=== PATIENT | male | born 1970 | race Asian ===

== ENCOUNTER 2018-11-03 07:14 | Inpatient (IN) | payer OTHER, SELFPAY ==
[2018-11-03] VITALS (134 sets, daily range): BP systolic 64–133; BP diastolic 29–85; PULSE 78–172; RESP 5–49; TEMP 31–37.7; O2SAT 79–100
[2018-11-03] MEDS: Normal Saline 1,000 ML 1000 ML IV ×3 (07:30→19:01)
--- NOTE | 2018-11-03 08:00 | DI.CT_ITS ---
SYMPTOMS/DIAGNOSIS: CHEST PAIN AND ABDOMINAL PAIN PE CT: CT angiography was performed with multi slice acquisition and multi planar and 3D reconstruction. The study was conducted according to the usual protocol with an intravenous administration of 100 cc of Omnipaque 350. There is a dense region of consolidation involving the right upper lobe. The remainder of the lung is clear. There is no pleural effusion or pneumothorax. There is no evidence of pulmonary embolic disease. The heart is not enlarged. There is no pericardial effusion. There is no evidence of an aortic aneurysm. The bony structures appear intact. SUMMARY: No evidence of pulmonary embolic disease. A sizeable region of increased density in the right upper lobe most likely represents an acute pneumonitis. Correlation with the patient's clinical status and follow-up imaging to clearing is recommended. CT OF THE ABDOMEN AND PELVIS: The examination was carried out with an intravenous administration of 100 cc of Omnipaque 350. The liver is unremarkable. The gallbladder is intact. The pancreas, spleen and kidneys appear intact. There is no abnormality involving the adrenal glands. There is no evidence of bowel obstruction. Thickening in the gastric wall is noted and is most certainly related to suboptimal distention. The appendix is normal. There is no evidence of localized inflammatory bowel disease or a mass. The bladder is suboptimally distended, but appears grossly intact. The reproductive organs as visualized are unremarkable. The aorta is unremarkable with no evidence of an aneurysm. The bony structures are intact. They are unremarkable save for mild degenerative changes. SUMMARY: No evidence of an acute abdomen.
[2018-11-03 08:03] LABS: Lactate-non-spesis 4.9 mmol/l (0.6-1.4)
--- NOTE | 2018-11-03 08:07 | W.ED.GENAD ---
Discharge Plan Disposition Patient Disposition: [facility] INPATIENT Condition: Stable Discharge Details Chief Complaint: SOB Clinical Impression: Sepsis, CAP (community acquired pneumonia) Reason For Visit: CAP, SEPSIS Admit Date/Time: 11/03/18 09:23 Admit Provider: Curtis Carvajal Attending Provider: Curtis Carvajal Primary Care Provider: Lisa,Local ED Provider: Delfino Casillas Medical Decision Making 48 yo male who denies chronic medical problems, former smoker who quit 2 years ago, denies significant alcohol or drug use, comes in with cc of subjective fevers and chills along with general weakness for 5 days and cough, and chest pain throughout the entire chest since yesterday and today had vomit x1 and diarrhea. Also has abd pain. Denies recent travel. He is noted to be tachycardic and hypotensive on exam and has dry mucous membranes, Is speaking in full sentences. HAs diminished breath sounds bilaterally at the bases, no significant wheezing on my exam. Has diffuse adominal tenderness but no guarding or rebound. Numberous ptoential etiologies of his symptoms, will obtain broad lab work and obtain ct chest abd and pelvis to eval for pna vs pe vs cholecystitis among other pathologies and fluid resuscitate Pt with MAPs in the low 60's, on his 2nd liter now, awaiting lab and imaging imaging on my read shows rul pna, awaiting radiology read. MAPs in the high 60's now, starting 3rd liter, will initiate abx for CAP. Lactate over 4, CRISPIN, wbc of 16. influenza negative radiology reports rul pna, no other acute abnormalities. MAPs still in the high 60's. I had a long discussion about if he required pressors it is more safe to do central line but has it's own complications as does running pressors through peripheral and at this time if needed he would prefer pressors through peripheral. Wll admit for sepsis secondary to community acquired pna Differential Diagnosis pe, acs, pna, influenza, cholecystitis, pancreatitis ECG Data Attestation: I personally reviewed and interpreted this ECG (s) as follows: Prior ECG tracings: not available for review Interpretation: sinus tachycardia, rate of 120, pr 154, no acute st t wave ischemic findings HPI General Mode of arrival: ambulatory. Date/Time Provider Initiated Documentation: 11/03/18 07:52. Limitations to Documentation: no limitations. Information obtained by: patient. History of Present Illness 48 year old M presents to the emergency department with the chief complaint of chest pain and weakness, described as moderate, with intensity rated at 5. Quality is described as aching, Patient reports no radiation. Patient started experiencing this day(s) (1) and it has been constant. No relieving factors improve symptom(s), No exacerbating factors reported . Patient notes fever/chills. Patient did receive the following treatments prior to arrival, none Related Data Home Medications Medication Instructions Recorded Confirmed benzonatate 200 mg PO Q8H PRN #30 cap 01/12/17 11/03/18 fluticasone 16 gm NS BID 01/12/17 11/03/18 loratadine-pseudoephedrine 1 tab PO DAILY 01/12/17 11/03/18 [Claritin-D 24 Hour Tablet] oxymetazoline [Afrin Nasal [place]] 15 ml NS BID 01/12/17 11/03/18 Previous Rx's Medication Instructions Recorded benzonatate 200 mg PO Q8H PRN #30 cap 01/12/17 Allergies Allergy/AdvReac Type Severity Reaction Status Date / Time No Known Allergies Allergy Unverified 01/12/17 10:30 General Stated Complaint: GenMedical RAQUEL: 3 Review of Systems Review of Systems All systems reviewed & are unremarkable except as noted in HPI and below ENT Denies change in voice Genitourinary Denies dysuria Musculoskeletal Denies joint swelling Psychiatric Denies depression Endocrine Denies cold intolerance PFSH Social History Smoking and Tabacco status: Former Tobacco Use Exam Const General: no acute distress Orientation: alert [facility] Head: normal to inspection Ears: external ears normal General nose exam: external nose normal Mouth: moist mucous membranes Eyes General: appearance normal, both eyes and all related structures Neck Neck: normal visual inspection Resp Effort & Inspection: normal respiratory effort and able to speak in complete sentences Cardio Jugular venous pressure: no JVD Rate: tachycardic Skin General skin exam: no rashes or lesions noted Neuro General: alert and oriented x3 Extrem General: normal to inspection Psych Mental Status: mental status grossly normal Course Vital Signs Temperature 37 C 11/03/18 07:36 Pulse 120 H 11/03/18 07:36 Respiratory Rate 18 11/03/18 07:36 Blood Pressure 88/59 L 11/03/18 07:36 Pulse Oximetry 98 11/03/18 07:36 Temperature 37 C 11/03/18 07:36 Temperature Source Tympanic 11/03/18 07:36 Pulse 120 H 11/03/18 07:36 Respiratory Rate 18 11/03/18 07:36 Respiratory Effort Non-Labored 11/03/18 07:36 Blood Pressure 88/59 L 11/03/18 07:36 Blood Pressure Position Supine 11/03/18 07:36 Pulse Oximetry 98 11/03/18 07:36 Oxygen Delivery Method Room Air 11/03/18 07:36 Oxygen Flow Rate 0 11/03/18 07:36 Pain Level 8 11/03/18 07:36 Lab/Test Results Lab/Test Results: 11/03/18 08:06 Nasopharynx Influenza Types A,B Antigen - Pending 11/03/18 07:53 Blood Blood Culture - Pending 11/03/18 07:53 Blood Blood Culture - Pending Laboratory Tests Range/Units 11/03/18 07:40 Lactate (0.6-1.4) mmol/l 4.9 H Critical Care Time Critical Care Time: Yes Total Critical Care Time: 60 (minutes) Attestation: time spent monitoring labs, frequent assessments and monitoring hemodynamics in patient with sepsis due to pneumonia and hypotension responsive to fluids and potential to deteriorate at any time
[2018-11-03 08:08] LABS: Abs Immature Grans 0.09 k/cumm (0.0-0.09); HCT 43.9 % (40.0-50.0); HGB 14.7 g/dL (13.5-17.5); Mean Corp. HGB Concentration 33.5 g/dL (32.0-36.0); Mean Corpuscular Volume 80.6 fL (80-95); Mean Platelet Volume 11.9 fL (8.0-11.0); RBC 5.45 m/cumm (4.50-6.00); RBC Distribution Width 14.9 % (11.8-14.1); White Blood Cell Count 16.36 k/cumm (4.4-10.8)
[2018-11-03] MEDS: Ketorolac 15 MG/ML VIAL IVP (08:10)
--- NOTE | 2018-11-03 08:10 | ED.GENADUL_ITS ---
Discharge Plan Disposition Patient Disposition: [facility] INPATIENT Condition: Stable Discharge Details Chief Complaint: SOB Clinical Impression: Sepsis, CAP (community acquired pneumonia) Reason For Visit: CAP, SEPSIS Admit Date/Time: 11/03/18 09:23 Admit Provider: Curtis Carvajal Attending Provider: Curtis Carvajal Primary Care Provider: Lisa,Local ED Provider: Delfino Casillas Medical Decision Making 48 yo male who denies chronic medical problems, former smoker who quit 2 years ago, denies significant alcohol or drug use, comes in with cc of subjective fevers and chills along with general weakness for 5 days and cough, and chest pain throughout the entire chest since yesterday and today had vomit x1 and diarrhea. Also has abd pain. Denies recent travel. He is noted to be tachycardic and hypotensive on exam and has dry mucous membranes, Is speaking in full sentences. HAs diminished breath sounds bilaterally at the bases, no significant wheezing on my exam. Has diffuse adominal tenderness but no guarding or rebound. Numberous ptoential etiologies of his symptoms, will obtain broad lab work and obtain ct chest abd and pelvis to eval for pna vs pe vs cholecystitis among other pathologies and fluid resuscitate Pt with MAPs in the low 60's, on his 2nd liter now, awaiting lab and imaging imaging on my read shows rul pna, awaiting radiology read. MAPs in the high 60's now, starting 3rd liter, will initiate abx for CAP. Lactate over 4, CRISPIN, wbc of 16. influenza negative radiology reports rul pna, no other acute abnormalities. MAPs still in the high 60's. I had a long discussion about if he required pressors it is more safe to do central line but has it's own complications as does running pressors through peripheral and at this time if needed he would prefer pressors through peripheral. Wll admit for sepsis secondary to community acquired pna Differential Diagnosis pe, acs, pna, influenza, cholecystitis, pancreatitis ECG Data Attestation: I personally reviewed and interpreted this ECG (s) as follows: Prior ECG tracings: not available for review Interpretation: sinus tachycardia, rate of 120, pr 154, no acute st t wave ischemic findings HPI General Mode of arrival: ambulatory . Date/Time Provider Initiated Documentation: 11/03/18 07:52 . Limitations to Documentation: no limitations . Information obtained by: patient . History of Present Illness 48 year old M presents to the emergency department with the chief complaint of chest pain and weakness, described as moderate, with intensity rated at 5. Quality is described as aching, Patient reports no radiation. Patient started experiencing this day(s) (1) and it has been constant. No relieving factors improve symptom(s), No exacerbating factors reported . Patient notes fever/chills. Patient did receive the following treatments prior to arrival, none Related Data Home Medications Medication Instructions Recorded Confirmed benzonatate 200 mg PO Q8H PRN #30 cap 01/12/17 11/03/18 fluticasone 16 gm NS BID 01/12/17 11/03/18 loratadine-pseudoephedrine 1 tab PO DAILY 01/12/17 11/03/18 [Claritin-D 24 Hour Tablet] oxymetazoline [Afrin Nasal [place]] 15 ml NS BID 01/12/17 11/03/18 Previous Rx's Medication Instructions Recorded benzonatate 200 mg PO Q8H PRN #30 cap 01/12/17 Allergies Allergy/AdvReac Type Severity Reaction Status Date / Time No Known Allergies Allergy Unverified 01/12/17 10:30 General Stated Complaint: GenMedical RAQUEL: 3 Review of Systems Review of Systems All systems reviewed & are unremarkable except as noted in HPI and below ENT Denies change in voice Genitourinary Denies dysuria Musculoskeletal Denies joint swelling Psychiatric Denies depression Endocrine Denies cold intolerance PFSH Social History Smoking and Tabacco status: Former Tobacco Use Exam Const General: no acute distress Orientation: alert [facility] Head: normal to inspection Ears: external ears normal General nose exam: external nose normal Mouth: moist mucous membranes Eyes General: appearance normal, both eyes and all related structures Neck Neck: normal visual inspection Resp Effort & Inspection: normal respiratory effort and able to speak in complete sentences Cardio Jugular venous pressure: no JVD Rate: tachycardic Skin General skin exam: no rashes or lesions noted Neuro General: alert and oriented x3 Extrem General: normal to inspection Psych Mental Status: mental status grossly normal Course Vital Signs Temperature 37 C 11/03/18 07:36 Pulse 120 H 11/03/18 07:36 Respiratory Rate 18 11/03/18 07:36 Blood Pressure 88/59 L 11/03/18 07:36 Pulse Oximetry 98 11/03/18 07:36 Temperature 37 C 11/03/18 07:36 Temperature Source Tympanic 11/03/18 07:36 Pulse 120 H 11/03/18 07:36 Respiratory Rate 18 11/03/18 07:36 Respiratory Effort Non-Labored 11/03/18 07:36 Blood Pressure 88/59 L 11/03/18 07:36 Blood Pressure Position Supine 11/03/18 07:36 Pulse Oximetry 98 11/03/18 07:36 Oxygen Delivery Method Room Air 11/03/18 07:36 Oxygen Flow Rate 0 11/03/18 07:36 Pain Level 8 11/03/18 07:36 Lab/Test Results Lab/Test Results: 11/03/18 08:06 Nasopharynx Influenza Types A,B Antigen - Pending 11/03/18 07:53 Blood Blood Culture - Pending 11/03/18 07:53 Blood Blood Culture - Pending Laboratory Tests Range/Units 11/03/18 07:40 Lactate (0.6-1.4) mmol/l 4.9 H Critical Care Time Critical Care Time: Yes Total Critical Care Time: 60 (minutes) Attestation: time spent monitoring labs, frequent assessments and monitoring hemodynamics in patient with sepsis due to pneumonia and hypotension responsive to fluids and potential to deteriorate at any time
[2018-11-03 08:21] LABS: INR 1.2 (0.9-1.1); PTT Activated 29.5 sec (21.0-31.4)
[2018-11-03 08:27] LABS: ALT 32 U/L (12-78); AST 19 U/L (15-37); Albumin 2.9 g/dL (3.4-5.0); Alkaline Phosphatase 64 U/L (46-116); Anion Gap 15.5 mmol/L (3-11); BUN 26 mg/dL (7-18); Bilirubin, Total 1.1 mg/dL (0.2-1.0); CO2 23.5 mmol/L (21.0-32.0); CREATININE 2.16 mg/dL (0.70-1.30); Calcium 9.3 mg/dL (8.5-10.1); Chloride 103 mmol/L (98-107); Estimated GFR 33.08 (mL/min/1.73m2); Glucose 116 mg/dL (70-100); Magnesium 1.2 mg/dL (1.8-2.4); Potassium 3.8 mmol/L (3.5-5.1); Sodium 142 mmol/L (136-145); Troponin I < 0.02 ng/mL (0.00-0.06)
[2018-11-03 08:28] LABS: Absolute Lymphocyte Count 2.13 k/cumm (1.2-3.4); Absolute Neutrophil Count 13.09 k/cumm (1.2-6.7); Atypical Lymphocytes % 3
[2018-11-03 08:29] LABS: Absolute Monocyte Count 0.98 k/cumm (0.11-0.7); Diff Comment Manual Differential; Platelet Count 292 x1000/uL (130-400); Poikilocytes 1+
[2018-11-03] MEDS: Omnipaque 350 MG/ML 100 ML BTL IJ (08:30)
[2018-11-03 09:00] LABS: Lipase 56 U/L (73-393)
[2018-11-03] MEDS: AZITHROMYCIN 500 MG in Normal Saline 250 ML 250 MG IVPB (09:00)
[2018-11-03] MEDS: Lactated Ringers 1,000 ML 1000 ML IV ×2 (09:00→09:45)
[2018-11-03 09:03] LABS: ALT 35 U/L (12-78); AST 19 U/L (15-37); Albumin 2.9 g/dL (3.4-5.0); Alkaline Phosphatase 66 U/L (46-116); Bilirubin, Direct 0.34 mg/dL (0.00-0.20); Bilirubin, Total 1.1 mg/dL (0.2-1.0); Total Protein 7.1 g/dL (6.4-8.2)
[2018-11-03] MEDS: fentaNYL 100 MCG/2 ML VIAL IVP (09:05)
[2018-11-03] MEDS: MAGNESIUM SULFATE 4 GM/100 ML BAG IVPB (09:11)
[2018-11-03] MEDS: Normal Saline 1,000 ML 500 ML IV ×6 (09:25→23:22)
[2018-11-03] MEDS: guaiFENesin/CODEINE PHOSPHATE 10 ML CUP PO (11:14)
[2018-11-03] MEDS: Hydrocortisone SOD SUC. 100 MG VIAL 50 MG IVP ×3 (11:17→20:47)
[2018-11-03] MEDS: Normal Saline Flush 10 ML SYR IVP ×3 (11:18→22:15)
[2018-11-03] MEDS: Ketorolac 30 MG/ML VIAL IVP (11:45)
[2018-11-03] MEDS: ACETAMINOPHEN 1,000 MG/100 ML BTL 400 MG IVPB ×3 (11:46→23:22)
[2018-11-03] MEDS: Oseltamivir 75 MG CAP PO ×2 (11:47→19:41)
[2018-11-03] MEDS: Albuterol/Ipratropium 3 ML UPD VIAL UPD ×4 (12:11→23:22)
[2018-11-03] MEDS: VANCOMYCIN 2,000 MG in Normal Saline 500 ML 250 MG IVPB (12:21)
--- NOTE | 2018-11-03 13:52 | W.PM.HP.N ---
Date of service: 11/03/18 Time of Service: 13:52 Assessment and Plan (1) Sepsis: Current visit: Yes Status: Acute Diagnosis of sepsis based on tachypnea, tachycardia, leukocytosis with significant bandemia, and an identified infectious source with a right upper lobe pneumonia. Mr. Davis also has evidence of organ dysfunction with a significantly elevated lactic acid, hypotension, and acute kidney injury with a creatinine greater than 2. As he is continuing to have persistent hypotension despite fluid resuscitation and a significantly elevated lactic acid his presentation likely signifies septic shock. Initial rapid flu checked and negative. However patient's symptoms of a febrile upper respiratory infection with myalgias now ongoing for a few weeks may represent an infection with influenza, with a possible post influenza pneumonia. Will initiate coverage with oseltamivir while awaiting official flu PCR check. Also given this possibility will cover broadly with vancomycin and PIP-Tazo. Check sputum and blood cultures, continue aggressive fluid resuscitation, initiate high flow O2 with low threshold for BiPAP therapy as patient appears to be working hard to breathe. Continue antipyretic and antitussive therapy, stress dose steroids, frequent aggressive nebulizers, and anti-emetics for comfort. Patient's CURB?65 score places him at high severity risk factor for his pneumonia. We will admit him to the ICU and monitor closely, with obvious low threshold for intubation if required. Unfortunately at this time the patient has declined central line placement. (2) Pneumonia: Current visit: Yes Status: Acute Treatment as above. (3) CRISPIN (acute kidney injury): Current visit: Yes Status: Acute In setting of acute illness, fevers, and hypotension - may represent prerenal etiology. Continue aggressive fluid resuscitation and monitor renal function. Ensure renal dosing of all medications and avoid nephrotoxins. (4) DVT prophylaxis: Current visit: Yes Status: Acute Heparin subcu. We will also ensure GI prophylaxis with IV PPI therapy. History of Present Illness Chief Complaint: Dyspnea, Cough, Fever Narrative: 48-year-old former smoker without significant past medical history, being admitted from [facility] Emergency Department on 11/03 with a diagnosis of sepsis and pneumonia. Mr. Mcpherson has a prior history of tobacco abuse, quit approximately 2 years ago. He also states that he date until approximately 3 weeks ago, which coincides with when he started to feel ill. The patient reports onset of a febrile URI type illness, with symptoms that included myalgias, muscle aches and joint pains, weakness, fever, chills, and dyspnea. His symptoms progressively worsened over the course of this time, and finally resulted in nausea, vomiting, and onset of diarrhea this morning, along with significant worsening of his breathing. He reports ill contacts at home with both his significant other and daughter. Evaluation in the ED was significant for a leukocytosis consisting of a white count of 16 with 36 bands, CRISPIN, Elevated Lactate at nearly 5, and evidence of pneumonia by imaging. In fact CT confirmed a large pneumonia in the Right Upper Lobe. CT of his abdomen and pelvis was negative for any pathology. He was also tachycardic, hypotensive, tachypneic, and occasionally hypoxic. He was referred for admission. Review of Systems Review of Systems All systems reviewed & are unremarkable except as noted in HPI and below PFSH Social History Smoking and Tabacco status: Former Tobacco Use Meds Home Medications Medication Instructions Recorded Confirmed Type benzonatate 200 mg PO Q8H PRN #30 cap 01/12/17 11/03/18 Rx fluticasone 16 gm NS BID 01/12/17 11/03/18 History loratadine-pseudoephedrine 1 tab PO DAILY 01/12/17 11/03/18 History [Claritin-D 24 Hour Tablet] oxymetazoline [Afrin Nasal [place]] 15 ml NS BID 01/12/17 11/03/18 History Allergies Allergy/AdvReac Type Severity Reaction Status Date / Time No Known Allergies Allergy Unverified 01/12/17 10:30 Exam Narrative Exam Narrative: General: Patient appears uncomfortable, ill-appearing, and toxic. He is AAOX3. Neck: Supple CV: Regular, tachycardic, S1S2, No rubs, murmurs, or gallops. Pulmonary: Right upper and middle lung zones with diminished breath sounds and rhonchi. Abdomen: + Bowel Sounds, soft, nontender, nondistended. Obese in Contour. Vascular: No lower extremity edema Neurologic: CN II-XII grossly intact. No focal deficits. Psych: Normal mood and affect. Results Imaging Additional studies: Exam(s) a CT:CT chest PE abd & pelvis w SYMPTOMS/DIAGNOSIS: CHEST PAIN AND ABDOMINAL PAIN PE CT: CT angiography was performed with multi slice acquisition and multi planar and 3D reconstruction. The study was conducted according to the usual protocol with an intravenous administration of 100 cc of Omnipaque 350. There is a dense region of consolidation involving the right upper lobe. The remainder of the lung is clear. There is no pleural effusion or pneumothorax. There is no evidence of pulmonary embolic disease. The heart is not enlarged. There is no pericardial effusion. There is no evidence of an aortic aneurysm. The bony structures appear intact. SUMMARY: No evidence of pulmonary embolic disease. A sizeable region of increased density in the right upper lobe most likely represents an acute pneumonitis. Correlation with the patient's clinical status and follow-up imaging to clearing is recommended. CT OF THE ABDOMEN AND PELVIS: The examination was carried out with an intravenous administration of 100 cc of Omnipaque 350. The liver is unremarkable. The gallbladder is intact. The pancreas, spleen and kidneys appear intact. There is no abnormality involving the adrenal glands. There is no evidence of bowel obstruction. Thickening in the gastric wall is noted and is most certainly related to suboptimal distention. The appendix is normal. There is no evidence of localized inflammatory bowel disease or a mass. The bladder is suboptimally distended, but appears grossly intact. The reproductive organs as visualized are unremarkable. The aorta is unremarkable with no evidence of an aneurysm. The bony structures are intact. They are unremarkable save for mild degenerative changes. SUMMARY: No evidence of an acute abdomen. Labs : 11/03/18 07:40 11/03/18 07:40 Laboratory Results - last 24 hr 11/03/18 11/03/18 11/03/18 07:40 07:40 07:40 WBC 16.36 H RBC 5.45 Hgb 14.7 Hct 43.9 MCV 80.6 MCH 27.0 MCHC 33.5 RDW 14.9 H Plt Count 292 MPV 11.9 H Immature Gran % See Differential Neutrophils % 44.0 Band Neutrophils % 36.0 Lymphocytes % 10.0 Atypical Lymphs % 3 Monocytes % 6.0 Eosinophils % 0.0 Basophils % 0.0 Absolute Neutrophils 13.09 H Absolute Lymphocytes 2.13 Absolute Monocytes 0.98 H Absolute Eosinophils 0.00 Absolute Basophils 0.00 Metamyelocytes 1.0 Differential Comment Manual differential RBC Morphology See below Poikilocytosis 1+ PT INR APTT Sodium 142 Potassium 3.8 Chloride 103 Carbon Dioxide 23.5 Anion Gap 15.5 H BUN 26 H Creatinine 2.16 H Estimated GFR/1.73 m2 33.08 Glucose 116 H Lactate 4.9 H Calcium 9.3 Magnesium 1.2 L Total Bilirubin 1.1 H Conjugated Bilirubin AST 19 ALT 32 Alkaline Phosphatase 64 Troponin I < 0.02 Total Protein 7.0 Albumin 2.9 L Lipase 11/03/18 11/03/18 11/03/18 07:40 07:40 07:40 WBC RBC Hgb Hct MCV MCH MCHC RDW Plt Count MPV Immature Gran % Neutrophils % Band Neutrophils % Lymphocytes % Atypical Lymphs % Monocytes % Eosinophils % Basophils % Absolute Neutrophils Absolute Lymphocytes Absolute Monocytes Absolute Eosinophils Absolute Basophils Metamyelocytes Differential Comment RBC Morphology Poikilocytosis PT 12.0 H INR 1.2 H APTT 29.5 Sodium Potassium Chloride Carbon Dioxide Anion Gap BUN Creatinine Estimated GFR/1.73 m2 Glucose Lactate Calcium Magnesium Total Bilirubin 1.1 H Conjugated Bilirubin 0.34 H AST 19 ALT 35 Alkaline Phosphatase 66 Troponin I Total Protein 7.1 Albumin 2.9 L Lipase 56 L Last Vital Signs Temp 36.2 C L 11/03/18 10:30 Pulse 128 H 11/03/18 10:30 Resp 38 H 11/03/18 10:30 BP 82/51 L 11/03/18 10:30 Pulse Ox 97 11/03/18 11:19
[2018-11-03] MEDS: Benzonatate 200 MG CAP PO ×2 (14:58→19:41)
[2018-11-03] MEDS: Pantoprazole 40 MG VIAL IVP (14:58)
[2018-11-03] MEDS: LORazepam 2 MG/ML VIAL 1 MG IVP ×3 (16:15→22:14)
[2018-11-03] MEDS: PIPERACILLIN/TAZO 4.5 GM in Normal Saline 100 ML IVPB (19:40)
[2018-11-03] MEDS: Fluticasone NASAL SPRAY 16 GM BTL NS (19:41)
[2018-11-04] VITALS (76 sets, daily range): BP systolic 91–165; BP diastolic 48–106; PULSE 113–155; RESP 10–46; TEMP 36.6–37.5; O2SAT 86–100
[2018-11-04] MEDS: LORazepam 2 MG/ML VIAL 1 MG IVP ×2 (01:25→04:55)
[2018-11-04] MEDS: VANCOMYCIN 1,250 MG in Normal Saline 250 ML 166.667 MG IVPB (04:24)
[2018-11-04] MEDS: Normal Saline Flush 10 ML SYR IVP (04:39)
[2018-11-04] MEDS: Albuterol/Ipratropium 3 ML UPD VIAL UPD (04:40)
[2018-11-04] MEDS: Hydrocortisone SOD SUC. 100 MG VIAL 50 MG IVP ×2 (04:40→09:11)
[2018-11-04] MEDS: Heparin 5,000 UNITS/ML VIAL 5000 UNITS SC (06:51)
[2018-11-04] MEDS: ACETAMINOPHEN 1,000 MG/100 ML BTL 400 MG IVPB ×2 (06:51→12:03)
[2018-11-04 07:25] LABS: Abs Immature Grans 0.22 k/cumm (0.0-0.09); HCT 38.6 % (40.0-50.0); HGB 12.4 g/dL (13.5-17.5); Mean Corp. HGB Concentration 32.1 g/dL (32.0-36.0); Mean Corpuscular Hemoglobin 26.4 pg (27.0-33.0); Mean Corpuscular Volume 82.1 fL (80-95); Mean Platelet Volume 11.8 fL (8.0-11.0); Platelet Count 254 x1000/uL (130-400); RBC Distribution Width 15.9 % (11.8-14.1); White Blood Cell Count 22.44 k/cumm (4.4-10.8)
--- NOTE | 2018-11-04 07:41 | DI.RAD_ITS ---
SYMPTOM/DIAGNOSIS: DYSPNEA PORTABLE AP CHEST: Note is again made of predominant right upper lobe opacification as seen on yesterday's CT consistent with pneumonia. The lungs are otherwise grossly clear as visualized. No pleural effusion is seen. Cardiac size within normal limits. CONCLUSION: Findings consistent with right upper lobe pneumonia.
[2018-11-04 07:48] LABS: ALT 31 U/L (12-78); AST 31 U/L (15-37); Albumin 2.2 g/dL (3.4-5.0); Alkaline Phosphatase 56 U/L (46-116); Anion Gap 13.4 mmol/L (3-11); BUN 24 mg/dL (7-18); Bilirubin, Total 0.5 mg/dL (0.2-1.0); CO2 18.6 mmol/L (21.0-32.0); Chloride 111 mmol/L (98-107); Estimated GFR 59.43 (mL/min/1.73m2); Glucose 124 mg/dL (70-100); Magnesium 1.9 mg/dL (1.8-2.4); Potassium 4.3 mmol/L (3.5-5.1); Sodium 143 mmol/L (136-145); Total Protein 6.3 g/dL (6.4-8.2)
--- NOTE | 2018-11-04 07:55 | NUR.NOTE ---
Pt had a difficult night. He did not get much rest due to restlessness and anxiety, somewhat relieved by Q2 Ativan and morphine. Pt was belligerent and non compliant at times, other times he was apologetic. Pt very unsteady, wobbly and swaying front to back. He was frequently noncompliant with my directions for safety, for example, at one point I was trying to assist him with sitting on the bed and he disregarded my direction and ended up climbing over the bed rail and flopping himself sideways on the bed. He vacillated between being alert & oriented to being delirious, saying things about his family and war, its not easy to shoot a [age] year old girl. He asked for his daughter quite a few times and got a little weepy and emotional. The pt ended up pulling out all 3 IV sites he had at the start of my shift, over the course of the night. We were successful at placing one IV to continue fluids. I was able to secure a patient observer around [phone] which helped maintain patient safety. Nursing Note:
[2018-11-04 08:06] LABS: HCO3 17 mmol/L (22-28); pH 7.28 (7.35-7.45); pO2 66 mmHg (83-108); sO2 92 % (94-98); tCO2 15 mmol/L (22-29)
[2018-11-04 08:10] LABS: FIO2L Nasal Cannula L; Site Left Radial
[2018-11-04 08:11] LABS: Absolute Lymphocyte Count 1.35 k/cumm (1.2-3.4); Absolute Monocyte Count 0.22 k/cumm (0.11-0.7); Absolute Neutrophil Count 20.64 k/cumm (1.2-6.7); Burr Cells (echinocyte) 2+; Diff Comment Manual Differential; Poikilocytes 1+; Polychromasia Present
[2018-11-04 08:11] LABS: FIO2 36 %; pCO2 35 mmHg (34-47)
[2018-11-04] MEDS: Oseltamivir 75 MG CAP PO (09:12)
[2018-11-04] MEDS: Benzonatate 200 MG CAP PO (09:12)
[2018-11-04] MEDS: PIPERACILLIN/TAZO 4.5 GM in Normal Saline 100 ML IVPB (09:21)
[2018-11-04 09:36] LABS: Lactate-non-spesis 4.1 mmol/l (0.6-1.4)
--- NOTE | 2018-11-04 10:12 | PDOC.CMIN ---
- If Service Date Differs Date of service: 11/04/18 Time of Service: 10:12 Care Management Initial Assess REASON FOR HOSPITALIZATION:: Sepsis
[2018-11-04] MEDS: PROPOFOL 1,000 MG/100 ML BTL 45 MG IVPB (10:15)
--- NOTE | 2018-11-04 10:30 | DI.RAD_ITS ---
SYMPTOMS/DIAGNOSIS: INTUBATION PORTABLE AP CHEST: Portable AP chest was performed and shows placement of an endotracheal tube about 4.5 cm above the cy. Predominant right upper lobe opacification again noted consistent with severe acute pneumonia.
[2018-11-04] MEDS: PROPOFOL 1,000 MG/100 ML BTL 45 MG (10:41)
[2018-11-04] MEDS: Normal Saline 1,000 ML 250 ML IV (10:48)
--- NOTE | 2018-11-04 10:55 | PGE_ITS ---
Date of Service Date of service: 11/04/18 Time of Service: 10:52 Assessment and Plan (1) Sepsis: Current visit: Yes Status: Acute Diagnosis of sepsis based on tachypnea, tachycardia, leukocytosis with significant bandemia, and an identified infectious source with a right upper lobe pneumonia. Mr. Davis also has evidence of organ dysfunction with a significantly elevated lactic acid, hypotension, and acute kidney injury with an initial creatinine greater than 2. As he is continuing to have persistent hypotension despite fluid resuscitation and a significantly elevated lactic acid, his presentation likely signified septic shock. Initial rapid flu checked and negative. However patient's symptoms of a febrile upper respiratory infection with myalgias now ongoing for a few weeks may represent an infection with influenza, with a possible post influenza pneumonia. Continue coverage with Oseltamivir while awaiting official flu PCR check. Also given this possibility will cover broadly with Vancomycin and PIP-Tazo, now day #2. Sputum and blood cultures are pending. Continue aggressive fluid resuscitation but drop rate slightly. Patient now intubated. Will repeat ABG in 1 hour. Continue antipyretic, stress dose steroids. Was also on nebulizer therapy. Patient's CURB?65 score places him at high severity risk factor for his pneumonia. Will also attempt to obtain central line for ease of access. (2) Pneumonia: Current visit: Yes Status: Acute Treatment as above. (3) CRISPIN (acute kidney injury): Current visit: Yes Status: Acute In setting of acute illness, fevers, and hypotension - may represent prerenal etiology. Creatinine vastly improved and now within normal range. Continue fluid resuscitation and treatment of infection. Monitor renal function. Ensure renal dosing of all medications and avoid nephrotoxins. (4) DVT prophylaxis: Current visit: Yes Status: Acute Heparin subcu. We will also ensure GI prophylaxis with IV PPI therapy. Subjective Interval history since last seen: Dyspnea, Cough, Fever Narrative: 48-year-old former smoker without significant past medical history, admitted 12/01 from [facility] Emergency Department on 11/03 with a diagnosis of sepsis and pneumonia. Mr. Mcpherson has a prior history of tobacco abuse, quit approximately 2 years ago. He also stated that he 'Vaped' until approximately 3 weeks ago, which coincides with when he started to feel ill. The patient reports onset of a febrile URI type illness at that time, with symptoms that included myalgias, muscle aches and joint pains, weakness, fever, chills, and dyspnea. His symptoms progressively worsened over the course of this time, and finally resulted in nausea, vomiting, and onset of diarrhea on the morning of admission. He also reported significantly worsening of his breathing. The patient apparently had ill contacts at home with both his significant other and daughter. Evaluation in the ED was significant for a leukocytosis consisting of a WBC of 16 with 36 bands, CRISPIN, Elevated Lactate at nearly 5, and evidence of pneumonia by imaging. In fact CT confirmed a large pneumonia in the Right Upper Lobe. CT of his abdomen and pelvis was negative for any pathology. He was also tachycardic, hypotensive, tachypneic, and occasionally hypoxic. He was referred for admission. The patient's hypotension appears improved. His white count and bandemia appear worse this morning. His Lactate is elevated at 4.1, improved slightly from 4.1. His creatinine is vastly improved this morning and now within normal range. However, he appeared confused this morning - his Xray showed continued RUL PNA, essentially unchanged and otherwise clear, and his ABG showed a mild acidosis with a PH of 7.28, PaO2 low at 66, and a low normal pCO2 indicating a compensated metabolic acidosis. Labwork showed a continued but improving gapped acidosis. As the patient appeared both altered and with continued increased work of breathing decision was made to intubate, and the patient is now on Mechanical Ventilation. He remains afebrile. Exam Narrative Exam Narrative: General: Patient appeared uncomfortable, tachypneic, ill- appearing. Confused prior to intubation. Neck: Supple CV: Regular, tachycardic, S1S2, No rubs, murmurs, or gallops. Pulmonary: Right upper and middle lung zones with diminished breath sounds and rhonchi. Exam essentially unchanged from prior. Abdomen: + Bowel Sounds, soft, nontender, nondistended. Obese in Contour. Vascular: No lower extremity edema Psych: Normal mood and affect. Objective Objective Clinical Data: Abnormal lab results 11/04/18 11/04/18 11/04/18 Range/Units 06:50 06:50 08:00 WBC 22.44 H D (4.4-10.8) k/cumm Hgb 12.4 L D (13.5-17.5) g/dL Hct 38.6 L (40.0-50.0) % MCH 26.4 L (27.0-33.0) pg RDW 15.9 H (11.8-14.1) % MPV 11.8 H (8.0-11.0) fL Absolute Neutrophils 20.64 H (1.2-6.7) k/cumm pO2 66 L (83-108) mmHg O2 Saturation 92 L (94-98) % ABG pH 7.28 L (7.35-7.45) ABG HCO3 17 L (22-28) mmol/L ABG Total CO2 15 L (22-29) mmol/L ABG Base Excess -10.0 L (-3-3) mmol/L Chloride 111 H (98-107) mmol/L Carbon Dioxide 18.6 L (21.0-32.0) mmol/L Anion Gap 13.4 H (3-11) mmol/L BUN 24 H (7-18) mg/dL Glucose 124 H (70-100) mg/dL Lactate (0.6-1.4) mmol/l Calcium 8.0 L (8.5-10.1) mg/dL Total Protein 6.3 L (6.4-8.2) g/dL Albumin 2.2 L (3.4-5.0) g/dL 11/04/18 Range/Units 09:25 WBC (4.4-10.8) k/cumm Hgb (13.5-17.5) g/dL Hct (40.0-50.0) % MCH (27.0-33.0) pg RDW (11.8-14.1) % MPV (8.0-11.0) fL Absolute Neutrophils (1.2-6.7) k/cumm pO2 (83-108) mmHg O2 Saturation (94-98) % ABG pH (7.35-7.45) ABG HCO3 (22-28) mmol/L ABG Total CO2 (22-29) mmol/L ABG Base Excess (-3-3) mmol/L Chloride (98-107) mmol/L Carbon Dioxide (21.0-32.0) mmol/L Anion Gap (3-11) mmol/L BUN (7-18) mg/dL Glucose (70-100) mg/dL Lactate 4.1 H (0.6-1.4) mmol/l Calcium (8.5-10.1) mg/dL Total Protein (6.4-8.2) g/dL Albumin (3.4-5.0) g/dL Vital Signs Temperature 37.5 C 11/04/18 03:30 Temperature Source Temporal Artery Scan 11/04/18 03:30 Pulse 130 H 11/04/18 07:35 Pulse 134 H 11/04/18 06:00 Respiratory Rate 32 H 11/04/18 07:35 Respiratory Effort Labored 11/04/18 07:35 Respiratory Depth Shallow 11/04/18 03:30 Respiratory Pattern Tachypnea 11/04/18 03:30 Blood Pressure 126/96 H 11/04/18 06:00 Blood Pressure Mean 100 11/04/18 06:00 Blood Pressure Position Supine 11/03/18 07:36 Pulse Oximetry 95 11/04/18 06:00 Oxygen Delivery Method Nasal Cannula 11/04/18 07:35 Oxygen Flow Rate 5 11/03/18 18:02 Fraction of Inspired Oxygen (FIO2) 40 11/03/18 17:09 Pain Level 4 11/03/18 23:15 Intake & Output 11/03/18 11/03/18 11/04/18 11:59 23:59 11:59 Intake Total 5450 / 60257.667 6279.667 / 56492.667 1100 / 1100 Output Total 990 / 990 825 / 825 Balance 5450 / 90796.667 5289.667 / 84760.667 275 / 275 Weight 108.3 kg Intake: IV 5450 / 89367.667 5816.667 / 14894.667 1000 / 1000 Oral 463 / 463 100 / 100 Output: Urine 990 / 990 825 / 825 Other: Urine Color Yellow Light Lalitha Light Lalitha Urine Appearance Clear Clear Urine Odor Strong Strong Voiding Methods Urinal Laboratory Results WBC 22.44 k/cumm (4.4-10.8) H D 11/04/18 06:50 RBC 4.70 m/cumm (4.50-6.00) 11/04/18 06:50 Hgb 12.4 g/dL (13.5-17.5) L D 11/04/18 06:50 Hct 38.6 % (40.0-50.0) L 11/04/18 06:50 MCV 82.1 fL (80-95) 11/04/18 06:50 MCH 26.4 pg (27.0-33.0) L 11/04/18 06:50 MCHC 32.1 g/dL (32.0-36.0) 11/04/18 06:50 RDW 15.9 % (11.8-14.1) H 11/04/18 06:50 Plt Count 254 x1000/uL (130-400) 11/04/18 06:50 MPV 11.8 fL (8.0-11.0) H 11/04/18 06:50 Immature Gran % 0.0 11/04/18 06:50 Neutrophils % 46.0 11/04/18 06:50 Band Neutrophils % 46.0 % 11/04/18 06:50 Lymphocytes % 6.0 11/04/18 06:50 Atypical Lymphs % 3 11/03/18 07:40 Monocytes % 1.0 11/04/18 06:50 Eosinophils % 0.0 11/04/18 06:50 Basophils % 0.0 11/04/18 06:50 Absolute Neutrophils 20.64 k/cumm (1.2-6.7) H 11/04/18 06:50 Absolute Lymphocytes 1.35 k/cumm (1.2-3.4) 11/04/18 06:50 Absolute Monocytes 0.22 k/cumm (0.11-0.7) 11/04/18 06:50 Absolute Eosinophils 0.00 k/cumm (0.0-0.7) 11/04/18 06:50 Absolute Basophils 0.00 k/cumm (0.0-0.2) 11/04/18 06:50 Metamyelocytes 1.0 % 11/03/18 07:40 Differential Comment Manual differential 11/04/18 06:50 RBC Morphology See below 11/04/18 06:50 Polychromasia Present 11/04/18 06:50 Poikilocytosis 1+ 11/04/18 06:50 [place] Cells 2+ 11/04/18 06:50 PT 12.0 sec (9.3-11.0) H 11/03/18 07:40 INR 1.2 (0.9-1.1) H 11/03/18 07:40 APTT 29.5 sec (21.0-31.4) 11/03/18 07:40 Sample Site Left radial 11/04/18 08:00 pCO2 35 mmHg (34-47) 11/04/18 08:00 pO2 66 mmHg (83-108) L 11/04/18 08:00 O2 Saturation 92 % (94-98) L 11/04/18 08:00 ABG pH 7.28 (7.35-7.45) L 11/04/18 08:00 ABG HCO3 17 mmol/L (22-28) L 11/04/18 08:00 ABG Total CO2 15 mmol/L (22-29) L 11/04/18 08:00 ABG Base Excess -10.0 mmol/L (-3-3) L 11/04/18 08:00 Oxygen Liter Flow Nasal cannula L 11/04/18 08:00 FiO2 36 % 11/04/18 08:00 Sodium 143 mmol/L (136-145) 11/04/18 06:50 Potassium 4.3 mmol/L (3.5-5.1) 11/04/18 06:50 Chloride 111 mmol/L (98-107) H 11/04/18 06:50 Carbon Dioxide 18.6 mmol/L (21.0-32.0) L 11/04/18 06:50 Anion Gap 13.4 mmol/L (3-11) H 11/04/18 06:50 BUN 24 mg/dL (7-18) H 11/04/18 06:50 Creatinine 1.30 mg/dL (0.70-1.30) D 11/04/18 06:50 Estimated GFR/1.73 m2 59.43 (mL/min/1.73m2) 11/04/18 06:50 Glucose 124 mg/dL (70-100) H 11/04/18 06:50 Lactate 4.1 mmol/l (0.6-1.4) H 11/04/18 09:25 Calcium 8.0 mg/dL (8.5-10.1) L 11/04/18 06:50 Magnesium 1.9 mg/dL (1.8-2.4) 11/04/18 06:50 Total Bilirubin 0.5 mg/dL (0.2-1.0) 11/04/18 06:50 Conjugated Bilirubin 0.34 mg/dL (0.00-0.20) H 11/03/18 07:40 AST 31 U/L (15-37) 11/04/18 06:50 ALT 31 U/L (12-78) 11/04/18 06:50 Alkaline Phosphatase 56 U/L (46-116) 11/04/18 06:50 Troponin I < 0.02 ng/mL (0.00-0.06) 11/03/18 07:40 Total Protein 6.3 g/dL (6.4-8.2) L 11/04/18 06:50 Albumin 2.2 g/dL (3.4-5.0) L 11/04/18 06:50 Lipase 56 U/L (73-393) L 11/03/18 07:40
[2018-11-04 11:13] LABS: Influenza A RNA Result Negative (Negative); Influenza B RNA Result Negative (Negative); RSV RNA Result Negative (Negative); Specimen Description NASAL
[2018-11-04] MEDS: Sodium Bicarbonate 50 MEQ/50 ML SYR IV (11:26)
--- NOTE | 2018-11-04 11:37 | PHARADMIT ---
Admission Pharmacy Clinical Review community acquired pneumina. sepsis Code Status Full Code Current Weight Wgt-108.3 kg Renally Cleared and Narrow Therapeutic Index Meds CrCL~ 71 mL/min Meds-OK QTc Value / Action Taken QTc-418 na BP Control, Fever BP- 126/96 Tmax-37.5C Electrolytes reviewed Na-143 K+4.3 Mag-1.9 DVT Prophylaxis Heparin sc Opiate Usage / Scheduled Bowel Regimen Ordered Yes Yes Plt/SCr for Heparin / Enoxaparin Plts-254 SCr-1.30 INR for Warfarin inr-1.2 H/H stable, WBC/Bands H&H- 12.4/38.6 WBC- 22.44 Antibiotic appropriateness Zosyn, Vancomycin Cultures and Sensitivities Blood-no growth/24 hr, sputum- strep Flu-neg Surgical ABX d/c within 24 hr na DM control / Insulin Dosing BG- 124 Heart Failure (Check EF%) (МАРИНА's, B-Block, Diuretics) none IV to PO Switch No Home Meds Reviewed Yes Home Meds Not Ordered Nikki-Dmitriy Freedman Comments
[2018-11-04] MEDS: PROPOFOL 1,000 MG/100 ML BTL 47.994 MG IVPB (12:27)
--- NOTE | 2018-11-04 12:48 | PDOC.CMPRO ---
- If Service Date Differs Date of service: 11/04/18 Time of Service: 12:48 Care Management Progress Note S/O: CM met patient on day of admission, and his SO today. Brannon is being intubated and transferred to [facility] MICU via flight. 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 Per report from his SO he needs to complete his Health insurance forms CM was able to complete and fax to insurance agency. [facility] that his SO Soledad Enciso makes his medical decisions. KEI contacted [facility] Case Management and left a voice mail with SO information and requested a confirmation. A: Brannon is a 48 year old male admitted with pneumonia and sepsis. P: Brannon will be transferred to [facility]. KEI provided support to SO and assistance with insurance application for medical. KEI left a message for Case Management at [facility].
--- NOTE | 2018-11-04 12:59 | PDOC.CMPRO ---
- If Service Date Differs Date of service: 11/04/18 Time of Service: 12:59
[2018-11-04 13:06] LABS: HCO3 20 mmol/L (22-28); pCO2 50 mmHg (34-47); pH 7.21 (7.35-7.45); pO2 72 mmHg (83-108); sO2 93 % (94-98); tCO2 19 mmol/L (22-29)
[2018-11-04 13:09] LABS: FIO2 100 %; FIO2L vent L; Site Right Radial
--- NOTE | 2018-11-04 14:56 | CMPROGNOTE_ITS ---
- If Service Date Differs Date of service: 11/04/18 Time of Service: 12:48 Care Management Progress Note S/O: CM met patient on day of admission, and his SO today. Brannon is being intubated and transferred to [facility] MICU via flight. 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 Per report from his SO he needs to complete his Health insurance forms CM was able to complete and fax to insurance agency. [facility] that his SO Soledad Enciso makes his medical decisions. KEI contacted [facility] Case Management and left a voice mail with SO information and requested a confirmation. A: Brannon is a 48 year old male admitted with pneumonia and sepsis. P: Brannon will be transferred to [facility]. KEI provided support to SO and assistance with insurance application for medical. KEI left a message for Case Management at [facility].
== END 2018-11-04 13:30 | disposition short-term general hospital (02) | DRG 208 ==
LOC: ER 10:13 → ICU 10:28
PROVIDERS: Internal Medicine; Admitting Provider Internal Medicine; Emergency Provider Emergency Medicine; Visit Provider Internal Medicine
DX: N17.9 Acute kidney failure, unspecified (principal); A41.9 Sepsis, unspecified organism; E87.2 Acidosis; J13 Pneumonia due to Streptococcus pneumoniae; J10.08 Influenza due to other identified influenza virus with other specified pneumonia; R65.21 Severe sepsis with septic shock; R09.02 Hypoxemia; R41.82 Altered mental status, unspecified
CPT/HCPCS: 36415; 71045; 71275; 74177; 80053; 80076; 82805; 83690; 87040; 87077; 87449; 87631; 93005; 96361; 96365; 96367; 96375; 99223; 99291; 36600; 83605; 83735; 84484; 85025; 85610; 85730; 87070; 87186; 87205; 93010; 94002; 94640; 94660; 99238; J0131; J0456; J1644; J1720; J1885; J2060; J2543; J3010; J3475; J3490; J7620

== ENCOUNTER 2018-11-18 23:31 | Outpatient (CLI) | payer OTHER, SELFPAY ==
--- NOTE | 2018-11-18 12:15 | DI.RAD_ITS ---
SYMPTOMS/DIAGNOSIS: F/U PNEUMONIA, J18.9 PA AND LATERAL CHEST: Comparison is made with [id number]. The exam is of poor technical quality. The heart size is normal. The lungs now appear clear. The previously noted right upper lobe infiltrate has cleared. No new abnormalities are seen. IMPRESSION: Interval clearing of right upper lobe pneumonia.
== END 2018-11-18 23:51 ==
PROVIDERS: Visit Provider Nurse Practitioner Family
DX: J18.9 Pneumonia, unspecified organism (principal)
CPT/HCPCS: 71046

== ENCOUNTER 2018-11-22 02:38 | Outpatient (CLI) | payer OTHER, SELFPAY ==
--- NOTE | 2018-11-29 07:01 | HOLTER_ITS ---
HOLTER MONITOR DATE OF DICTATION November 26, 2018 DATE OF ANALYSIS November 24, 2018 REFERRING PROVIDER Olvin Miller NP INDICATION Palpitations. 1. Baseline sinus rhythm, 72 - 142 beats per minute, average 94 beats per minute. 2. Rare PAC, 8 in 24 hours, no SVT. No AF. 3. Rare PVC, 1 in 24 hours, No VT. 4. No pauses. 5. No Symptoms recorded. Tremaine Mae M.D. KAILA/abhishek T - 11/29/2018
== END 2018-11-22 02:58 ==
PROVIDERS: PCP Nurse Practitioner Family; Visit Provider Nurse Practitioner Family
DX: R00.2 Palpitations (principal); I49.1 Atrial premature depolarization
CPT/HCPCS: 93225

== ENCOUNTER 2018-11-24 15:25 | Outpatient (CLI) | payer OTHER, SELFPAY | END 2018-11-24 15:45 | PROVIDERS: PCP Nurse Practitioner Family; Visit Provider Nurse Practitioner Family | DX: R00.2 Palpitations (principal); I49.1 Atrial premature depolarization | CPT/HCPCS: 93226 ==

== ENCOUNTER 2018-12-03 07:52 | Day surgery (SDC) | payer OTHER, SELFPAY ==
[2018-12-03 08:07] VITALS: BP 131/85; PULSE 93; RESP 18; TEMP 36.5; O2SAT 98
--- NOTE | 2018-12-03 10:00 | SKI_PTH ---
PATIENT: Brannon Mcpherson LOC: [facility] U#:[id number] AGE/SX: 48/M ROOM: RE12/03/[address]: Mame Jensen : 1970 BED: DIS: 12/03/2018 SPEC #: [id number] RECD: 12/03/18 12:14 STATUS: MIKE REQ #: [id number] FRANKLIN: 12/03/18 10:[address]: Mame Jensen DEPT: Surgical Specimen RECD BY: Aylin Hanna ENTERED: 12/03/18 12:15 SP TYPE: REMINGTON ESPITIA DR: Olvin Miller Tissues: 1 - SKIN CYST/TAG/DEBRIDEMENT Procedures: SKIN BIOPSY LEVEL 3 Comments: [id number]
--- NOTE | 2018-12-03 10:13 | W.PM.OP ---
Date of service: 12/03/18 Time of Service: 10:13 Operative Note DATE OF PROCEDURE: 12/03/18 PRE-OP DIAGNOSIS: soft tissue lesion post upper left thigh POST-OP DIAGNOSIS: same PROCEDURE: excision soft tissue lesion SURGEON: Mame Jensen ANESTHESIA: local ESTIMATED BLOOD LOSS: 2 PATHOLOGY: other TOURNIQUET TIME: 0 COMPLICATIONS: None Patient was transported to: same day Patient's condition: stable Implants: n/a Indications: pain Findings: see opnote Procedure Description: dictated
--- NOTE | 2018-12-03 10:15 | W.PM.DSUDISC ---
Discharge Plan Disposition Patient Disposition: HOME Condition: Good Discharge Details Reason For Visit: lesion removal Attending Provider: Mame Jensen Primary Care Provider: Olvin Miller Home Meds and New Rx's Prescriptions: New tramadol [Ultram] 50 mg tablet 50 mg PO Q6H PRN (Reason: pain) Qty: 7 RF: 0 ibuprofen 800 mg tablet 800 mg PO TID PRN (Reason: pain) Qty: 30 RF: 2 Continued sertraline 50 mg tablet 50 mg PO DAILY RF: 0 loratadine-pseudoephedrine [Claritin-D 24 Hour] 1 EACH tablet extended release 24 hr 1 tab PO DAILY RF: 0 DS: Diagnosis Discharge Diagnosis (1) Soft tissue lesion: Status: Acute
--- NOTE | 2018-12-03 10:17 | W.PM.DSUDISC ---
Discharge Plan Disposition Patient Disposition: HOME Condition: Good Discharge Details Reason For Visit: lesion removal Attending Provider: Mame Jensen Primary Care Provider: Olvin Miller Home Meds and New Rx's Prescriptions: New tramadol [Ultram] 50 mg tablet 50 mg PO Q6H PRN (Reason: pain) Qty: 7 RF: 0 ibuprofen 800 mg tablet 800 mg PO TID PRN (Reason: pain) Qty: 30 RF: 2 Continued sertraline 50 mg tablet 50 mg PO DAILY RF: 0 loratadine-pseudoephedrine [Claritin-D 24 Hour] 1 EACH tablet extended release 24 hr 1 tab PO DAILY RF: 0 Discharge Instructions Additional Instructions: Caring for Your Incision You?ll need to help care for your incision after surgery and certain medical procedures. To close an incision, your healthcare provider used stitches (sutures), special strips of surgical tape called Steri-Strips, surgical kendall, or surgical skin glue. Follow the tips on this sheet to help stop bleeding, speed healing, and prevent infection of your incision. Types of incision closures Home care ? Always wash your hands before touching your incision. ? Keep the incision clean, dry, and out of water, keep the incision out of water. ? Do not to pick at the scabs. Scabs help protect the wound. ? You can take a shower in 24 hours and wash the incision with soap and water. Pat dry/don?t scrub. It?s OK to wash around the incision. But don?t spray water directly on it. ? Pat stitches dry if they get wet. Don't rub. ? Check the incision site daily for pain, redness, drainage, swelling, or separation of the incision edges. ? If there is a bandage (dressing) over the incision, leave the dressing in place until you are told to remove it or change it. Using clean hands change the dressing as directed by your healthcare provider. Always wash your hands before changing your dressing. ? Make sure any clothing that touches the incision is loose-fitting. This will prevent rubbing. If the incision is on the head, keep your child from wearing caps or other head coverings. These may rub against the incision. ? Try to avoid from rough play, contact sports, or physical activities. This can put you at risk of opening the incision. ? Make sure you avoid doing things that could cause dirt or sweat to get in or on the incision. ? As your incision heals, the skin may appear pink or red. It may also feel slightly bumpy or raised. This is called a healing ridge. Over time, the color should fade and the raised skin will become less noticeable. Care for specific closures Follow these guidelines unless your child's healthcare provider tells you otherwise: ? Sutures or kendall. Once you no longer need to keep these dry, clean the incision or wound daily. First remove the bandage using clean hands. Then wash the area gently with soap and warm water. Use a wet cotton swab to loosen and remove any blood or crust that forms. After cleaning, put a thin layer of antibiotic ointment on. Then put on a new bandage. ? Skin glue. Don?t put liquid, ointment, or cream on your incision or wound while the glue is in place. Avoid activities that cause heavy sweating. Protect the incision or wound from sunlight. Do not scratch, rub, or pick at the glue. Do not put tape directly over the glue. The glue should peel off within 5 to 10 days. ? Surgical tape. Keep your incision or wound dry. If it gets wet, blot the area dry with a clean towel. Surgical tape usually falls off within 7 to 10 days. If it has not fallen off after 10 days, contact your healthcare provider before taking it off yourself. If you are told to remove the tape, put mineral oil or petroleum jelly on a cotton ball. Gently rub the tape until it is removed. Follow-up care Follow up with your healthcare provider to ask how long sutures or kendall should be left in place. Be sure to return for suture or staple removal as directed. If dissolving stitches were used in your mouth, these will not need to be removed. They should fall out or dissolve on their own. If tape closures were used, remove them yourself when your healthcare provider tells you to if they have not fallen off on their own. If skin glue was used to close your incision, the glue will wear off by itself. When to seek medical care Call your healthcare provider right away if your child has any of these: ? More pain, redness, swelling, bleeding, or foul-smelling discharge around the incision area ? Fever of 101?F (38.3?C) or higher, or as directed by your child's healthcare provider ? Shaking chills ? Vomiting or nausea that doesn?t go away ? Numbness, coldness, or tingling around the incision area, or changes in skin color ? Opening of the sutures or wound ? Stitches or kendall come apart or fall out or surgical tape falls off before 7 days, or as directed by your healthcare provider Activity:: no lifting over 10 #'s x 1 wk Remove Dressings/Wound Care:: 24 hours Shower/Bathe:: 24 hours Diet:: As Tolerated DS: Diagnosis Discharge Diagnosis (1) Soft tissue lesion: Status: Acute
--- NOTE | 2018-12-03 17:37 | ROE_ITS ---
DATE OF PROCEDURE: December 03, 2018 PREOPERATIVE DIAGNOSIS: Soft tissue lesion right posterior inner thigh. POSTOPERATIVE DIAGNOSIS: Same. PROCEDURE: Excision. SURGEON: Maem Jensen D.O. ANESTHESIA: Local. ESTIMATED BLOOD LOSS: <5 cc COMPLICATIONS: The patient tolerated the procedure well without complication. SPECIMEN: The lesion was sent for pathology. INDICATIONS: Mr. Mcpherson is a 48-year-old male seen at the request of his PCP and is here today for excision of a lesion on his posterior right upper inner thigh. Informed consent was obtained, explai aye the risks and benefits of the procedure including, but not limited to, bleeding, infection, need to heal by secondary intent, scarring, reoccurrence, and complications of the anesthesia. The patie nt was marked in preop. PROCEDURE: He was brought to the procedure room and placed in the prone position with all bony surfa babak padded. The area was prepped and draped in the usual sterile fashion using a ChloraPrep scrub so lution. A time-out was performed. He did not require antibiotics. The area was anesthetized with 3 0 cc of 0.25% Marcaine with epinephrine. An elliptical incision was done, excising the lesion. The lesion itself was probably 2 x 1/2 x 1/2 inch. The elliptical incision was 1 x 1/2 inch. The lesion was then sent to Pathology. Pressure was held. There was no significant bleeding at closing. The deep tissue was approximated with #2-0 Vicryl and the skin was approximated with #3-0 nylon. A compr ession dressing was applied. The patient tolerated the procedure well without complications. He was given instructions on wound care, activity, and warning signs. He will follow up in 7 to 10 d ays for suture removal. He does not require antibiotics. He was given a prescription for ibuprofen and for Ultram 15 mg, #7. The patient was discharged from Same Day Surgery. cc: Olvin Miller N.P.
== END 2018-12-03 10:40 | disposition home or self-care (01) ==
PROVIDERS: PCP Nurse Practitioner Family; Visit Provider Surgery
PROC: (CPT 11406; principal; 2018-12-03 09:30)
DX: L91.8 Other hypertrophic disorders of the skin (principal)
CPT/HCPCS: 11406; 12032; 88304

== ENCOUNTER 2018-12-09 09:03 | Outpatient (REF) | payer OTHER, SELFPAY ==
[2018-12-09 13:19] LABS: ALT 54 U/L (12-78); AST 25 U/L (15-37); Albumin 3.8 g/dL (3.4-5.0); Alkaline Phosphatase 72 U/L (46-116); Anion Gap 9.9 mmol/L (3-11); BUN 15 mg/dL (7-18); Bilirubin, Total 0.6 mg/dL (0.2-1.0); CO2 25.1 mmol/L (21.0-32.0); CREATININE 0.96 mg/dL (0.70-1.30); Calcium 9.1 mg/dL (8.5-10.1); Chloride 105 mmol/L (98-107); Cholesterol 221 mg/dL (50-200); Glucose 124 mg/dL (70-100); HDL Cholesterol 38 mg/dL (40-60); LDL CHOLESTEROL 157 mg/dL (<100); Potassium 4.4 mmol/L (3.5-5.1); Sodium 140 mmol/L (136-145); Total Protein 7.3 g/dL (6.4-8.2); Triglyceride 125 mg/dL (30-150)
[2018-12-09 13:23] LABS: Abs Immature Grans 0.03 k/cumm (0.0-0.09); Absolute Basophil Count 0.06 k/cumm (0.0-0.2); Absolute Eosinophil Count 0.48 k/cumm (0.0-0.7); Absolute Lymphocyte Count 2.25 k/cumm (1.2-3.4); Absolute Monocyte Count 0.59 k/cumm (0.11-0.7); Absolute Neutrophil Count 4.15 k/cumm (1.2-6.7); Basophils % 0.8; Eosinophils % 6.3; HCT 43.6 % (40.0-50.0); HGB 14.7 g/dL (13.5-17.5); Immature Grans % 0.4; Lymphocytes % 29.8; Mean Corp. HGB Concentration 33.7 g/dL (32.0-36.0); Mean Corpuscular Hemoglobin 26.9 pg (27.0-33.0); Mean Corpuscular Volume 79.7 fL (80-95); Mean Platelet Volume 12.9 fL (8.0-11.0); Monocytes % 7.8; Neutrophils % 54.9; Platelet Count 202 x1000/uL (130-400); RBC 5.47 m/cumm (4.50-6.00); RBC Distribution Width 15.3 % (11.8-14.1); White Blood Cell Count 7.56 k/cumm (4.4-10.8)
== END 2018-12-09 09:23 ==
LOC: NCHCN 09:03
PROVIDERS: PCP Nurse Practitioner Family; Visit Provider Nurse Practitioner Family
DX: R00.0 Tachycardia, unspecified (principal); F41.9 Anxiety disorder, unspecified
CPT/HCPCS: 80053; 80061; 83721; 85025

== ENCOUNTER 2019-01-06 08:56 | Outpatient (REF) | payer OTHER, SELFPAY ==
[2019-01-07 10:04] LABS: PSA, Screening 0.6 ng/ml (0-2.5)
== END 2019-01-06 09:16 ==
LOC: NCHCN 08:56
PROVIDERS: PCP Nurse Practitioner Family; Visit Provider Nurse Practitioner Family
DX: N52.9 Male erectile dysfunction, unspecified (principal); R39.11 Hesitancy of micturition; Z12.5 Encounter for screening for malignant neoplasm of prostate
CPT/HCPCS: 84153

== ENCOUNTER 2019-01-12 01:08 | Outpatient (CLI) | payer OTHER, SELFPAY ==
--- NOTE | 2019-01-12 13:08 | DI.RAD_ITS ---
SYMPTOMS/DIAGNOSIS: COMMUNITY ACQUIRED PNEUMONIA, J18.9 PA AND LATERAL CHEST: The heart is normal in size. The lungs are clear. The mediastinal structures and pleura appear intact. CONCLUSION: Normal chest. No evidence of acute cardiopulmonary disease.
--- NOTE | 2019-01-12 13:11 | DI.US_ITS ---
SYMPTOMS/DIAGNOSIS: URINARY HESITANCY, ED DYSFUNCTION, R39.11, N52.9 RENAL ULTRASOUND: The left kidney measures 11.1 x 5.3 x 5.4 cm. The right kidney 11.4 x 4.6 x 6.3 cm. There is no evidence of nephrolithiasis. There is no evidence of hydronephrosis. The prevoid bladder contains 72 cc's. The postvoid bladder 2 cc's. Both ureteral jets were visualized. The prostate measures 13 cm cubed. SUMMARY: Normal renal ultrasound.
== END 2019-01-12 01:28 ==
PROVIDERS: PCP Nurse Practitioner Family; Visit Provider Nurse Practitioner Family
DX: J18.9 Pneumonia, unspecified organism (principal); R39.11 Hesitancy of micturition; N52.9 Male erectile dysfunction, unspecified
CPT/HCPCS: 76770; 71046

== ENCOUNTER 2019-10-03 11:49 | Day surgery (SDC) | payer OTHER, SELFPAY ==
[2019-10-03] MEDS: Lactated Ringers 1,000 ML 80 ML IV (12:20)
[2019-10-03 12:27] VITALS: BP 129/86; PULSE 109; RESP 18; TEMP 36.3; O2SAT 98
--- NOTE | 2019-10-03 13:13 | W.PM.HP.N ---
Date of service: 10/03/19 Time of Service: 13:13 Assessment and Plan Assessment and plan (1) Lower urinary tract symptoms (LUTS): Status: Acute Assessment and plan: We will move ahead with cystoscopy to rule out urethral stricture disease History of Present Illness Narrative: Chief complaint: Lower urinary tract symptoms This is a 48-year-old gentleman who has a history of sepsis related to pneumonia. He initially presented to our emergency room in September. He required pressors and ventilatory support. He was transferred to the [facility] for the remainder of his care. He required a urethral catheter during his acute illness. Since the catheter has been removed, he describes urinary frequency, slowing of his stream and interrupted flow. He has not gone into retention. His AUA symptom score is 22 out of a possible 35. He does not notice any dysuria or gross hematuria. He does have some spraying of his urinary stream. For this reason, he sits to void. He is also noticed difficulty maintaining an erection. He is been able to obtain an erection, but it goes away too quickly. He has not been sexually active for over a year now. His risk factors include obesity, elevated serum creatinine, elevated blood sugar and prior smoking history. He has never tried any type of medication for this issue. He does not take nitrate-based medications. So far, he has been evaluated with a PSA and a renal ultrasound. His PSA is normal at 0.6. His ultrasound shows no hydronephrosis and his bladder empties quite well. Review of Systems Const: Details: No fevers or chills No vision change or dysphasia. c/o seasonal allergies No diabetes or thyroid No shortness of breath, cough or hemoptysis No chest pain. Hx palpatations but normal Holter monitor. No nausea, vomiting, hepatitis, ulcers, jaundice, diarrhea or constipation No seizures, strokes or peripheral neuropathy No bleeding disorders or anemia No gout or arthralgia Exam Const Other: He is an obese gentleman in no current distress. He is cooperative. His vital signs are documented elsewhere in the chart He does not appear septic or toxic His neck is thick but supple. His chest wall motion is normal. He does not appear short of breath at rest. There is no CVA tenderness. The abdomen is soft with no masses. He is uncircumcised. The urethral meatus is patent with no erythema or discharge. No firm lesions are palpable along the length of the urethra No penile lesions are visible or palpable. The testes are soft with no masses. No inguinal hernias are found. There is no inguinal adenopathy. His carotid, radial and femoral artery pulses are palpable and are equal bilaterally He is awake, alert and oriented. [facility] Social History Smoking/Tobacco Use Status: Former Tobacco Use Quit Date: 09/21/17 Alcohol Intake: current Alcohol Intake frequency: holidays/special occasions only Drug use: Never Substance use type: does not use Details: alcohol: t-14, one beer Do you feel safe at home: Yes Do you feel safe in your relationship?: Yes Meds Home Medications and Allergies Home Medications Medication Instructions Recorded Confirmed Type sertraline 50 mg tablet 50 mg PO DAILY 11/24/18 09/29/19 History loratadine-pseudoephedrine ER 10 1 tab PO DAILY 06/14/19 09/29/19 History mg-240 mg tablet,extended [id number] nystatin 100,000 unit/gram topical 1 applic TP BID #30 gm 06/14/19 09/29/19 Rx powder tadalafil 5 mg tablet 5 mg PO DAILY #90 tab 06/14/19 09/29/19 Rx Allergies Allergy/AdvReac Type Severity Reaction Status Date / Time No Known Allergies Allergy Verified 10/03/19 12:25 Exam Resp Effort & Inspection: normal respiratory effort Auscultation: clear to auscultation bilaterally Cardio Rate: regular rate Rhythm: regular rhythm Results Last Vital Signs Temp 36.3 C L 10/03/19 12:27 Pulse 109 H 10/03/19 12:27 Resp 18 10/03/19 12:27 BP 129/86 10/03/19 12:27 Pulse Ox 98 10/03/19 12:27
[2019-10-03] MEDS: ceFAZolin 2 GM/50 ML BAG IVPB (14:21)
--- NOTE | 2019-10-03 14:21 | W.PM.DSUDISC ---
Discharge Plan Disposition Patient Disposition: HOME Condition: Stable Discharge Details Reason For Visit: cystoscopy Attending Provider: Gino Fuller Primary Care Provider: Olvin Miller Home Meds and New Rx's Prescriptions: No Action sertraline 50 mg tablet 50 mg PO DAILY RF: 0 loratadine-pseudoephedrine [Claritin-D 24 Hour] 10-240 mg tablet extended release 24 hr 1 tab PO DAILY RF: 0 tadalafil 5 mg tablet 5 mg PO DAILY Qty: 90 RF: 4 nystatin 100,000 unit/gram powder 1 applic TP BID Qty: 30 RF: 12 Discharge Instructions Additional Instructions: Followup in office May 2020 Ask pt to call in 1 to 2 weeks to let us know if his voiding symptoms improved after his cystoscopy Activity:: Activity as Tolerated Shower/Bathe:: 24 hours Diet:: As Tolerated Discharge Orders Discharge Orders: Discharge Order (Routine); Ordered 10/03/19 Ordered By: Gino Fuller DS: Diagnosis Discharge Diagnosis (1) Lower urinary tract symptoms (LUTS): Status: Acute
[2019-10-03] MEDS: Lidocaine 2% Jelly 6 ML SYR (14:30)
[2019-10-03 15:10] VITALS: BP 123/71; PULSE 96; RESP 20; TEMP 36.3; O2SAT 96
[2019-10-03] MEDS: Phenazopyridine 200 MG TAB PO (15:16)
--- NOTE | 2019-10-03 17:03 | ROE_ITS ---
DATE OF PROCEDURE: October 03, 2019 PREOPERATIVE DIAGNOSIS: Lower urinary tract symptoms. POSTOPERATIVE DIAGNOSIS: Same. PROCEDURE: Cystoscopy. SURGEON: Gino Fuller M.D. ANESTHESIA: MAC with local. COMPLICATIONS: None. HISTORY: This is a 49-year-old gentleman who has noticed slowing of his urinary stream as well as so me urinary spraying ever since he had a catheter placed during an acute illness. His urine culture s hows no bacterial growth. He presents now for a cystoscopy to evaluate for possible urethral strictu re disease. OPERATIVE REPORT: The patient was brought to the operating room on 10/03/2019. He was given monitore d anesthesia care and placed in the dorsal lithotomy position. His genitalia was prepped and draped. 2% Xylocaine jelly was instilled into the urethra to act as a local anesthetic. A 26 Romansh resectoscope sheath was introduced into the urethral meatus. We then used the visual obt urator to inspect the urethra as we moved through the length of the urethra into the bladder. The pendulous, bulbous and membranous urethras appeared relatively normal. There was some whitish ti ssue in the membranous urethra, but no significant compromise of the urethral lumen. The prostatic urethra appeared normal with a slightly elevated bladder neck, but no papillary or nodu lar lesions. The bladder neck was entered and the bladder mucosa was inspected. Both ureteral orifices appeared n ormal. No stones were seen within the bladder. No papillary or nodular lesions were seen. These findings in the bladder were confirmed with re-inspection using a 70-degree lens. The bladder was emptied and the cystoscope was withdrawn.
== END 2019-10-03 16:10 | disposition home or self-care (01) ==
PROVIDERS: PCP Nurse Practitioner Family; Visit Provider Urology
PROC: 0T7D8ZZ Dilation of Urethra, Via Natural or Artificial Opening Endoscopic (ICD-10-PCS; CPT 52281; principal; 2019-10-03 13:45)
DX: R35.0 Frequency of micturition (principal); R39.12 Poor urinary stream; Y84.6 Urinary catheterization as the cause of abnormal reaction of the patient, or of later complication, without mention of misadventure at the time of the procedure
CPT/HCPCS: 52000; NC; J0690; J2001; J2250; J2704

== ENCOUNTER 2020-08-03 22:37 | Outpatient (REF) | payer OTHER, SELFPAY ==
[2020-08-06 16:14] LABS: PSA, Screening 0.3 ng/mL (0-2.5)
== END 2020-08-03 22:57 ==
LOC: LBN 22:37
PROVIDERS: PCP Nurse Practitioner Family; Visit Provider Urology
DX: N52.9 Male erectile dysfunction, unspecified (principal); R39.9 Unspecified symptoms and signs involving the genitourinary system; Z12.5 Encounter for screening for malignant neoplasm of prostate
CPT/HCPCS: 84153

== ENCOUNTER 2020-08-31 17:26 | Outpatient (REF) | payer OTHER, SELFPAY ==
[2020-08-31 19:10] LABS: Hemoglobin A1C 6.6 % (<5.7)
== END 2020-08-31 17:46 ==
LOC: NCHCN 17:26
PROVIDERS: PCP Nurse Practitioner Family; Visit Provider Nurse Practitioner Family
DX: E11.9 Type 2 diabetes mellitus without complications (principal)
CPT/HCPCS: 83036

== ENCOUNTER 2020-09-06 22:44 | Outpatient (REF) | payer OTHER, SELFPAY ==
[2020-09-10 11:55] LABS: Varicella IgG Antibody Positive (See Note)
== END 2020-09-06 23:04 ==
LOC: NCHCN 22:44
PROVIDERS: PCP Nurse Practitioner Family; Visit Provider Nurse Practitioner Family
DX: Z00.00 Encounter for general adult medical examination without abnormal findings (principal); Z11.59 Encounter for screening for other viral diseases
CPT/HCPCS: 86787

== ENCOUNTER 2020-09-18 00:38 | Outpatient (CLI) | payer OTHER, SELFPAY ==
--- NOTE | 2020-09-18 08:30 | DI.MRI_ITS ---
EXAM: MR BRAIN WO CLINICAL HISTORY: PERSISTENT HEADACHE,R51,NASAL MASS,R22.0. TECHNIQUE: Multiplanar multisequence MRI of the brain was performed. CONTRAST MATERIAL: IV Contrast: ML of Dotarem contrast administered. COMPARISON: No exams were available for comparison FINDINGS: VENTRICLES AND EXTRA AXIAL SPACES: Normal in size and morphology for the patient's age. HEMORRHAGE: None. CEREBRAL PARENCHYMA: No focus of restricted diffusion to suggest acute infarct. No space-occupying le watson identified. MIDLINE SHIFT: None. BRAINSTEM/CEREBELLUM: Normal. ENHANCEMENT: No suspicious enhancement identified. VISUALIZED PARANASAL SINUSES/MASTOIDS: Clear. OTHER FINDINGS: Vascular flow voids are intact. Orbits are unremarkable. Pituitary normal in size. IMPRESSION: Unremarkable MRI of the brain. DATA REPOSITORY:
== END 2020-09-18 00:58 ==
PROVIDERS: PCP Nurse Practitioner Family; Visit Provider Nurse Practitioner Family
DX: R51.9 Headache, unspecified (principal); J34.89 Other specified disorders of nose and nasal sinuses
CPT/HCPCS: 70551

== ENCOUNTER 2020-12-14 01:22 | Outpatient (RCR) | payer OTHER, SELFPAY ==
--- NOTE | 2020-12-14 13:45 | HOLTER_ITS ---
APPROVED REPORT Exam Type: HOLTER MONITOR APPLICATION Reason for Test: SHEPPARD Patient Location: O Conclusion This is a 48-hour Holter monitor ordered for indication of dyspnea on exertion. Patient was in normal sinus rhythm for the majority of the recording with an average heart rate of 90 bpm. There were no episodes of supraventricular tachycardia nor any episodes of ventricular tachycardia. There were rare PVCs and rare PACs. There were no episodes of atrial fibrillation, no pauses greater than 3 seconds and no evidence of hi gh degree heart block. There was 1 patient diary event associated with normal sinus rhythm.
== END 2020-12-19 23:59 | disposition home or self-care (01) ==
LOC: RT 01:22
PROVIDERS: PCP Nurse Practitioner Family; Visit Provider Nurse Practitioner Family
DX: R06.09 Other forms of dyspnea (principal)
CPT/HCPCS: 93225; 93226

== ENCOUNTER 2020-12-17 03:23 | Outpatient (CLI) | payer OTHER, SELFPAY ==
[2020-12-17 10:28] LABS: Source Nasal/Nares
[2020-12-17 13:59] LABS: COVID-19 PCR Negative (Negative)
== END 2020-12-17 03:24 | disposition home or self-care (01) ==
LOC: LBO 03:23
PROVIDERS: PCP Nurse Practitioner Family; Visit Provider Family Medicine
DX: Z20.822 Contact with and (suspected) exposure to COVID-19 (principal); Z01.818 Encounter for other preprocedural examination
CPT/HCPCS: 87635

== ENCOUNTER 2020-12-18 04:01 | Outpatient (CLI) | payer OTHER, SELFPAY ==
[2020-12-18] MEDS: Inhaler, Assist Device 1 EACH MC (12:06)
[2020-12-18] MEDS: Albuterol HFA 18 GM 200 PUFF INH IH (12:06)
--- NOTE | 2020-12-19 10:29 | W.PFT ---
Date of service: 12/18/20 Time of Service: 10:33 Pulmonary Function Test Result Interpretation Spirometry: No evidence of obstructive airways disease no bronchodilator response Lung Volumes: Mild restriction Diffusion Capacity: Normal Airway Pressure: Normal Impression Mild restrictive pattern, underlying interstitial lung disease should be clinically further investigated, this pattern can however also be seen in chest wall restriction from underlying obesity. Clinical Correlation therefore is recommended.
== END 2020-12-18 04:02 | disposition home or self-care (01) ==
LOC: RT 04:02
PROVIDERS: PCP Nurse Practitioner Family; Visit Provider Nurse Practitioner Family
DX: R06.09 Other forms of dyspnea (principal); Z87.891 Personal history of nicotine dependence
CPT/HCPCS: 94060; 94726; 94729

== ENCOUNTER 2021-01-14 01:20 | Outpatient (CLI) | payer OTHER, SELFPAY ==
--- NOTE | 2021-01-14 09:00 | ETT_ITS ---
APPROVED REPORT Exam: Exercise Treadmill Patient Location: Out-Patient Room/Bed: Stress Nurse: Leatha Fortune RN Ordering Provider:RIDGE CURRY, Contact Number: [phone] BMI: 37.09 Baseline Rhythm: Sinus Rhythm Indications: Dyspnea on exertion Medical History Medical History: Diabetes, obesity, smoker (former) Cardiac Medications: Metformin, tadalafil, proair HFA Allergies: NKA Cardiac Risk Factors: Diabetes, obesity, smoker (former) Previous Cardiac Procedures: PCI, no stents Pretest Chest Pain Characteristics: None Exercise History: Sedentary Physical Disabilities: None Lung Sounds: Clear to auscultation Heart Sounds: Regular Stress Test Details Test: Exercise stress testing was performed using a Cleve protocol. Rest Stress HR Resting HR Supine: 86 bpm Max Heart Rate (APMHR): 172 bpm Resting HR Standin bpm Target HR (85% APMHR): 146 bpm Max HR Achieved: 156 bpm % of APMHR: 90 Recovery HR: 99 bpm HR response to stress: Normal HR response to stress BP Resting BP Supine: 132/80 mmHg Resting BP Standin/80 mmHg Max BP: 160/76 mmHg Recovery BP: 134/84 mmHg BP response to stress: Normal blood pressure response to stress. ECG Resting ECG: Sinus Rhythm Ectopy: None Stress ECG: Sinus Tachycardia ST Change: No significant ST segment changes noted Arrhythmia: PVC Recovery ECG: Sinus Rhythm Recovery ST Change: No significant ST segment changes noted Recovery Arrhythmia: None Clinical Reason for Termination: Fatigue Stress Symptoms: Leg Fatigue Exercise duration: 9 min19 sec Highest Stage Reached: Stage 4: 4.2 mph at 16% grade. Exercise capacity: 10.67 METs Duarte Treadmill Score: 8 Rate Pressure Product: [id number] Stress ECG Conclusion 1. The patient exercised for 9 minutes (11 METS). 2. The patient no symptoms suggestive of ischemia. Exercise was stopped due to leg fatigue. 3. The patient no evidence of ischemia on the ECG portion of the exam. Duarte Treadmill Score is 8 which is Low risk. Stress Test Summary STAGE Time (mins) Speed (mph) Grade (%) HR BP SYMPTOMS METS Supine 86 132/80 Standing 91 126/80 1 3 1.7 10 120 126/68 4.6 2 6 2.5 12 132 132/74 7 3 9 3.4 14 152 148/72 10.2 1 min recovery 143 124/64 3 min recovery 110 160/76 6 min recovery 99 134/84
== END 2021-01-14 01:40 ==
PROVIDERS: PCP Nurse Practitioner Family; Visit Provider Nurse Practitioner Family
DX: R06.09 Other forms of dyspnea (principal); E11.9 Type 2 diabetes mellitus without complications; E66.9 Obesity, unspecified; Z87.891 Personal history of nicotine dependence; Z98.61 Coronary angioplasty status
CPT/HCPCS: 93017

== ENCOUNTER 2021-04-12 07:53 | Emergency (ER) | payer OTHER, SELFPAY ==
[2021-04-12] VITALS (23 sets, daily range): BP systolic 129–157; BP diastolic 79–103; PULSE 68–99; RESP 11–22; TEMP 36.4; O2SAT 91–100
--- NOTE | 2021-04-12 07:45 | RT.EKG_ITS ---
APPROVED REPORT Exam: Resting ECG Reason for Exam: diff. breathing Patient Location: E HR:71 bpm ECG Measurements Heart Rate 71 AXIS CO 198 P 47 QRSd 79 QRS 38 QT 367 T 29 QTc 399 Conclusion Sinus rhythm...normal P axis, V-rate 60- 99
--- NOTE | 2021-04-12 08:12 | ED.GENADUL_ITS ---
Discharge Plan Disposition Patient Disposition: HOME Condition: Improving Discharge Details Clinical Impression: Exacerbation of reactive airway disease Primary Care Provider: Olvin Miller ED Provider: Radames Funez Home Meds and New Rx's Prescriptions: New prednisone 20 mg tablet 40 mg PO DAILY 5 Days Qty: 10 RF: 0 Continued sertraline 50 mg tablet 50 mg PO DAILY RF: 0 loratadine-pseudoephedrine [Claritin-D 24 Hour] 10-240 mg tablet extended release 24 hr 1 tab PO DAILY RF: 0 nystatin 100,000 unit/gram powder 1 applic TP BID Qty: 30 RF: 12 tadalafil 5 mg tablet 5 mg PO DAILY Qty: 90 RF: 4 albuterol sulfate 90 mcg/actuation HFA aerosol inhaler 90 mcg INHALATION PRN PRNRF: 0 metformin 500 mg Tablet 500 mg PO DAILY RF: 0 Discharge Instructions Instructions: Reactive Airways Disease (ED) Additional Instructions: Home to rest today. We discussed further observation with repeat cardiac enzymes which you have deferred. Please take prednisone once daily until finished. May use your home albuterol inhaler 1 to 2 puffs every 4 hours if needed. Continue your routine medications. Return to the emergency department for any acute concerns. Medical Decision Making This is a 50-year-old male with a history of mild reactive airway disease, seasonal allergies/rhinitis, who presents with 2 to 3 days of increased wheezing that he has noticed sometimes while lying flat at night and also with some exertion. Has responded to his inhaler. He has not had a fever or significant production of sputum. He will note a 20 pound weight gain but no peripheral edema. On arrival he is somewhat hypertensive, anxious, alert, interactive and pleasant with him 98% oxygenation on room air. He does have upper airway and upper lung field and expiratory wheezing. Differential diagnosis includes exacerbation of reactive airway disease, must exclude underlying coronary disease or CHF. Patient given 80 mg of IV Solu- Medrol, inhaled DuoNeb updraft. Referred for EKG, chest x-ray and laboratory panel. Laboratory panel was very reassuring with negative troponin, unremarkable BNP of 27. Chest x-ray without acute abnormality. 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 Patient stated he felt improved and at 1030 requested discharge to home. We will place him on a burst of prednisone. He will continue albuterol at home. He will return to the ER for any concerns. HPI General Mode of arrival: ambulatory . Date/Time Provider Initiated Documentation: 04/12/21 07:54 . Limitations to Documentation: no limitations . Information obtained by: patient . History of Present Illness 50 year old M presents to the emergency department with the chief complaint of Shortness of breath and wheezing, described as moderate, and is localized to the chest. Patient reports no radiation. Patient started experiencing this day(s) and it has been intermittent. No relieving factors improve symptom(s), No exacerbating factors reported . Patient notes cough; denies chest pain, fever/chills and syncope. Patient did receive the following treatments prior to arrival, none Related Data Home Medications Medication Instructions Recorded Confirmed sertraline 50 mg tablet 50 mg PO DAILY 11/24/18 04/12/21 loratadine-pseudoephedrine ER 10 1 tab PO DAILY 06/14/19 08/03/20 mg-240 mg tablet,extended [id number] nystatin 100,000 unit/gram topical 1 applic TP BID #30 gm 06/14/19 08/03/20 powder tadalafil 5 mg tablet 5 mg PO DAILY #90 tab 08/03/20 04/12/21 albuterol sulfate 90 mcg INHALATION PRN PRN 04/12/21 04/12/21 metformin 500 mg PO DAILY 04/12/21 04/12/21 prednisone 40 mg PO DAILY 5 Days #10 tab 04/12/21 Previous Rx's Medication Instructions Recorded nystatin 100,000 unit/gram topical 1 applic TP BID #30 gm 06/14/19 powder tadalafil 5 mg tablet 5 mg PO DAILY #90 tab 08/03/20 prednisone 40 mg PO DAILY 5 Days #10 tab 04/12/21 Allergies Allergy/AdvReac Type Severity Reaction Status Date / Time No Known Allergies Allergy Verified 04/12/21 08:01 General Stated Complaint: Chest Pain RAQUEL: 2 Review of Systems Narrative: States he has had approximate 20 pound weight gain over months, no peripheral edema, no fever or chills. Dry cough. History of seasonal allergies. No GI or complaints. 8 systems reviewed and otherwise negative [facility] Medical History Anxiety Erectile dysfunction associated with vasculopathy Former tobacco use Lower urinary tract symptoms (LUTS) Skin tags, multiple acquired removed by Dr Mame Jensen 12/03/18.mg Surgical History History of root canal procedure Social History Smoking/Tobacco Use Status: Former Tobacco Use Quit Date: 09/21/17 Smoking risk assessment performed?: Yes Alcohol Intake: current Alcohol Intake frequency: holidays/special occasions only Drug use: Never Substance use type: does not use Details: alcohol: t-14, one beer Do you feel safe at home: Yes Do you feel safe in your relationship?: Yes Exam Narrative Exam Narrative: GEN: awake, alert, oriented 3. Pleasant, well groomed, interactive. HEAD: Normocephalic, atraumatic ENT: Mucous membranes moist, oropharynx unremarkable, External ear exam unremarkable EYES: PERRL, EOMI NECK: Full ROM, no APRIL, no menigismus CHEST/RESP: Nontender, primarily upper lobes and airway end expiratory wheeze bilaterally CARDIOVASCULAR: RRR, no murmur, rub maicol. 2+ Rad pulse bilateral ABDOMEN: Soft, nontender, no mass. +Bowel sounds EXT: Full ROM, no edema, no rash Neuro: Grossly normal neurologic exam, conversant, interactive. Psych: Speech fluent, thoughts congruent, affect anxious Course Vital Signs Vital signs: Vital Signs Temperature 36.4 C L 04/12/21 07:57 Pulse 86 04/12/21 07:57 Respiratory Rate 16 04/12/21 07:57 Blood Pressure 141/103 H 04/12/21 07:57 Pulse Oximetry 99 04/12/21 07:57 Temperature 36.4 C L 04/12/21 07:57 Temperature Source Skin 04/12/21 07:57 Pulse 86 04/12/21 07:57 Respiratory Rate 16 04/12/21 07:57 Respiratory Effort Non-Labored 04/12/21 08:05 Respiratory Depth Normal 04/12/21 08:05 Respiratory Pattern Normal 04/12/21 08:05 Blood Pressure 141/103 H 04/12/21 07:57 Blood Pressure Position Supine 04/12/21 07:57 Pulse Oximetry 99 04/12/21 07:57 Oxygen Delivery Method Room Air 04/12/21 07:57 Oxygen Flow Rate 0 04/12/21 07:57 Pain Level 3 04/12/21 08:05
[2021-04-12 08:22] LABS: Abs Immature Grans 0.04 10^3/uL (0.0-0.06); Absolute Basophil Count 0.05 10^3/uL (0.0-0.2); Absolute Eosinophil Count 1.39 10^3/uL (0.0-0.7); Absolute Lymphocyte Count 2.26 10^3/uL (1.2-3.4); Absolute Neutrophil Count 3.99 10^3/uL (1.2-6.7); Basophils % 0.6; Eosinophils % 16.9; HCT 44.9 % (40.0-50.0); HGB 14.4 g/dL (13.5-17.5); Immature Grans % 0.5; Lymphocytes % 27.5; MCH 25.9 pg (27.0-33.0); MCHC 32.1 % (32.0-36.0); MCV 80.9 fL (80-95); MPV 11.9 fL (8.0-11.0); Monocytes % 6.1; Neutrophils % 48.4; Nucleated RBC 0 %; Platelet Count 202 10^3/uL (130-400); RBC 5.55 10^6/uL (4.36-5.78); RDW 14.6 % (11.8-14.1); RDW-SD 42.5 fL; WBC 8.23 10^3/uL (4.4-10.8)
[2021-04-12 08:46] LABS: ALT 39 U/L (16-63); AST 15 U/L (15-37); Albumin 3.7 g/dL (3.4-5.0); Alkaline Phosphatase 74 U/L (46-116); Anion Gap 3.7 mmol/L (3-11); BUN 17 mg/dL (7-18); Bilirubin, Total 0.6 mg/dL (0.2-1.0); CO2 32.3 mmol/L (21.0-32.0); Calcium 8.6 mg/dL (8.5-10.1); Chloride 108 mmol/L (98-107); Glucose 159 mg/dL (74-106); Magnesium 1.9 mg/dL (1.8-2.4); NT-proBNP 27 pg/mL (<300); Potassium 4.2 mmol/L (3.5-5.1); Sodium 144 mmol/L (136-145); Total Protein 6.9 g/dL (6.4-8.2)
[2021-04-12 08:47] LABS: Troponin I < 0.05 ng/mL (<0.06)
--- NOTE | 2021-04-12 08:47 | DI.RAD_ITS ---
Exam(s) XR CHEST 2V PA LATERAL EXAM: XR CHEST 2V PA LATERAL CLINICAL HISTORY: SOB TECHNIQUE: 2D digital imaging was performed. COMPARISON: CR XR CHEST 2V PA LATERAL from 01/12/2019 FINDINGS: MEDIASTINUM: Normal. HEART: Normal. PULMONARY VASCULATURE: Normal. LUNGS: Clear. PLEURAL SPACE: No pleural effusion or pneumothorax. BONE:Unremarkable for age. IMPRESSION: No acute abnormality. DATA REPOSITORY: RADIATION DOSE DELIVERED:
[2021-04-12] MEDS: Albuterol/Ipratropium 3 ML UPD VIAL UPD (08:54)
[2021-04-12] MEDS: methylPREDNISolone SUCC 125 MG VIAL 80 MG IVP (08:54)
== END 2021-04-12 10:29 | disposition home or self-care (01) ==
PROVIDERS: Emergency Provider Emergency Medicine; PCP Nurse Practitioner Family
DX: J45.901 Unspecified asthma with (acute) exacerbation (principal)
CPT/HCPCS: 36415; 80053; 93005; 94640; 96374; 99285; 71046; 83735; 83880; 84484; 85025; 93010; 99284; J2930; J7620

== ENCOUNTER 2021-05-06 11:09 | Emergency (ER) | payer MEDICAID, SELFPAY ==
[2021-05-06 11:17] VITALS: BP 132/82; PULSE 97; O2SAT 95
[2021-05-06 11:18] VITALS: BP 132/82; PULSE 97; RESP 18; TEMP 36.4; O2SAT 96
[2021-05-06 11:20] VITALS: O2SAT 96
--- OUTSIDE RECORDS SUMMARY | 2021-05-06 11:20 | XMS_ITS ---
:1970 Author Care Team Providers Name Role Phone RIDGE CURRY [employer] - C Primary Care Provider [phone] [facility] Primary Care Provider [phone] Allergies Code Code System Name Reaction Severity Status Onset NKDA ? Medications Name Status Start Date Stop Date ? ? albuterol sulfate HFA 90 mcg/actuation aerosol inhaler Active ? Not available INHALE 2 PUFFS BY MOUTH DIRECTED EVERY 4 HOURS NEEDED Claritin-D 12 Hour 5 mg-120 mg tablet,extended release Active ? Not available Take 1 tablet every 12 hours by oral route. clindamycin 1 % lotion Active ? Not avail able APPLY TOPICALLY TO THE AFFECTED AREA TWICE A DAY Contour Next EZ Meter Active ? Not availa ble TEST BLOOD GLUCOSE ONCE DAILY DIRECTED Contour Next Test Strips Active ? Not sam ilable TEST BLOOD GLUCOSE ONCE DAILY COVID-19 test specimen collection Active ? Not available DIRECTED doxycycline monohydrate 100 mg capsule Active ? Not available TAKE ONE CAPSULE BY MOUTH TWICE A DAY FOR 14 DAYS Flonase Allergy Relief 50 mcg/actuation nasal spray,suspension A ctive ? Not available [place] 1 spray every day by intranasal route. metformin 1,000 mg tablet Active ? Not av ailable methylprednisolone 4 mg tablets in a dose pack Active ? Not available TAKE DIRECTED PER PACKAGE OF 6 DAYS Nasonex Active ? Not available 50mcg 2 sprays in each nostril BID OneTouch Delica Plus Lancet 33 gauge Active ? Not available USE TO TEST BLOOD SUGAR FOUR TIMES A DAY ONCE BEFORE EVERY MEAL AND AT BEDTIME penicillin V potassium 500 mg tablet Active ? Not available TAKE 1 TABLET BY MOUTH EVERY 6 HOURS FOR 7 DAYS sertraline 50 mg tablet Active ? Not avai lable sulfamethoxazole 800 mg-trimethoprim 160 mg tablet Active ? Not available TAKE TWO TABLETS BY MOUTH TWICE A DAY FOR 5 DAYS tadalafil 5 mg tablet Active ? Not availa ble zolpidem 5 mg tablet Active ? Not availab le take 1-2 PO night of sleep study if needed Problems Name Status Onset Date Source ? Diabetes Mellitus Active 01/15/2021 ? Anxiety Active 01/15/2021 ? Erectile Dysfunction Active 01/15/2021 ? Skin Lesion Active 01/15/2021 ? Headache Active 01/15/2021 ? Delay When Starting to Pass Urine Active 01/15/2021 ? Mass of Nasal Sinus Active 01/15/2021 ? Snoring Active 02/20/2021 ? Procedures Date Name Performed by ? 02/20/2021 Polysomnogram Information not avai lable Results Lab Results None recorded. Past Encounters 02/20/2021 Snoring Rachel Martinez RADIOLOGY SPECIAL PROCEDURE TECH: [address] [place] [phone], Ph. Social History Tobacco Smoking Status Never Smoker Vaccine List None recorded. Plan of Care Reminders Provider Appointments None ? ? recorded. Lab None ? ? recorded. Referral None ? ? recorded. Procedures None ? ? recorded. Surgeries None ? ? recorded. Imaging None ? ? recorded. Vitals Height Weight BMI Blood Pressure 175.26 cm 112.49 kg 36.6 kg/m2 130/80 mm[Hg]
--- OUTSIDE RECORDS SUMMARY | 2021-05-06 11:20 | XMS_ITS | Encounter Summary ---
:1970 Author Care Team Providers Name Role Phone Olvin Miller Dnp EXPERIENCE PLANNING STRATEGIST - C Primary Care Provider [phone] [facility] Medical Records Primary Care Provider [phone] Reason for Visit None recorded. Assessment and Plan 1. Snoring Brannon has symptoms of snoring and nocturia with a Elbe score of 2/3 indicating a high likelihood of sleep apnea. His neck circumference is 19 inches and he has macroglossia increasing risk of HARSHA. He has DM and this may be negati vely affected by untreated HARSHA. I discussed the pathophysiology of obstructive sleep apnea and the potential consequences of untreated HARSHA including how it relate s to his symptoms and comorbidities. I o rdered a polysomnogram and discussed what will take place the night of the sleep study. HST also covered. He is given a Rx for Ambien to take if needed the night of the study and is advised that if take n he will need to not drive for at least eight hours after taking or longer if for any residual drowsiness. Also will need to use caution when getting up at night after taking Ambien. I will see him alexx k to review the results as soon as they are available. Drowsy driving precautions were reviewed. I provided greater than 40 minutes in e care of this patient, more than half the time was spent in [id number] counseling. ? polysomnogram - pls schedu le JOSE as [place] out of [place] and may be leaving soon ? zolpidem 5 mg tablet Discussion Note: None recorded.Patient educational handouts: No information available. Plan of Care Reminders Provider Appointments None recorded. ? ? Lab None recorded. ? ? Referral None recorded. ? ? Procedures None recorded. ? ? Surgeries None recorded. ? ? Imaging Polysomnogram ? 02/20/2021 Medications Name Start Date ? ? albuterol sulfate HFA 90 mcg/actuation aerosol inhaler ? INHALE 2 PUFFS BY MOUTH DIRECTED EVERY 4 HOURS NEEDED Claritin-D 12 Hour 5 mg-120 mg tablet,extended release ? Take 1 tablet every 12 hours by oral route. clindamycin 1 % lotion ? APPLY TOPICALLY TO THE AFFECTED AREA TWICE A DAY Contour Next EZ Meter ? TEST BLOOD GLUCOSE ONCE DAILY DIRECTED Contour Next Test Strips ? TEST BLOOD GLUCOSE ONCE DAILY COVID-19 test specimen collection ? DIRECTED doxycycline monohydrate 100 mg capsule ? TAKE ONE CAPSULE BY MOUTH TWICE A DAY FOR 14 DAYS Flonase Allergy Relief 50 mcg/actuation nasal spray,anna spension ? Alba 1 spray every day by intranasal route. metformin 1,000 mg tablet ? TK 1 T PO BID methylprednisolone 4 mg tablets in a dose pack ? TAKE DIRECTED PER PACKAGE OF 6 DAYS Nasonex ? 50mcg 2 sprays in each nostril BID OneTouch Delica Plus Lancet 33 gauge ? USE TO TEST BLOOD SUGAR FOUR TIMES A DAY ONCE BEFORE EVERY MEAL AND AT BEDTIME penicillin V potassium 500 mg tablet ? TAKE 1 TABLET BY MOUTH EVERY 6 HOURS FOR 7 DAYS sertraline 50 mg tablet ? Take 1 tablet every day by oral route. sulfamethoxazole 800 mg-trimethoprim 160 mg tablet ? TAKE TWO TABLETS BY MOUTH TWICE A DAY FOR 5 DAYS tadalafil 5 mg tablet ? Take 1 tablet every day by oral route. zolpidem 5 mg tablet ? take 1-2 PO night of sleep study if needed Medications Administered None recorded. Vitals Height Weight BMI Blood Pressure 5 ft 9 in 248 lbs 36.6 kg/m2 130/80 mm[Hg] Results Lab Results None recorded. Allergies Code Code System Name Reaction Severity Onset NKDA ? ? ? Problems Name Status Onset Date Source ? Diabetes Mellitus Active 01/15/2021 ? Anxiety Active 01/15/2021 ? Erectile Dysfunction Active 01/15/2021 ? Skin Lesion Active 01/15/2021 ? Headache Active 01/15/2021 ? Delay When Starting to Pass Urine Active 01/15/2021 ? Mass of Nasal Sinus Active 01/15/2021 ? Snoring Active 02/20/2021 ? Procedures Date Name Performed by ? 02/20/2021 Polysomnogram Information not avai lable Vaccine List None recorded. Social History Tobacco Smoking Status Never Smoker Hard of hearing or deaf in one or both N ears? What is your level of alcohol Occasional Notes: 1 a week consumption? Live alone or with others? alone What is your level of caffeine Occasional Notes: 1c coffee a day consumption? Are you blind or do you have Y Notes: g lasses difficulty seeing? Functional Status Are you blind or do you Yes have difficulty seeing?? Past Encounters 02/20/2021 Snoring Rachel Martinez PROGRAMMING ENGINEER: [address] [place] [phone], Ph. History of Present Illness Note: <p>Brannon Ky is seen in consultation at the request of Johan Ariza DO for evaluation of snoring.</p><p>
</p><p>Brannon has a medical history to include DM, ED and anxiety.</p><p>Brannon tells me he has not used Afrin in several monthsand he still gets nasal congestion at times. He is not currently taking anything for allergies. </ p><p>
</p><p>{{Shikar# Patient}} feels {{his * her}} biggest problem with sleep is {{snoring * waking up a lot not feeling rested}}. {{He * She}} typically goes to bed at {{11# 9}}pm-12 am. It takes {{1-2# 5}} minutes to fall asleep. {{He * She}} wakes up {{1-2# 1 2 3}} times a night to go to the {{unknown reason pain bathroom*}} and it takes {{1-2# }} minutes to get back to sleep. {{He * She }} gets up at {{5-6# 5 6 7 8}}am to start {{his * her}}day. {{He * She}} does not take naps. {{He * She}} has disturbances to {{his * her}} sleep to include having {{TV lights noise children * pets}} in the bedroom at night. {{He * She}} has never had a sleep study. {{He * She}} sleeps {{ with someone and alone# alone with someone}} in a bed.

SLEEP QUALITY: Feels quality of sleep most nights is {{good * okay poor}}.< br>

DAYTIME ALERTNESS: Reports level of alertness most days to be {{alert * low energy sleepy very sleepy}}.

PSYCH SYMPTOMS: {{Has Has not*}} noted worsening memory {{and or*}} concentration. {{Does have Denies current problems with *}} irritability, depression, {{and or*}} anxiety. {{Has Has not*}} noted difficulty with calculations.

INSOMNIA SYMPTOMS: {{Does have * Does not have}} an active mind at night when trying to sleep. {{Does have * Does not have}} stressful thoughts interfering with sleep. {{Does Does not*}} watch the clock throughout the night. {{Does Does not*}} worry about getting a good night's sleep.

BREATHING SYMPTOMS: {{Does have * Does not have}} snoring. {{Does have Does not have*}} witnessed apnea. {{Does have Does not have*}} nocturnal choking/gasping/dyspnea.{{Does have Does not have*}} mouth breathing. {{Does have Does not have*}} nasal congestion at night.

MOVEMENT SYMPTOMS: {{Does have Does not have*}} tossing & turning. {{Does have Does not have*}} messy sheets in the morning. {{Does have Does not have*}} leg or arm jerks, kicks or twitches in sleep or prior to falling asleep. {{Does Does not*}} have an aching, restless or crawling feeling in legs at night. {{Does Does not*}} have a hard time keeping legs still when trying to sleep. {{Does Does not*}} have muscle cramps or Bharathi horses. {{Does Does not*}} have sleep walking or talking.

DREAM SYMPTOMS: {{Does have Does not have*}} nightmares often that affect ability to sleep. {{Does have Does not have*}} dreamsof suffocating/drowning. {{Does Does not*}} dream shortly after falling asleep. {{Does Does not*}} see dreams in the room even when awake.{{Does Does not*}} see or hear things in the room when falling asleep that aren't really there. {{Does Does not*}} see things in the road when driving that aren't really there. {{Has Has not*}} had someone see then act our their dreams. {{Has Has not*}}accidentally injured themselves while sleeping due to own movements/behaviors.

CATAPLEXY SYMPTOMS: {{Does have Does not have*}} feel limp, lose strength, or fall asleep when very angry, surprised or laughing. {{Does have Does not have*}} leg, arm or face weakness when upset. {{Has Has not*}} had episodes of being unable to move when waking up which is often frightening.

DRIVING: {{Has Has not*}} fallen asleep or nearly fallen asleep driving. {{Has had H as not had*}} an accident related to drowsy driving or not paying attention. {{Does Does not*}} forget the last few miles or minutes while driving. {{Has Has not*}} driven out of [place] and crossed center line or gone onto shoulder when driving. {{Has Has not*}} had a passenger tell them they looksleepy when driving.

ESS today 11/14
Elbe Questionnaire Score 2/3</p>Review of Systems: ROS as noted in the HPI Review of Systems ? Notes: <p>Nocturia 1-2/night.</p><p >He denies having night sweats, heartburn/reflux, and morning headaches.</p> Physical Exam ? Notes: <p>General: A&O, well groome d, answers questions appropriately, {{over weight obese * morbidly obese normal weight thin}}.
HEAD: normocephalic & atraumatic, {{normal appeari ng chin * retrognathia}}.
EYES: non icteric.
NOSE: open nasal passages, septum midline, no polyps or masses.
THROAT/MOUTH: sneha st mucous membranes, modified mallampati score {{1 2 3 4*}}, tonsils with out hypertrophy. He has macroglossia. Lateral wall narrowing grade {{1 2 * 3 }}. Tongue scalloping {{is * is not}} noted.
NECK: supple witho ut palpable lymph nodes.
LUNGS: CTA all monterroso. Good air movement.
CARDIO : RRR without murmur, gallop or thrill.
ABDOMEN: soft and non tender with positive bowel sounds.
MS: Good ROM of all extremities. No cyanosis, clubbing or edema.
NEURO: A&O. Normal gait.
PSYCH: No rmal mood and affect.
CUTANEOUS: no overt lesions or rashes</p>
--- NOTE | 2021-05-06 11:30 | DI.RAD_ITS ---
Exam(s) XR CHEST 2V PA LATERAL EXAM: XR CHEST 2V PA LATERAL CLINICAL HISTORY: shortness of breath. TECHNIQUE: 2D digital imaging was performed. COMPARISON: Chest x-ray 04/12/2021 FINDINGS: Heart size is normal. The mediastinum is not widened. Lungs are clear. No infiltrates nor pleural effusions. IMPRESSION: No acute pulmonary findings. DATA REPOSITORY: RADIATION DOSE DELIVERED:
--- NOTE | 2021-05-06 11:38 | W.ED.GENAD ---
Discharge Plan Disposition Patient Disposition: HOME Condition: Stable Discharge Details Clinical Impression: Wheezing, Cough Primary Care Provider: Olvin Miller ED Provider: Delfino Casillas Home Meds and New Rx's Prescriptions: New prednisone 20 mg tablet 60 mg PO DAILY 5 Days Qty: 15 RF: 0 doxycycline hyclate 100 mg tablet 100 mg PO BID Qty: 14 RF: 0 benzonatate [Tessalon Perles] 100 mg capsule 200 mg PO TID Qty: 20 RF: 0 Continued sertraline 50 mg tablet 50 mg PO DAILY RF: 0 loratadine-pseudoephedrine [Claritin-D 24 Hour] 10-240 mg tablet extended release 24 hr 1 tab PO DAILY RF: 0 nystatin 100,000 unit/gram powder 1 applic TP BID Qty: 30 RF: 12 tadalafil 5 mg tablet 5 mg PO DAILY Qty: 90 RF: 4 albuterol sulfate 90 mcg/actuation HFA aerosol inhaler 90 mcg INHALATION PRN PRNRF: 0 metformin 500 mg Tablet 500 mg PO DAILY RF: 0 Discharge Instructions Additional Instructions: you now have a follow up appointment 05/15 at 4:30pm continue to use your inhaler along with the prescribed meds if you feel more ill, have worsening difficulty breathing or severe pain return to the emergency department Stand Alone Forms: PENDING COVID-19 TESTING Medical Decision Making 50 yo male with hx of prior smoking quit 2-3 years ago, DM, who comes in with chief complaint of cough especially at night. Was seen several weeks ago and treated with albuterol and prednisone after having unremarkable labs and cxr for similar symptoms. He states his albuterol helps but didn't think the prednisone helped. He feels at night it is worse as his cough increases and is preventing him from sleeping well. He denies fevers. He is vaccinated for covid. He denies chest pain/pressure, leg swelling. He does have wheezing on exam in the upper lobes bilaterally, no crackles, no jvd, no leg swelling or calf tenderness. Suspect reactive airway disease, will treat with duoneb and reassess. I did discuss with him that I did want to do further lab work and imaging to evaluate for PE, acs, anemia among other pathology. He declines to have this done and states he just wants a breathing treatment, covid swab and would be okay with having a cxr. He understands why I want to do these tests and missing the potential diagnoses these tests would provide could lead to permanent disability or . He has capacity to make his own decisions and still declines to have labs or advanced imaging done and understands this is against my medical advise. Will order duoneb, covid test, and cxr and reassess after these are done. pt still declines other lab work or imaging, remains stable. He has no acute findings on cxr and on exam lung sounds are improved with albuterol. Covid swab pending. Discussed trialing antibiotics given continued cough and he would like to start this and will also try prednisone again. Will place on follow up list to see pcp camille and return precautions given Differential Diagnosis Differential Diagnosis: pneumonia, pe, chf, copd Medical Records Medical records reviewed: Yes I reviewed the patient's medical records. HPI General Mode of arrival: ambulatory. Date/Time Provider Initiated Documentation: 05/06/21 11:10. Limitations to Documentation: no limitations. Information obtained by: patient. History of Present Illness 50 year old M presents to the emergency department with the chief complaint of cough, described as moderate, Patient started experiencing this week(s) (3) and it has been intermittent. other things that improve symptom(s), (albuterol) No exacerbating factors reported . Patient did receive the following treatments prior to arrival, none Related Data Home Medications Medication Instructions Recorded Confirmed sertraline 50 mg tablet 50 mg PO DAILY 11/24/18 05/06/21 loratadine-pseudoephedrine ER 10 1 tab PO DAILY 06/14/19 05/06/21 mg-240 mg tablet,extended [id number] nystatin 100,000 unit/gram topical 1 applic TP BID #30 gm 06/14/19 05/06/21 powder tadalafil 5 mg tablet 5 mg PO DAILY #90 tab 08/03/20 05/06/21 albuterol sulfate 90 mcg INHALATION PRN PRN 04/12/21 05/06/21 metformin 500 mg PO DAILY 04/12/21 05/06/21 benzonatate [Tessalon Perles] 200 mg PO TID #20 cap 05/06/21 doxycycline hyclate 100 mg PO BID #14 tab 05/06/21 prednisone 60 mg PO DAILY 5 Days #15 tab 05/06/21 Previous Rx's Medication Instructions Recorded nystatin 100,000 unit/gram topical 1 applic TP BID #30 gm 06/14/19 powder tadalafil 5 mg tablet 5 mg PO DAILY #90 tab 08/03/20 benzonatate [Tessalon Perles] 200 mg PO TID #20 cap 05/06/21 doxycycline hyclate 100 mg PO BID #14 tab 05/06/21 prednisone 60 mg PO DAILY 5 Days #15 tab 05/06/21 Allergies Allergy/AdvReac Type Severity Reaction Status Date / Time No Known Allergies Allergy Verified 05/06/21 11:23 General Stated Complaint: SOB RAQUEL: 3 Review of Systems All systems reviewed & are unremarkable except as noted in HPI and below Constitutional Constitutional: Denies chills, Denies fever(s) and Denies weakness Cardiovascular Cardiovascular: Denies chest pain Gastrointestinal Gastrointestinal: Denies abdominal pain, Denies nausea and Denies vomiting Musculoskeletal Musculoskeletal: Denies joint swelling Neurologic Neurologic: Denies weakness [facility] Medical History Anxiety Erectile dysfunction associated with vasculopathy Former tobacco use Lower urinary tract symptoms (LUTS) Skin tags, multiple acquired removed by Dr Mame Jensen 12/03/18.mg Surgical History History of root canal procedure Social History Smoking/Tobacco Use Status: Former Tobacco Use Quit Date: 09/21/17 Smoking risk assessment performed?: Yes Alcohol Intake: current Alcohol Intake frequency: holidays/special occasions only Drug use: Never Substance use type: does not use Details: alcohol: t-14, one beer Do you feel safe at home: Yes Do you feel safe in your relationship?: Yes Exam Const General: no acute distress Orientation: alert HENMT Head: normal to inspection Ears: external ears normal General nose exam: external nose normal Mouth: moist mucous membranes Eyes General: appearance normal, both eyes and all related structures Neck Neck: normal visual inspection Resp Effort & Inspection: normal respiratory effort and able to speak in complete sentences Cardio Rate: regular rate Skin General skin exam: no rashes or lesions noted Neuro General: patient alert and patient oriented x3 Extrem General: normal to inspection Psych Mental Status: mental status grossly normal Course Vital Signs Vital signs: Vital Signs Temperature 36.4 C L 05/06/21 11:18 Pulse 97 H 05/06/21 11:18 Respiratory Rate 18 05/06/21 11:18 Blood Pressure 132/82 05/06/21 11:18 Pulse Oximetry 96 05/06/21 11:18 Temperature 36.4 C L 05/06/21 11:18 Temperature Source Skin 05/06/21 11:18 Pulse 97 H 05/06/21 11:18 Respiratory Rate 18 05/06/21 11:18 Respiratory Effort Non-Labored 05/06/21 11:24 Blood Pressure 132/82 05/06/21 11:18 Blood Pressure Position Sitting 05/06/21 11:18 Pulse Oximetry 96 05/06/21 11:18 Oxygen Delivery Method Room Air 05/06/21 11:18 Oxygen Flow Rate 0 05/06/21 11:18 Pain Level 4 05/06/21 11:18
[2021-05-06 12:03] LABS: Source Nasal/Nares
[2021-05-06] MEDS: Albuterol/Ipratropium 3 ML UPD VIAL UPD (12:08)
[2021-05-06 13:13] VITALS: BP 132/82; PULSE 94; RESP 16; TEMP 36.2; O2SAT 96
[2021-05-06 13:13] LABS: COVID-19 PCR Negative (Negative)
[2021-05-06 13:14] VITALS: BP 132/82; PULSE 87; O2SAT 95
--- NOTE | 2021-05-06 13:19 | NUR.NOTE ---
Nursing Note: Appt with PCP for @ 1977 Bina Jacques
[2021-05-06] MEDS: Doxycycline Hyclate 100 MG CAP PO (13:26)
== END 2021-05-06 13:26 | disposition home or self-care (01) ==
PROVIDERS: Emergency Provider Emergency Medicine; PCP Nurse Practitioner Family
DX: R06.2 Wheezing (principal); R05 Cough; Z87.891 Personal history of nicotine dependence; Z20.822 Contact with and (suspected) exposure to COVID-19; Z03.818 Encounter for observation for suspected exposure to other biological agents ruled out; Z53.29 Procedure and treatment not carried out because of patient's decision for other reasons
CPT/HCPCS: 87635; 94640; 99283; 71046; J7620

== ENCOUNTER 2021-05-22 08:01 | Outpatient (REF) | payer MEDICAID, SELFPAY ==
[2021-05-22 14:31] LABS: ALT 54 U/L (16-63); AST 17 U/L (15-37); Albumin 3.9 g/dL (3.4-5.0); Alkaline Phosphatase 76 U/L (46-116); Anion Gap 10.6 mmol/L (3-11); BUN 16 mg/dL (7-18); Bilirubin, Total 0.8 mg/dL (0.2-1.0); CO2 27.4 mmol/L (21.0-32.0); CREATININE 1.1 mg/dL (0.70-1.30); Calcium 9.1 mg/dL (8.5-10.1); Calculated LDL 141 mg/dL (<100); Chloride 105 mmol/L (98-107); Cholesterol 196 mg/dL (<200); Glucose 178 mg/dL (74-106); HDL Cholesterol 37 mg/dL (40-60); Potassium 4.1 mmol/L (3.5-5.1); Sodium 143 mmol/L (136-145); Total Protein 6.9 g/dL (6.4-8.2); Triglyceride 91 mg/dL (<150)
[2021-05-22 15:39] LABS: Microalb ug/mg Crea 74.1 ug/mg Cr
[2021-05-22 15:44] LABS: Hemoglobin A1C 8.2 % (<5.7)
== END 2021-05-22 08:02 | disposition home or self-care (01) ==
LOC: NCHCN 08:01
PROVIDERS: PCP Nurse Practitioner Family; Visit Provider Physician Assistant
DX: E11.9 Type 2 diabetes mellitus without complications (principal); E78.5 Hyperlipidemia, unspecified
CPT/HCPCS: 80053; 80061; 82043; 82570; 83036

== ENCOUNTER 2022-04-14 23:50 | Emergency (ER) | payer MEDICAID, SELFPAY ==
[2022-04-14 23:57] VITALS: BP 155/93; PULSE 110; RESP 18; TEMP 36.9; O2SAT 94
[2022-04-15] MEDS: Lidocaine 2% Viscous 15 ML CUP 30 ML PO (00:18)
--- NOTE | 2022-04-15 00:19 | ED.GENADUL_ITS ---
Discharge Plan Disposition Patient Disposition: HOME Condition: Good Discharge Details Clinical Impression: Pill esophagitis Primary Care Provider: Olvin Miller ED Provider: Arya Armstrong Home Meds and New Rx's Prescriptions: New pantoprazole [Protonix] 40 mg tablet,delayed release (DR/EC) 40 mg PO DAILY Qty: 30 0RF famotidine 20 mg tablet 20 mg PO BID 30 Days Qty: 60 0RF Continued sertraline 50 mg tablet 50 mg PO DAILY tadalafil 5 mg tablet 5 mg PO DAILY Qty: 90 4RF albuterol sulfate [ProAir HFA] 90 mcg/actuation HFA aerosol inhaler 2 puff INHALATION PRN PRN Label Comments: INHALE TWO PUFFS BY MOUTH EVERY 4 HOURS NEEDED budesonide-formoterol [Symbicort] 160-4.5 mcg/actuation HFA aerosol inhaler 2 inh INHALATION DAILY Label Comments: INHALE 2 PUFFS BY MOUTH TWICE DAILY Jardiance 10 mg tablet 1 tab PO DAILY Label Comments: TAKE ONE TABLET BY MOUTH EVERY MORNING loratadine-pseudoephedrine [Claritin-D 24 Hour] 10-240 mg tablet extended release 24 hr 1 tab PO DAILY Label Comments: TAKE 1 TABLET BY MOUTH ONCE A DAY zinc 10 mg Tablet 10 mg PO DAILY albuterol sulfate 90 mcg/actuation HFA aerosol inhaler 90 mcg INHALATION PRN PRN metformin 500 mg Tablet 500 mg PO DAILY Discharge Instructions Instructions: Esophagitis (ED) Additional Instructions: At this time your symptoms appear concerning/consistent with pill esophagitis, likely from the zinc that you are taking, but also probably complicated by the spicy foods that are consumed. Please hold on taking the zinc for the time being. Please avoid spicy foods, tomato-based products, citrus-based products, for the next 2 to 3 weeks. Try to even out your meals throughout the day with smaller meals at night, and larger meals during the day when you are sitting upright. Taking Pepto-Bismol can also sometimes help and coating your esophagus. Please take the antiacid medications that have been prescribed. It has been sent to your pharmacy. We have placed a referral with the ENT doctors. They will contact you for an appointment date. If your symptoms resolve after the aforementioned therapies, then you can cancel that appointment. If you notice any worsening of your symptoms, or any new symptoms such as vomiting, diarrhea, fever, chills, shortness of breath, chest pain, numbness, weakness, or fainting , please return immediately to the emergency department for reevaluation. Please follow up with your primary care provider as soon as possible for reassessment and reevaluation. As always, it was a pleasure participating in your medical care today. Referrals: Olvin Miller NP [Primary Care Provider] - Abelardo Brandt MD [ [facility] STAFF PHYSICIAN] - Medical Decision Making 51-year-old male with a past medical history of COPD, type 2 diabetes, recently started taking zinc about 7 days ago, the patient states that shortly thereafter he began developing pain in his throat, he states that it felt like a burning sensation. It was relieved when drinking fluids. He has been taking his albuterol/Symbicort as directed, he has been using a spacer as directed. He denies any vomiting or diarrhea. He does admit to feeling like there is a mild globus sensation when he was taking the zinc originally. The patient denies any vomiting or diarrhea otherwise. He states that over the last 5 to 6 days he has been taking a large supper every night, and it is been a notably spicy soup. Patient denies any other complaints. He has not taken any medications for his symptoms. He denies any history of reflux in general. No other complaints at this time. No other modifying factors. Physical exam demonstrates a notably unremarkable posterior oropharynx. No tenderness on palpation. No signs of thrush on exam. Although the history is made notably sustained in the HPI and MDM narrative, there is actually quite a convoluted process coming to the components of the zinc, the diet, and the other potential contributing factors. In summary I do feel that the patient symptoms are secondary to pill esophagitis and likely reflux as well. We will start the patient on dual antiacid therapy, recommend that he stop taking zinc, recommend that he avoid any spicy foods for the next few weeks, and divide his food boluses more evenly throughout the day with smaller meals in the evening. We did give the patient viscous lidocaine here, and he had a notable improvement of his symptomatology. We will refer to ENT for further visualization if the patient's symptoms persist after this therapy. I have extensively reviewed the treatment plan and discharge instructions with the patient. I have addressed all patient concerns at this time. The patient was made aware of what symptoms to monitor for that would warrant a return to the emergency department. Discussed the plan with the patient, they demonstrate verbal understanding and agreement with our assessment and plan at this time. The documentation in this chart was dictated using [employer] dictation software. Please excuse any dictation errors. HPI General Date/Time Provider Initiated Documentation: 04/14/22 23:52 . HPI Narrative: 51-year-old male with a past medical history of COPD, type 2 diabetes, recently started taking zinc about 7 days ago, the patient states that shortly thereafter he began developing pain in his throat, he states that it felt like a burning sensation. It was relieved when drinking fluids. He has been taking his albuterol/Symbicort as directed, he has been using a spacer as directed. He denies any vomiting or diarrhea. He does admit to feeling like there is a mild globus sensation when he was taking the zinc originally. The patient denies any vomiting or diarrhea otherwise. He states that over the last 5 to 6 days he has been taking a large supper every night, and it is been a notably spicy soup. Patient denies any other complaints. He has not taken any medications for his symptoms. He denies any history of reflux in general. No other complaints at this time. No other modifying factors. Related Data Home Medications Medication Instructions Recorded Confirmed sertraline 50 mg tablet 50 mg PO DAILY 11/24/18 04/14/22 tadalafil 5 mg tablet 5 mg PO DAILY #90 tabs 08/03/20 05/06/21 albuterol sulfate 90 mcg/actuation 90 mcg inhalation PRN PRN 04/12/21 04/14/22 aerosol inhaler metformin 500 mg tablet 500 mg PO DAILY 04/12/21 04/14/22 albuterol sulfate 90 mcg/actuation 2 puff inhalation PRN PRN 04/14/22 04/15/22 aerosol inhaler (ProAir HFA) budesonide-formoterol HFA 160 2 inh inhalation DAILY 04/14/22 04/14/22 mcg-4.5 mcg/actuation aerosol inhaler (Symbicort) empagliflozin 10 mg tablet 1 tab PO DAILY 04/14/22 04/14/22 (Jardiance) famotidine 20 mg tablet 20 mg PO BID 30 days #60 tabs 04/15/22 loratadine-pseudoephedrine ER 10 1 tab PO DAILY 04/15/22 04/15/22 mg-240 mg tablet,extended [id number] (Claritin-D 24 Hour) pantoprazole 40 mg tablet,delayed 40 mg PO DAILY #30 tabs 04/15/22 release (Protonix) zinc 10 mg tablet 10 mg PO DAILY 04/15/22 04/15/22 Previous Rx's Medication Instructions Recorded tadalafil 5 mg tablet 5 mg PO DAILY #90 tabs 08/03/20 famotidine 20 mg tablet 20 mg PO BID 30 days #60 tabs 04/15/22 pantoprazole 40 mg tablet,delayed 40 mg PO DAILY #30 tabs 04/15/22 release (Protonix) Allergies Allergy/AdvReac Type Severity Reaction Status Date / Time No Known Allergies Allergy Verified 04/14/22 23:58 General Stated Complaint: Sorethroat RAQUEL: 4 Review of Systems All systems reviewed & are unremarkable except as noted in HPI and below PFSH All Active Problems Exacerbation of reactive airway disease (Acute) Wheezing (Acute) Cough (Acute) Pill esophagitis (Acute) Chronic rhinitis (Acute) Nasal ulcer (Acute) Epistaxis (Acute) Sepsis (Acute) Pneumonia (Acute) CRISPIN (acute kidney injury) (Acute) DVT prophylaxis (Acute) Soft tissue lesion (Acute) Follow up (Acute) Erectile dysfunction associated with vasculopathy (Acute) Lower urinary tract symptoms (LUTS) (Acute) Medical History Anxiety Skin tags, multiple acquired removed by Dr Mame Jensen 12/03/18.mg Surgical History History of root canal procedure Social History Smoking/Tobacco Use Status: Former Tobacco Use Quit Date: 09/21/17 Smoking risk assessment performed?: Yes Alcohol Intake: current Alcohol Intake frequency: holidays/special occasions only Drug use: Never Substance use type: does not use Do you feel safe at home: Yes Do you feel safe in your relationship?: Yes Exam Narrative Exam Narrative: 1.Const: Well-nourished, Well-developed, appearing stated age 2.Eyes: PERRL, no conjunctival injection, and symmetrical lids. 3.ENT: Atraumatic external nose and ears. Moist MM. Neck: Symmetric, trachea midline, No thyromegaly. No erythema in the posterior oropharynx. No evidence of thrush. No mass or irregularity on palpation of the throat or trachea or neck otherwise. 4.CVS: +S1/S2, No murmurs or gallops. Peripheral pulses 2+ and equal in all extremities. Brisk capillary refill in all extremities. 5.RESP: Unlabored respiratory effort. Clear to auscultation bilaterally. No wheezes rales or rhonchi 6.GI: Soft, Nontender/Nondistended, No hepatosplenomegaly. No guarding or rebound. 7.MSK: Normocephalic/Atraumatic, Extremities w/o deformity or ttp No cyanosis or clubbing, Normal movement of all extremities 8.Skin: Warm, Dry. No rashes or lesions. 9.Neuro: quality associate II-XII grossly intact. Sensation grossly intact, no focal neurologic deficits. 10.Psych: (AAO) x3. Appropriate mood and affect Course Vital Signs Vital signs: Vital Signs Temperature 36.9 C 04/14/22 23:57 Pulse 110 H 04/14/22 23:57 Respiratory Rate 18 04/14/22 23:57 Blood Pressure 155/93 H 04/14/22 23:57 Pulse Oximetry 94 04/14/22 23:57 Temperature 36.9 C 04/14/22 23:57 Temperature Source Skin 04/14/22 23:57 Pulse 110 H 04/14/22 23:57 Respiratory Rate 18 04/14/22 23:57 Respiratory Effort Non-Labored 04/15/22 00:06 Blood Pressure 155/93 H 04/14/22 23:57 Pulse Oximetry 94 04/14/22 23:57
--- NOTE | 2022-04-15 02:56 | NUR.NOTE ---
Referral faxed to [facility] for 2-3 week follow up, persistent esophagitis.Nursing Note:
== END 2022-04-15 01:01 | disposition home or self-care (01) ==
PROVIDERS: Emergency Provider Student in an Organized Health Care Education/Training Program; PCP Nurse Practitioner Family
DX: K20.90 Esophagitis, unspecified without bleeding (principal); J44.9 Chronic obstructive pulmonary disease, unspecified; E11.9 Type 2 diabetes mellitus without complications; Z79.84 Long term (current) use of oral hypoglycemic drugs; Z79.51 Long term (current) use of inhaled steroids; Z87.891 Personal history of nicotine dependence
CPT/HCPCS: 99283; 99284

== ENCOUNTER 2022-05-02 01:42 | Outpatient (CLI) | payer MEDICAID, SELFPAY ==
[2022-05-02] MEDS: Inhaler, Assist Device 1 EACH MC (11:38)
[2022-05-02] MEDS: Albuterol HFA 18 GM 200 PUFF INH IH (11:38)
--- NOTE | 2022-05-02 16:08 | W.PFT ---
Date of service: 05/02/22 Time of Service: 10:20 Pulmonary Function Test Result Requesting Provider Johan Weston Indications: COPD Interpretation Spirometry: There is no airflow limitation. There is a significant bronchodilator response. The FVC is low. Lung Volumes: Normal lung volumes Diffusion Capacity: Normal diffusion. Airway Pressure: Normal airways resistance. Impression No airflow obstruction with a significant bronchodilator response. The low FVC is likely pseudo-restriction from an elevated BMI. The remained of pulmonary function testing is normal. Note: When compared to 12/18/20, the FVC and FEV1 have declined but the TLC and the DLCO have improved. Clinical Correlation therefore is recommended.
== END 2022-05-02 01:43 | disposition home or self-care (01) ==
LOC: RT 01:42
PROVIDERS: PCP Nurse Practitioner Family; Visit Provider Physician Assistant
DX: R94.2 Abnormal results of pulmonary function studies (principal); J44.9 Chronic obstructive pulmonary disease, unspecified; R06.09 Other forms of dyspnea; R06.2 Wheezing; R05.8 Other specified cough; Z87.891 Personal history of nicotine dependence
CPT/HCPCS: 94060; 94726; 94729

== ENCOUNTER 2022-06-02 16:46 | Outpatient (CLI) | payer MEDICAID, SELFPAY | END 2022-06-02 17:06 | LOC: DI 16:53 | PROVIDERS: PCP Physician Assistant; Visit Provider Physician Assistant | DX: R06.09 Other forms of dyspnea (principal) | CPT/HCPCS: 93306 ==

== ENCOUNTER 2022-10-03 01:24 | Outpatient (CLI) | payer MEDICAID, SELFPAY ==
[2022-10-03 13:29] LABS: Absolute Basophil Count 0.11 10^3/uL (0.0-0.2); Absolute Eosinophil Count 0.59 10^3/uL (0.0-0.7); Absolute Lymphocyte Count 2.84 10^3/uL (1.2-3.4); Absolute Monocyte Count 0.66 10^3/uL (0.1-0.8); Basophils % 0.9; Eosinophils % 4.8; HCT 49.8 % (40.0-50.0); HGB 16.9 g/dL (13.5-17.5); Immature Grans % 0.8; Lymphocytes % 23.3; MCH 26.4 pg (27.0-33.0); MCHC 33.9 % (32.0-36.0); MCV 78 fL (80-95); MPV 11.9 fL (8.0-11.0); Monocytes % 5.4; Neutrophils % 64.8; Platelet Count 266 10^3/uL (130-400); RBC 6.41 10^6/uL (4.36-5.78); RDW 14.3 % (11.8-14.1); RDW-SD 38.7 fL; WBC 12.19 10^3/uL (4.4-10.8)
[2022-10-03 14:10] LABS: ALT 43 U/L (16-63); AST 24 U/L (15-37); Albumin 4.3 g/dL (3.4-5.0); Alkaline Phosphatase 78 U/L (46-116); BUN 17 mg/dL (7-18); Bilirubin, Total 0.7 mg/dL (0.2-1.0); CREATININE 1.1 mg/dL (0.70-1.30); Calcium 9.2 mg/dL (8.5-10.1); Chloride 103 mmol/L (98-107); Estimated GFR 81.78 (mL/min/1.73m2); Glucose 118 mg/dL (74-106); Sodium 137 mmol/L (136-145); Total Protein 8.2 g/dL (6.4-8.2)
[2022-10-03 22:30] LABS: Rheumatoid Factor <8.6 IU/mL (<12.0)
[2022-10-04 16:04] LABS: Myeloperoxidase Ab IgG <0.2 U; Proteinase 3 Ab (PR3) <0.2 U; Scl 70 Antibodies, IgG <0.2 U
[2022-10-06 08:52] LABS: IgE 165 IU/mL (<158)
[2022-10-06 09:18] LABS: Cyclic Citrullinated Peptide <2.5 U/mL (<5.0)
[2022-10-06 14:03] LABS: ANA Interpretation Positive (Negative); ANA Titer Pattern 1:160 Speckled
[2022-10-07 12:14] LABS: dsDNA Ab, IgG <12.3 IU/mL (<30.0)
[2022-10-07 12:34] LABS: SS-A Antibody 1.3 Units (<20.0); SS-B (La) Ab, IgG 7.5 Units (<20.0); Sm (Smith) Ab, IgG 1.9 Units (<20.0)
[2022-10-18 15:10] LABS: Anti-EJ Ab Negative (Negative); Anti-Jo-1 Ab <20 Units (<20); Anti-Ku Ab Negative (Negative); Anti-MDA-5 Ab (CADM-140) <20 Units (<20); Anti-Mi-2-Ab Negative (Negative); Anti-NXP-2 (P140) Ab <20 Units (<20); Anti-OJ Ab Negative (Negative); Anti-PL-12 Ab Negative (Negative); Anti-PL-7 Ab Negative (Negative); Anti-PM/Scl-100 Ab <20 Units (<20); Anti-SRP Ab Negative (Negative); Anti-SS-A 52kD Ab, IgG <20 Units (<20); Anti-TIF-1gamma Ab <20 Units (<20); Anti-U1 RNP Ab <20 Units (<20); Anti-U2 RNP Ab Negative (Negative); Anti-U3 RNP (Fibrillarin) Negative (Negative)
== END 2022-10-03 01:25 | disposition home or self-care (01) ==
PROVIDERS: PCP Physician Assistant; Visit Provider Student in an Organized Health Care Education/Training Program
DX: D72.10 Eosinophilia, unspecified (principal); R06.00 Dyspnea, unspecified; E11.9 Type 2 diabetes mellitus without complications
CPT/HCPCS: 36415; 80053; 83516; 86200; 86235; 82785; 85025; 86038; 86225; 86431

== ENCOUNTER 2022-12-05 16:20 | Outpatient (REF) | payer MEDICAID, SELFPAY ==
[2022-12-05 18:01] LABS: ALT 39 U/L (16-63); AST 17 U/L (15-37); Albumin 4.3 g/dL (3.4-5.0); Alkaline Phosphatase 80 U/L (46-116); Anion Gap 10.2 mmol/L (3-11); BUN 19 mg/dL (7-18); Bilirubin, Total 0.6 mg/dL (0.2-1.0); CO2 25.8 mmol/L (21.0-32.0); Calcium 9.3 mg/dL (8.5-10.1); Calculated LDL 130 mg/dL (<100); Chloride 105 mmol/L (98-107); Cholesterol 189 mg/dL (<200); Estimated GFR 91.69 (mL/min/1.73m2); Glucose 140 mg/dL (74-106); HDL Cholesterol 45 mg/dL (40-60); Potassium 4.4 mmol/L (3.5-5.1); Sodium 141 mmol/L (136-145); Total Protein 7.5 g/dL (6.4-8.2); Triglyceride 72 mg/dL (<150)
[2022-12-05 20:46] LABS: Hemoglobin A1C 7.1 % (<5.7)
[2022-12-08 11:06] LABS: PSA, Screening 0.2 ng/mL (<=3.5)
== END 2022-12-05 16:21 | disposition home or self-care (01) ==
LOC: NCHCN 16:20
PROVIDERS: PCP Physician Assistant; Visit Provider Physician Assistant
DX: E11.9 Type 2 diabetes mellitus without complications (principal); Z12.5 Encounter for screening for malignant neoplasm of prostate
CPT/HCPCS: 80053; 80061; 84153; 83036

== ENCOUNTER 2023-04-24 02:24 | Outpatient (CLI) | payer MEDICAID, SELFPAY ==
[2023-04-24] MEDS: Albuterol HFA 18 GM 200 PUFF INH IH (12:16)
[2023-04-24] MEDS: Methacholine 100 MG VIAL IH (12:16)
[2023-04-24] MEDS: Inhaler, Assist Device 1 EACH MC (12:16)
--- NOTE | 2023-04-24 12:40 | PFT_ITS ---
Date of service: 04/24/23 Time of Service: 09:59 Pulmonary Function Test Result Indications: Eosinophilia Interpretation Spirometry: There is no airflow limitation at baseline. There was a 29% decrease in FEV1% af ter administration of 2.0mg/mL methacholine. Impression Positive methacholine challenge test Clinical Correlation therefore is recommended.
== END 2023-04-24 02:25 | disposition home or self-care (01) ==
LOC: RT 02:25
PROVIDERS: PCP Physician Assistant; Visit Provider Student in an Organized Health Care Education/Training Program
DX: D72.10 Eosinophilia, unspecified (principal); R94.2 Abnormal results of pulmonary function studies
CPT/HCPCS: 94060; 94070; J7674

== ENCOUNTER 2023-11-19 16:10 | Outpatient (REF) | payer OTHER, SELFPAY ==
[2023-11-19 21:21] LABS: HCT 50.3 % (40.0-50.0); HGB 16.7 g/dL (13.5-17.5); MCH 26.1 pg (27.0-33.0); MCHC 33.2 % (32.0-36.0); MCV 79 fL (80-95); MPV 12.1 fL (8.0-11.0); Platelet Count 198 10^3/uL (130-400); RBC 6.39 10^6/uL (4.36-5.78); RDW 14.2 % (11.8-14.1); WBC 10.28 10^3/uL (4.4-10.8)
[2023-11-19 21:37] LABS: ALT 55 U/L (16-63); AST 24 U/L (15-37); Albumin 4.4 g/dL (3.4-5.0); Alkaline Phosphatase 72 U/L (46-116); Anion Gap 12.2 mmol/L (3-11); BUN 15 mg/dL (7-18); Bilirubin, Total 1.1 mg/dL (0.2-1.0); CO2 27.8 mmol/L (21.0-32.0); CREATININE 1.2 mg/dL (0.70-1.30); Calcium 9.5 mg/dL (8.5-10.1); Calculated LDL 70 mg/dL (<100); Chloride 101 mmol/L (98-107); Cholesterol 137 mg/dL (<200); Estimated GFR 73.22 (mL/min/1.73m2); Glucose 136 mg/dL (74-106); HDL Cholesterol 41 mg/dL (40-60); Potassium 4.4 mmol/L (3.5-5.1); Sodium 141 mmol/L (136-145); TSH (W/Ref FT4) 2.06 uIU/mL (0.36-3.74); Total Protein 7.4 g/dL (6.4-8.2); Triglyceride 131 mg/dL (<150)
[2023-11-19 21:42] LABS: Hemoglobin A1C 7.6 % (<5.7)
[2023-11-20 17:57] LABS: PSA, Screening 0.3 ng/mL (<=3.5)
== END 2023-11-19 16:11 | disposition home or self-care (01) ==
LOC: LBN 16:10
PROVIDERS: PCP Nurse Practitioner Family; Referring Provider Nurse Practitioner Family; Visit Provider Nurse Practitioner Family
DX: D72.10 Eosinophilia, unspecified (principal); E78.5 Hyperlipidemia, unspecified; E11.9 Type 2 diabetes mellitus without complications; J45.40 Moderate persistent asthma, uncomplicated; N17.9 Acute kidney failure, unspecified; N52.9 Male erectile dysfunction, unspecified; Z12.5 Encounter for screening for malignant neoplasm of prostate
CPT/HCPCS: 80053; 80061; 84153; 85027; 83036; 84443

== ENCOUNTER 2024-03-29 18:26 | Outpatient (REF) | payer OTHER, SELFPAY ==
[2024-03-29 13:12] LABS: Hemoglobin A1C 7.7 % (<5.7)
== END 2024-03-29 18:27 | disposition home or self-care (01) ==
LOC: LBN 18:26
PROVIDERS: PCP Nurse Practitioner Family; Visit Provider Nurse Practitioner Family
DX: E11.9 Type 2 diabetes mellitus without complications (principal)
CPT/HCPCS: 83036

== ENCOUNTER 2024-07-27 12:25 | Outpatient (REF) | payer OTHER, SELFPAY ==
--- OUTSIDE RECORDS SUMMARY | 2024-07-27 12:27 | XMS_ITS | Encounter Summary ---
Author Organization [facility] [place] [address] Care Team Providers Care Elevator Constructor Supervisor Name Role Phone Johan Weston Primary Care Provider [phone] Reason for Visit * Reason Comments Skin Lesion * Consultation (Routine) - Closed Specialty Diagnoses / Procedures Referred By Contcarmina t Referred To Contact Dermatology Diagnoses Skin lesions Johan Weston PA [facility] [address] [facility] [address] [place] [address] [facility] [address] [place] [address] Referral ID Status Reason Start Date Expiration Date V isits Requested Visits Authorized [id number] Closed Consult, Test & Treat PCP Updated and/or Approved 06/04/2022 06/04/2023 6 6 Encounter Details Date Type Department Care Team (Late st Contact Info) Description 06/13/2022 1:00 PM EDT Office Visit Dermatology at [facility] [address] [place] [id number] Andria Jimenez MD [facility] [address] [place] [address] Dermatitis; Skin lesions Social History Tobacco Use Types Packs/Day Years Used Date Smoking Tobacco: Former Cigarettes Q uit: 2016 Smokeless Tobacco: Never Sex and Gender Information Value Date Recorded Sex Assigned at Not on file Gender Identity Not on file Sexual Orientation Not on file documented as of this encounter Progress Notes * Andria Jimenez - 06/13/2022 1:00 PM EDT Images from the original note were not included. DEPARTMENT OF DERMATOLOGY Medical Dermatology Clinic Note Provider: Andria Jimenez MD Patient's preferred name Brannon Preferred contact method for results [x]Phone []myD-H []Letter Detailed phone message OK? Yes Are there any other people with whom we may discuss your care? 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 Patient is referred to the clinic at the request of Johan Weston for a focused exam with the following concerns: - Patient notes of scattered lesions on the head, legs, and shoulders that have been present since 2019. The lesions can be pruritic and painful. Denies treatment recently. He notes that he was diagnosed with psoriasis at age 18, which was treated with tar. He has had a hand rash in the past, whichhas flared with stress. The lesions will sometimes resolve, and then return. He has been squeezing the lesions and putting rubbing alcohol on the area. Review of Systems: General: Feeling well. Skin: No other skin concerns. Medications: Reviewed in eD-H Allergies: Reviewed in eD-H Skin Examination: Focused skin examination of the upper extremities, chest, abdomen, posterior neck, hands, scalp, right lower leg, and thighs was normal with the exception of the findings below. Assessment/Plan A. 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 - Wound care reviewed with patient. Instructed patient to call with any concerns with biopsy site. Procedure: Skin biopsy by punch technique. Location: A. left upper inner thigh Discussed indications for the procedure and expectations including risks and benefits. Verbal consent obtained. Skin prep with alcohol. Local anesthesia: 1% lidocaine with 1/100,000 epinephrine. A 4 mm punch biopsy to the level of the subcutis was performed. Wound closed with monofilament suture. There were no complications; the patient tolerated the procedure well. The wound was dressed. Post-procedure expectations (including discomfort management), wound care and activity restrictions were reviewed. Follow-up based on pathology results. Suture removal: 7-10 days (at home) B. Psoriasis vs. Tinea vs. Lichen Planus - Lyford scaly plaques right lower leg - After review of risks and benefits, joint decision made to pursue punch biopsy today. - Wound care reviewed with patient. Instructed patient to call with any concerns with biopsy site. Procedure: Skin biopsy by punch technique. Location: B. right lateral lower leg Discussed indications for the procedure and expectations including risks and benefits. Verbal consent obtained. Skin prep with alcohol. Local anesthesia: 1% lidocaine with 1/100,000 epinephrine. A 4 mm punch biopsy to the level of the subcutis was performed. Wound closed with monofilament suture. There were no complications; the patient tolerated the procedure well. The wound was dressed. Post-procedure expectations (including discomfort management), wound care and activity restrictions were reviewed. Follow-up based on pathology results. Suture removal: 7-10 days (at home) Figure 1 Figure 2 Photo(s) taken and charted with patient's verbal consent. Other: ??? N/A RTC: Pending pathology. Otherwise, 2 weeks for TeleHealth biopsy follow up []Note routed to cloth booker []Recall placed in scheduling system []Appointment scheduled at checkout Scribe attestation: Jazzmine Nagy CMA has performed the documentation for this encounter in the presence of and acting as a scribe for Andria Jimenez MD. I performed the above scribed service and agree with the accuracy of the documentation in this encounter. Reviewed and signed by: Andria Jimenez MD Dermatology [facility] Patient seen and evaluated with staff technical developer: Yury Millan MD Department of Dermatology [facility] * Yury Millan MD - 06/13/2022 1:00 PM EDT I directly supervised Dr. Jimenez in the care of this patient. I saw and evaluated this patient with Dr. Jimenez. She presented the history and physical exam details to me, then we saw the patient together and I confirmed these findings. I agree with details as written. My physical examination confirms Dr. Jimenez's findings. The assessment and plan were formulated in discussion with me at the time of visit and I agree withthem as documented. YURY MILLAN MD FAAD Staff Physician documented in this encounter Plan of Treatment Not on file documented as of this encounter Procedures Procedure Name Priority Date/Time Associated Diagnosis Comments SURGICAL PATHOLOGY REPORT Routine 06/13/2022 1:51 PM EDT SPECIMEN TO PATHOLOGY Routine 06/13/2022 1:51 PM EDT Dermatitis SPECIMEN TO PATHOLOGY Routine 06/13/2022 1:51 PM EDT Dermatitis documented in this encounter Results * Surgical Pathology Report (06/13/2022 1:51 PM EDT) Final Diagnosis [id number] ? Location: [facility] The signing pathologist has (i) examined the relevant preparation(s) for the specimen(s) and (ii) rendered or confirmed the diagnosis(es). . ?Surgical Pathology DIAGNOSIS A - Left upper inner thigh, skin punch biopsy: - Superficial perivascular and interstitial dermatitis with acanthosis, serum-crusted parakeratosis, and eosinophils (see discussion) B - Right lateral lower leg, skin punch biopsy: - ??Superficial perivascular and interstitial dermatitis with subtle acanthosis, focal parakeratosis overlying orthokeratosis, and focal ?hypogranulosis ??(see discussion) Electronically signed by: ?Gia Hernandez MD Verified: ??06/19/2022 11:46 ??Dermatopathologist Performed at: ??-[facility] Dept. of Pathology, [place], [place] DISCUSSION A - Overall, the findings are those of an eczematous dermatitis. ? Eczema, contact dermatitis, eczematous drug rashes and id reactions can share similar histology and are best distinguished clinically. Findings diagnostic of lichen planus are not seen in the sections examined. B - Overall, the findings are not entirely specific, but can be seen in early evolving psoriasis. That diagnosis should be considered, if there is an appropriate clinical context. Guttate psoriasis and psoriasiform drug reactions can share somewhat similar histology, and are best excluded clinically. The pure histologic differential can include an early eczematous dermatitis. That differential is not favored; findings pathognomonic of an eczematous dermatitis are not seen here. Findings diagnostic of lichen planus or superficial fungal infection are not seen here. The findings are not entirely specific, but can be seen in early psoriasis. If clinical concern for a different process arises or persists, another biopsy at that time may be of help. MICROSCOPIC DESCRIPTION A - Examination of multiple levels of the biopsy reveals focal serum-crusted parakeratosis, hypergranulosis and acanthosis. The dermis has a moderately dense superficial perivascular and interstitial lymphohistiocytic infiltrate with associated eosinophils. Fungal microorganisms are not identified, as confirmed by interpretation of a PAS stain. B - Examination of the biopsy reveals focal parakeratosis vertically alternating with orthokeratosis overlying focal ?? hypogranulosis . There is subtle acanthosis. The papillary dermal capillaries are somewhat dilated, and abut the overlying basement membrane, without significant numbers of tortuous forms. The suprapapillary plates are not markedly thinned. The dermis has a mildly dense superficial perivascular infiltrate composed predominantly of lymphocytes. A significant population of eosinophils is not seen in the sections examined. Fungal microorganisms are not identified, as confirmed by interpretation of a PAS stain. . ADDITIONAL STUDIES A, B - ??Fungal microorganisms are not identified, as confirmed by interpretation of a PAS stain. The clinical images have been reviewed. SPECIMEN(S) SUBMITTED A - left upper inner thigh, skin punch (1) B - right lateral lower leg, skin punch (1) CLINICAL INFORMATION A - Many nummular scaly lichenified plaques on the left thigh. Guttate psoriasis versus prurigo nodularis versus lichen planus B - Lyford scaly plaques right lower leg. Psoriasis versus tinea versus lichen planus SPECIMEN PROCESSING A - Labeled/Fixative: Left upper inner thigh, formalin. Quantity/Size: ??Single, 0.4 cm diameter, 0.5 cm depth. Tissue Description: Non-oriented to [id number] skin punch. Sections/Processing: Bisected and entirely submitted in 1 cassette labeled A1. B - Labeled/Fixative: Right lateral lower leg, formalin. Quantity/Size: ??Single, 0.4 cm diameter, 0.6 cm depth. Tissue Description: Non-oriented santos-martell punch of a 0.1 cm glistening martell papule. Sections/Processing: Bisected adjacent to the papule, and entirely submitted in 1 cassette labeled B1. ??shb 06/19/2022 11:46 AM EDT [facility] SPECIMEN FROM SKIN / Unknown 06/13/2022 1:51 PM EDT 06/13/2022 1:51 PM EDT SPECIMEN FROM SKIN / Unknown 06/13/2022 1:51 PM EDT 06/13/2022 1:51 PM EDT Andria Jimenez MD PATHOLOGY/CYTOLOGY ORDERABLES [facility] [place] [address] * Specimen to Pathology (06/13/2022 1:51 PM EDT) AP Specimen 06/13/2022 1:51 PM EDT 06/13/2022 1:51 PM EDT Narrative [facility] - 06/13/2022 1:51 PM EDT Specimen requisition ordered. ??Separate Pathology report to follow Yury Millan MD PATHOLOGY/CYTOLOGY O DASHA Performing Organization Address City/[facility]/[place] [address] * Specimen to Pathology (06/13/2022 1:51 PM EDT) AP Specimen 06/13/2022 1:51 PM EDT 06/13/2022 1:51 PM EDT Narrative [facility] - 06/13/2022 1:51 PM EDT Specimen requisition ordered. ??Separate Pathology report to follow Yury Millan MD PATHOLOGY/CYTOLOGY O DASHA Performing Organization Address [facility] [place] [address] documented in this encounter Visit Diagnoses Diagnosis Dermatitis Contact dermatitis and other eczema, due to unspecified cause Skin lesions documented in this encounter Care Teams Elevator Constructor Supervisor Relationship Specialty Start Date End Date Johan Weston PA [address] [place] [address] PCP - General Internal Medicine 06/04/22 documented as of this encounter
--- OUTSIDE RECORDS SUMMARY | 2024-07-27 12:27 | XMS_ITS | Encounter Summary ---
Author Organization [facility] Address [address] [place] [address] Care Team Providers Care Application Counselor Name Role Phone Blayne Armstrong DO Primary Care Provider [phone] Encounter Details Date Type Department Care Team (Late st Contact Info) Description 11/20/2023 Lab Requisition [facility] Pathology & Laboratory Medicine - [facility] [place] [address] [place] [address] Outr Resulting Lab, Provider Social History Tobacco Use Types Packs/Day Years Used Date Smoking Tobacco: Former Smokeless Tobacco: Never Interpersonal Safety Answer Date Record ed Physically Hurt Never 04/23/2020 Verbally Threaten Not on file 04/23/2020 Sex and Gender Information Value Date Recorded Sex Assigned at Not on file Gender Identity Not on file Sexual Orientation Not on file documented as of this encounter Functional Status Functional Status Response Date of Assess ment Are you deaf or do you have serious difficulty hearing? No 11/04/2018 Are you blind or do you have serious difficulty seeing, even when wearing glasses? No-Wears glasses for distance 11/04/2018 Do you have serious difficul ty walking or climbing stairs? (5 years old or older) No 11/04/2018 Do you have difficulty dress ing or bathing? (5 years old or older) No 11/04/2018 Because of a physical, menta l, or emotional condition, do you have difficulty doing errands alone such as visiting a doctor's office or shopping? (15 years old or older) No 11/04/2018 Cognitive Status Response Date of Assessm ent Because of a physical, menta l, or emotional condition, do you have serious difficulty concentrating, remembering, or making decisions? (5 years old or older) No 11/04/2018 documented as of this encounter Plan of Treatment Not on file documented as of this encounter Procedures Procedure Name Priority Date/Time Associated Diagnosis Comments PSA TOTAL, DIAGNOSTIC Routine 11/19/2023 21:07 EST documented in this encounter Results * PSA TOTAL, DIAGNOSTIC (11/19/2023 21:07 EST) PSA 0.3 <=3.5 ng/mL 11/20/2023 17:52 EST [facility] Blood VENOUS BLOOD / Unknown 11/19/2023 21:07 EST 11/20/2023 17:05 EST Narrative [facility] - 11/20/2023 17:52 EST NOTE: Serum PSA concentration should not be interpreted as absolute evidence for the presence or absence of malignant disease. Assayed on Siemens ADVIA Centaur XPT using chemiluminescent technology.??Values obtained by using different assay methods cannot be used interchangeably. Provider Outr Resulting Lab CHEMISTRY & BLOOD GAS ORDERABLES [facility] [address] [place] [address] documented in this encounter Visit Diagnoses Not on filedocumented in this encounter Care Teams Application Counselor Relationship Specialty Start Date End Date Blayne Armstrong, [address] [facility] [address] [place] [address] PCP - General 11/04/18 documented as of this encounter
--- OUTSIDE RECORDS SUMMARY | 2024-07-27 12:27 | XMS_ITS | Encounter Summary ---
Author Organization [facility] Address [address] [place] [address] Care Team Providers Care Chicken Boner Name Role Phone Blayne Armstrong DO Primary Care Provider Encounter Details Date Type Department Care Team (Late st Contact Info) Description 11/23/2018 Results Only Imaging [facility] [phone] Unknown, Provider, Social History Tobacco Use Types Packs/Day Years Used Date Smoking Tobacco: Former Smokeless Tobacco: Never Sex and Gender Information [...] as of this encounter Plan of Treatment Pending Results Name Type Priority Associated Diagnoses Date /Time OUTSIDE IMAGES - CT BODY Imaging 11/23/2018 14:54 EST documented as of this encounter Visit Diagnoses Not on filedocumented in this encounter Care Teams Chicken Boner Relationship Specialty Start Date End Date Blayne Armstrong DO [address] [facility], [facility] [address] [place] [address] PCP - General 11/04/18 documented as of this encounter
--- OUTSIDE RECORDS SUMMARY | 2024-07-27 12:27 | XMS_ITS | Encounter Summary ---
Author Organization [facility] Address [address] [place] [address] Care Team Providers Care Detention Deputy Name Role Phone Blayne Armstrong DO Primary Care Provider [phone] Encounter Details Date Type Department Care Team (Late st Contact Info) Description 12/06/2022 Lab Requisition [facility] Pathology & Laboratory Medicine - [facility] [address] [place] [address] Outr Resulting Lab, Provider Social History Tobacco [...] Associated Diagnosis Comments PSA TOTAL, DIAGNOSTIC Routine 12/05/2022 10:11 EDT documented in this encounter Results * PSA TOTAL, DIAGNOSTIC (12/05/2022 10:11 EDT) PSA 0.2 <=3.5 ng/mL 12/08/2022 11:01 EDT [facility] Blood VENOUS BLOOD / Unknown 12/05/2022 10:11 EDT 12/07/2022 16:00 EDT Narrative [facility] - 12/08/2022 11:01 EDT NOTE: Serum PSA concentration should not be interpreted as absolute evidence for the presence or absence of malignant disease. Assayed on Siemens ADVIA Centaur XPT using chemiluminescent technology.??Values obtained by using different assay methods cannot be used interchangeably. Provider Outr Resulting Lab CHEMISTRY & BLOOD GAS ORDERABLES Performing Organization Address City/State/[facility] Co de Phone Number [facility] [address] [place] [address] documented in this encounter Visit Diagnoses Not on filedocumented in this encounter Care Teams Detention Deputy Relationship Specialty Start Date End Date Blayne Armstrong DO [address] [facility], [address] [place] [address] PCP - General 11/04/18 documented as of this encounter
--- OUTSIDE RECORDS SUMMARY | 2024-07-27 12:27 | XMS_ITS | Clinical Summary ---
Author Organization [facility] Address [facility] [place] [address] Care Team Providers Care Entry Level Project Engineer Name Role Phone Johan Weston Primary Care Provider Allergies No known active allergies Medications Medication Sig Dispensed Refills Start Date End Date Status ProAir HFA 90 mcg/actuation HFA Aerosol Inhaler Inhale 2 puffs into the lungs every 4 hours as needed. 05/28/2022 Active Jardiance 10 mg Tablet Take 10 mg by mouth every morning. 03/18/2022 Active metFORMIN (Glucophage) 1,000 mg Tablet 04/15/2022 Active pantoprazole EC (Protonix) 40 mg Tablet, Delayed Release (E.C.) Take 40 mg by mouth daily. 04/15/2022 Active montelukast (Singulair) 10 mg Tablet Take 10 mg by mouth every evening. 05/28/2022 Active sertraline (Zoloft) 50 mg Tablet Take 100 mg by mouth daily. 06/09/2022 Active Symbicort 160-4.5 mcg/actuation HFA Aerosol Inhaler Inhale 2 puffs into the lungs 2 times daily. 06/09/2022 Active augmented betamethasone dipropionate (Diprolene-AF) 0.05 % OintmentIndications:Ec zema, unspecified type Apply topically to affected area on body twice a day for two weeks then take a week off and repeat 50 g 3 06/25/2022 Active Social History Tobacco Use Types Packs/Day Years Used Date Smoking Tobacco: Former Cigarettes Q uit: 2016 Smokeless Tobacco: Never Sex and Gender Information Value Date Recorded Sex Assigned at Not on file Gender Identity Not on file Sexual Orientation Not on file Plan of Treatment Health Maintenance Due Date Last Done Comments CT Colonography 1972 Colonoscopy 1972 Colorectal Cancer Screening 1972 FIT DNA 1972 FIT 1972 Sigmoidoscopy (10 year) with FIT yearly 1972 Sigmoidoscopy 1972 HIV screen 1990 Hepatitis C Screening 1990 Lipid Screening 1990 Hepatitis B vaccine (0-59 yrs) (1) 1991 Tetanus/Diphtheria/Pertussis Vaccines (1 - Tdap) 09/11 Zoster vaccine (1 of 2) 2022 Covid-19 Vaccine (1 - season) 2024 Influenza (Flu) vaccine (1 o f 1 - Influenza standard series) 05/22/2024 Care Teams Entry Level Project Engineer Relationship Specialty Start Date End Date Johan Weston PA [address] [place] [address] PCP - General Internal Medicine 06/04/22
--- OUTSIDE RECORDS SUMMARY | 2024-07-27 12:27 | XMS_ITS | Encounter Summary ---
[place] [address] Care Team Providers Care Buttoner Name Role Phone Blayne Armstrong MD Primary Care Provider Reason for Referral * Diagnostic Test (Routine) - Closed Specialty Diagnoses / Procedures Referred By Contac t Referred To Contact Cardiology Diagnoses Exertional dyspnea Procedures Mobile Avelina Orozco PA [address] [place] [address] [facility] [place] [address] Referral ID Status Reason Start Date Expiration Date V isits Requested Visits Authorized [id number] Closed Specialty Service Requested 06/02/2022 06/02/2023 1 1 Reason for Visit * Diagnostic Test (Routine) - Closed Specialty Diagnoses / Procedures Referred By Contac t Referred To Contact Cardiology Diagnoses Exertional dyspnea Procedures Mobile Avelina Orozco PA [address] [place] [address] [facility] [place] [address] Referral ID Status Reason Start Date Expiration Date V isits Requested Visits Authorized [id number] Closed Specialty Service Requested 06/02/2022 06/02/2023 1 1 Encounter Details Date Type Department Care Team (Latest Contact Info) Description 06/02/2022 12:38 PM EDT - 06/02/2022 11:59 PM EDT Hospital Encounter Mobile [place] [address] Avelina Esparza PA [address] [place] [address] Exertional dyspnea Discharge Disposition: Home Social History Tobacco Use Types Packs/Day Years Used Date Smoking Tobacco: Never Assessed Sex and Gender Information Value Date Recorded Sex Assigned at Not on file Gender Identity Not on file Sexual Orientation Not on file documented as of this encounter Medications at Time of Discharge Medication Sig Dispensed Refills Start Date End Date ProAir HFA 90 mcg/actuation HFA Aerosol Inhaler Inhale 2 puffs into the lungs every 4 hours as needed. 05/28/2022 Jardiance 10 mg Tablet Take 10 mg by mouth every morning. 03/18/2022 metFORMIN (Glucophage) 1,000 mg Tablet 04/15/2022 pantoprazole EC (Protonix) 40 mg Tablet, Delayed Release (E.C.) Take 40 mg by mouth daily. 04/15/2022 montelukast (Singulair) 10 mg Tablet Take 10 mg by mouth every evening. 05/28/2022 documented as of this encounter Plan of Treatment Not on file documented as of this encounter Procedures Procedure Name Priority Date/Time Associated Diagnosis Comments ECHO COMPLETE Routine 06/02/2022 1:01 PM EDT Exertional dyspnea documented in this encounter Results * ECHO COMPLETE (06/02/2022 1:01 PM EDT) Anatomical Region Laterality Modality Other 06/02/2022 10:4 6 AM EDT Narrative 06/02/2022 1:36 PM EDT ? Echocardiogram Report Name: ELIZABETH APPIAH ? Study Date: 06/02/2022 10:46 AM ? Patient Location: : 1970 ? Height: 175 cm ? Account: [id number] Age: 51 yrs ? Weight: 108 kg Gender: Male ?BSA: 2.2 m2 Ordering Physician: AVELINA ESPARZA Referring Physician: AVELINA ESPARZA Performed By: [place] Exam Location: [facility]. Interpretation Summary Left ventricle is of normal size. Wall thickness is normal. The left ventricular ejection fraction is 58% by Alvares's biplane. There are no segmental wall motion abnormalities. The LA is normal in size. No significant valvular abnormalities. Unable to estimate PASP due to an inadequate jet of TR. Other details as below. Procedure Complete-[id number]. Satisfactory quality. Left Ventricle Left ventricle is of normal size. Wall thickness is normal. The left ventricular ejection fraction is 58% by Alvares's biplane. There are no segmental wall motion abnormalities. Right Ventricle The right ventricle is of normal size. Right ventricular systolic function is normal. Left Atrium The left atrium is normal. No abnormality of the interatrial septum is identified. Right Atrium The right atrium is normal. Aortic Valve The aortic valve is structurally normal. There is no aortic stenosis. There is no aortic regurgitation. Mitral Valve Mild thickening of the mitral leaflets. Minimal calcification of the mitral annulus. There is no mitral stenosis. There is trace mitral regurgitation. Tricuspid Valve The tricuspid valve is structurally normal. There is trace tricuspid regurgitation. Pulmonic Valve The pulmonic valve appears to be structurally and functionally normal. Great Arteries The aortic root is of normal size. No abnormalities are identified. Ascending aorta is normal in size. Venous Inferior vena cava is normal in size. Inferior vena cava collapse greater than 50% with respiration. Pericardium/Pleural The pericardium appears normal. Hemodynamics Pulmonary artery hypertension could not be assessed due to inadequate tricuspid regurgitation jet. Left ventricular diastolic function is normal. Ejection Fraction ?2D Measurements ? Volumes LV Biplane EF: 57.4 % ? IVSd: 0.94 cm ?EDV Biplane: 80.4 ml ?LVPWd: 0.92 cm ? EDV Biplane Index: 36.1 ? ESV Biplane: 34.2 ml ? ESV Biplane Index: 15.4 Doppler LV V1 VTI: 15.4 cm Ao V2 VTI: 17.0 cm Ao Max: 102.3 cm/sec Ao valve max: 4.2 mmHg MV E max prateek: 76.2 cm/sec MV A max prateek: 68.4 cm/sec MV E/A: 1.1 Dimensionless index Aov: 0.91 I ?WMSI = 1.00 ? % Normal = 100 ?Segments ??Size X - Cannot ?2 - ?4 - ?1-2 ? small Interpret ?1 - Normal ?? Hypokinetic 3 - Akinetic Dyskinetic ?? 3-5 ? moderate 5 - ? 6-14 ?large Aneurysmal ?15-16 ?? diffuse Procedure Note Genaro Porter MD - 06/02/2022 Echocardiogram Report Name: ELIZABETH APPIAH Study Date:06/02/2022 10:46 AM Patient Location: : 1970 Height: 175 cm Account: [id number] Age: 51 yrs Weight: 108 kg Gender: Male BSA: 2.2 m2 Ordering Physician: AVELINA ESPARZA Referring Physician: AVELINA ESPARZA Performed By: PATRICIA Exam Location: [facility]. Interpretation Summary Left ventricle is of normal size. Wall thickness is normal. The leftventricular ejection fraction is 58% by Alvares's biplane. There are no segmental wallmotion abnormalities. The LA is normal in size. No significant valvular abnormalities. Unable to estimate PASP due to an inadequate jet of TR. Other details as below. Procedure Complete-[id number]. Satisfactory quality. Left Ventricle Left ventricle is of normal size. Wall thickness is normal. The leftventricular ejection fraction is 58% by Alvares's biplane. There are no segmental wallmotion abnormalities. Right Ventricle The right ventricle is of normal size. Right ventricular systolic functionis normal. Left Atrium The left atrium is normal. No abnormality of the interatrial septum isidentified. Right Atrium The right atrium is normal. Aortic Valve The aortic valve is structurally normal. There is no aortic stenosis.There is no aortic regurgitation. Mitral Valve Mild thickening of the mitral leaflets. Minimal calcification of themitral annulus. There is no mitral stenosis. There is trace mitralregurgitation. Tricuspid Valve The tricuspid valve is structurally normal. There is trace tricuspid regurgitation. Pulmonic Valve The pulmonic valve appears to be structurally and functionally normal. Great Arteries The aortic root is of normal size. No abnormalities are identified.Ascending aorta is normal in size. Venous Inferior vena cava is normal in size. Inferior vena cava collapse greaterthan 50% with respiration. Pericardium/Pleural The pericardium appears normal. Hemodynamics Pulmonary artery hypertension could not be assessed due to inadequatetricuspid regurgitation jet. Left ventricular diastolic function is normal. Ejection Fraction 2D Measurements Volumes LV Biplane EF: 57.4 % IVSd: 0.94 cm EDV Biplane: 80.4ml LVPWd: 0.92 cm EDV BiplaneIndex: 36.1 ESV Biplane: 34.2ml ESV BiplaneIndex: 15.4 Doppler LV V1 VTI: 15.4 cm Ao V2 VTI: 17.0 cm Ao Max: 102.3 cm/sec Ao valve max: 4.2 mmHg MV E max prateek: 76.2 cm/sec MV A max prateek: 68.4 cm/sec MV E/A: 1.1 Dimensionless index Aov: 0.91 I WMSI = 1.00 % Normal = 100 SegmentsSize X - Cannot 2 - 4 - 1-2small Interpret 1 - Normal Hypokinetic 3 - Akinetic Dyskinetic 3-5moderate 5 - 6-14large Aneurysmal 15-16diffuse Avelina MARIO ECHO ORDERABLES documented in this encounter Visit Diagnoses Diagnosis Exertional dyspnea Other dyspnea and respiratory abnormality documented in this encounter Care Teams Buttoner Relationship Specialty Start Date End Date Blayne Armstrong [place] [address] PCP - [facility] 10/22/18 06/03/22 documented as of this encounter
--- OUTSIDE RECORDS SUMMARY | 2024-07-27 12:27 | XMS_ITS | Clinical Summary ---
Author Organization [facility] Address [address] [place] [address] Care Team Providers Care Ironer Name Role Phone Blayne Armstrong DO Primary Care Provider [phone] Allergies No known active allergies Active Problems Problem Noted Date Diagnosed Date Pneumonia of right lung due to Streptococcus pneumoniae ([facility]) 11/10/2018 Resolved Problems Problem Noted Date Diagnosed Date Resolved Date Acute respiratory failure wi th hypoxia ([facility]) 11/10/2018 11/10/2018 CRISPIN (acute kidney injury) ([facility]) 11/10/2018 11/10/2018 Hypernatremia 11/10/2018 11/10/2018 Hypokalemia 11/10/2018 11/10/2018 Septic shock due to streptoc occal infection ([facility]) 11/07/2018 11/10/2018 Social History Tobacco Use Types Packs/Day Years Used Date Smoking Tobacco: Former Smokeless Tobacco: Never Interpersonal Safety Answer Date Record ed Physically Hurt Never 04/23/2020 Verbally Threaten Not on file 04/23/2020 Sex and Gender Information Value Date Recorded Sex Assigned at Not on file Gender Identity Not on file Sexual Orientation Not on file Obstetrics History Last Filed Vital Signs Vital Sign Reading Time Taken Comments Blood Pressure 125/83 11/10/2018 0920 EST Pulse - - Temperature 37.2 ??C (99 ??F) 11/10/2018 0920 EST Not ified Tessy RN Respiratory Rate 16 11/10/2018 0920 EST Oxygen Saturation 95% 11/10/2018 0920 EST Inhaled Oxygen Concentration - - Weight 121.3 kg (267 lb 8 oz) 11/04/2018 1540 EST Height 179 cm (5' 10.47) 11/04/2018 1540 EST Body Mass Index 37.87 11/04/2018 1540 EST Plan of Treatment Health Maintenance Due Date Last Done Comments Hepatitis C Screen 1970 Hepatitis B Vaccine (1 of 3 - 19+ 3-dose series) 09/11 COVID-19 Vaccine (2022-24 season) 2023 Advance Directives For more information, please contact: [phone] * Full Code (Latest Code Status on File) Date Activated Date Inactivated Comments 11/04/2018 15:28 11/10/2018 13:54 Question Answer Comments Reason for decision includes: Full code consistent with overall plan of care Who participated in the discussion? Patient Care Teams Ironer Relationship Specialty Start Date End Date Blayne Armstrong DO [address] [place] [address], [facility] [address] [place] [address] PCP - General 11/04/18
--- OUTSIDE RECORDS SUMMARY | 2024-07-27 12:27 | XMS_ITS | Encounter Summary ---
Author Organization [facility] Address [address] [place] [address] Care Team Providers Care Medical Communication Specialist Name Role Phone Blayne Armstrong DO Primary Care Provider Encounter Details Date Type Department Care Team (Late st Contact Info) Description 08/15/2020 Lab Requisition [facility] Pathology & Laboratory Medicine - [facility] [address] [place] [address] Outr Resulting Lab, Provider Social History Tobacco [...] Date/Time Associated Diagnosis Comments PSA TOTAL, DIAGNOSTIC After X-Ray 08/03/2020 14:45 EST documented in this encounter Results * PSA TOTAL, DIAGNOSTIC (08/03/2020 14:45 EST) PSA 0.3 0.0 - 2.5 ng/mL 09/04/2020 13:25 EST [facility] Blood VENOUS BLOOD / Unknown 08/03/2020 14:45 EST 09/04/2020 12:54 EST Narrative [facility] - 09/04/2020 13:25 EST NOTE: Serum PSA concentration should not be interpreted as absolute evidence for the presence or absence of malignant disease. Assayed on Siemens ADVIA Roostaur XPT using chemiluminescent technology.??Values obtained by using different assay methods cannot be used interchangeably. Provider Outr Resulting Lab CHEMISTRY & BLOOD GAS ORDERABLES [facility] [address] [place] [address] documented in this encounter Visit Diagnoses Not on filedocumented in this encounter Care Teams Medical Communication Specialist Relationship Specialty Start Date End Date Blayne Armstrong, [address] [facility], [address] [place] [address] PCP - General 11/04/18 documented as of this encounter
--- OUTSIDE RECORDS SUMMARY | 2024-07-27 12:27 | XMS_ITS | Encounter Summary ---
Author Organization [facility] Address [address] [place] [address] Care Team Providers Care Service Delivery Supervisor Name Role Phone Blayne Armstrong DO Primary Care Provider [phone] Encounter Details Date Type Department Care Team (Late st Contact Info) Description 09/07/2020 Lab Requisition [facility] Pathology & Laboratory Medicine - [facility] [address] [place] [address] Outr Resulting Lab, Provider Social History Tobacco [...] Procedure Name Priority Date/Time Associated Diagnosis Comments VARICELLA IGG ANTIBODY Routine 09/06/2020 14:30 EST documented in this encounter Results * VARICELLA IGG ANTIBODY (09/06/2020 14:30 EST) Varicella IgG Ab Positive See Note 09/10/2020 11:51 EST [facility] Comment:Presence of detectab le Varicella Zoster virus IgG antibodies. Blood VENOUS BLOOD / Unknown 09/06/2020 14:30 EST 09/07/2020 17:22 EST Provider Outr Resulting Lab IMMUNOLOGY A ND SEROLOGY ORDERABLES Performing Organization Address [facility] Co de Phone Number [facility] [address] [place] [address] documented in this encounter Visit Diagnoses Not on filedocumented in this encounter Care Teams Service Delivery Supervisor Relationship Specialty Start Date End Date Blayne Armstrong, [address] [facility], [address] [place] [address] PCP - General 11/04/18 documented as of this encounter
--- OUTSIDE RECORDS SUMMARY | 2024-07-27 12:27 | XMS_ITS | Encounter Summary ---
Author Organization [facility] Address [facility] [place] [address] Care Team Providers Care Transit Authority Police Officer Name Role Phone Johan Weston Primary Care Provider [phone] Reason for Referral * Consultation (Routine) - Closed Specialty Diagnoses / Procedures Referred By Olvin t Referred To Contact Dermatology Diagnoses Skin lesions Johan Weston PA [address] [place] [address] [facility] Dermatology [address] [place] [address] Referral ID Status Reason Start Date Expiration Date V isits Requested Visits Authorized [id number] Closed Consult, Test & Treat PCP Updated and/or Approved 06/04/2022 06/04/2023 6 6 Encounter Details Date Type Department Care Team (Late st Contact Info) Description 06/04/2022 Transcribe Orders eDH Incoming Referrals [phone] Johan Weston PA [address] [place] [address] Skin lesions Social History Tobacco Use Types Packs/Day Years Used Date Smoking Tobacco: Never Assessed Sex and Gender Information Value Date Recorded Sex Assigned at Not on file Gender Identity Not on file Sexual Orientation Not on file documented as of this encounter Plan of Treatment Scheduled Referrals Name Type Priority Associated Diagnoses Order Schedule Referral to Dermatology Outpatient Referral Routine Skin lesions Ordered: 06/04/2022 documented as of this encounter Visit Diagnoses Diagnosis Skin lesions documented in this encounter Care Teams Transit Authority Police Officer Relationship Specialty Start Date End Date Johan Weston PA [address] [place] [address] PCP - General Internal Medicine 06/04/22 documented as of this encounter
--- OUTSIDE RECORDS SUMMARY | 2024-07-27 12:27 | XMS_ITS | Encounter Summary ---
Author Organization [facility] Address [address] [place] [address] Care Team Providers Care Set Up Mechanic Name Role Phone Blayne Armstrong DO Primary Care Provider [phone] Encounter Details Date Type Department Care Team (Latest Contact Info) Description 12/03/2018 15:48 EDT - 12/03/2018 23:59 EDT Hospital Encounter [address] [address] Unknown, Provider, MD Discharge Disposition: Home or Self Care Social History Tobacco Use Types Packs/Day Years [...] No 11/04/2018 documented as of this encounter Discharge Disposition Disposition Code Departure Means Destination Home or Self Custodial documented in this encounter Plan of Treatment Not on file documented as of this encounter Visit Diagnoses Not on filedocumented in this encounter Care Teams Set Up Mechanic Relationship Specialty Start Date End Date Blayne Armstrong DO [address] [place] [address], [address] [place] [address] PCP - General 11/04/18 documented as of this encounter
--- OUTSIDE RECORDS SUMMARY | 2024-07-27 12:27 | XMS_ITS | Encounter Summary ---
Author Organization [facility] Address [facility] [place] [address] Care Team Providers Care Chemical Tester Name Role Phone Johan Weston Primary Care Provider [phone] Encounter Details Date Type Department Care Team (Late st Contact Info) Description 07/02/2022 Telephone Dermatology at [facility] [address] [place] [address] Andria Jimenez MD [facility] [address] [place] [address] Social History Tobacco Use Types Packs/Day Years Used Date Smoking Tobacco: Former Cigarettes Q uit: 2016 Smokeless Tobacco: Never Sex and Gender Information Value Date Recorded Sex Assigned at Not on file Gender Identity Not on file Sexual Orientation Not on file documented as of this encounter Miscellaneous Notes * Telephone Encounter - Marita Brock - 07/02/2022 4:37 PM EDT No answer. The phone rang then went silent. Following up with a message in [facility]. documented in this encounter Plan of Treatment Not on file documented as of this encounter Visit Diagnoses Not on filedocumented in this encounter Care Teams Chemical Tester Relationship Specialty Start Date End Date Johan Weston PA [address] [place] [address] PCP - General Internal Medicine 06/04/22 documented as of this encounter
--- OUTSIDE RECORDS SUMMARY | 2024-07-27 12:27 | XMS_ITS | Referral Summary ---
Author Organization [facility] Address [address] [place] [address] Care Team Providers Care Powertrain Calibration Engineer Name Role Phone Blayne Armstrong DO Primary Care Provider [phone] Allergies No known active allergies Active Problems Problem Noted Date Diagnosed Date Pneumonia of right lung due to Streptococcus pneumoniae ([facility]) 11/10/2018 Resolved Problems Problem Noted Date Diagnosed Date Resolved Date Acute respiratory failure wi th hypoxia ([facility]) 11/10/2018 11/10/2018 CRISPIN (acute kidney injury) ([facility]) 11/10/2018 11/10/2018 Hypernatremia 11/10/2018 11/10/2018 Hypokalemia 11/10/2018 11/10/2018 Septic shock due to streptoc occal infection ([facility]) 11/07/2018 11/10/2018 Social History Tobacco Use Types Packs/Day Years Used Date Smoking Tobacco: Former Smokeless Tobacco: Never Interpersonal Safety Answer Date Record ed Physically Hurt Never 04/23/2020 Verbally Threaten Not on file 04/23/2020 Sex and Gender Information Value Date Recorded Sex Assigned at Not on file Gender Identity Not on file Sexual Orientation Not on file Last Filed Vital Signs Vital Sign Reading [...] Body Mass Index 37.87 11/04/2018 1540 EST Functional Status Functional Status Response Date of [...] (5 years old or older) No 11/04/2018 Plan of Treatment Not on file Advance Directives For more information, please contact: [phone] * Full Code (Latest Code Status on File) Date Activated Date Inactivated Comments 11/04/2018 15:28 11/10/2018 13:54 Question Answer Comments Reason for decision includes: Full code consistent with overall plan of care Who participated in the discussion? Patient Care Teams Powertrain Calibration Engineer Relationship Specialty Start Date End Date Blayne Armstrong DO [address] [place] [address], [address] [place] [address] PCP - General 11/04/18
--- OUTSIDE RECORDS SUMMARY | 2024-07-27 12:27 | XMS_ITS | Encounter Summary ---
Author Organization [facility] Address [address] [place] [address] Care Team Providers Care Banking Teacher Name Role Phone Blayne Armstrong DO Primary Care Provider [phone] Encounter Details Date Type Department Care Team (Late st Contact Info) Description 12/03/[address] [facility] [phone] Dotty Bolden, DO [address] [place] [address] Social History Tobacco Use Types Packs/Day Years [...] Priority Date/Time Associated Diagnosis Comments SURGICAL PATHOLOGY Routine 12/03/2018 18 :21 EDT documented in this encounter Results * SURGICAL PATHOLOGY (12/03/2018 18:21 EDT) Pathology Report: SURGICAL PATHOLOGY REPORT Reports generated via electronic interface contain original data; however they are lacking the format of the original report. Caution should be taken when reading/interpreting unformatted reports. Name: ? ELIZABETH APPIAH ? Accession #: ? [id number] ? : ? 1970 (Age: 48) ??M ? Collect Date: ? 12/03/2018 ? Location: ? [facility] ? Receive Date: ? 12/03/2018 ? Provider: DOTTY BOLDEN DO Copy to: [facility] ? Final Pathologic Diagnosis: SKIN OF THIGH, LEFT POSTERIOR, SHAVE BIOPSY: - Fibroepithelial polyp, irritated. See comment. Comment: The findings are those of a fibroepithelial polyp with associated reparative changes including ulceration, fibrosis, reactive blood vessels, and fat necrosis. Motion Graphics Designer sections were shown at intradepartmental consultation conference. ??(Dr. Higuera)/[facility] Document reviewed and electronically signed by: DOTTY HIGUERA MD Report ??Date: 12/07/2018 13:29 By the signature above, the attending physician certifies that he/she has personally conducted a gross and/or microscopic examination of the described specimens and rendered or confirmed the above diagnosis. Specimen(s) Received: Skin tag left posterior thigh Clinical History: Skin tag left posterior thigh Gross Description: ? Received in formalin labelled with proper patient identification (initials B, S) and skin tag posterior left thigh is a shave biopsy of polypoid skin (5.0 x 2.2 x 1.5 cm). The skin surface is martell-brown focally mottled and ulcerated. The resection margin is inked blue. The specimen is serially sectioned to reveal a martell-yellow focally hemorrhagic cut surface. A life assurance representative full-thickness section is bisected and submitted as 1 and 2. The remainder of the specimen is submitted on 12/06/2018 as follows: BLOCK ALBA 3-4- ??full-thickness section, bisected 5-6- ??full-thickness section, bisected 7-8- ??full-thickness section, bisected 9- ??full-thickness section 10- ??full-thickness section SHELBI Palmer ([facility]) 12/06/2018 12:10 PM End of Report [facility] 12/03/2018 18:2 1 EDT 12/03/2018 18:21 EDT Dotty Bolden DO PATHOLOGY ORDERABLES [facility] [address] [place] [address] documented in this encounter Visit Diagnoses Not on filedocumented in this encounter Care Teams Banking Teacher Relationship Specialty Start Date End Date Blayne Armstrong DO [address] [facility], [address] [place] [address] PCP - General 11/04/18 documented as of this encounter
--- OUTSIDE RECORDS SUMMARY | 2024-07-27 12:27 | XMS_ITS | Encounter Summary ---
Author Organization [facility] [place] [address] Care Team Providers Care Stiff Leg Operator Name Role Phone Blayne Armstrong MD Primary Care Provider Encounter Details Date Type Department Care Team (Latest Contact Info) Description 11/04/2018 1:03 PM EST - 11/04/2018 11:59 PM [facility] Hospital Encounter [facility] at [address] [address] Cesar Vergara MD [facility] [place] [address] Discharge Disposition: Other [facility] Social History Tobacco Use Types Packs/Day Years Used Date Smoking Tobacco: Never Assessed Sex and Gender Information Value Date Recorded Sex Assigned at Not on file Gender Identity Not on file Sexual Orientation Not on file documented as of this encounter Plan of Treatment Not on file documented as of this encounter Visit Diagnoses Not on filedocumented in this encounter Care Teams Stiff Leg Operator Relationship Specialty Start Date End Date Blayne Armstrong [place] [address] PCP - [facility] 10/22/18 06/03/22 documented as of this encounter
--- OUTSIDE RECORDS SUMMARY | 2024-07-27 12:27 | XMS_ITS | Encounter Summary ---
Author Organization [facility] Address [address] [place] [address] Care Team Providers Care Microbial Specialist Name Role Phone Blayne Armstrong DO Primary Care Provider Encounter Details Date Type Department Care Team (Late st Contact Info) Description 10/03/2022 Lab Requisition [facility] Pathology & Laboratory Medicine - [facility] [address] [place] [address] Outr Resulting Lab, Provider Social History Tobacco [...] No 11/04/2018 Cognitive Status Response Date of Assess ent Because of a physical, menta l, or emotional condition, do you have serious difficulty concentrating, remembering, or making decisions? (5 years old or older) No 11/04/2018 documented as of this encounter Plan of Treatment Not on file documented as of this encounter Procedures Procedure Name Priority Date/Time Associated Diagnosis Comments SS-B (LA) ANTIBODY, IGG Routine 10/03/2022 13:10 EST ZZHN SSA ANTIBODIES BY KAVITHA Routine 10/03/2022 13:10 EST SM (BROCK) ANTIBODY, IGG Routine 10/03/2022 13:10 EST CCP ANTIBODIES Routine 10/03/2022 13:10 EST DOUBLE STRANDED DNA ANTIBODY, IGG Routine 10/03/2022 13:10 EST RHEUMATOID FACTOR Routine 10/03/2022 13: 10 EST ANTI NUCLEAR AB (ANDRADE), IFA Routine 10/03/2022 13:10 EST IGE Routine 10/03/2022 13:10 EST documented in this encounter Results * ANTI DNA (DOUBLE STRANDED) (10/03/2022 13:10 EST) Anti-DNA (Double Stranded) <12.3 <30.0 IU/mL 10/07/2022 12:10 EST [facility] Comment: ? Negative: ??<30.0 IU/mL ? Borderline Positive: ??30.0 - 75.0 IU/mL ? Positive: ??>75.0 IU/mL Results were obtained with the Minderest QUANTA Lite dsDNA SC KAVITHA assay on the [employer]. Blood VENOUS BLOOD / Unknown 10/03/2022 13:10 EST 10/03/2022 21:44 EST Provider Outr Resulting Lab IMMUNOLOGY A ND SEROLOGY ORDERABLES Performing Organization Address [facility] de Phone Number [facility] [address] [place] [address] * (ABNORMAL) IGE (10/03/2022 13:10 EST) IgE 165(H) <158 IU/mL 10/06/2022 8:48 EST [facility] Blood VENOUS BLOOD / Unknown 10/03/2022 13:10 EST 10/03/2022 21:43 EST Provider Outr Resulting Lab CHEMISTRY & BLOOD GAS ORDERABLES Performing Organization Address [facility] de Phone Number [facility] [address] [place] [address] * SM (BROCK) ANTIBODY (10/03/2022 13:10 EST) SM (Brock) Antibody 1.9 <20.0 Units 10/07/2022 12:30 EST [facility] Comment: ? Negative: <20.0 Units ? Weak Positive: 20.0 - 39.9 Units ? Moderate Positive: 40.0 - 80.0 Units ? Strong Positive: >80.0 Units Results were obtained with the Spiral GatewayA Lite Sm KAVITHA. ??Sm values obtained with different manufacturers' assay methods may not be used interchangeably. ??The magnitude of the reported IgG levels cannot be correlated to an endpoint titer. Blood VENOUS BLOOD / Unknown 10/03/2022 13:10 EST 10/03/2022 21:44 EST Provider Outr Resulting Lab IMMUNOLOGY A ND SEROLOGY ORDERABLES Performing Organization Address [facility] de Phone Number [facility] [address] [place] [address] * SSB ANTIBODIES BY KAVITHA (10/03/2022 13:10 EST) SSB Antibody 7.5 <20.0 Units 10/07/2022 12:28 EST [facility] Comment: ? Negative: <20.0 Units ? Weak Positive: 20.0 - 39.9 Units ? Moderate Positive: 40.0 - 80.0 Units ? Strong Positive: >80.0 Units Results were obtained with the INOVA QUANTA Lite SS-B KAVITHA. ??SS-B values obtained with different manufacturers' assay methods may not be used interchangeably. ??The magnitude of the reported IgG levels cannot be correlated to an endpoint titer. Blood VENOUS BLOOD / Unknown 10/03/2022 13:10 EST 10/03/2022 21:44 EST Provider Outr Resulting Lab IMMUNOLOGY A ND SEROLOGY ORDERABLES Performing Organization Address City/State/[facility] Co de Phone Number [facility] [address] [place] [address] * SSA ANTIBODIES BY KAVITHA (10/03/2022 13:10 EST) SSA Antibody 1.3 <20.0 Units 10/07/2022 12:28 EST [facility] Comment: ? Negative: <20.0 Units ? Weak Positive: 20.0 - 39.9 Units ? Moderate Positive: 40.0 - 80.0 Units ? Strong Positive: >80.0 Units Results were obtained with the INOVA QUANTA Lite SS-A KAVITHA. ??SS-A values obtained with different manufacturers' assay methods may not be used interchangeably. ??The magnitude of the reported IgG levels cannot be correlated to an endpoint titer. Blood VENOUS BLOOD / Unknown 10/03/2022 13:10 EST 10/03/2022 21:44 EST Provider Outr Resulting Lab IMMUNOLOGY A ND SEROLOGY ORDERABLES Performing Organization Address [facility] Co de Phone Number [facility] [address] [place] [address] * (ABNORMAL) ANTI NUCLEAR AB (ANDRADE), IFA (10/03/2022 13:10 EST) ANDRADE Interpretation Positive(A) Negative 10/06/2022 13:58 EST [facility] Comment: For titers greater than or equal to 1:160 (except the centromere and nucleolar patterns) it is recommended that specific follow-up autoantibody testing ??(such as for dsDNA and Extractable Nuclear Antigens) be performed on all diffuse and/or speckled patterns NOTE: For add-on testing dsDNA is stable for 7 days refrigerated while Extractable Nuclear Antigens are only stable for 48 hours refrigerated. ANDRADE Titer and Pattern 1 1:160 Speckled 10/06/2022 13:58 EST [facility] Blood VENOUS BLOOD / Unknown 10/03/2022 13:10 EST 10/03/2022 21:44 EST Narrative [facility] - 10/06/2022 13:58 EST Results were obtained with the INOVA NOVA Lite HEp-2 ANDRADE Kit by indirect immunofluorescence. Provider Outr Resulting Lab IMMUNOLOGY A ND SEROLOGY ORDERABLES Performing Organization Address [facility] Co de Phone Number [facility] [address] [place] [address] * RHEUMATOID FACTOR (10/03/2022 13:10 EST) Rheumatoid Factor <8.6 <12.0 IU/mL 10/03/2022 22:26 EST [facility] Blood VENOUS BLOOD / Unknown 10/03/2022 13:10 EST 10/03/2022 21:43 EST Provider Outr Resulting Lab CHEMISTRY & BLOOD GAS ORDERABLES Performing Organization Address [facility] Co de Phone Number [facility] [address] [place] [address] * CCP ANTIBODIES (10/03/2022 13:10 EST) CCP Antibodies <2.5 <5.0 U/mL 10/06/2022 9:14 EST [facility] Blood VENOUS BLOOD / Unknown 10/03/2022 13:10 EST 10/03/2022 21:43 EST Provider Outr Resulting Lab IMMUNOLOGY A ND SEROLOGY ORDERABLES Performing Organization Address City/State/[facility] Co de Phone Number [facility] [address] [place] [address] documented in this encounter Visit Diagnoses Not on filedocumented in this encounter Care Teams Microbial Specialist Relationship Specialty Start Date End Date Blayne Armstrong DO [address] [facility], [address] [place] [address] PCP - General 11/04/18 documented as of this encounter
--- OUTSIDE RECORDS SUMMARY | 2024-07-27 12:27 | XMS_ITS | Encounter Summary ---
Author Organization [facility] Address [facility] [address] Care Team Providers Care Parachute/Combatant Diver Officer Name Role Phone Johan Weston Primary Care Provider Encounter Details Date Type Department Care Team (Late st Contact Info) Description 06/25/2022 9:00 AM EDT TH Visit (TeleHealth) Dermatology at [facility] [address] [place] [address] Andria Jimenez MD [facility] [address] [place] [address] Eczema, unspecified type Social History Tobacco Use Types Packs/Day Years Used Date Smoking Tobacco: Former Cigarettes Q uit: 2016 Smokeless Tobacco: Never Sex and Gender Information Value Date Recorded Sex Assigned at Not on file Gender Identity Not on file Sexual Orientation Not on file documented as of this encounter Patient Instructions * Patient Instructions* Vivian Valle RN - 06/25/2022 9:00 AM EDT Sensitive Skin Care You have been diagnosed with a condition that requires a sensitive skin care regimen. It is very important to follow this plan as outlined below, even if skin is good to prevent it from becoming bad. Stop ALL current personal care products that touch your skin, including soap, body wash, shampoo and conditioner, moisturizer, sunscreen, make up, perfume, nail togolese, laundry soap and fabric softener. Use ONLY the following personal care products, which are recommended by our clinic because they have been extensively tested, are least likely to irritate your skin, and are free of alcohol, dyes andfragrances: Soap: Dove unscented bar soap, Vanicream bar soap Facial cleanser: CeraVe Foaming Facial Cleanser, CeraVe Hydrating Cleanser, Cetaphil Shampoo and conditioner: Free & Clear shampoo and conditioner Moisturizer: CeraVe cream, CeraVe lotion, CeraVe lite lotion, Vanicream cream, Vaseline Sunscreen: Blue Lizard SPF 30, CeraVe SPF 30, Cotz SPF 40, Vanicream SPF 30 Laundry detergent: All Free & Clear Fabric softener: Do NOT use fabric softener or dryer sheets documented in this encounter Progress Notes * Andria Jimenez - 06/25/2022 9:00 AM EDT Images from the original note were not included. DEPARTMENT OF DERMATOLOGY Medical Dermatology Clinic Provider: Andria Jimenez MD Patient's preferred name Brannon Preferred contact method for results [x]?Phone []?myD-H []?Letter Detailed phone message OK? Yes Are there any other people with whom we may discuss your care? No ?? 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 Pre-Procedure Questions Details Allergy to lidocaine, epinephrine, Dermabond, chlorhexidine, or adhesives N Bleeding disorder or blood thinners N Implanted devices (Pacemaker, defibrillator, deep brain stimulator, cochlear implant) N ?? History of Present Illness: Brannon Mcpherson is a 51 y.o. Patient returns to the clinic via telehealth to discuss biopsy results. All medications patient is on he started taking in 2019. Last visit at Dermatology: 06/13/2022 Last visit with this provider: 06/13/2022 Medications: Reviewed in eD-H Allergies: Reviewed in eD-H Skin Examination: TeleHealth examination: Skin exam of the left thigh and right lower leg was performed via TeleHealth. Patient is aware that assessment may be limited by the TeleHealth video resolution. 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 -Reviewed medications- only medications started prior to rash onset were sertraline and sildenafil (do not favor these to be culprit medications) -Recommended starting a sensitive skin care routine- Dove sensitive skin soap and vanicream/cetaphil -Start Rx: Augmented betamethasone 0.05% ointment - apply to affected areas BID then take a week off and repeat -Consider ILK in future if no improvement Other: ??? N/A RTC: 6-8 weeks rash f/u (would like ) [x]Note routed to medical assistant secretary []Recall placed in scheduling system []Appointment scheduled at checkout Scribe attestation: Vivian Valle RN has performed the documentation for this encounter in the presence of and acting as a scribe for Andria Jimenez MD. I performed the above scribed service and agree with the accuracy of the documentation in this encounter. Reviewed and signed by: Andria Jimenez MD Dermatology [facility] Patient seen and evaluated with staff billing adjudicator: Angie Lambert MD Dermatology [facility] * Angie Lambert MD - 06/25/2022 9:00 AM EDT I directly supervised the resident during this office visit. The resident physician presented the history and physical exam to me. I then saw and examined this patient with the resident. We reviewed the history and pertinent details and I confirmed the physical exam findings. I agree with the details of the history and physical exam as documented in the resident physician's note. Angie Lambert MD Staff Physician [facility] [place] [facility] documented in this encounter Miscellaneous Notes * Addendum Note - Angie Lambert MD - 06/25/2022 9:00 AM EDTAddended by: ANGIE LAMBERT on: 07/03/2022 12:36 PM Modules accepted: Level of Service documented in this encounter Plan of Treatment Not on file documented as of this encounter Visit Diagnoses Diagnosis Eczema, unspecified type documented in this encounter Care Teams Parachute/Combatant Diver Officer Relationship Specialty Start Date End Date Johan Weston PA [address] [place] [address] PCP - General Internal Medicine 06/04/22 documented as of this encounter
--- OUTSIDE RECORDS SUMMARY | 2024-07-27 12:28 | XMS_ITS | Encounter Summary ---
Author Organization [facility] Address [address] [place] [address] Care Team Providers Care Carpenter Repairer Name Role Phone Blayne Armstrong DO Primary Care Provider [phone] Encounter Details Date Type Department Care Team (Late st Contact Info) Description 11/04/2018 15:28 EST - 11/10/2018 11:50 EST Hospital Encounter [facility] [address], [place] [id number] Blayne Armstrong DO [address] [facility], [address] [place] [id number] Jourdan Martin MD [address] [id number] Sepsis, due to unspecified organism (HCC-CMS) (Primary Dx); Septic shock due to streptococcal infection (HCC-CMS); Community acquired pneumonia of right lung, unspecified part of lung Discharge Disposition: Home or Self Care Social History Tobacco Use Types Packs/Day Years Used Date Smoking Tobacco: Former Smokeless Tobacco: Never Sex and Gender Information Value Date Recorded Sex Assigned at Not on file Gender Identity Not on file Sexual Orientation Not on file documented as of this encounter Last Filed Vital Signs Vital Sign Reading [...] Body Mass Index 37.87 11/04/2018 1540 EST documented in this encounter Functional Status Functional Status Response [...] 11/04/2018 documented as of this encounter Discharge Diagnoses Diagnosis A40.3 Sepsis due to Streptococcus pneumoniae-A40.3[ICD-10-CM] J13 Pneumonia due to Streptococcus pneumoniae-J13[ICD-10-CM] J96.01 Acute respiratory failure with hypoxia-J96.01[ICD-10-CM] R65.21 Severe sepsis with septic shock-R65.21[ICD-10-CM] N17.9 Acute kidney failure, unspecified-N17.9[ICD-10-CM] E87.0 HYPEROSMOLALITY AND HYPERNATREMIA[ICD-10-CM] Z87.891 Personal history of nicotine dependence-Z87.891[ICD-10-CM] E66.9 Obesity, unspecified-E66.9[ICD-10-CM] E87.70 Fluid overload, unspecified-E87.70[ICD-10-CM] E87.6 HYPOKALEMIA[ICD-10-CM] Z68.37 Body mass index (BMI) 37.0-37.9, adult-Z68.37[ICD-10-CM] R19.7 Diarrhea, unspecified-R19.7[ICD-10-CM] D50.9 Iron deficiency anemia, unspecified-D50.9[ICD-10-CM] R45.1 Restlessness and agitation-R45.1[ICD-10-CM] documented in this encounter Discharge Summaries * Jourdan Martin MD - 11/04/2018 1824 EST Medicine Discharge Summary Primary Care Provider: Blayne Armstrong Attending Physician: Jourdan Martin MD Admit Date: 11/04/2018 Discharge Date: 11/10/18 Disposition: Home or self care Reason for Admission: Acute hypoxic respiratory failure Principal/Final Diagnosis: Respiratory failure due to Pneumococcal pneumonia Additional Problems Managed in the Hospital Active Hospital Problems Diagnosis Date Noted ??? Pneumonia of right upper lobe due to Streptococcus pneumoniae ([facility]) 11/10/2018 Resolved Hospital Problems Diagnosis Date Noted Date Resolved ??? *Septic shock due to streptococcal infection ([facility]) 11/07/2018 11/10/2018 ??? Acute respiratory failure with hypoxia ([facility]) 11/10/2018 11/10/2018 Hospital Course: Elizabeth Appiah is a 48 y.o. M with PMHx of smoking (quit 2 years ago) who is admitted for acute hypoxic respiratory failure and septic shock secondary to pneumococcal pneumonia. He had 3 weeks of influenza-like symptoms and then 1 day prior to admission he began to experience rigors, vomiting, and diarrhea. He presented on 11/03 to [facility] where he was admitted for sepsis secondary to pneumonia with a concurrent CRISPIN. He was started initially on ceftriaxone, vancomycin, azithromycin, and TamiFlu before being transitioned to Zosyn, vancomycin, and T amiFlu. On 11/04 he became increasingly hypotensive requiring pressors and developed altered mental status, tachycardia, tachypnea, and hypoxia which required intubation. [facility] where he remained intubated and sedated. CT chest scan showed dense right lung consolidation and small right pleural effusion. He was positioned on his left side, continued on antibiotics, and started on stress-dose steroids. OSH sputum cultures were positive for Strep pneumonia (oxacillin susceptible) and so his antibiotics were narrowed to ceftriaxone and azithromycin. Strep pneumonia urine antigen was positive. Viral panel was negative and so TamiFlu was stopped. He was diuresed initially using Lasix and indapamide then using Lasix and Diuril. His respiratory status improved and he was extubated to [facility] on 11/06. He was intermittently agitated while intubated and immediatelyfollowing extubation requiring Precedex and Haldol. His delirium and O2 requirement resolved and he was discharged home on 11/10/18. Condition at Discharge: Improved Allergies no known allergies There is no immunization history on file for this patient. Results Pending at Discharge Test results still pending from this admission None Patient does not have a PCP Discharge Summary Completed By: Kristan/Mario Attending attestation: I have seen and examined the patient and agree with findings and plans as outlined in the resident's note above. Jourdan Martin MD documented in this encounter Medications at Time of Discharge Medication Sig Dispensed Refills Start Date End Date cefpodoxime (VANTIN) 200 mg tablet Take 1 Tab by mouth every 12 hours for 2 days. 4 Tab 11/10/2018 11/12/2018 documented as of this encounter Ordered Prescriptions Prescription Sig Dispensed Refills Start Date End Da te cefpodoxime (VANTIN) 200 mg tablet Take 1 Tab by mouth every 12 hours for 2 days. 4 Tab 11/10/2018 11/12/2018 documented in this encounter Discharge Disposition Disposition Code Departure Means Destination Home or Self Care documented in this encounter Progress Notes * Michael Mcallister, PT - 11/10/2018 1150 EST [facility] Rehabilitation Therapy Acute Therapies [facility] Physical Therapy Discontinue/Discharge Note Date of Service: 11/10/2018 Precautions: Activity as tolerated SUBJECTIVE: I hope to go home today OBJECTIVE: Intervention Completed Today: Time: 10:00 Total treatment time: 25 minutes. Timed code treatment minutes: 25 Vital signs were monitored and were stable throughout physical therapy session. Treatment: Therapeutic Exercises: ?? Breathing Exercises/airway clearance: Performed Paced/pursed lip breathing with all functional activity to maximize gas exchange and to decrease work of breathing with verbal cueing Performed IS to 1500 cc's x 10 followed by wet to dry cough to clear airway with verbal cueing to maximize gas exchange/ventilation Therapeutic Activity: Bed mobility: Independent Transfers: Independent sit <> stand independent Bed <> chair independent Gait/aerobic capacity training: Ambulated ~250 feet independently while on room air with verbal cues for paced/pursed lip breathingcontrol, with verbal cues for wide base of support to maximize balance and maintain center of gravity Stairs: Up and down greater than 10 steps with cues for pacing with supervision only All above with verbal cues for safety and sequencing as well as energy conservation Gait Speed^ (meters/second) independently 1.14 meters/sec. This test assesses walking speed over anestablished distance. Age/gender normative values (Reshma, 2011) Age Gender 95% CI meters/second 20-29 Male 1.21-1.47 20-29 Female 1.08-1.49 30-39 Male 1.31-1.53 30-39 Female 1.25-1.41 40-49 Male 1.27-1.47 40-49 Female 1.22-1.42 50-59 Male 1.12-1.49 50-59 Female 1.10-1.55 60-69 Male 1.03-1.59 60-69 Female 0.97-1.45 70-79 Male 0.95-1.41 70-79 Female 0.83-1.50 80-89 Male 0.61-1.22 80-89 Female 0.56-1.17 Patients (age 65 and older) who are hospitalized with a gait speed < 0.4 meters/second had significantly decreased odds of discharge to home compared to patients with a gait speed > 0.6 meters/second. (Ostir, 2012) The minimal clinically important difference (MCID) for community-dwelling elderly is 0.05 to 0.13 meters/second. (Terence, 2006) Patient/Family Education: Topic: Activity pacing/Energy conservation Balance Breathing exercises Discharge planning Equipment use Gait Safety Stairs Transfers Learner: patient Method: verbal and demonstration Barriers to Learning: none noted Outcome: verbalized understanding and returned demonstration Team Communication: Functionally safe for home with family, no physical therapy needs at this time. Patient has been seen in physical therapy since 11/04/2018 for Therapeutic exercises, Therapeutic activities and Gait training. In this reporting period 11/04/2018 to 11/10/2018 the patient has been seen by a physical therapist. Frequency: daily for 4 sessions. Intensity: 10-30 minutes per session. Duration:During this hospitalization. Please refer to the physical therapy notes for specifics on the patient's functional status and treatment sessions. Relevant objective findings: CARDIOPULMONARY: Please refer above to Interventions Completed Today BALANCE, MOBILITY, AND GAIT: Gait Speed - Distance (M): 9.14 Gait Speed - Time (sec): 8 Gait Speed - Velocity (meters/sec): 1.14 meters/sec Please refer above to Interventions Completed Today ASSESSMENT: Physical therapy services in this setting have been discontinued secondary to: Goals met Physical Therapy Diagnosis: This patient presented with a PT diagnosis of IMPAIRED FUNCTIONAL MOBILITY due to: Impaired aerobic capacity and endurance secondary to deconditioning associated with bedrest and full medical sedation at this time for ARDS Impaired ventilation, respiration (gas exchange) and aerobic capacity associated with airway clearance dysfunction while intubated and on mechanical ventilation Impaired ventilation, respiration (gas exchange) and aerobic capacity associated with ventilatory pump dysfunction/Respiratory failure with hypoxia due to A fu and multi focal PNA/ARDS ?? Physical Therapy Prognosis: PT evaluation and interventions were medically indicated due to high risk for resulting in gross deconditioning, risk of skin breakdown, potential for impaired joint integrity/muscle length with bedrest , severely impaired cardiopulmomary function and loss of basic functional mobility. Over 1 week patient made rapid improvement in cardiopulmonary function and musculoskeletal functionto independently mobilize on room air. Patient is now safe to go home with his significant other, does not require oxygen at this time anddoes not require follow-up from physical therapy. All below goals have been met ?? Short-Term Goals: < 4-8 weeks patient will safely: ?? Remain free of < Stage II breakdown of skin at all bony prominences ?? Preserve joint integrity and muscle length at all joints to WNL ?? Move from Supine <> Prone position with Total assist 5 with NO adverse effects ?? Nursing staff will be confident an successful with Prone procedure/guidelines with ongoing PT education ?? ONCE off [employer]: ?? Roll side/side with Minimal contact/mod assist of 1 -2 ?? Supine <> sit with Minimal contact /mod assist of 1-2 ?? Sit <> stand with Minimal contact/mod assist of 1 -2 ?? Maintain seated trunk control independently and reach from midline > 6 inches sitting with both UE's without LOB with Minimal contact assist of 1 ?? Transfer Bed<> chair with mod assist of 1-2 with least restrictive device ?? Ambulate > 50 feet with least restrictive assistive device with Minimal contact/MOD assist of2 while keeping balance within center of gravity, no loss of balance and normalized gait pattern ?? Not need suctioning of trach pre or post functional mobility with PT ?? Perform IS > 1000 cc and acappella with effective cough to clear airway with verbal cues onceextubated ?? Have lungs with less adventitious sounds upon auscultation ?? Increase strength to UE and LE to > 3/5 ?? Follow all direction successfully with verbal and tactile cues ?? All above with HR >60< 150; SBP>90< 180; RR < 35; RPE < 5/10, SpO2 >90 % on least amount of FiO2 Long-Term Goals: Deferred at this time I PLAN: D/C Physical Therapy Recommended Discharge Destination: Home with caregiver Recommended Discharge Services: No physical therapy follow-up services at this time Recommended Equipment Needs: No equipment necessary Other recommendations: No other consults recommended at this time Pager: [phone] MICHAEL MCALLISTER, PT 11/10/2018 16:02 * Natividad Parikh RN - 11/10/2018 1124 EST Have seen the patient and provided paperwork signed by the attending MD for his work insurance: payfor leave. Patient waiting for a friend to come and pick him up. He has no oter needs he tells. Natividad Parikh RN CCM [id number] * Radha Huntley RN - 11/09/2018 1643 EST Case Management Contact Note: Referral sent to RTC to transfer back to [facility]. Per Shaun in RTC, no beds at [facility]. Radha Huntley RN, BSN #[id number] * Michael Mcallister, PT - 11/09/2018 1310 EST [facility] Rehabilitation Therapy Acute Therapies [facility] Physical Therapy Encounter Note Date of Service: 11/09/2018 Subjective/Objective Subjective I would like to walk Objective Intervention completed today: Time: 1145 Total treatment time: 25 minutes. Timed code treatment minutes: 25 Vital signs were monitored and were stable throughout physical therapy session. Heart rate 95 normal sinus rhythm at rest to 114 with activity Blood pressure 149/81 at rest to 126/81 with activity, asymptomatic SPO2 98% on 4 L nasal cannula at rest SPO2 95% on room air activity Kept on room air, RN to monitor RPE with activity 3/5 Airway clearance: Cough strong wet-to-dry Breath sounds: Decreased at bases but no significant adventitious sounds heard Treatment: Therapeutic Exercises: Ankle Pumps x 10 AROM :LAQ x 10 All above with verbal cues to perform correctly and Indep TID Gross upper extremity and lower extremity strength 4/5 ?? Breathing Exercises/airway clearance: Performed Paced/pursed lip breathing with all functional activity to maximize gas exchange and to decrease work of breathing with verbal cueing Performed IS to 1500 cc's x 10 followed by effective wet-to-dry cough to clear airway with verbal cueing to maximize gas exchange/ventilation Therapeutic Activity:( 1) Bed mobility: rolling to sit with modified independence Transfers: sit <> stand x2 with supervision Bed > chair with close supervision Gait/aerobic capacity training: Ambulated ~100 feet nonstop while on room air trial with minimal contact/supervision assist of 1 with use of rolling walker for safety and energy conservation and with verbal cues for paced/pursed lip breathing control, with verbal cues for wide base of support to maximize balance and maintain center of gravity Ambulated 50 feet without use of rolling walker very close contact supervision and cues for wide base of support Positioned in recliner chair with supervision and recommend to sit for at least 1-2 hours to increase sitting tolerance time and to repeat several times a day with nursing assist All above with verbal cues for safety and sequencing as well as energy conservation Patient/Family Education: Topic: Activity pacing/Energy conservation Balance Bed mobility Breathing exercises Discharge planning Equipment use Exercise Gait Positioning Precautions/protocol Role of therapy Safety Transfers Learner: patient, caregiver and nursing Method: verbal and demonstration Barriers to Learning: none noted Outcome: needs practice, verbalized understanding and returned demonstration Team Communication: Discussed with nursing pre-and post intervention Recommend: Out of bed to chair with nursing at least 3 times daily Ambulate in anaya 3 times daily with nursing with use of rolling walker as needed Home with his significant other when medically cleared once cleared by PT on stairs Assessment/Plan Assessment Vital signs stable with increased activity Excellent gas exchange on room air with ambulation and no SHEPPARD Lung sounds remain diminished, cough very effective, wet. Gait steadiness improving and will likely not need use of rolling off walker over the next few days Needs to accomplish stairs prior to discharge Plan Continue per plan of care Recommended Discharge Destination: Home with caregiver Recommended Discharge Services: To be determined Recommended Equipment Needs: To be determined Other recommendations: None Primary Therapist: Pager: [phone] MICHAEL MCALLISTER, PT 11/09/2018 13:10 * Yarelis Gonzalez MD - 11/09/2018 1156 EST MICU Progress Note Service Date: 11/09/2018 Admit Date: 11/04/2018 15:28 Chief Complaint: Acute hypoxic respiratory failure 24 Hour Events: - Weaned to NC - Diarrhea; CDiff negative Subjective Patient feels fine this morning. No fever, chills, chest pain, or shortness of breath. Having diarrhea and abdominal pain since last night. Has had three episodes of diarrhea since then. Review of Systems: Unable to complete ROS as above. Objective BP (!) 149/81 Temp 36.1 ??C (97 ??F) (Tympanic) Resp 25 Ht 179 cm (70.47) Wt (!) 121.3 kg (267 lb 8 oz) SpO2 95% BMI 37.87 kg/m?? Vent settings: HFNC 40/60 Gen: Obese male sitting in chair. Interactive. HEENT: NC/AT, PERRLA, anicteric, MMM CV: RRR, normal S1 and S2, no m/r/g Pulm: Normal work of breathing on NC. Slightly decreased breath sounds on right, bibasilar crackles. Abd: soft, non-distended, non-tender, normal bowel sounds Ext: Non-edematous, no rashes or lesions, no clubbing, cyanosis Neuro: A&O x 3, moving all four extremities Wick, lines, tubes: Wick, PIVs BMP: Recent Labs 11/07/18 0303 11/07/18 1452 11/08/18 0421 11/09/18 0413 NA 146* 141 140 138 K 3.6 3.6 4.3 3.4* CL 105 101 104 101 CO2 33* 33* 28 26 BUN 45* -- 40* -- CREATININE 1.09 -- 0.75 0.70 CALCIUM 8.1* -- 8.3* 8.5 CALCCA 8.7 -- 8.9 8.9 MG 2.2 -- 2.1 2.1 PHOS 4.3 -- 4.3 3.6 CBC: Recent Labs 11/07/18 0303 11/08/18 0421 11/09/18 0413 WBC 25.26* 20.74* 21.24* RBC 4.81 5.24 5.47 HGB 12.9* 14.0 14.6 HCT 37.0* 40.4 42.5 MCV 77* 77* 78* MCH 26.8* 26.7* 26.7* MCHC 34.9 34.7 34.4 PLT 277 247 306 NEUTROABS 21.62* 13.68* 15.42* Imaging: - No new imaging Micro: 11/04 urine culture no growth 11/04 Legionella and Strep pneumonia: negative 11/04 BC x2: NGTD 11/04 sputum culture: NGTD, no bacteria on smear 11/04 viral panel: negative for flu and RSV 11/04 MRSA PCR: + for MSSA 11/03 at 8:40AM. 2 BC, NGTD as of 11/09/18 11:56 @ [facility] 11/03 sputum culture: Strep pneumo @ [facility]. Oxacillin susceptible. Assessment/Plan Elizabeth Appiah is a 48 y.o. male with hx of smoking who is admitted from OSH for acute hypoxic respiratory failure in the setting of Strep PNA and sepsis. Patient initially required pressors and intubation but is no longer requiring pressors and is was extubated to high flow as of 11/06, now tolerating NC well. Respiratory: Strep pneumoniae PNA. Additionally likely fluid overloaded in setting of aggressive fluid resuscitation prior to admission here. Now extubated to HFNC and settings improving. - Azithro/Ceftriaxone 2g, start 11/05 - 40 mg prednisone daily, day 1 11/06 - Tolerating NC well Cardiovascular: Initially hypotensive in setting of septic shock, now off pressors - Severe volume overload (~12L on admission). Autodiuresing very well, approaching euvolemia. - No need for further diuresis at this time. Renal: CRISPIN on admission to outside hospital. Unknown baseline, now improved. Fluid overload. Hypokalemia. - Trend creatinine, electrolytes daily - Diuresis: As above, significant urine output. - Trend UOP #Hypernatremia: Resolved with D5W , now stopped - Trend lytes daily #Hypokalemia, likely in setting of diuresis - potassium, mag repletion as needed - Trend lytes, mag daily as will continue to diurese GI/Nutrition: #Diet: - Regular diet #Diarrhea: CDiff negative. - Continue to monitor Heme/Onc: Leukocytosis with bandemia in the setting of sepsis. Mild microcytic anemia - Trend CBC daily Infectious Disease: Septic shock on presentation from strep pneumoniae - continue ceftriaxone and azithromycin - Follow respiratory culture - Follow blood cultures - Trend WBC Endocrine: - On steroids as above - Check CBGs daily while on prednisone. No need for acute intervention if < 200. Neuro/Psychiatric: Had agitation after extubation, now resolved. - Off precedex - melatonin qhs DVT Prophylaxis: Lovenox GI prophylaxis: Not indicated Diet: Regular Code: Full Dispo: Uncertain at this time Aviva Alexander MD 11/09/2018 11:56 Attestation: I saw and evaluated the patient on 11/09/2018. I agree with the findings and plan of care as documented in the resident's/fellow's note. HD improved, resp improved and stable on NC. Txf to floor today. Yarelis Gonzalez MD 11/09/2018 19:52 * Delfino Vasquez - 11/09/2018 0749 EST MICU Progress Note Service Date: 11/09/2018 Admit Date: 11/04/2018 15:28 Chief Complaint: Acute hypoxic respiratory failure 24 Hour Events: - Tolerating NC well - 3 episodes of diarrhea overnight, none since early this AM Subjective Complains of mild, non-pleuritic pain over right chest, denies radiation, non- reproducible with palpation, exacerbated by coughing. Diarrhea, patient reports diarrhea, watery and green in color, 3 episodes, associated with right-sided, sharp, intermittent, abdominal pain, improved with palpation. +nausea when attempted to eat this AM, denies vomiting, was tolerating diet well yesterday. Intermittent subjective fevers overnight. Denies chills, night sweats, headache, chest pain, SoB. Review of Systems: 10 point review of systems completed: positive as stated above, otherwise negative Objective BP 127/83 Temp 37 ??C (98.6 ??F) Resp 26 Ht 179 cm (70.47) Wt (!) 121.3 kg (267 lb 8 oz) SpO2 95% BMI 37.87 kg/m?? Vent settings: 2L NC Gen: Obese male seated comfortably in chair. Responds to questions appropriately. HEENT: NC/AT, PERRLA, anicteric, MMM CV: RRR, normal S1 and S2, no m/r/g Pulm: Slightly decreased on right, overall improved, no wheezes, rhonci, or rales. Abd: soft, non-tender, non-distended, normal bowel sounds Ext: Non-edematous, no rashes or lesions, no clubbing, cyanosis, edema Neuro: PERRLA, A&Ox3/3, CNII-XII grossly intact, moving all extremities. Wick, lines, tubes: Wick, PIVs BMP: Recent Labs 11/07/18 0303 11/07/18 1452 11/08/18 0421 11/09/18 0413 NA 146* 141 140 138 K 3.6 3.6 4.3 3.4* CL 105 101 104 101 CO2 33* 33* 28 26 BUN 45* -- 40* -- CREATININE 1.09 -- 0.75 0.70 CALCIUM 8.1* -- 8.3* 8.5 CALCCA 8.7 -- 8.9 8.9 MG 2.2 -- 2.1 2.1 PHOS 4.3 -- 4.3 3.6 CBC: Recent Labs 11/07/18 0303 11/08/18 0421 11/09/18 0413 WBC 25.26* 20.74* 21.24* RBC 4.81 5.24 5.47 HGB 12.9* 14.0 14.6 HCT 37.0* 40.4 42.5 MCV 77* 77* 78* MCH 26.8* 26.7* 26.7* MCHC 34.9 34.7 34.4 PLT 277 247 306 NEUTROABS 21.62* 13.68* 15.42* Imaging: No new imaging. Micro: 11/09 C. Diff PCR negative 11/04 urine culture no growth 11/04 Legionella and Strep pneumonia: negative 11/04 BC x2: NGTD 11/04 sputum culture: NGTD, no bacteria on smear 11/04 viral panel: negative for flu and RSV 11/04 MRSA PCR: + for MSSA 11/03 AM. 2 BC, no growth as of 11/09/18 8:03 @ [facility] 11/03 sputum culture: Strep pneumo @ [facility]. Oxacillin susceptible. Assessment/Plan Elizabeth Appiah is a 48 y.o. male with hx of smoking who is admitted from OSH for acute hypoxic respiratory failure in the setting of Strep PNA and sepsis. Patient initially required pressors and intubation but is no longer requiring pressors and is now extubated to high flow as of 11/06. Respiratory: Strep pneumoniae PNA. Additionally likely fluid overloaded in setting of aggressive fluid resuscitation prior to admission here. Now extubated to [facility] and settings improving. - Azithro/Ceftriaxone 2g, start 11/05 - Stress dose steroids, prednisone 40mg PO daily, day 1: 11/06 - Tolerating NC well Cardiovascular: Initially hypotensive in setting of septic shock, now off pressors - Severe volume overload on admission (~12L on admission). Auto-diuresing, -3L yesterday - Hold diuresis today, goal even Renal: CRISPIN on admission to outside hospital. Unknown baseline, now improved. Fluid overload. Hypokalemia. - Trend creatinine, electrolytes daily - Diuresis: As above, significant urine output - Trend UOP #Hypernatremia: resolved with D5W yestereday, now stopped - Trend lytes daily #Hypokalemia, likely in setting of diuresis, diarrhea - potassium, mag repletion as needed - Trend lytes, mag daily as will continue to diurese GI/Nutrition: Diarrhea overnight 11/09 - C diff negative, no further workup indicated - Regular diet Heme/Onc: Leukocytosis with bandemia in the setting of sepsis. Mild microcytic anemia - Trend CBC daily Infectious Disease: Septic shock on presentation from strep pneumoniae - continue ceftriaxone/azithromycin as above - Follow respiratory culture - Follow blood cultures - Trend WBC Endocrine: - On stress dose steroids as above - Check CBGs daily while on stress dose steroids. No need for acute intervention if < 200. Neuro/Psychiatric: Delirium after extubation. Responds to haldol but can cause prolonged somnolence. - Off of Precedex - melatonin qhs DVT Prophylaxis: Lovenox GI prophylaxis: Not indicated Diet: Regular Code: Full Dispo: Uncertain at this time, consider to [facility] when able Delfino Vasquez 11/09/2018 7:49 * Arabella Otto, RT - 11/08/2018 2322 EST Respiratory Progress Note Indications for Respiratory therapy: Pneumonia Data Vitals: Heart Rate: 104 BPM, Resp: 21, SpO2: 94 % FIO2/O2 Device: O2 Flow Rate (L/min): 2 l/min, , O2 Device: Nasal cannula, FIO2 %: 50 % RT Orders: HFNC Action/Events Respiratory events; Pt has been tolerating 2L NC with no respiratory distress. He is independent with VPEP and IS at bedside. Response/Results Weaning and Toleration of treatments; HFNC order DC'd. Pt is now a Q12 Resp Care Eval. Arabella Otto, RT 11/08/18 * Maurizio Benson, RT - 11/08/2018 1641 EST Respiratory Progress Note Indications for Respiratory therapy: Pneumonia Data Vitals: Heart Rate: 104 BPM, Resp: 22, SpO2: 96 % FIO2/O2 Device: O2 Flow Rate (L/min): 2 l/min, , O2 Device: Nasal cannula, FIO2 %: 50 % RT Orders: HFNC Action/Events Respiratory events; Response/Results Weaning and Toleration of treatments; Patient weaned to 2 LPM nasal cannula RT LIGIA 11/08/18 * Michael Mcallister, PT - 11/08/2018 1343 EST [facility] Rehabilitation Therapy Acute Therapies [facility] Physical Therapy Encounter Note Date of Service: 11/08/2018 Subjective/Objective Subjective I would like to get up, I want to eat Patient significant other in room during entire PT session Objective Intervention completed today: Time: 1140 Total treatment time: 38 minutes. Timed code treatment minutes: 38 Vital signs were monitored and were stable throughout physical therapy session. Heart rate 113 at rest to 118 with out of bed activity Blood pressure 125/73 at rest in bed to 125/75 with activity out of bed to chair SPO2 94% on high flow nasal cannula 60% / 35 L at rest RPE 4/10 at rest SPO2 up to 100% on above high flow nasal cannula with out of bed activity, RPE 5/10 Airway clearance: Cough strong wet-to-dry Breath sounds: Decreased at bases but no significant adventitious sounds heard Treatment: Therapeutic Exercises:(2) Ankle Pumps x 10 AROM :LAQ x 10 AROM : SLR x 10 All above with verbal cues to perform correctly and Indep TID Gross upper extremity and lower extremity strength 4/5 ?? Breathing Exercises/airway clearance: Performed Paced/pursed lip breathing with all functional activity to maximize gas exchange and to decrease work of breathing with verbal cueing Performed IS to 1000 cc's x 10 followed by effective wet-to-dry cough to clear airway with verbal cueing to maximize gas exchange/ventilation Therapeutic Activity:( 1) Bed mobility: rolling to sit with minimal contact assist of 1 Transfers: sit <> stand with minimal contact assist of 1 Bed > chair with minimal contact assist of 1 Gait/aerobic capacity training: Ambulated ~5 feet from bed to chair while on above high flow nasal cannula O2, with min/mod assist of 1 and with verbal cues for paced/pursed lip breathing control, with verbal cues for wide base of support to maximize balance and maintain center of gravity Positioned in recliner chair with supervision and recommend to sit for at least 1-2 hours to increase sitting tolerance time and to repeat several times a day with nursing assist All above with verbal cues for safety and sequencing as well as energy conservation Patient/Family Education: Topic: Activity pacing/Energy conservation Balance Bed mobility Breathing exercises Discharge planning Equipment use Exercise Gait Positioning Precautions/protocol Role of therapy Safety Transfers Learner: patient, caregiver and nursing Method: verbal and demonstration Barriers to Learning: none noted Outcome: needs practice, verbalized understanding and returned demonstration Team Communication: Discussed with nursing pre-and post intervention Recommend: Out of bed to chair with nursing at least 3 times daily Once FiO2 down to 50% or less initiate ambulation in anaya with nursing assist of 2 Home likely with his significant other when medically cleared. Home O2 eval may be indicated at discharge Assessment/Plan Assessment Vital signs stable except for some tachycardia Gas exchange excellent with out of bed activity but on significant amount of FiO2 via high flow nasal cannula Lung sounds remain diminished, cough very effective, wet. Easily able to sit stand and transfer to a chair, will initiate ambulation when FiO2 less. Plan Continue per plan of care Recommended Discharge Destination: Home with caregiver Recommended Discharge Services: To be determined Recommended Equipment Needs: To be determined Other recommendations: Home O2 eval may be warranted Primary Therapist: Pager: [phone] MICHAEL MCALLISTER, PT 11/08/2018 13:43 * Jonel Ren RN - 11/08/2018 1140 EST 11/08/18 recvd report and assumed care of patient, Elizabeth is much more alert and cooperative today, constant observation was discontinued approx 0930 - assisted oob to chair, he endorses weaknesses, dizziness and nausea with increased mobility, plan to maintain safety and comfort, monitor neuro, cv,resp, gi and gu status and report changes to MD. 1100 - patient c/o burning with wick catheter and some burning itching skin on backside, wick discontinued without complication, patient is DTV by 1700 - lotion given for skin rash and itchiness, tolerated well, education provided in reference to measuring urine output. Family member at bedside, supportive and helpful with care. 1215 - oob to chair with physical therapy - he feels tired out and weak, family at bedside and helpful with cares. Diet advanced to regular, diet ordered, encouraged to increase po intake slowly 1345 - assisted back to bed, tolerated well, taking small amounts of po food and fluids, family remains at bedside 1500 - transitioned to Nasal Cannula at 2 liters, tolerating well. * Radha Huntley RN - 11/08/2018 0937 EST Initial Case Management/Social Work Assessment and Discharge Plan/Readmission Risk Assessment REASON FOR ADMISSION: Respiratory failure Patient understands reason for admission: No PATIENT CONTACT INFO VERIFIED: Yes PATIENT ADDRESS VERIFIED: Yes LIVING ARRANGEMENTS AND ACCESSIBILITY ISSUES: Living Arrangements: Apartment, Spouse / significant other Levels: 1 Stairs to enter: 4 or more Handicap access: Railings to upstairs What in home social supports are available to the patient? Spouse / significant other Is / care available? Yes ADVANCED DIRECTIVES, POA &/or COLST IN PLACE: Healthcare Directive: No, patient does not have advance directive for healthcare treatment Information Provided on Healthcare Directives: No Information on Healthcare Directives Requested: No DIRECTIVES FOR FINANCES: Directive For Finances: No TRANSPORTATION: Transportation: Family CULTURAL, SAMARITAN and/or LANGUAGE factors affecting health care/discharge planning: Spiritual/Cultural Requests: None Any factors affecting health care/discharge planning?: No Insurance in Place: Yes Medical Insurance: Yes Referred to patient financial services: Yes DISCHARGE RISK ASSESSMENT: None of the above risks identified Total # selected above: Score: Zero Tentative plan to address the risk of re-hospitalization for those at HIGH MODERATE RISK: RAPT TOOL: n/a SBIRT: Intervention in place/initiated?: Other (Comment)unable to assess given mental status FUNCTIONAL STATUS: Activities patient requires assistance: None Assistive Device: None COMMUNITY RESOURCES/SUPPORTS: Primary Care Provider: Blayne Armstrong PCP Verified: No Specialists: None Type of Home Health Services: None DME Provider: Pharmacy: No Pharmacies Listed Home Health: Other: POST HOSPITAL TRANSITION PLAN: Pending course, likely return home with supportive s.o. and children. Radha Huntley RN,BSN #[id number] 11/08/2018 9:37 * Delfino Vasquez - 11/08/2018 0740 EST MICU Progress Note Service Date: 11/08/2018 Admit Date: 11/04/2018 15:28 Chief Complaint: Acute hypoxic respiratory failure 24 Hour Events: - Agitation improved overnight - Hypoxic event, received 40mg Lasix overnight and required increasing HFRC requirments Subjective Complains of mild, non-pleuritic pain over right chest, denies radiation, non- reproducible with palpation, exacerbated by coughing. + SoB when coughing, not at baseline. + n/v this AM. + BM this AM, loose, no blood or melena. OK appetite. Denies fever, chills, abdominal pain, extremity pain. OOB tochair this AM. Review of Systems: 10 point review of systems completed: positive as stated above, otherwise negative Objective BP 114/70 Temp 37.1 ??C (98.8 ??F) Resp 28 Ht 179 cm (70.47) Wt (!) 121.3 kg (267 lb 8 oz) SpO2 93% BMI 37.87 kg/m?? Vent settings: HFNC 80/45 Gen: Obese male seated comfortably in chair. Responds to questions appropriately. HEENT: NC/AT, PERRLA, anicteric, MMM CV: RRR, normal S1 and S2, no m/r/g Pulm: Limited by effort. Slightly decreased breath sounds on right, bibasilar crackles. Expiratory wheezes Abd: soft, non-tender, non-distended, normal bowel sounds Ext: Non-edematous, no rashes or lesions, no clubbing, cyanosis, edema Neuro: PERRLA, A&Ox3/3, CNII-XII grossly intact, moving all extremities. Wick, lines, tubes: Wick, PIVs BMP: Recent Labs 11/06/18 0225 11/06/18 1400 11/07/18 0303 11/07/18 1452 11/08/18 0421 NA 143 146* 146* 141 140 K 3.2* 3.6 3.6 3.6 4.3 CL 111* 108 105 101 104 CO2 26 29 33* 33* 28 BUN 32* -- 45* -- 40* CREATININE 1.03 -- 1.09 -- 0.75 CALCIUM 7.7* -- 8.1* -- 8.3* CALCCA 8.8 -- 8.7 -- 8.9 MG 2.4 2.2 2.2 -- 2.1 PHOS 2.6 -- 4.3 -- 4.3 CBC: Recent Labs 11/06/18 0225 11/07/18 0303 11/08/18 0421 WBC 28.62* 25.26* 20.74* RBC 3.77* 4.81 5.24 HGB 10.6* 12.9* 14.0 HCT 29.5* 37.0* 40.4 MCV 78* 77* 77* MCH 28.1 26.8* 26.7* MCHC 35.9 34.9 34.7 PLT 248 277 247 NEUTROABS 23.18* 21.62* -- Imaging: CXR 11/08: Improving PNA in Rt lung Micro: 11/04 urine culture no growth 11/04 Legionella and Strep pneumonia: negative 11/04 BC x2: NGTD 11/04 sputum culture: NGTD, no bacteria on smear 11/04 viral panel: negative for flu and RSV 11/04 MRSA PCR: + for MSSA 11/03 AM. 2 BC, NGTD as of 11/08/18 7:40 @ [facility] 11/03 sputum culture: Strep pneumo @ [facility]. Oxacillin susceptible. Assessment/Plan Elizabeth Appiah is a 48 y.o. male with hx of smoking who is admitted from OSH for acute hypoxic respiratory failure in the setting of Strep PNA and sepsis. Patient initially required pressors and intubation but is no longer requiring pressors and is now extubated to high flow as of 11/06. Respiratory: Strep pneumoniae PNA. Additionally likely fluid overloaded in setting of aggressive fluid resuscitation prior to admission here. Now extubated to HFNC and settings improving. - Azithro/Ceftriaxone 2g, start 11/05 - Stress dose steroids, change to prednisone PO, day 1: 11/06 - Respiratory status initially improved, worsened overnight - Continue HFNC in setting of worsening, overall tenuousness Cardiovascular: Hypotensive in setting of septic shock, now off pressors - Severe volume overload on admission (~12L on admission). Diuresing very well, approaching euvolemia. - PRN diuresis as needed to target net negative -1L/day. Received 60mg Lasix yesterday AM - vitamin C, thiamine 4 day course, stop today Renal: CRISPIN on admission to outside hospital. Unknown baseline, now improved. Fluid overload. Hypokalemia. - Trend creatinine, electrolytes daily - Diuresis: As above, significant urine output. Additional diuresis as needed with Lasix - Trend UOP #Hypernatremia: resolved with D5W yestereday, now stopped - Trend lytes daily #Hypokalemia, likely in setting of diuresis - potassium, mag repletion as needed - Trend lytes, mag daily as will continue to diurese GI/Nutrition: - Clears, PO meds OK - Advance diet as tolerated. Heme/Onc: Leukocytosis with bandemia in the setting of sepsis. Mild microcytic anemia - Trend CBC daily Infectious Disease: Septic shock on presentation from strep pneumoniae - continue ceftriaxone and azithromycin - Follow respiratory culture - Follow blood cultures - Trend WBC Endocrine: - On high dose steroids as above - Check CBGs daily while on stress dose steroids. No need for acute intervention if < 200. Neuro/Psychiatric: Significant delirium after extubation. Responds to haldol but can cause prolonged somnolence. - Precedex for agitation; would titrate down during day, back up at night to promote sleep - olanzapine 10mg qhs, consider changing to quetiapine qhs at some point - melatonin qhs DVT Prophylaxis: Lovenox GI prophylaxis: Not indicated Diet: Clears, PO meds OK Code: Full Dispo: Uncertain at this time Delfino Vasquez 11/08/2018 7:40 * Yarelis Gonzalez MD - 11/08/2018 0649 EST MICU Progress Note Service Date: 11/08/2018 Admit Date: 11/04/2018 15:28 Chief Complaint: Acute hypoxic respiratory failure 24 Hour Events: - Agitation improving - Hypoxic event, received 40 mg Lasix overnight and required increasing HFRC requirements Subjective Patient feels fine this morning. No fever, chills, chest pain, or shortness of breath. [place] like hehad to vomit. Able to state name, location, and year. Review of Systems: Unable to complete ROS as above. Objective BP 109/67 Temp 37.1 ??C (98.8 ??F) Resp 25 Ht 179 cm (70.47) Wt (!) 121.3 kg (267 lb 8 oz) SpO2 94% BMI 37.87 kg/m?? Vent settings: HFNC 40/60 Gen: Obese male sitting in chair. Interactive. HEENT: NC/AT, PERRLA, anicteric, MMM CV: RRR, normal S1 and S2, no m/r/g Pulm: Limited by effort. Slightly decreased breath sounds on right, bibasilar crackles. Abd: soft, non-distended, normal bowel sounds Ext: Non-edematous, no rashes or lesions, no clubbing, cyanosis Neuro: A&O x 3, moving all four extremities Wick, lines, tubes: Wick, PIVs BMP: Recent Labs 11/06/1822411/06/18 1400 11/07/18 0303 11/07/18 1452 11/08/18 0421 NA 143 146* 146* 141 140 K 3.2* 3.6 3.6 3.6 4.3 CL 111* 108 105 101 104 CO2 26 29 33* 33* 28 BUN 32* -- 45* -- 40* CREATININE 1.03 -- 1.09 -- 0.75 CALCIUM 7.7* -- 8.1* -- 8.3* CALCCA 8.8 -- 8.7 -- 8.9 MG 2.4 2.2 2.2 -- 2.1 PHOS 2.6 -- 4.3 -- 4.3 CBC: Recent Labs 11/06/1822411/07/18 0303 11/08/18 0421 WBC 28.62* 25.26* 20.74* RBC 3.77* 4.81 5.24 HGB 10.6* 12.9* 14.0 HCT 29.5* 37.0* 40.4 MCV 78* 77* 77* MCH 28.1 26.8* 26.7* MCHC 35.9 34.9 34.7 PLT 248 277 247 NEUTROABS 23.18* 21.62* -- Imaging: - No new imaging Micro: 11/04 urine culture no growth 11/04 Legionella and Strep pneumonia: negative 11/04 BC x2: NGTD 11/04 sputum culture: NGTD, no bacteria on smear 11/04 viral panel: negative for flu and RSV 11/04 MRSA PCR: + for MSSA 11/03 at 8:40AM. 2 BC, NGTD as of 11/08/18 6:49 @ [facility] 11/03 sputum culture: Strep pneumo @ [facility]. Oxacillin susceptible. Assessment/Plan Elizabeth Appiah is a 48 y.o. male with hx of smoking who is admitted from OSH for acute hypoxic respiratory failure in the setting of Strep PNA and sepsis. Patient initially required pressors and intubation but is no longer requiring pressors and is now extubated to high flow as of 11/06, weaning to NC today. Respiratory: Strep pneumoniae PNA. Additionally likely fluid overloaded in setting of aggressive fluid resuscitation prior to admission here. Now extubated to HFNC and settings improving. - Azithro/Ceftriaxone 2g, start 11/05 - Steroids changed from Solu-cortef 50 mg q6h to 40 mg prednisone daily - Tolerating wean to NC from hiflo today Cardiovascular: Hypotensive in setting of septic shock, now off pressors - Severe volume overload (~12L on admission). Diuresing very well, approaching euvolemia - Diuresis as needed to target neg negative -1L/day - Completed 4-day course vitamin C, thiamine Renal: CRISPIN on admission to outside hospital. Unknown baseline, now improved. Fluid overload. Hypokalemia. - Trend creatinine, electrolytes daily - Diuresis: As above, significant urine output. Additional diuresis as needed. - Trend UOP #Hypernatremia: Resolved with D5W yesterday, now stopped - Trend lytes daily #Hypokalemia, likely in setting of diuresis - potassium, mag repletion as needed - Trend lytes, mag daily as will continue to diurese GI/Nutrition: - Clear liquid diet, PO meds - Advance diet as tolerated Heme/Onc: Leukocytosis with bandemia in the setting of sepsis. Mild microcytic anemia - Trend CBC daily Infectious Disease: Septic shock on presentation from strep pneumoniae - continue ceftriaxone and azithromycin - Follow respiratory culture - Follow blood cultures - Trend WBC Endocrine: - On steroids as above - Check CBGs daily while on stress dose steroids. No need for acute intervention if < 200. Neuro/Psychiatric: Significant agitation after extubation, now improving. Responds to haldol, but then it causes prolonged somnolence. - Precedex for agitation; would titrate down during day, back up at night to promote sleep - olanzapine 10mg qhs, can consider changing to quetiapine - melatonin qhs DVT Prophylaxis: Lovenox GI prophylaxis: Not indicated Diet: Clear liquid diet Code: Full Dispo: Uncertain at this time Aviva Alexander MD 11/08/2018 6:49 Attending attestation statement: I saw and examined the patient with the resident and agree with the findings and plans as documented, and as amended in blue. Clinical Condition: Elizabeth Appiah is a critically ill 48 y.o. male. Over the past 24 hours, there has been a high probability of sudden, clinically significant or life threatening deterioration in the patient???s condition, which include the following diagnoses which I have managed: Active Problems: Septic shock due to streptococcal infection Acute hypoxic respiratory failure Strep pneumo pneumonia Critical Care time was provided in the form of interventions to treat and prevent further life threatening deterioration of the patient???s condition including: Management of mechanical ventilation, Fluid and electrolyte management and Antimicrobial therapy, and high complexity decision making regar ding need for (re) intubation and need for additional imaging studies and / or interventional radiology interventions. My bedside involvement was required to monitor and direct the critical care that has been provided.Exclusive of procedures, my critical care time is 30 minutes. Yarelis Gonzalez MD MICU Attending 11/08/2018 * Julia Wright, RT - 11/07/2018 1403 EST Respiratory Consult/Progress Note Indications for Respiratory therapy: HFNC/ PNA Data Vitals: Heart Rate: 74 BPM, Resp: 22, SpO2: 95 % FIO2/O2 Device: O2 Flow Rate (L/min): 60 l/min, , O2 Device: High flow nasal cannula, FIO2 %: 40 % RT Orders: Continuous HFNC PRN ACT Protocol Scoring: Bronchodilator/Inhalation Therapy Frequency Bronchodialator - Clinical Indications: No clinical indications Breath Sounds: Any abnormal BS decreased Response: No change / no treatment Pulse: <100 Resp Rate: 26-32 SOB: With exertion Total Score: 4 Comment:: Not indicated at this time Airway Clearance Therapy Frequency Airway Clearance - Clinical Indications: Infiltrate on CXR Breath Sounds: Rhonchi / crackles Sputum: Moderate (tbs) Consistency: Thin / thick Cough Effort: Strong, productive Color: Yellow / green Total Score: 6 Comment: q4 cpt Action/Events Respiratory events; Patient remains on HFNC 60L 35%. Mental status is improving and patient has had a good, productive cough. 185 - HFNC weaned to 40L 35% RT Debra 11/07/18 * Jonel Ren RN - 11/07/2018 0736 EST 11/07/18 - recvd report and assumed care of patient, patient is moaning and making incomprehensible sounds, restraints remain for patient and staff safety, plan to maintain comfort and safety, assist with positioning, monitor neuro, cv, resp, gi and gu status and report changes to MD. 0930 - patient remains sedate and restrained, has been able to take water and swallow pills, continued close observation for patient safety. 1200 - switched patient to regular bed as he no longer needed the [place]adel, restraints maintained, 1:1 nursing assignment due to previous level of agitation, maintained restraints and bed alarm. Speech is occasionally clear and comprehensible but for just 1 -2 words at a time. 1400 - significant other at bedside, assisted with shaving and provided emotional support to patient, restraint removed - patient now following commands and much more cooperative 1500 - continues to clear neurologically, able to swallow small sips of water with pills, significant other at bedside and very helpful with cares. 1540 - request placed for constant observation * Arya Grigsby MD - 11/07/2018 0656 EST MICU Progress Note Service Date: 11/07/2018 Admit Date: 11/04/2018 15:28 Chief Complaint: Acute hypoxic respiratory failure 24 Hour Events: - Significant agitation; received multiple doses of haldol overnight Subjective Pt is sleeping in bed. Opens eyes to his name (when said loudly), but otherwise sleeps and does notrespond to questions. Review of Systems: Unable to complete ROS as above. Objective BP (!) 146/86 Temp 36.9 ??C (98.4 ??F) (Tympanic) Resp 19 Ht 179 cm (70.47) Wt (!) 121.3 kg (267 lb 8 oz) SpO2 98% BMI 37.87 kg/m?? Vent settings: HFNC 40/60 Gen: Obese male sleeping in bed comfortably. Opens eyes to loud noise. Does not respond to questions HEENT: NC/AT, PERRLA, anicteric, MMM CV: RRR, normal S1 and S2, no m/r/g Pulm: Limited by effort. Slightly decreased breath sounds on right, bibasilar crackles. Abd: soft, non-distended, normal bowel sounds Ext: Non-edematous, no rashes or lesions, no clubbing, cyanosis, 1+ DP/PT Neuro: Pupils equal and reactive, does not respond to voice, does not localize to pain Wick, lines, tubes: Rt IJ, Wick, PIVs BMP: Recent Labs 11/04/18 1606 11/05/18 0133 11/06/185 11/06/18 1400 11/07/18 0303 NA 139 137 < > 143 146* 146* K 5.4* 4.6 < > 3.2* 3.6 3.6 CL 111* 108 < > 111* 108 105 CO2 20* 21* < > 26 29 33* BUN 26 30* -- 32* -- 45* CREATININE 1.09 0.95 -- 1.03 -- 1.09 CALCIUM 7.7* 7.8* -- 7.7* -- 8.1* CALCCA 8.6 8.9 -- 8.8 -- 8.7 MG 2.3 2.6 -- 2.4 2.2 2.2 PHOS 4.0 2.2* -- 2.6 -- 4.3 LABALBU 2.9* -- -- -- -- -- < > = values in this interval not displayed. CBC: Recent Labs 11/05/18 0133 11/06/18 0225 11/07/18 0303 WBC 23.95* 28.62* 25.26* RBC 3.91* 3.77* 4.81 HGB 11.0* 10.6* 12.9* HCT 32.3* 29.5* 37.0* MCV 83 78* 77* MCH 28.1 28.1 26.8* MCHC 34.1 35.9 34.9 PLT 244 248 277 NEUTROABS 16.43* 23.18* 21.62* Imaging: - No new imaging Micro: 11/04 urine culture no growth 11/04 Legionella and Strep pneumonia: negative 11/04 BC x2: NGTD 11/04 sputum culture: NGTD, no bacteria on smear 11/04 viral panel: negative for flu and RSV 11/04 MRSA PCR: + for MSSA 11/03 at 8:40AM. 2 BC, NGTD as of 11/07/18 6:56 @ [facility] 11/03 sputum culture: Strep pneumo @ [facility]. Oxacillin susceptible. Assessment/Plan Elizabeth Appiah is a 48 y.o. male with hx of smoking who is admitted from OSH for acute hypoxic respiratory failure in the setting of Strep PNA and sepsis. Patient initially required pressors and intubation but is no longer requiring pressors and is now extubated to high flow as of 11/06. Respiratory: Strep pneumoniae PNA. Additionally likely fluid overloaded in setting of aggressive fluid resuscitation prior to admission here. Now extubated to HFNC and settings improving - Azithro/Ceftriaxone 2g, start 11/05 - Stress dose steroids with Solu-cortef 50 mg q6h - HFNC for 24 hours after extubation; can wean as tolerated Resp status gradually improving Continue HFNC for now given overall tenuous and will be in ICU regardless due to poor mental status. Cardiovascular: Hypotensive in setting of septic shock, now off pressors - Severe volume overload (~12L on admission). Diuresing very well - indapamide 5mg daily - will discontinue scheduled diuril and lasix for now, given significant urine output. Can re-orderas needed to target net negative ~2L - vitamin C, thiamine (will complete 4-day course shortly) Approaching euvolemia, still a bit positive. Target ongoing gentle diuresis if tolerated ~1 liters off per day Renal: CRISPIN on admission to outside hospital. Unknown baseline, now improved. Fluid overload. Hypokalemia. - Trend creatinine, electrolytes daily - Diuresis: As above, significant urine output. Indapamide 5mg daily. Additional diuresis as neededto make sure he is net negative at least a few L today - Trend UOP #Hypernatremia: - D5w at 125cc/hr - recheck Na later today #Hypokalemia, likely in setting of diuresis - potassium, mag repletion - Trend lytes, mag daily as will continue to diurese GI/Nutrition: - NPO for now given somnolence; advance as tolerated Tolerating PO meds Heme/Onc: Leukocytosis with bandemia in the setting of sepsis. Mild microcytic anemia - Trend CBC daily Infectious Disease: Septic shock on presentation from strep pneumoniae - continue ceftriaxone and azithromycin - Follow respiratory culture - Follow blood cultures - Trend WBC Endocrine: - On high dose steroids as above - Check CBGs daily while on stress dose steroids. No need for acute intervention if < 200. Neuro/Psychiatric: Significant agitation after extubation - Precedex for agitation; would titrate down during day, back up at night to promote sleep - olanzapine 10mg qhs (administered one dose this morning. Would hold tonight's dose if he is stillvery sedated) - melatonin qhs Delirium gradually lifting Responds to haldol, but then it causes prolonged somnolence Best approach might be nocturnal dexmedetomidine for now to allow for sleep at night During day wean off dexmedtomidine as much as possible to preserve day/night cycle Continue melatonin Could transition to QHS melatonin plus quetiapine at some point DVT Prophylaxis: Lovenox GI prophylaxis: Not indicated Diet: NPO for now, consider advancing when mental status improves Code: Full Dispo: Uncertain at this time Lizbeth Zavala MD 11/07/2018 6:56 Attending attestation statement: I saw and examined the patient with the resident and agree with the findings and plans as documented, and as amended in blue. Clinical Condition: Elizabeth Appiah is a critically ill 48 y.o. male. Over the past 24 hours, there has been a high probability of sudden, clinically significant or life threatening deterioration in the patient???s condition, which include the following diagnoses which I have managed: 1. Sepsis, due to unspecified organism ([facility]) Critical Care time was provided in the form of interventions to treat and prevent further life threatening deterioration of the patient???s condition including: Fluid and electrolyte management, and high complexity decision making regarding treatment of delirium. My bedside involvement was required to monitor and direct the critical care that has been provided.Exclusive of procedures, my critical care time is 48 minutes. Arya Grigsby MD Pulmonary & Critical Care Medicine 11/07/2018 * Dashawn Nelson, RT - 11/07/2018 0627 EST Respiratory Progress Note Indications for Respiratory therapy: HFNC//fluid overload/Increased WOB post extubation Data Vitals: Heart Rate: 78 BPM, Resp: 19, SpO2: 98 % FIO2/O2 Device: O2 Flow Rate (L/min): 60 l/min, , O2 Device: High flow nasal cannula, FIO2 %: 40 % RT Orders: Cont HFNC PRN airway clearance. Action/Events Respiratory events; Patient remained on HFNC overnight. Not weaning HFNC per MD request (MD Grigsby) due to pneumonia, fluid overload, and high risk for re-intubation. Vitals stable and no signs of resp distress noted overnight. RT Caroline 11/07/18 * Suha Tovar RN - 11/07/2018 0001 EST Rass was -3 with Precedex gtt @ 1.2 mcg/kg/hr @ 2000 but pt then awoke and was very agitated: attempted to get OOB, removed all medical equipment, confused and aggressive verbally: Precedex gtt increased to 1.4mcg/kg/hr with Rass currently -1 to -2: to cont F/U, pt kept NPO due to sedation, SB-SR, SBP at least 130mmHg, O2 sats >92% on HFNC with FiO2 of 40% and flow of 60 L/min without weaning overnight according to MD, to draw am labwork and to F/U with results, pt being diuresed with large response * Julia Wright RT - 11/06/2018 0858 EST Respiratory Consult/Progress Note Indications for Respiratory therapy: HFNC//fluid overload/Increased WOB post extubation Data Vitals: Heart Rate: 91 BPM, Resp: (!) 32, SpO2: 96 % FIO2/O2 Device: O2 Flow Rate (L/min): 60 l/min, , O2 Device: High flow nasal cannula, FIO2 %: 70 % RT Orders: Continuous HFNC PRN ACT Action/Events Respiratory events; Patient remains on HFNC 60L (maximum) 70% FiO2 and continues to appear dyspneic. Likely due to combination of right sided pneumonia and fluid overload from fluid resuscitation. Lasix being given. Notweaning HFNC flow from 60 at this time per MD Grigsby [id number] - VBG obtained via central line... 7. RT Debra 11/06/18 Julia Mcleod RT - 11/06/2018 0804 EST Respiratory Extubation Note Pre-procedure - The extubation order and correct patient verified. The procedure was coordinated with the RN. Procedure - The patient's oral pharynx and ETT were suctioned for Secretion Amount: Small SecretionColor: White, Yellow and Secretion Consistency: Thick, Thin. A cuff leak was present. The patient was placed on 100% resuscitation bag and the ventilator placed in standby. The patient was extubated and placed on O2 Flow Rate (L/min): 60 l/min O2 Device: High flow nasal cannula. No stridor was noted and the patient was able to produce voice. Comments Tolerated well, patient mildly tachypneic RT Debra 11/06/18 Arya Leahy MD - 11/06/2018 0748 EST MICU Progress Note Service Date: 11/06/2018 Admit Date: 11/04/2018 15:28 Chief Complaint: Acute hypoxic respiratory failure 24 Hour Events: - Extubated to HFNC - Antibiotics narrowed to ceftri/azithro Subjective Pt is now extubated, confused, intermittently agitated. Not complaining of anything acutely. Review of Systems: 10 point review of systems completed: positive as stated above, otherwise negative Objective BP 120/83 Temp 37.4 ??C (99.3 ??F) (Tympanic) Resp 23 Ht 179 cm (70.47) Wt (!) 121.3 kg (267 lb 8 oz) SpO2 96% BMI 37.87 kg/m?? Vent settings: HFNC 70/60 Gen: Obese male, moving all limbs spontaneously, intermittently agitated, appears calmer after Precedex and Haldol HEENT: NC/AT, PERRLA, anicteric, MMM, ETT CV: RRR, normal S1 and S2, no m/r/g Pulm: Slightly decreased breath sounds on right, bibasilar crackles. Improved compared to previous Abd: soft, non-distended, normal bowel sounds, Ext: Non-edematous, no rashes or lesions, no clubbing, cyanosis, 1+ DP/PT Neuro: Pupils equal and reactive, does not respond to voice while sedated, does not localize to pain Wick, lines, tubes: Rt IJ, Wick, PIVs 11/06/2018 02:25 Sodium 143 Potassium 3.2 (L) CO2 26 Chloride 111 (H) BUN 32 (H) Creatinine 1.03 ALT 50 Total Alkaline Phosphatase 101 AST 57 (H) Bilirubin, Total 0.6 Triglycerides 1,437 WBC 28.62 (H) Hemoglobin 10.6 (L) PLT 248 Procalcitonin 10.69 Imaging: - No new imaging Micro: 11/04 urine culture no growth 11/04 Legionella and Strep pneumonia: negative 11/04 BC x2: NGTD 11/04 sputum culture: NGTD, no bacteria on smear 11/04 viral panel: negative for flu and RSV 11/04 MRSA PCR: + for MSSA 11/03 at 8:40AM. 2 BC, NGTD as of 11/06/18 7:48 @ [facility] 11/03 sputum culture: Strep pneumo @ [facility]. Oxacillin susceptible. Assessment/Plan Elizabeth Appiah is a 48 y.o. male with hx of smoking who is admitted from OSH for acute hypoxic respiratory failure in the setting of Strep PNA and sepsis. Patient initially required pressors and intubation but is no longer requiring pressors and is now extubated to high flow as of 11/06. Respiratory: Strep pneumoniae PNA. Additionally likely fluid overloaded in setting of aggressive fluid resuscitation. Now extubated to HFNC - Azitro/Ceftriaxone 2g, start 11/05 - S/p Zosyn, vanco 11/03 - 11/05 - Stress dose steroids: Start 20mg Solu-medrol starting this AM, 40mg each morning starting tomorrow. D/C Solu-cortef 50 mg q6h - HFNC for 24 hours then wean as tolerated - POC VBG for baseline, trend if clinical change - Hydromorphone to slightly reduce RR and treat pain Cardiovascular: Hypotensive in setting of septic shock. Not requiring pressors at this time. - If hypotensive: Levophed as needed, wean to MAP > 65. Consider continude diuresis even if requiring low dose Levophed (e.g. <8 mcg/min) - Severe volume overload (~12L on admission) - Diuresis as below target ~2-4 liters off per day if tolerated - Do not bolus fluid Renal: CRISPIN on admission to outside hospital. Unknown baseline, now improved. Fluid overload. Hypokalemia. #CRISPIN on admission - Trend creatinine, electrolytes daily #Fluid overload - Diuresis: Lasix 40mg IV q6h, Diuril 500mg q12h - Trend UOP #Hypokalemia, likely in setting of diuresis - Aggressive potassium, mag repletion. Received 40mg K this AM. - Repeat lytes, mag this PM - Trend lytes, mag daily as will continue to diurese GI/Nutrition: - NPO for now - GI ppx while intubated Heme/Onc: Leukocytosis with bandemia in the setting of sepsis. - Trend WBC, trend fever curve Infectious Disease: - Abx as above - Follow respiratory culture - Follow blood cultures - Trend WBC - Trend procalcitonin daily - vitamin C, thiamine Endocrine: - On stress dose steroids as above - Check CBGs daily while on stress dose steroids. No need for acute intervention if < 200. Neuro/Psychiatric: - Precedex for agitation - Haldol PRN for agitation DVT Prophylaxis: Lovenox GI prophylaxis: Not indicated Diet: NPO for now, consider advancing when mental status improves Code: Full Dispo: Uncertain at this time Aviva Alexander MD MPH PGY1 - Internal Medicine Pager: [phone] 11/06/2018 17:16 Attending attestation statement: I saw and examined the patient with the resident and agree with the findings and plans as documented, and as amended in blue. Clinical Condition: Elizabeth Appiah is a critically ill 48 y.o. male. Over the past 24 hours, there has been a high probability of sudden, clinically significant or life threatening deterioration in the patient???s condition, which include the following diagnoses which I have managed: 1. Sepsis, due to unspecified organism ([facility]) Critical Care time was provided in the form of interventions to treat and prevent further life threatening deterioration of the patient???s condition including: Management of mechanical ventilation, and high complexity decision making regarding candidacy for extubation. My bedside involvement was required to monitor and direct the critical care that has been provided.Exclusive of procedures, my critical care time is 48 minutes. Arya Grigsby MD Pulmonary & Critical Care Medicine 11/06/2018 * Dashawn Nelson, - 11/06/2018 0545 EST Respiratory Progress Note Indications for Respiratory therapy: Mechanical Ventilation/PNA Data Vitals: Heart Rate: 97 BPM, Resp: 28, SpO2: 96 % FIO2/O2 Device: , , O2 Device: Intubated, FIO2 %: 35 % RT Orders: VC-AC 450 x 20 + 12 PRN Percussor Action/Events Respiratory events; Patient has tolerated current vent settings well overnight. Have been suctioning moderate to large amounts of thick, yellow secretions throughout the night. Patient passed/met daily screen this morning, but was unable to go on a SBT this morning due to getting very agitated when sedation was weaned. aware and would like to try another SBT at some point this morning. Plan is to extubate patientat some pont today. 0619: Pt placed on SBT and is currently tolerating well. RT Caroline 11/06/18 * Anitha Cleveland RN - 11/06/2018 0152 EST 11/06/18 @ 0100: PLAN - 02 sat > 92 % without increased 02 requirements, WOB; hemodynamically stable off pressors; diuresing with u/o > intake. 2414-1262: care assumed, care plan reviewed, assessment completed. On propofol 60 mcg/kg/min, RASS -2/-3;continuing to diurese well with scheduled lasix;hypokalemia treated. Secretions thick, purulent. 0345: propofol decreased by half for preparation of PS;shortly after, more tachypneic 30's/min withnasal flaring;more restless .becoming agitated,thrashing, not redirectable; failed PS trial within few minutes.Propofol back to 60 mcg/kg/min and precedex started with goal of mininizing propofol. 0400: hypokalemia of 3.2 replaced. 0600: precedex at 1.4 mcg/kg/hour, propofol back to 30 mcg/kg/min; will continue to wean propofol to off. 0615: another attempt at PS,tolerating at this time;resting quietly; propofol decreased to 20 mcg/kg/min * Coni Aponte, RN - 11/05/2018 1028 EST 11/05: In to assess pt for Huey score < 13. No skin issues at this time per bedside nurse Arely. Recommend Reposition pt q2hrs Float heels off from mattress Coni Aponte Pressure Ulcer Prevention Nurse * Julia Wright, RT - 11/05/2018 0826 EST Respiratory Progress Note Indications for Respiratory therapy: Vent/pna Data Vitals: Heart Rate: 106 BPM, Resp: (!) 38, SpO2: 95 % FIO2/O2 Device: , , O2 Device: Intubated, FIO2 %: 30 % RT Orders: AC 450 x 20 +12 Q4 percussor Action/Events Respiratory events; Current vent settings tolerated well with agitation and tachypnea this morning as sedation was weaned, sedation has since been increased. Percussor performed with focus on right upper and middle lobes and tolerated well. No change in sputum obtained via suction after percussor, however moderate amounts of martell/yellow secretions suctioned before percussor. 0859 - PEEP weaned to 96ioC1B, SpO2 96% RT Debra 11/05/18 * Arya Grigsby MD - 11/05/2018 0757 EST MICU Progress Note Service Date: 11/05/2018 Admit Date: 11/04/2018 15:28 Chief Complaint: Acute hypoxic respiratory failure 24 Hour Events: - Admitted to MICU while intubated, sedated. Ventilation settings reducing - Rt IJ placed - Weaned off pressors Subjective Pt is intubated, sedated. Review of Systems: Unable to obtain due to patient condition: intubated and sedated Objective BP (!) 145/80 Temp 36.5 ??C (97.7 ??F) (Tympanic) Resp (!) 38 Ht 179 cm (70.47) Wt (!) 121.3 kg (267 lb 8 oz) SpO2 95% BMI 37.87 kg/m?? Vent settings: FiO2: 30%, RR: 20, Tv: 450, PEEP: 10 Gen: intubated, sedated, obese male HEENT: NC/AT, PERRLA, anicteric, MMM, ETT CV: RRR, normal S1 and S2, no m/r/g Pulm: Slightly decreased breath sounds on right. Abd: soft, non-distended, normal bowel sounds, Ext: Trace edema to the level of the shins, no rashes or lesions, no clubbing, cyanosis, 1+ DP/PT Neuro: Pupils equal and reactive, does not respond to voice while sedated, does not localize to pain Wick, lines, tubes: Rt IJ, Wick, PIVs AB.37/32/78/19 on 30% FiO2, VC-AC Lactate 1.9 11/05/2018 01:33 Sodium 137 Potassium 4.6 CO2 21 (L) Chloride 108 BUN 30 (H) Creatinine 0.95 ALT 37 GFR, Calculated 96 Calcium 7.8 (L) 11/04/2018 18:35 11/05/2018 01:33 Troponin I 0.224 (H) 0.233 (H) 11/05/2018 01:33 WBC 23.95 (H) Hemoglobin 11.0 (L) HCT 32.3 (L) PLT 244 11/04/2018 18:00 Color Yellow Clarity, UA Clear Refractometer SG,Urine 1.042 (H) pH, UA 6.0 Glucose, UA Neg Bilirubin, UA Neg Ketones Neg Blood, UA 2+ (A) Protein, UA 2+ (A) Urobilinogen, UA Normal Nitrite, UA Neg Leuk Esterase Neg Urine WBC Count 4 to 10 (A) Urine RBC Count 11 to 50 (A) Urine Squamous Epithelial Moderate (A) Urine Bacteria Count, None seen Urine Hyaline Casts < or = 10 Procal 17.28 Imaging: CT Chest WO Contrast, 11/04 - Dense Rt lung consolidation likely reflects PNA - Small Rt pleural effusion and 3 patchy left lower lobe airspace disease could be due to consolidation or atelectasis Micro: 11/04 urine culture pending 11/04 Legionella and Strep pneumonia: negative 11/04 BC x2: pending 11/04 sputum culture: pending, no bacteria on smear 11/04 viral panel: negative for flu and RSV 11/04 MRSA PCR: negative 11/03 at 8:40AM. 2 BC, NGTD as of 11/05/18 7:57 @ [facility] 11/03 sputum culture: Strep pneumo, normal dillon heavy growth @ [facility]. Oxacillin sensitivity pending Assessment/Plan Elizabeth Appiah is a 48 y.o. male with hx including smoking hx who is admitted from OSH for acute hypoxic respiratory failure in the setting of Strep PNA and sepsis. Patient is intubated, sedated. He is no longer hypotensive and is not requiring pressors. Respiratory: Pneumonia, possibly superimposed on viral infection. Additionally likely fluid overloaded in setting of aggressive fluid resuscitation. - Zosyn 4.5 g q8h, day 1 11/04 --> transition to Ceftriazone 2g qd - Discontinue vancomycin - Discontinue TamiFlu - Stress dose steroids: Solu-cortef 50 mg q6h - S/p azithromycin and ceftriaxone, 11/03 - Intubated, use low TV strategy as able. Wean as tolerated - Positioning: roll to left side as able, will hold on proning considering Lt lung is able to ventilate Severe pneumococcal PNA Azithro/CTX 2 grams Steroid/ascorbate Low TV vent (we are basically ventilating one lung) Cardiovascular: Hypotensive in setting of septic shock. Not requiring pressors at this time. - Levophed as needed, wean to MAP > 65 - Lactic acidosis has improved, stop trending - Troponin bump secondary to sepsis. Peaked, no longer need to trend. Severe volume overload (~12 liters) Aggressive diuresis target removal ~5 liters today if possible DO NOT BOLUS FLUID IF hypotensive may start norepinephrine, would consider continuing diuresis even if he requires a low dose of norephinephrine (e.g. <8 mcg/min), ie squeeze and diuresis Renal: CRISPIN on admission to outside hospital. Unknown baseline. Improved - Trend creatinine, electrolytes daily - Check electrolytes this afternoon - Hold fluid in setting of likely fluid overload - Diuresis in setting of likely fluid overload: Lasix 40mg IV q6h - Trend UOP GI/Nutrition: - NPO while intubated - Begin enteral nutrition if intubated > 24hrs - GI ppx while intubated Heme/Onc: Leukocytosis with bandemia in the setting of sepsis. - Trend WBC, trend fever curve Infectious Disease: - Abx as above - Follow respiratory culture - Follow blood cultures - Trend WBC - Trend procalcitonin daily - vitamin C, thiamine Endocrine: No acute issues Neuro/Psychiatric: - Propofol for sedation while intubated DVT Prophylaxis: Lovenox GI prophylaxis: Pepcid Diet: NPO while intubated Code: Full Dispo: Uncertain at this time Aviva Alexander MD MPH PGY1 - Internal Medicine Pager: [phone] 11/05/2018 16:08 Attending attestation statement: I saw and examined the patient with the resident and agree with the findings and plans as documented, and as amended in blue. Clinical Condition: Elizabeth Appiah is a critically ill 48 y.o. male. Over the past 24 hours, there has been a high probability of sudden, clinically significant or life threatening deterioration in the patient???s condition, which include the following diagnoses which I have managed: 1. Sepsis, due to unspecified organism ([facility]) Critical Care time was provided in the form of interventions to treat and prevent further life threatening deterioration of the patient???s condition including: Fluid and electrolyte management, and high complexity decision making regarding candidacy for extubation. My bedside involvement was required to monitor and direct the critical care that has been provided.Exclusive of procedures, my critical care time is 48 minutes. Arya Grigsby MD Pulmonary & Critical Care Medicine 11/05/2018 * Ruth Michele RT - 11/05/2018 0601 EST Respiratory Progress Note Indications for Respiratory therapy: Mechanical Ventilation, PNA Data Vitals: Heart Rate: 95 BPM, Resp: 24, SpO2: 97 % FIO2/O2 Device: , , O2 Device: Intubated, FIO2 %: 30 % RT Orders: VC/AC 450x20+12 Q4 AWC Action/Events Respiratory events; Patient tolerated vent settings well overnight. AWC via percussor done Q4. Peep weaned from 16 to 12 and FiO2 weaned from 50% to 30%. ABG drawn at 0506 on above settings: 7.37/32/78/19/-6. No changesmade post ABG. Suctions scant amounts of martell/ yellow secretions via ETT. Response/Results Weaning and Toleration of treatments; Wean vent settings as tolerated. RT Julieta 11/05/18 * Michael Mcallister, PT - 11/04/2018 1639 EST [facility] Rehabilitation Therapy Acute Therapies [facility] Physical Therapy Initial Evaluation Note for potential Prone Therapy Date of Service: 11/04/2018 Reason for Referral: Evaluate and treat>> paged by MD in the MICU to evaluate for potential prone therapy Precautions: Activity as tolerated SUBJECTIVE: N/A Pain: No pain reported during the interview. OBJECTIVE: PatientProfile: Patient is a 48 y.o. male admitted on 11/04/2018 secondary to NEVRH/pneumonia/M4 A41.9 Sepsis, unspecified-A41.9[ICD-10-CM] Per MD H&P note Elizabeth Appiah is a 48 y.o. male with hx including history of smoking (quit 2 years ago, vapped until 3 weeks ago) who is admitted for hypoxic respiratory failure. He presented to [facility] on 11/03 with 3weeks of febrile URI sxs including fever, chills, dyspnea, myalgias, and joint pains. He has + sickcontacts in his significant other and daughter. His symptoms progressively worsened until he eventually also experienced n/v, and diarrhea on the morning of presentation. In the ED at the OSH he appeared toxic and had a leukocytosis of 16, CRISPIN (Cr 2.16), lactate 4.9, and CXR with evidence of PNA. LFTs were normal and troponin was negative. CT PE confirmed a large PNA in the RUL. CT abdomen and pelvis was unremarkable. He was tachycardic, tachypnic, hypotensive to 82/51, and hypoxic. He was treated with initially with ceftriaxone 2g, vancomycin, azithromycin 500mg then transitioned to Zosyn and vanco plus TamiFlu 75mg BID, Duonebs. He was aggressively fluid resuscitated. He became acutely encephalopathic and ABG showed 7.28/Nml CO2/66 on 36% FiO2 via NC. and so he was intubated. On day of t , his WBC was 22.4 with a left shift, bicarb was 18.6, and albumen 2.2 Lactate downtrended to 4.1. Creatinine improved to 1.3. Sputum cultures were + for Strep, likely Strep pneumo, initial viral panel was negative for flu. ?? On arrival to the [facility] MICU he was intubated and sedated on propofol. ?? Of note, prior to intubation he declared his significant other, Geovanna Enciso as his medical decision maker in the presence of the [facility] physician, Curtis Carvajal MD. ?? The patient lives at [address] [id number] Home environment Lives: Need to clarify Caregiver Support: Need to clarify Equipment Available: Need to clarify Home Environment: Need to clarify Prior Level of Function: Independent Services prior to admission: Need to clarify Work/Leisure: Need to clarify Medical/Surgical History: Current: Patient Active Problem List Diagnosis ??? Sepsis ([facility]) Past: No past medical history on file. No past surgical history on file. Medications: Medications reviewed >> now fully sedated on propofol IV Levophed running MD to initiate medical paralysis if prone therapy decided Arousal, Attention, and Cognition: Orientation: Medically sedated Cardiopulmonary: Vital Signs: Airway clearance: suction via in-line catheter Breath sounds: Very diminshed all monterroso Imaging: Chest CT 11/04/2018 Impression: 1. Dense right lung consolidation likely reflects pneumonia. 2. Small right pleural effusion and three. Patchy left lower lobe airspace disease could be due to consolidation or atelectasis Vital signs stable during range of motion assessment SPO2 94% on full vent support Integumentary/Anthropometric Characteristics: Palpation/Observation: Skin: currently FREE of breakdown Edema: 2+ Posture: N/E due to sedation Range of Motion and Joint Integrity: Passive Range of Motion: Within normal limits Upper Quarter: Left Upper Extremity: Right Upper Extremity: Cervical Spine: WNL for prone Lower Quarter: Left Lower Extremity: Right Lower Extremity: Lumbar Spine: N/E Muscle Performance: Strength: Manual muscle test NOT completed due to medical sedation Sensation, Reflexes, and Nerve Integrity: Light Touch Sensation: Upper Quarter: Not evaluated secondary to patient unable to participate in formal sensory testing due to sedation and medical sedation Lower Quarter: Not evaluated secondary to patient unable to participate in formal sensory testing due to sedation and medical sedation Neuromotor Function/Development: Not evaluated due to evaluation limited to bedside examination. See assessment. Balance, Mobility, and Gait: Balance: Not evaluated due to evaluation limited to bedside examination. See assessment. Mobility: Not evaluated due to evaluation limited to bedside examination. See assessment. Gait: Not evaluated due to evaluation limited to bedside examination. See assessment. Self-Care, Home Management, Work, and Leisure: Not evaluated due to evaluation limited to bedside examination Outcomes: No formal measures appropriate to be performed at this time. If any measures were appropriate to becompleted, please refer to individual sections for findings. Informed Consent: The patient was unable to consent. Consent assumed by physician order. Interventions Completed Today: Physical Therapy today at: 1615 Total treatment time: 20 minutes. Timed code treatment minutes: 0 Patient/Family Education: Not Applicable Team Communication: Discussed with RN pre and post intervention. PT orders received for potential PRONE Therapy. ?? PT evaluation and ROM assessment completed. ?? SAFE to PRONE>> MD and RN aware. ?? ASSESSMENT: Upper Quarter Screen: Positive findings (please refer to physical therapy prognosis section of assessment for details) Physical Therapy Diagnosis: This patient presents with a PT diagnosis of IMPAIRED FUNCTIONAL MOBILITY due to: Impaired aerobic capacity and endurance secondary to deconditioning associated with bedrest and full medical sedation at this time for ARDS >> paged by in the medical intensive care unit forpotential prone therapy. Impaired ventilation, respiration (gas exchange) and aerobic capacity associated with airway clearance dysfunction while intubated and on mechanical ventilation Impaired ventilation, respiration (gas exchange) and aerobic capacity associated with ventilatory pump dysfunction/Respiratory failure with hypoxia due to A fu and multi focal PNA/ARDS Physical Therapy Prognosis: PT evaluation was medically indicated due to high risk for resulting ingross deconditioning, risk of skin breakdown with potential prone therapy , potential for impaired joint integrity/muscle length with bedrest , severely impaired cardiopulmomary function and loss of basic functional mobility. Current evidence indicates that early mobilization and PRONE positioning decreases risks of secondary complications related to immobility and improves systemic body function and cardiopulmonary function. Intervention by PT with knowledge of disease pathophysiology is indicated to establish and progress mobility, positioning and exercise. Patient will benefit from ongoing skilled PT to help maximize function. Given patient's relative youth and minimal pre-morbidities, he has GOOD potential for gains in functional and cardiopulmonary capacity to achieve adequate mobility while maximizing gas exchange givenhis continued medical stability>> given his relative youth. Potential barriers to attaining goals are: SEDATION, Pain, acute medical/surgical status, scheduling of procedures. Unable to determine post hospital therapy needs at this time due to medical acuity. PT exams and assessment is ONGOING Short-Term Goals: < 4-8 weeks patient will safely: Remain free of < Stage II breakdown of skin at all bony prominences Preserve joint integrity and muscle length at all joints to WNL Move from Supine <> Prone position with Total assist 5 with NO adverse effects Nursing staff will be confident an successful with Prone procedure/guidelines with ongoing PT education ONCE off [employer]: Roll side/side with Minimal contact/mod assist of 1 -2 Supine <> sit with Minimal contact /mod assist of 1-2 Sit <> stand with Minimal contact/mod assist of 1 -2 Maintain seated trunk control independently and reach from midline > 6 inches sitting with both UE's without LOB with Minimal contact assist of 1 Transfer Bed<> chair with mod assist of 1-2 with least restrictive device Ambulate > 50 feet with least restrictive assistive device with Minimal contact/MOD assist of 2 while keeping balance within center of gravity, no loss of balance and normalized gait pattern Not need suctioning of trach pre or post functional mobility with PT Perform IS > 1000 cc and acappella with effective cough to clear airway with verbal cues once extubated Have lungs with less adventitious sounds upon auscultation Increase strength to UE and LE to > 3/5 Follow all direction successfully with verbal and tactile cues All above with HR >60< 150; SBP>90< 180; RR < 35; RPE < 5/10, SpO2 >90 % on yuval st amount of FiO2 Long-Term Goals: Deferred at this time I PLAN: Treatment/Intervention: Physical therapy will be provided by physical therapist and/or physical therapist fish hatchery assistant when medically appropriate. Frequency: daily 1-5 times per week as determined by the patient's medical stability, tolerance to activity and progression of functional activities Intensity: 15-75 minutes per session Duration: During hospitalization Interventions may include:Therapeutic exercises, Therapeutic activities, Gait training and Self-care/management Patient/family education: Discharge planning, Equipment, Family training, Precautions, Recommendations, Role of physical therapy/rehabilitation, Safety Further Data: Ongoing assessment , MMT, balance and of discharge needs Recommended Discharge Destination: To be determined Recommended Discharge Services: To be determined Recommended Equipment Needs: To be determined Other recommendations: Speech Language Pathology consult, Occupational Therapy consult and Inpatient Rehabilitation consult Pager: [phone] MICHAEL MCALLISTER PT 11/04/2018 16:39 * Michael Mcallister, PT - 11/04/2018 1630 EST Rehabilitation Therapies Acute Therapies [facility] Physical TherapyContact Note Date of Service: 11/04/2018 PT orders received for potential PRONE Therapy. PT evaluation and ROM assessment completed. SAFE to PRONE>> MD and RN aware. Full note to follow MICHAEL MCALLISTER PT 11/04/2018 16:37 [phone] * Jaron Nath, RT - 11/04/2018 1505 EST Respiratory Consult/Progress Note Indications for Respiratory therapy: PNA, SEPSIS, VENT Data Vitals: Heart Rate: 111 BPM, Resp: 27, SpO2: 95 % FIO2/O2 Device: , , O2 Device: Intubated, FIO2 %: 80 % RT Orders: AC 420 x 20 + 12 Protocol Scoring: Bronchodilator/Inhalation Therapy Frequency Comment:: VENT Airway Clearance Therapy Frequency Comment: VENT Hyperinflation Therapy Frequency Comment: VENT Action/Events Patient arrived via FACT intubated. Breath sounds diminished. Vent settings 420 (6cc) x 20 + 12 ETT 7.5 @ 24cm measured from the lip. Secured with commercial tube fowler. ABG in time 1600: ABG 7.26 / 43 / 88 / 21 on 420 x 18 + 12 and 80% Vent adjusted to 450 (6cc) x 18 + 16 and 80% 1815: CPT started via Percussor. Tolerated well. AWC ordered Q4 PLAN: Wean FI02 as tolerated and aggressive CPT Q4 RT Rich 11/04/18 documented in this encounter H&P Notes * Blayne Armstrong DO - 11/04/2018 1508 EST MICU Admission History & Physical Service Date: 11/04/2018 Admit Date: 11/04/2018 14:45 Primary Care Provider: Blayne Armstrong Chief Complaint: Acute hypoxic respiratory failure HPI Elizabeth Appiah is a 48 y.o. male with hx including history of smoking (quit 2 years ago, vapped until 3 weeks ago) who is admitted for hypoxic respiratory failure. He presented to [facility] on 11/03 with 3weeks of febrile URI sxs including fever, chills, dyspnea, myalgias, and joint pains. He has + sickcontacts in his significant other and daughter. His symptoms progressively worsened until he eventually also experienced n/v, and diarrhea on the morning of presentation. In the ED at the OSH he appeared toxic and had a leukocytosis of 16, CRISPIN (Cr 2.16), lactate 4.9, and CXR with evidence of PNA. LFTs were normal and troponin was negative. CT PE confirmed a large PNA in the RUL. CT abdomen and pelvis was unremarkable. He was tachycardic, tachypnic, hypotensive to 82/51, and hypoxic. He was treated with initially with ceftriaxone 2g, vancomycin, azithromycin 500mg then transitioned to Zosyn and vanco plus TamiFlu 75mg BID, Duonebs. He was aggressively fluid resuscitated. He became acutely encephalopathic and ABG showed 7.28/Nml CO2/66 on 36% FiO2 via NC. and so he was intubated. On day of , his WBC was 22.4 with a left shift, bicarb was 18.6, and albumen 2.2 Lactate downtrended to 4.1. Creatinine improved to 1.3. Sputum cultures were + for Strep, likely Strep pneumo, initial viral panel was negative for flu. On arrival to the [facility] MICU he was intubated and sedated on propofol. Of note, prior to intubation he declared his significant other, Geovanna Enciso as his medical decision maker in the presence of the [facility] physician, Curtis Carvajal MD. Review of Systems: Unable to obtain due to patient condition: intubated and sedated No past medical history on file. No past surgical history on file. Social History Tobacco Use ??? Smoking status: Not on file Substance Use Topics ??? Alcohol use: Not on file No family history on file. Allergies not on file Objective Resp 27 SpO2 95% , HR 120s, BP 98/60 on 9 of levophed, Vent settings: FiO2: 80%, RR: 18, Tv: 420, PEEP: 12 Gen: intubated, sedated, obese male HEENT: NC/AT, PERRLA, anicteric, MMM, ETT CV: RRR, normal S1 and S2, no m/r/g Pulm: Diffuse course upper airway sounds throughout, crackles at bases Abd: soft, non-distended, normal bowel sounds, Ext: 2+ pitting edema to the level of the shinks, no rashes or lesions, no clubbing, cyanosis, 1+ DP/PT Neuro: Pupils equal and reactive, does not respond to voice while sedated, does not localize to pain Wick, lines, tubes: Wick, PIVs AB.26/43/88/21 on 80% FiO2 Imaging: Outside imaging as in HPI CXR 11/04: 1. ??Satisfactory placement of support lines and tubes. 2. ??Near complete opacification of the right hemithorax and obscuration of the right diaphragm, this could reflect near complete right lung consolidation and airless lung related to the consolidation, resulting from an associated pleural effusion not evident on the prior CT.. 3. ??The left lung volume with patchy airspace opacity could reflect edema, infection, or ARDS. 4. ??Possible small left pleural effusion. Micro: 11/03 at 8:40AM. 2 BC yesterday, NGTD as of 11/04/18 15:44 @ [facility] 11/03 sputum culture: GP organism Strep species, normal dillon heavy growth @ [facility] Assessment/Plan Elizabeth Appiah is a 48 y.o. male with hx including smoking hx who is admitted from OSH for acute hypoxic respiratory failure in the setting of PNA, Strep pneumonia sepsis, possibly superimposed over viral respiratory infection, possibly influenza. Patient is intubated, sedated, and hypotensive requiring pressors. Patient is critically ill with severe sepsis, septic shock, acute respiratory failure and likely pneumococcal pneumonia. Patient has a dense consolidation of the right lung and is at very high risk for severe ARDS. Patient requires admission to the ICU for mechanical vent support, vasopressor support and IV ABX. Respiratory: Pneumonia, possibly superimposed on viral infection. Additionally likely fluid overloaded in setting of aggressive fluid resuscitation - Zosyn 4.5 g q8h, day 1 11/04 - Vancomycin, day 1 11/03 - TamiFlu, day 1 11/03 - Stress dose steroids: Solu-cortef 50 mg q6h - S/p azithromycin and ceftriaxone, 11/03 - Intubated, use low TV strategy as able - Positioning: roll to left side as able, consider proning - CT chest ordered for further evaluation of pneumonia, fluid overload Lung US shows consolidation of right lung and B lines bilaterally. No obvious drain able effusion. Cardiovascular: Hypotensive in setting of septic shock. - Levophed, wean to MAP > 65 - Central line for pressors - Will not fluid resuscitate, received ~13L at OSH - Trend lactic acid POCUS shows good LV function. Renal: CRISPIN on admission to outside hospital. Unknown baseline. - Trend creatinine, electrolytes daily - Hold fluid in setting of likely fluid overload GI/Nutrition: - NPO while intubated - Begin enteral nutrition if intubated > 24hrs - GI ppx while intubated Heme/Onc: Leukocytosis with bandemia in the setting of sepsis. - Trend WBC, trend fever curve Infectious Disease: Patient - Abx as above - Strep, legionella antigen ordered - Follow respiratory culture - Influenza panel ordered - Follow blood cultures - Trend WBC - Trend procalcitonin daily - vitamin C, thiamine Endocrine: No acute issues Neuro/Psychiatric: - Propofol for sedation while intubated DVT Prophylaxis: Heparin GI prophylaxis: Pepcid Diet: NPO while intubated Code: Full Dispo: Uncertain at this time Aviva Alexander MD MPH PGY1 - Internal Medicine Pager: [phone] 11/04/2018 17:07 Attending attestation statement: I saw and examined the patient with the resident and agree with the findings and plans as documented, and as amended in blue. Clinical Condition: Elizabeth Appiah is a critically ill 48 y.o. male. Over the past 24 hours, there has been a high probability of sudden, clinically significant or life threatening deterioration in the patient???s condition, which include the following diagnoses which I have managed: Active Problems: Sepsis ([facility]) Septic shock Acute respiratory failure CRISPIN Pneumococcal pneumonia Critical Care time was provided in the form of interventions to treat and prevent further life threatening deterioration of the patient???s condition including: Management of mechanical ventilation, Observation before/during/after ventilator weaning, Neurological monitoring, Management of pain and sedation, Fluid and electrolyte management, Antimicrobial therapy and Management of vasopressors, and high complexity decision making regarding need for additional imaging studies and / or interventional radiology interventions and the need for critical procedures, such as: central line . My bedside involvement was required to monitor and direct the critical care that has been provided.Exclusive of procedures, my critical care time is 45 minutes. Blayne Armstrong DO MICU Attending 11/04/2018 documented in this encounter Procedure Notes * Blayne Armstrong DO - 11/04/2018 1718 EST Central Catheter Insertion First Catheter This Session molder machine tender: Patient Location: [place] [address] Preliminary Data: Insertion Date: 02/14/19 Insertion Time: 1640 First Manager Of Internal: NILO MANISH observer Brett Sheppard Pre-procedure: Time Out / Final Moment Performed: Yes Hand Hygiene Immediately Prior To Procedure: Yes Site Disinfected-2% Chlorhex/70% Alcohol: Yes Procedure Site Completely Dry: Yes Entire Patient Draped in Sterile Fashion: Yes Intra-procedure: Sterile Gloves Used: Yes Cap, Mask, and Sterile Gown - Operators: Yes Sterile Field Maintained: Yes Cap and Mask Worn - All Personnel: Yes Post-procedure: Sterile Dressing Applied - Sterile Technique: Yes Dressing Dated And Timed: Yes Needle Passes: Resident/Fellow Makes 3 Passes or Less: Yes(1 stick) Physician Documentation Pre-Procedure: Procedure To Be Performed: New central line placement Indication: New indication Conditions Present: Other (Comment)(Acute hypoxic respiratory failure), ARDS Line Priority: Stat Tip Confirmation: Other (Comment)(CT Chest) Consent Obtained: Emergency -Consent not obtained The patient and/or family have been provided education/training to minimize the risk of central line-associated bloodstream infections. Central Line Type: Central Catheter Type: Non-Tunneled Central Line Details: Line Location: Right;Internal Jugular Final Tip Location: Superior Vena Cava Line Lumens (#): Quad Central Line Size: 8 Fr Line Coating: Non-antimicrobial coated Line External Length: 2 cm Line Securement Device: Sutured Catheter Secured At (cm):: 18 Responsible Service / IR Details: Responsible Service: MICU Central Line Materials and Methods: Number of Attempts: 1 Number of Sites Attempted: 1 Number of Kits Used: 1 Location Device Used: Ultrasound Cultures Obtained: Other (Comment)(Previously obtained peripherally) Central Line Operators: Number Of Operators: 2 First Manager Of Internal's Name: Delfino Vasquez First Manager Of Internal's Title: Medical student Reflexologist's Name: Isaias Sheppard Reflexologist's Title: Fellow Third Manager Of Internal's Name: Blayne Armstrong Third Manager Of Internal's Title: MICU attending Unless otherwise noted, there were no complications, no blood loss and no cultures obtained. Delfino Vasquze 11/04/2018 17:18 Isaias Sheppard MD Department of Pulmonary/Critical Care Medicine C Consultant, PGY5 Pager # [phone] Attending attestation: I was present during the entire procedure.Blayne Armstrong DO 11/05/2018 10:36 documented in this encounter Miscellaneous Notes * Plan of Care - Beata Ventura RN - 11/10/2018 0604 EST Problem: Daily Care Plan Goals Goal: Care Plan Documentation Outcome: Completed Date Met: 11/10/18 11/10/18 0130 Care Plan Focus Area of Focus Pain/ Comfort Goal This Shift pt will remain comfortable on unit Data: Assumed care of patient @2300 after being transferred from ICU with septic shock and acute respiratory failure caused by streptococcal infection. Pt alert and oriented on assessment. Pt denies pain and SOB. Pt reported some nausea this AM (MD notified). Action: Completed assessment and clustered care to promote rest. ordered Zofran this AM. Completed hourly checks on patient. Response: Patient continues to deny pain, will continue to assess. BEATA VENTURA RN 11/10/2018 5:59 * Transfer Summary (Intrafacility) - Jourdan Martin MD - 11/09/2018 1213 EST Medicine Admission History & Physical Service Date: 11/09/2018 Admit Date: 11/04/2018 15:28 Primary Care Provider: Blayne Armstrong Chief Complaint: Rigors HPI Elizabeth Appiah is a 48 y.o. male with a history of smoking (quit 2 years ago, vapped until 3 weeks ago) who was transferred from [facility] on 11/03 for septic shock and acute hypoxic respiratory failure secondary to pneumonia. Mr. Appiah had 3 weeks of febrile URI symptoms including fever, chills, dyspnea, myalgias, and joint pains. His significant other and daughter were also sick. His symptoms progressed with rigors, vomiting, and diarrhea. In the ED at [facility], he was hypotensive to 82/51, tachycardic, tachypnic, and hypoxic. Labs showed Cr 2.16, leukocytosis 16, and lactate 4.9 (normal LFTs, negative troponin). CXR without pneumonia. CT PE showed a large pneumonia in the right upper lobe. CT abdomen pelvis unremarkable. He was treated with ceftriaxone, azithromycin, and vancomycin and aggressively volume resuscitated. He was transitioned to Zosyn and vancomycin, plus Tamiflu. He became acutely encephalopathic and hypoxic requiring intubation (pH 7.28). He was transferred to the [facility] MICU. On arrival, he had a CT chest which showed dense right lung consolidation and small right pleural effusion. He was positioned on his left side, continued on antibiotics, and started on stress-dose steroids. OSH sputum cultures were positive for Strep pneumonia (oxacillin susceptible) and so his antibiotics were narrowed to ceftriaxone and azithromycin. Strep pneumonia urine antigen was positive. Viral panel was negative and so TamiFlu was stopped. He was diuresed initially using Lasix and indapamide then using Lasix and Diuril. His respiratory status improved and he was extubated to HFNC on 11/06. He was intermittently agitated while intubated and immediately following extubation requiring Precedex and Haldol. His delirium progressively cleared and he tolerated HFNC well. His central line was removed 11/08 and he was weaned to nasal canula before being transferred to the floor on 11/09. This afternoon, Mr. Appiah feels well. His biggest concern is that he still gets lightheaded when he gets up to walk. He denies any shortness of breath, chest tightness, pleuritic chest pain, fevers, or chills. He had 3 bouts of low volume diarrhea since yesterday. He was negative for c. Diff. He said that it looked black, but that the nurses looked at it and said it wasn't blood. He has some associated belly pain that feels like gas pain and passes when he taps on it. Review of Systems A complete 10 point ROS was performed and pertinent positive and negative findings listed in HPI, otherwise negative. History reviewed. No pertinent past medical history. History reviewed. No pertinent surgical history. Social History Tobacco Use ??? Smoking status: Former Smoker ??? Smokeless tobacco: Never Used Substance Use Topics ??? Alcohol use: Not on file No family history on file. No medications prior to admission. Allergies no known allergies Objective Vitals Temp: [36.1 ??C (97 ??F)-38.2 ??C (100.8 ??F)] (), Heart Rate: [92 BPM-116 BPM] (), Pulse: -- (), Resp: [13-26] (), BP: (110-149)/(68-83) (), SpO2: [92 %-98 %] (), O2 Flow Rate (L/min): 2 l/min Numeric Pain Level (Scale 1-10): 0 Weight: Weight : (!) 121.3 kg (267 lb 8 oz) Body mass index is 37.87 kg/m??. Physical Exam Gen: Overweight young male, well appearing, no acute distress, conversing appropriately. HEENT: Normocephalic, atraumatic. Nonicteric, non-injected sclera. EOMI. MMM. Neck supple. Pulm: Diminished breath sounds on the right. CV: Regular rate and rhythm, no murmurs Abd: Non-distended. Positive bowel sounds. Soft, non-tender. No peritoneal signs : No wick in place Ext: No lower extremity edema, good distal pulses, no clubbing or cyanosis noted Skin: Normal coloration and turgor, no rashes. Neuro: Alert and oriented x4. Face symmetrical, no dysarthria, moving all extremities, sensation grossly intact. Psych: Normal affect and behavior, good mood Pressure Ulcer Present on admission? No Labs BMP- K 3.4, otherwise wnl CBC- WBC 21.24 (20.74 yesterday), Hgb and plt wnl Micro 11/09 C diff negative 11/04 urine culture no growth 11/04 Legionella and Strep pneumonia: negative 11/04 BC x2: NGTD 11/04 sputum culture: NGTD, no bacteria on smear 11/04 viral panel: negative for flu and RSV 11/04 MRSA PCR: + for MSSA 11/03 2 BC, NGTD as of 11/09/18 11:56 @ [facility] 11/03 sputum culture: Strep pneumo @ [facility]. Oxacillin susceptible. Imaging 11/08/18 Portable Xray Improving pneumonia in the right lung. No new abnormality. Assessment Elizabeth Appiah is a 48 y.o. male with a history of smoking (quit 2 years ago, vapped until 3 weeks ago) who was transferred from [facility] on 11/03 for septic shock and acute hypoxic respiratory failure secondary to strep pneumo pneumonia. Patient arrived intubated and required pressors. Extubated on 11/06. Now sating well on nasal cannula. On azithromycin, ceftriaxone, and prednisone. CRISPIN resolved Monitor overnight, but will likely discharge home tomorrow. Plan Strep pneumoniae pneumonia Caused septic shock and acute hypoxic respiratory failure, now resolved. Off supplemental oxygen and no symptoms of shortness of breath. Persistent leukocytosis and diminished breath sounds on right. - Azithro/Ceftriaxone 2g, start 11/05 - Prednisone 40mg PO daily, start 11/06 - Duonebs q4h prn Non-bloody diarrhea In the setting of three scheduled bowel meds (miralax, senna, docusate).Three small bowel movementsin the last 24 hours. C. Diff negative. Afebrile. - Suspect will self-resolved. Continue to monitor Hypervolemia Up 12L in the setting of septic shock. Required some furosemide but now autodiuresisng well. No peripheral edema or crackles on exam - I/Os Hypokalemia In the setting of hypervolemia and aggressive diuresis as above as well as diarrhea - Trend creatinine, electrolytes daily - Replete potassium and magnesium as needed VTE Prophylaxis: Lovenox Code: Full Discharge Plan: Likely home tomorow Consults: None Radha Rushing MD Internal Medicine PGY1 11/09/2018 12:14 Attending attestation: I have seen and examined the patient and agree with findings and plans as outlined in the resident's note above. Jourdan Martin MD * Plan of Care - O'Day, REINALDO Horton - 11/09/2018 1023 EST Problem: Daily Care Plan Goals Goal: Care Plan Documentation Outcome: Ongoing Data: Pt admitted 5 days ago for PNA and sepsis recovering in resp status. Currently being ruled out for C. Diff due to frequent green, gelatinous BMs overnight, increased WBC, belly pain and nausea reported overnight. Upon assessment pt remains dependent on 3L O2 via NC to maintain an SpO2 > 92%. Lung sounds are clear but diminished. Pt c/o of weakness and pain in bilateral knees rating it a 7/10. Pt is increasingly more alert compared to previous days, but appears fatigued. Action: Transitioned pt to room air. Admin tylenol for pain. Closely monitored resp status. Got pt OOB to recliner chair. C. Diff came back negative. PT worked with pt and ambulated for 100 ft- partial assistance. Response: Pt rated pain in knees a 2/10 after admin of tylenol. Ambulation was fairly tolerated- ptappeared somewhat steady on feet but is moderately fatigued/weak.. Will continue to monitor closely. Pt appears stable enough to leave ICU. Transfer orders in to adult medicine, no tele. Q 4 VS. Report given to M6 RN, plan is to transfer pt up @ 0720. IRINEO HINTON RN 11/09/2018 10:01 * Plan of Care - Jonel Ren RN - 11/08/2018 1742 EST Problem: Daily Care Plan Goals Goal: Care Plan Documentation Outcome: Ongoing 11/08/18 0800 11/08/18 1738 Care Plan Focus Area of Focus -- Respiratory Goal This Shift decrease Oxygen requirements -- Data: admitted with pneumonia and sepsis, recovering resp status S/p extubation Action: assisted with resp exercises today, encouraged oob to chair activity, Explained importance of increased activity Response: great day - transitioned to nasal cannula, oxygenation much improved, Anticipated transfer out of ICU tomorrow JONEL REN RN 11/08/2018 17:39 * Plan of Care - Porfirio Parr RN - 11/07/20185 EST Problem: Daily Care Plan Goals Goal: Care Plan Documentation Outcome: Ongoing 11/07/18 1941 Care Plan Focus Area of Focus Sleep Goal This Shift Promote normal sleep schedule Data: Pt admitted 2/2 PNA/sepsis, briefly intubated, now extubated. Pt had been encephalopathic, combative after extubation. Currently on precedex, pt is now oriented to self, place, and time. He is drowsy, but arousable to voice and follows commands appropriately, although he rules in for deliriumper CAM-ICU. Action: Pt repositioned for comfort, passive ROM performed. Given melatonin for sleep. Response: Pt sleeping comfortably, sitter at bedside, SO updated by phone. Porfirio Parr RN 11/07/2018 20:50 0500: Pt became acutely hypoxic w/ SpO2 88-89%, RR up to 32. Pt denies SOB, pain. MD Serina notified. Neb treatment, CXR, lasix ordered. FiO2 increased to 70% * Plan of Care - Jonel Ren RN - 11/07/2018 1417 EST Problem: Daily Care Plan Goals Goal: Care Plan Documentation 11/07/18 0800 Care Plan Focus Area of Focus Safety Goal This Shift maintain patient safety, while improving sepsis Data: patient admitted with respiratory failure and sepsis requiring ventilatory support Demonstrating severe encephalopathy s/p extubation Action: 1:1 nurse patient assignment, maintained restraints as needed, provided emotional Support to pt and family Response: less agitated this afternoon, tolerated restraints off and speech became more clear Throughout the day. Will continue to provide safe environment, bed alarm remains on JONEL REN RN 11/07/2018 14:14 * Plan of Care - Suha Tovar RN - 11/07/2018 0000 EST Problem: Daily Care Plan Goals Goal: Care Plan Documentation Outcome: Ongoing 11/06/181999 Care Plan Focus Area of Focus Respiratory Goal This Shift O2 sats >92% HFNC with FiO2 of 40% and flow of 60 L/min resp status and O2 sats monitored O2 sats >92%: to cont monitoring * Plan of Care - Andie Doran RN - 11/06/2018 1528 EST Problem: Daily Care Plan Goals Goal: Care Plan Documentation Outcome: Met This Shift 11/06/18 0721 Care Plan Focus Area of Focus Respiratory Goal This Shift Pt will tolerate extubation D: Pt admitted from OSH with acute respiratory failure in setting of strep PNA and sepsis. At startof shift pt intubated, sedated on propofol and dexmedetomidine, and thrashing in bed, not followingcommands. S/p 1.5 hours successful CPAP trial, now with tachypnea and tachycardia in setting of agit ation. Rhonchi in lungs. ST on telemetry. No longer requiring pressers, status post large IVF resusat OSH, now receiving high dose diuresis. Bowel movement overnight. Wick draining clear yellow urine. Skin intact. Antibiotic therapy per MICU team. A: Propofol off, providing reassurance and re-orientation. Pt extuabed (ok per MICU team despite not following commands) to HFNC - do not wean flow rate for now per Dr. Grigsby. with continued tachypnea. Repositioning q2hrs to protect skin and check for incontinence. Providing education and therapeutic listening for pt's partner, Soledad, at bedside and demonstrating appropriate anxiety regarding pt's critical illness. Small dose dilaudid given per MICU team for tachypnea. Repleting K+ as needed insetting of frequent diuresis. MICU team made aware that pt unable to take PO meds today post-extubation due to somnolence. R: Pt on 1 mcg/kg/hr of dexmetetomidine, maintain for now per Dr. Grigsby given likelihood of violent delirium. Pt appears comfortable, waking briefly to ask some fragmented questions, then immediately returning to sleep, Moving all limbs spontaneously and to pain, but not to command. * Plan of Care - Arely Brock RN - 11/05/2018 1908 EST Problem: Daily Care Plan Goals Goal: Care Plan Documentation 11/05/18 1600 Care Plan Focus Area of Focus Circulatory Status Goal This Shift diuresis as juaquin Data: admitted on 11/04 from OSH for hypoxic respiratory failure in setting of strep PNA and sepsis.Intubated, sedated. Action: vent settings weaned. Diuresed for fluid overload. Responsive to diuretics. Response: continues on vent. Arely Brock RN 11/05/2018 19:06 * Plan of Care - Annita Hernandez RN - 11/05/2018 1642 EST Problem: Daily Care Plan Goals Goal: Care Plan Documentation Outcome: Ongoing 11/05/18 1600 Care Plan Focus Area of Focus Circulatory Status Goal This Shift diuresis as juaquin 1510- report received from Arely. Data: Pt admitted with several liters of IVF given earlier Action: Diurese as tolerated Response: Ongoing diuresis Annita Hernandez RN 11/05/2018 16:39 * Plan of Care - Sherrill Blackwell RN - 11/05/2018 0008 EST Problem: Daily Care Plan Goals Goal: Care Plan Documentation Outcome: Ongoing 11/04/18 1945 Care Plan Focus Area of Focus Circulatory Status Goal This Shift Maintain MAP >65, SPO2 >92% Data: Assumed care of patient @ 1900. He is intubated, with vent set to VC-AC, FiO2: 50%, Peep: 16.Lung sounds diminished anteriorly, with coarse sounds auscultated bilaterally, posteriorly. Propofol and Levophed infusing into Right quad I.J. Vitals stable on monitor. Wick catheter in place, patent, draining clear dark yellow urine. Temperature stable, afebrile without need of PRN Tylenol intervention. Bilateral soft wrist restraints in place with +CMST's. Action: Vent remains on VC-AC, FiO2 decreased to 40%. Propofol & Levophed decreased per titration protocol & patient tolerance. Q2h turns provided with assist. Response: Patient tolerating turns, without decrease in O2, maintaining >92%. MAP maintained >65. Will continue to monitor & notify MICU team of changes or concerns. SHERRILL BLACKWELL RN 11/04/2018 23:57 0530: Patient remains intubated. FiO2: 30%, Peep: 12. Levophed drip is off, with B/P stable, MAP maintaining >65. Propofol drip infusing @ 40mcg/kg/min. * Plan of Care - Rj Clifton RN - 11/04/2018 1941 EST Problem: Daily Care Plan Goals Goal: Care Plan Documentation 11/04/18 1540 Care Plan Focus Goal This Shift MAP >65, sats >92, UOP >30 ml/hr Data: Pt transferred from [facility] intubated on propofol and levophed drip upon arrival, vent 80 fio2 and 16 peep now 50 fio2 and 16 peep, cxr white white [place] picture CT chest also done, Nathaniel Dickson was talking about possible proning pt, PT notified Michael Mcallister cleared pt for proning, Dr. Armstrong decided to hold off from proning pt for now, pancultured LA down, medicated for comfort with fentanyl x1 this shift Action: PLan: keep sat > 92%, titrate levophed to map 65, keep uo > 30/hr, turn q 2hr Response: con't to monitor Rj Clifton RN 11/04/2018 19:35 documented in this encounter Plan of Treatment Pending Results Name Type Priority Associated Diagnoses Date /Time OUTSIDE IMAGES - OTHER CHEST Imaging 11/04/2018 14:31 EST OUTSIDE IMAGES - OTHER CHEST Imaging 11/04/2018 14:31 EST documented as of this encounter Procedures Procedure Name Priority Date/Time Associated Diagnosis Comments ECG REPORT - SCANNED 11/15/2018 7:18 EST ECG REPORT - SCANNED 11/15/2018 7:18 EST ECG REPORT - SCANNED 11/12/2018 14:05 EST COMPLETE BLOOD COUNT AND DIFFERENTIAL Routine 11/09/2018 4:13 EST PHOSPHORUS Routine 11/09/2018 4:13 EST MAGNESIUM Routine 11/09/2018 4:13 EST CREATININE Routine 11/09/2018 4:13 EST CALCIUM Routine 11/09/2018 4:13 EST ELECTROLYTES Routine 11/09/2018 4:13 EST C. DIFFICILE PCR Routine 11/09/2018 2:13 EST MRSA PCR Routine 11/09/2018 2:13 EST RESPIRATORY CARE EVALUATION ONLY Routine 11/08/2018 23:21 EST PORTABLE CHEST 1 VIEW STAT 11/08/2018 5:46 EST SCREENING GLUCOSE Routine 11/08/2018 4:2 1 EST COMPLETE BLOOD COUNT AND DIFFERENTIAL Routine 11/08/2018 4:21 EST BUN Routine 11/08/2018 4:21 EST ALT Routine 11/08/2018 4:21 EST AST Routine 11/08/2018 4:21 EST PHOSPHORUS Routine 11/08/2018 4:21 EST ALKALINE PHOSPHATASE Routine 11/08/2018 4:21 EST MAGNESIUM Routine 11/08/2018 4:21 EST CREATININE Routine 11/08/2018 4:21 EST CALCIUM Routine 11/08/2018 4:21 EST BILIRUBIN, TOTAL Routine 11/08/2018 4:21 EST ELECTROLYTES Routine 11/08/2018 4:21 EST RESPIRATORY CARE EVALUATION ONLY Routine 11/07/2018 22:40 EST RESPIRATORY CARE EVALUATION ONLY Routine 11/07/2018 22:40 EST RESPIRATORY CARE EVALUATION ONLY Routine 11/07/2018 22:40 EST RESPIRATORY CARE EVALUATION ONLY Routine 11/07/2018 22:40 EST RESPIRATORY CARE EVALUATION ONLY Routine 11/07/2018 22:40 EST RESPIRATORY CARE EVALUATION ONLY Routine 11/07/2018 22:40 EST ELECTROLYTES Routine 11/07/2018 14:52 EST PROCALCITONIN Routine 11/07/2018 3:03 EST SCREENING GLUCOSE Routine 11/07/2018 3:0 3 EST COMPLETE BLOOD COUNT AND DIFFERENTIAL Routine 11/07/2018 3:03 EST BUN Routine 11/07/2018 3:03 EST ALT Routine 11/07/2018 3:03 EST AST Routine 11/07/2018 3:03 EST PHOSPHORUS Routine 11/07/2018 3:03 EST ALKALINE PHOSPHATASE Routine 11/07/2018 3:03 EST MAGNESIUM Routine 11/07/2018 3:03 EST CREATININE Routine 11/07/2018 3:03 EST CALCIUM Routine 11/07/2018 3:03 EST BILIRUBIN, TOTAL Routine 11/07/2018 3:03 EST ELECTROLYTES Routine 11/07/2018 3:03 EST MAGNESIUM Routine 11/06/2018 14:00 EST ELECTROLYTES Routine 11/06/2018 14:00 EST ZZBLOOD GAS, G3 ISTAT Routine 11/06/2018 10:08 EST EXTUBATION Routine 11/06/2018 7:36 EST PROCALCITONIN Routine 11/06/2018 2:25 EST SCREENING GLUCOSE Routine 11/06/2018 2:2 5 EST COMPLETE BLOOD COUNT AND DIFFERENTIAL Routine 11/06/2018 2:25 EST BUN Routine 11/06/2018 2:25 EST TRIGLYCERIDE Routine 11/06/2018 2:25 EST ALT Routine 11/06/2018 2:25 EST AST Routine 11/06/2018 2:25 EST PHOSPHORUS Routine 11/06/2018 2:25 EST ALKALINE PHOSPHATASE Routine 11/06/2018 2:25 EST MAGNESIUM Routine 11/06/2018 2:25 EST CREATININE Routine 11/06/2018 2:25 EST CALCIUM Routine 11/06/2018 2:25 EST BILIRUBIN, TOTAL Routine 11/06/2018 2:25 EST ELECTROLYTES Routine 11/06/2018 2:25 EST ELECTROLYTES Routine 11/05/2018 14:33 EST TROPONIN I Routine 11/05/2018 8:21 EST ZZBLOOD GAS, G3 ISTAT Routine 11/05/2018 5:06 EST PROCALCITONIN Routine 11/05/2018 1:33 EST SCREENING GLUCOSE Routine 11/05/2018 1:3 3 EST TROPONIN I Routine 11/05/2018 1:33 EST LACTIC ACID Routine 11/05/2018 1:33 EST COMPLETE BLOOD COUNT AND DIFFERENTIAL Routine 11/05/2018 1:33 EST BUN Routine 11/05/2018 1:33 EST ALT Routine 11/05/2018 1:33 EST AST Routine 11/05/2018 1:33 EST PHOSPHORUS Routine 11/05/2018 1:33 EST ALKALINE PHOSPHATASE Routine 11/05/2018 1:33 EST MAGNESIUM Routine 11/05/2018 1:33 EST CREATININE STAT 11/05/2018 1:33 EST CALCIUM Routine 11/05/2018 1:33 EST BILIRUBIN, TOTAL Routine 11/05/2018 1:33 EST ELECTROLYTES STAT 11/05/2018 1:33 EST TROPONIN I Routine 11/04/2018 18:35 EST LACTIC ACID Routine 11/04/2018 18:35 EST VANCOMYCIN, RANDOM Routine 11/04/2018 18 :35 EST AIRWAY CLEARANCE THERAPY Routine 11/04/2018 18:11 EST AIRWAY CLEARANCE THERAPY Routine 11/04/2018 18:11 EST AIRWAY CLEARANCE THERAPY Routine 11/04/2018 18:11 EST AIRWAY CLEARANCE THERAPY Routine 11/04/2018 18:11 EST AIRWAY CLEARANCE THERAPY Routine 11/04/2018 18:11 EST AIRWAY CLEARANCE THERAPY Routine 11/04/2018 18:11 EST URINE CULTURE IF POSITIVE Routine 11/04/2018 18:00 EST URINE CHEMICAL (DIP) & SEDIMENT (MICRO) WITHOUT REFLEX TO CULTURE Routine 11/04/2018 18:00 EST BACTERIAL CULTURE, URINE Routine 11/04/2018 18:[address] CHEST WO CONTRAST STAT 11/04/2018 17:53 EST EKG 12-LEAD STAT 11/04/2018 17:22 EST STREPTOCOCCUS PNEUMONIAE ANTIGEN, URINE Routine 11/04/2018 16:12 EST LEGIONELLA ANTIGEN DETECTION, URINE Routine 11/04/2018 16:12 EST PORTABLE CHEST 1 VIEW Routine 11/04/2018 16:11 EST XRAY FEEDING TUBE PLACEMENT Routine 11/04/2018 16:11 EST HOLD BLUE TOP Routine 11/04/2018 16:06 EST PROCALCITONIN Routine 11/04/2018 16:06 EST SCREENING GLUCOSE Routine 11/04/2018 16: 06 EST THYROID CASCADE Routine 11/04/2018 16:06 EST COMPLETE BLOOD COUNT AND DIFFERENTIAL Routine 11/04/2018 16:06 EST BUN Routine 11/04/2018 16:06 EST ALT Routine 11/04/2018 16:06 EST AST Routine 11/04/2018 16:06 EST PHOSPHORUS Routine 11/04/2018 16:06 EST ALKALINE PHOSPHATASE Routine 11/04/2018 16:06 EST MAGNESIUM Routine 11/04/2018 16:06 EST LIPASE Routine 11/04/2018 16:06 EST CREATININE Routine 11/04/2018 16:06 EST CALCIUM Routine 11/04/2018 16:06 EST BILIRUBIN, TOTAL Routine 11/04/2018 16:0 6 EST ALBUMIN Routine 11/04/2018 16:06 EST ELECTROLYTES Routine 11/04/2018 16:06 EST ZZBLOOD GAS, G3 ISTAT Routine 11/04/2018 16:00 EST BACTERIAL CULTURE, BLOOD Routine 11/04/2018 15:56 EST BACTERIAL CULTURE, BLOOD Routine 11/04/2018 15:56 EST ZZHN INFLUENZA A AND B, RSV PCR Routine 11/04/2018 15:30 EST MRSA PCR Routine 11/04/2018 15:30 EST BACTERIAL CULTURE/SMEAR, RESPIRATORY Routine 11/04/2018 15:30 EST GLUCOSE, GLUCOMETER Routine 11/04/2018 1 5:10 EST documented in this encounter Results * ECG REPORT - SCANNED (11/15/2018 7:18 EST) 11/15/2018 7:18 EST Scan 2 [facility] [employer] PROCEDURE/MINOR ANIYAH GICAL ORDERABLES * ECG REPORT - SCANNED (11/15/2018 7:18 EST) 11/15/2018 7:18 EST Scan 2 [facility] PROCEDURE/MINOR ANIYAH GICAL ORDERABLES * ECG REPORT - SCANNED (11/12/2018 14:05 EST) 11/12/2018 14:0 5 EST Scan 2 [facility] PROCEDURE/MINOR ANIYAH GICAL ORDERABLES * (ABNORMAL) ELECTROLYTES (11/09/2018 4:13 EST) Sodium 138 136 - 145 mEq/L 11/09/2018 4:43 EST [facility] Potassium 3.4(L) 3.5 - 5.0 mEq/L 11/09/2018 4:43 EST [facility] Chloride 101 96 - 110 mEq/L 11/09/2018 4:43 EST [facility] CO2 26 22 - 32 mEq/L 11/09/2018 4:43 EST [facility] Blood specimen (specimen) BLOOD SPECIMEN / Unknown 11/09/2018 4:13 EST 11/09/2018 4:18 EST Jorge Avila MD CHEMISTRY & BLOOD GA S ORDERABLES [facility] [address] [place] [address] * (ABNORMAL) COMPLETE BLOOD COUNT AND DIFFERENTIAL (11/09/2018 4:13 [facility]) WBC 21.24(H) 4.0 - 10.4 K/cmm 11/09/2018 4:39 [facility] RBC 5.47 4.36 - 5.78 M/cmm 11/09/2018 4:39 [facility] Hemoglobin 14.6 13.8 - 17.3 gm/dl 11/09/2018 4:39 [facility] HCT 42.5 39.5 - 50.2 % 11/09/2018 4:39 [facility] MCV 78(L) 81 - 95 fl 11/09/2018 4:39 [facility] MCH 26.7(L) 27.6 - 33.0 pg 11/09/2018 4:39 [facility] MCHC 34.4 32.8 - 36.4 gm/dl 11/09/2018 4:39 [facility] RDW-CV 15.1(H) <14.2 % 11/09/2018 4:39 [facility] RDW-SD 40.8 <46.0 fl 11/09/2018 4:39 [facility] PLT 306 141 - 377 K/cmm 11/09/2018 4:39 [facility] MPV 11.4 9.5 - 12.7 fl 11/09/2018 4:39 [facility] Neutrophils 72.6 % 11/09/2018 5:13 [facility] Lymphocytes 15.9 % 11/09/2018 5:13 [facility] Monocytes 5.3 % 11/09/2018 5:13 [facility] Eosinophils 1.8 % 11/09/2018 5:13 [facility] % Metamyelocytes 3.5 % 11/09/19 5:13 [facility] % Myelocytes 0.9 % 11/09/2018 5:13 [facility] ABS Neutrophils 15.42(H) 2.20 - 8.85 K/cmm 11/09/2018 5:13 [facility] ABS Lymphs 3.38(H) 1.09 - 3.30 K/cmm 11/09/2018 5:13 [facility] ABS Monocytes 1.13(H) 0.1 - 0.8 K/cmm 11/09/2018 5:13 [facility] ABS Eosinophils 0.38 0.03 - 0.61 K/cmm 11/09/2018 5:13 [facility] ABS Metamyelocytes 0.74 K/cmm 2018 5:13 [facility] ABS Myelocytes 0.19 K/cmm 11/09/2018 5:13 [facility] Large Platelets Present 9 5:13 [facility] Type of Diff: Manual 11/09/2018 5:13 [facility] Blood specimen (specimen) BLOOD SPECIMEN / Unknown 11/09/2018 4:13 EST 11/09/2018 4:18 EST Mita Parra MD PACKAGES & DNA PROBE ORDERABLES Performing Organization Address City/[facility] Co de Phone Number [facility] [address] [place] [id number] * CREATININE (11/09/2018 4:13 EST) Creatinine 0.70 0.66 - 1.25 mg/dl 11/09/2018 4:43 [facility] GFR, Calculated 113 >60 ml/min/1.7 3m2 11/09/2018 4:43 [facility] Comment: eGFR calculated using CKD-EPI equation for non Americans. Multiply eGFR by 1.16 for Americans. Blood specimen (specimen) BLOOD SPECIMEN / Unknown 11/09/2018 4:13 EST 11/09/2018 4:18 EST Mita Parra MD CHEMISTRY & BLOOD GA S ORDERABLES Performing Organization Address City/[facility] Co de Phone Number [facility] [address] [place] [address] * PHOSPHORUS (11/09/2018 4:13 EST) Phosphorus 3.6 2.5 - 4.5 mg/dl 11/09/2018 4:43 EST [facility] Blood specimen (specimen) BLOOD SPECIMEN / Unknown 11/09/2018 4:13 EST 11/09/2018 4:18 EST Mita Parra MD CHEMISTRY & BLOOD GA S ORDERABLES [facility] [address] [place] [address] * MAGNESIUM (11/09/2018 4:13 EST) Magnesium 2.1 1.7 - 2.8 mg/dl 11/09/2018 4:43 EST [facility] Blood specimen (specimen) BLOOD SPECIMEN / Unknown 11/09/2018 4:13 EST 11/09/2018 4:18 EST Mita Parra MD CHEMISTRY & BLOOD GA S ORDERABLES Performing Organization Address City/[facility]/ZIP Co de Phone Number [facility] [address] [place] [address] * CALCIUM (11/09/2018 4:13 EST) Calcium 8.5 8.5 - 10.5 mg/dl 11/09/2018 4:43 EST [facility] Calculated Calcium 8.9 8.5 - 10.5 mg/dl 11/09/2018 4:43 EST [facility] Blood specimen (specimen) BLOOD SPECIMEN / Unknown 11/09/2018 4:13 EST 11/09/2018 4:18 EST Mita Parra MD CHEMISTRY & BLOOD GA S ORDERABLES Performing Organization Address City/[facility]/ZIP Co de Phone Number [facility] [address] [place] [address] * C. DIFFICILE PCR (11/09/2018 2:13 EST) Result Negative 11/09/2018 11:11 EST [facility] Stool specimen (specimen) STOOL SPECIMEN / Unknown 11/09/2018 2:13 EST 11/09/2018 6:57 EST Dmitriy Aikns MD MICROBIOLOGY - GENE RAL ORDERABLES Performing Organization Address [facility] de Phone Number [facility] [address] [place] [address] * MRSA PCR (11/09/2018 2:13 EST) Result Methicillin susceptible Staphylococcus aureus (MSSA) DNA detected by PCR. 11/09/2018 11:11 EST [facility] Specimen of unknown material (specimen) NASAL ROUTE / Unknown 11/09/2018 2:13 EST 11/09/2018 7:21 EST Mita Parra MD MICROBIOLOGY - GENER AL ORDERABLES Performing Organization Address [facility] de Phone Number [facility] [address] [place] [address] * PORTABLE CHEST 1 VIEW (11/08/2018 5:46 EST) Anatomical Region Laterality Modality Other 11/08/2018 5:46 EST 11/08/2018 8:55 EST Narrative 11/08/2018 8:55 EST PORTABLE CHEST 1 VIEW ??11/08/2018 5:46 AM Clinical History/Comments: hx of strep pna ARDS (improving) with new onset hypoxia COMPARISON: Chest CT 11/04/2018. FINDINGS: Single nearly upright portable AP view of the chest. Lines/tubes: ??Monitor wires overlie the chest. Soft tissues and bones: No significant abnormalities. Cardiac and mediastinal contours: Normal. Lungs: Improving airspace disease on the right particularly in the right middle and right lower lobes. The left lung is clear. Pleura: No visible pleural abnormality. Impression: Improving pneumonia in the right lung. No new abnormality. I have personally reviewed the images and the above interpretation and agree with the findings. Procedure Note Ghada Hart MD - 11/08/2018 PORTABLE CHEST 1 VIEW 11/08/2018 5:46 AM Clinical History/Comments: hx of strep pna ARDS (improving) with new onset hypoxia COMPARISON: Chest CT 11/04/2018. FINDINGS: Single nearly upright portable AP view of the chest. Lines/tubes: Monitor wires overlie the chest. Soft tissues and bones: No significant abnormalities. Cardiac and mediastinal contours: Normal. Lungs: Improving airspace disease on the right particularly in the right middle and right lower lobes. The left lung is clear. Pleura: No visible pleural abnormality. Impression: Improving pneumonia in the right lung. No new abnormality. I have personally reviewed the images and the above interpretation and agree with the findings. Maria Victoria Smalls MD IM DIAGNOST IC IMAGING ORDERABLES * (ABNORMAL) COMPLETE BLOOD COUNT AND DIFFERENTIAL (11/08/2018 4:21 EST) WBC 20.74(H) 4.0 - 10.4 K/cmm 11/08/2018 4:37 [facility] RBC 5.24 4.36 - 5.78 M/cmm 11/08/2018 4:37 [facility] Hemoglobin 14.0 13.8 - 17.3 gm/dl 11/08/2018 4:37 [facility] HCT 40.4 39.5 - 50.2 % 11/08/2018 4:37 [facility] MCV 77(L) 81 - 95 fl 11/08/2018 4:37 [facility] MCH 26.7(L) 27.6 - 33.0 pg 11/08/2018 4:37 [facility] MCHC 34.7 32.8 - 36.4 gm/dl 11/08/2018 4:37 [facility] RDW-CV 14.8(H) <14.2 % 11/08/2018 4:37 [facility] RDW-SD 40.8 <46.0 fl 11/08/2018 4:37 [facility] PLT 247 141 - 377 K/cmm 11/08/2018 4:37 [facility] MPV 11.3 9.5 - 12.7 fl 11/08/2018 4:37 [facility] Neutrophils 66.0 % 11/08/2018 7:57 [facility] % Bands 4.0 % 11/08/2018 7:57 [facility] Lymphocytes 15.0 % 11/08/2018 7:57 [facility] Monocytes 5.0 % 11/08/2018 7:57 [facility] Eosinophils 5.0 % 11/08/2018 7:57 [facility] Basophils 1.0 % 11/08/2018 7:57 [facility] % Metamyelocytes 3.0 % 11/08/19 7:57 [facility] % Myelocytes 1.0 % 11/08/2018 7:57 [facility] ABS Neutrophils 13.68(H) 2.20 - 8.85 K/cmm 11/08/2018 7:57 [facility] ABS Bands 0.83 K/cmm 11/08/2018 7:57 [facility] Lymphs 3.11 1.09 - 3.30 K/cmm 11/08/2018 7:57 [facility] ABS Monocytes 1.04(H) 0.1 - 0.8 K/cmm 11/08/2018 7:57 [facility] ABS Eosinophils 1.04(H) 0.03 - 0.61 K/cmm 11/08/2018 7:57 [facility] Basophils 0.21(H) 0.01 - 0.11 K/cmm 11/08/2018 7:57 [facility] Metamyelocytes 0.62 K/cmm 2018 7:57 [facility] Myelocytes 0.21 K/cmm 11/08/2018 7:57 [facility] Dohle Bodies Present 11/08/2018 7:57 [facility] Toxic Granulation Present 019 7:57 [facility] Vacuolization Present 11/08/2018 7:57 [facility] Clumped Platelets Few platelet clumps present 11/08/2018 7:57 [facility] Large Platelets Present 9 7:57 [facility] Type of Diff: Manual 11/08/2018 7:57 [facility] Blood specimen (specimen) BLOOD SPECIMEN / Unknown 11/08/2018 4:21 EST 11/08/2018 4:24 EST Mita Parra MD PACKAGES & DNA PROBE ORDERABLES Performing Organization Address [facility] Co de Phone Number [facility] [address] [place] [address] * BILIRUBIN, TOTAL (11/08/2018 4:21 EST) Bilirubin, Total 1.2 <1.4 mg/dl 11/08/2018 4:54 EST [facility] Comment: Slight hemolysis Results may be affected due to hemolysis. Blood specimen (specimen) BLOOD SPECIMEN / Unknown 11/08/2018 4:21 EST 11/08/2018 4:24 EST Mita Parra MD CHEMISTRY & BLOOD GA S ORDERABLES Performing Organization Address [facility] de Phone Number [facility] [address] [place] [address] * (ABNORMAL) AST (11/08/2018 4:21 EST) AST 62(H) 15 - 46 U/L 11/08/2018 4:54 EST [facility] Comment: Slight hemolysis Results may be affected due to hemolysis. Blood specimen (specimen) BLOOD SPECIMEN / Unknown 11/08/2018 4:21 EST 11/08/2018 4:24 EST Mita Parra MD CHEMISTRY & BLOOD GA S ORDERABLES Performing Organization Address [facility] Co de Phone Number [facility] [address] [place] [address] * ALT (11/08/2018 4:21 EST) ALT 58 21 - 72 U/L 11/08/2018 4:54 EST [facility] Comment: Slight hemolysis Results may be affected due to hemolysis. Blood specimen (specimen) BLOOD SPECIMEN / Unknown 11/08/2018 4:21 EST 11/08/2018 4:24 EST Mita Parra MD CHEMISTRY & BLOOD GA S ORDERABLES Performing Organization Address [facility] Co de Phone Number [facility] [address] [place] [address] * ALKALINE PHOSPHATASE (11/08/2018 4:21 EST) Total Alkaline Phosphatase 94 38 - 126 U/L 11/08/2018 4:54 EST [facility] Comment: Slight hemolysis Hemolysis will decrease ALKP result Suggest re-evaluation if clinically indicated Blood specimen (specimen) BLOOD SPECIMEN / Unknown 11/08/2018 4:21 EST 11/08/2018 4:24 EST Mita Parra MD CHEMISTRY & BLOOD GA S ORDERABLES Performing Organization Address [facility] Phone Number [facility] [address] [place] [address] * CREATININE (11/08/2018 4:21 EST) Creatinine 0.75 0.66 - 1.25 mg/dl 11/08/2018 4:54 [facility] Comment:Slight hemolysis GFR, Calculated 110 >60 ml/min/1.7 3m2 11/08/2018 4:54 [facility] Comment: eGFR calculated using CKD-EPI equation for non Americans. Multiply eGFR by 1.16 for Americans. Blood specimen (specimen) BLOOD SPECIMEN / Unknown 11/08/2018 4:21 EST 11/08/2018 4:24 EST Mita Parra MD CHEMISTRY & BLOOD GA S ORDERABLES Performing Organization Address [facility] Co de Phone Number [facility] [address] [place] [address] * (ABNORMAL) BUN (11/08/2018 4:21 EST) BUN 40(H) 10 - 26 mg/dl 11/08/2018 4:54 EST [facility] Comment: Slight hemolysis Results may be affected due to hemolysis. Blood specimen (specimen) BLOOD SPECIMEN / Unknown 11/08/2018 4:21 EST 11/08/2018 4:24 EST Mita Parra MD CHEMISTRY & BLOOD GA S ORDERABLES Performing Organization Address City/[facility] Co de Phone Number [facility] [address] [place] [address] * (ABNORMAL) SCREENING GLUCOSE (11/08/2018 4:21 EST) Glucose, Screening 120(H) 70 - 100 mg/dl 11/08/2018 4:54 EST [facility] Comment: Slight hemolysis Results may be affected due to hemolysis. Blood specimen (specimen) BLOOD SPECIMEN / Unknown 11/08/2018 4:21 EST 11/08/2018 4:24 EST Mita Parra MD CHEMISTRY & BLOOD GA S ORDERABLES Performing Organization Address [facility] Co de Phone Number [facility] [address] [place] [address] * PHOSPHORUS (11/08/2018 4:21 EST) Phosphorus 4.3 2.5 - 4.5 mg/dl 11/08/2018 4:54 EST [facility] Comment: Slight hemolysis Results may be affected due to hemolysis. Blood specimen (specimen) BLOOD SPECIMEN / Unknown 11/08/2018 4:21 EST 11/08/2018 4:24 EST Mita Parra MD CHEMISTRY & BLOOD GA S ORDERABLES Performing Organization Address City/[facility] Co de Phone Number [facility] [address] [place] [address] * MAGNESIUM (11/08/2018 4:21 EST) Magnesium 2.1 1.7 - 2.8 mg/dl 11/08/2018 4:54 EST [facility] Comment: Slight hemolysis Results may be affected due to hemolysis. Blood specimen (specimen) BLOOD SPECIMEN / Unknown 11/08/2018 4:21 EST 11/08/2018 4:24 EST Mita Parra MD CHEMISTRY & BLOOD GA S ORDERABLES Performing Organization Address [facility]/ZIP Co de Phone Number [facility] [address] [place] [address] * (ABNORMAL) CALCIUM (11/08/2018 4:21 EST) Calcium 8.3(L) 8.5 - 10.5 mg/dl 11/08/2018 4:54 EST [facility] Comment:Slight hemolysis Calculated Calcium 8.9 8.5 - 10.5 mg/dl 11/08/2018 4:54 EST [facility] Blood specimen (specimen) BLOOD SPECIMEN / Unknown 11/08/2018 4:21 EST 11/08/2018 4:24 EST Mita Parra MD CHEMISTRY & BLOOD GA S ORDERABLES Performing Organization Address [facility] Co de Phone Number [facility] [address] [place] [address] * ELECTROLYTES (11/08/2018 4:21 EST) Sodium 140 136 - 145 mEq/L 11/08/2018 4:54 EST [facility] Comment:Slight hemolysis Potassium 4.3 3.5 - 5.0 mEq/L 11/08/2018 4:54 EST [facility] Comment: Slight hemolysis Hemolysis may elevate potassium result. Chloride 104 96 - 110 mEq/L 11/08/2018 4:54 EST [facility] Comment:Slight hemolysis CO2 28 22 - 32 mEq/L 11/08/2018 4:54 EST [facility] Comment:Slight hemolysis Blood specimen (specimen) BLOOD SPECIMEN / Unknown 11/08/2018 4:21 EST 11/08/2018 4:24 EST Mita Parra MD CHEMISTRY & BLOOD GA S ORDERABLES Performing Organization Address City/[facility]/ZIP Co de Phone Number [facility] [address] [place] [address] * (ABNORMAL) ELECTROLYTES (11/07/2018 14:52 EST) Sodium 141 136 - 145 mEq/L 11/07/2018 15:36 [facility] Potassium 3.6 3.5 - 5.0 mEq/L 11/07/2018 15:36 [facility] Chloride 101 96 - 110 mEq/L 11/07/2018 15:36 [facility] CO2 33(H) 22 - 32 mEq/L 11/07/2018 15:36 [facility] Blood specimen (specimen) BLOOD SPECIMEN / Unknown 11/07/2018 14:52 EST 11/07/2018 15:21 EST Mita Parra MD CHEMISTRY & BLOOD GA S ORDERABLES Performing Organization Address City/State/[facility] Co de Phone Number [facility] [address] [place] [address] * (ABNORMAL) COMPLETE BLOOD COUNT AND DIFFERENTIAL (11/07/2018 3:03 EST) WBC 25.26(H) 4.0 - 10.4 K/cmm 11/07/2018 3:20 [facility] RBC 4.81 4.36 - 5.78 M/cmm 11/07/2018 3:20 [facility] Hemoglobin 12.9(L) 13.8 - 17.3 gm/dl 11/07/2018 3:20 [facility] HCT 37.0(L) 39.5 - 50.2 % 11/07/2018 3:20 [facility] MCV 77(L) 81 - 95 fl 11/07/2018 3:20 [facility] MCH 26.8(L) 27.6 - 33.0 pg 11/07/2018 3:20 [facility] MCHC 34.9 32.8 - 36.4 gm/dl 11/07/2018 3:20 [facility] RDW-CV 14.8(H) <14.2 % 11/07/2018 3:20 [facility] RDW-SD 40.5 <46.0 fl 11/07/2018 3:20 [facility] PLT 277 141 - 377 K/cmm 11/07/2018 3:20 [facility] MPV 11.4 9.5 - 12.7 fl 11/07/2018 3:20 [facility] Neutrophils 85.6 % 11/07/2018 4:03 [facility] Lymphocytes 3.8 % 11/07/2018 4:03 [facility] Monocytes 5.3 % 11/07/2018 4:03 [facility] % Metamyelocytes 2.3 % 11/07/19 4:03 [facility] % Myelocytes 3.0 % 11/07/2018 4:03 [facility] Neutrophils 21.62(H) 2.20 - 8.85 K/cmm 11/07/2018 4:03 [facility] Lymphs 0.96(L) 1.09 - 3.30 K/cmm 11/07/2018 4:03 [facility] Monocytes 1.34(H) 0.1 - 0.8 K/cmm 11/07/2018 4:03 [facility] Metamyelocytes 0.58 K/cmm 2018 4:03 [facility] Myelocytes 0.76 K/cmm 11/07/2018 4:03 [facility] Toxic Granulation Present 019 4:03 [facility] Vacuolization Present 11/07/2018 4:03 [facility] Clumped Platelets Few platelet clumps present 11/07/2018 4:03 [facility] Large Platelets Present 9 4:03 [facility] Type of Diff: Manual 11/07/2018 4:03 [facility] Blood specimen (specimen) BLOOD SPECIMEN / Unknown 11/07/2018 3:03 EST 11/07/2018 3:09 EST Mita Parra MD PACKAGES & DNA PROBE ORDERABLES [facility] [address] [place] [address] * BILIRUBIN, TOTAL (11/07/2018 3:03 EST) Bilirubin, Total 0.7 <1.4 mg/dl 11/07/2018 3:58 EST [facility] Blood specimen (specimen) BLOOD SPECIMEN / Unknown 11/07/2018 3:03 EST 11/07/2018 3:09 EST Mita Parra MD CHEMISTRY & BLOOD GA S ORDERABLES Performing Organization Address [facility] Co de Phone Number [facility] [address] [place] [address] * (ABNORMAL) AST (11/07/2018 3:03 EST) AST 58(H) 15 - 46 U/L 11/07/2018 3:58 EST [facility] Blood specimen (specimen) BLOOD SPECIMEN / Unknown 11/07/2018 3:03 EST 11/07/2018 3:09 EST Mita Parra MD CHEMISTRY & BLOOD GA S ORDERABLES Performing Organization Address [facility] Co de Phone Number [facility] [address] [place] [address] * ALT (11/07/2018 3:03 EST) ALT 58 21 - 72 U/L 11/07/2018 3:58 EST [facility] Blood specimen (specimen) BLOOD SPECIMEN / Unknown 11/07/2018 3:03 EST 11/07/2018 3:09 EST Mita Parra MD CHEMISTRY & BLOOD GA S ORDERABLES Performing Organization Address [facility] Co de Phone Number [facility] [address] [place] [address] * ALKALINE PHOSPHATASE (11/07/2018 3:03 EST) Total Alkaline Phosphatase 114 38 - 126 U/L 11/07/2018 3:58 EST [facility] Blood specimen (specimen) BLOOD SPECIMEN / Unknown 11/07/2018 3:03 EST 11/07/2018 3:09 EST Mita Parra MD CHEMISTRY & BLOOD GA S ORDERABLES Performing Organization Address City/[facility]/ZIP Co de Phone Number [facility] [address] [place] [address] * CREATININE (11/07/2018 3:03 EST) Creatinine 1.09 0.66 - 1.25 mg/dl 11/07/2018 3:58 EST [facility] GFR, Calculated 81 >60 ml/min/1.7 3m2 11/07/2018 3:58 EST [facility] Comment: eGFR calculated using CKD-EPI equation for non Americans. Multiply eGFR by 1.16 for Americans. Blood specimen (specimen) BLOOD SPECIMEN / Unknown 11/07/2018 3:03 EST 11/07/2018 3:09 EST Mita Parra MD CHEMISTRY & BLOOD GA S ORDERABLES Performing Organization Address City/[facility]/ZIP Co de Phone Number [facility] [address] [place] [address] * (ABNORMAL) BUN (11/07/2018 3:03 EST) BUN 45(H) 10 - 26 mg/dl 11/07/2018 3:58 EST [facility] Blood specimen (specimen) BLOOD SPECIMEN / Unknown 11/07/2018 3:03 EST 11/07/2018 3:09 EST Mita Parra MD CHEMISTRY & BLOOD GA S ORDERABLES Performing Organization Address City/[facility]/ZIP Co de Phone Number [facility] [address] [place] [address] * (ABNORMAL) SCREENING GLUCOSE (11/07/2018 3:03 EST) Glucose, Screening 123(H) 70 - 100 mg/dl 11/07/2018 3:58 EST [facility] Blood specimen (specimen) BLOOD SPECIMEN / Unknown 11/07/2018 3:03 EST 11/07/2018 3:09 EST Mita Parra MD CHEMISTRY & BLOOD GA S ORDERABLES Performing Organization Address [facility] Co de Phone Number [facility] [address] [place] [address] * PHOSPHORUS (11/07/2018 3:03 EST) Phosphorus 4.3 2.5 - 4.5 mg/dl 11/07/2018 3:58 EST [facility] Blood specimen (specimen) BLOOD SPECIMEN / Unknown 11/07/2018 3:03 EST 11/07/2018 3:09 EST Mita Parra MD CHEMISTRY & BLOOD GA S ORDERABLES Performing Organization Address [facility] Co de Phone Number [facility] [address] [place] [address] * MAGNESIUM (11/07/2018 3:03 EST) Magnesium 2.2 1.7 - 2.8 mg/dl 11/07/2018 3:58 EST [facility] Blood specimen (specimen) BLOOD SPECIMEN / Unknown 11/07/2018 3:03 EST 11/07/2018 3:09 EST Mita Parra MD CHEMISTRY & BLOOD GA S ORDERABLES Performing Organization Address [facility] Co de Phone Number [facility] [address] [place] [address] * (ABNORMAL) CALCIUM (11/07/2018 3:03 EST) Calcium 8.1(L) 8.5 - 10.5 mg/dl 11/07/2018 3:58 EST [facility] Calculated Calcium 8.7 8.5 - 10.5 mg/dl 11/07/2018 3:58 EST [facility] Blood specimen (specimen) BLOOD SPECIMEN / Unknown 11/07/2018 3:03 EST 11/07/2018 3:09 EST Mita Parra MD CHEMISTRY & BLOOD GA S ORDERABLES Performing Organization Address City/[facility]/ZIP Co de Phone Number [facility] [address] [place] [address] * (ABNORMAL) ELECTROLYTES (11/07/2018 3:03 EST) Sodium 146(H) 136 - 145 mEq/L 11/07/2018 3:58 EST [facility] Potassium 3.6 3.5 - 5.0 mEq/L 11/07/2018 3:58 EST [facility] Chloride 105 96 - 110 mEq/L 11/07/2018 3:58 EST [facility] CO2 33(H) 22 - 32 mEq/L 11/07/2018 3:58 EST [facility] Blood specimen (specimen) BLOOD SPECIMEN / Unknown 11/07/2018 3:03 EST 11/07/2018 3:09 EST Mita Parra MD CHEMISTRY & BLOOD GA S ORDERABLES Performing Organization Address [facility] Co de Phone Number [facility] [address] [place] [address] * PROCALCITONIN, INFECTIOUS DISEASE USE ONLY (11/07/2018 3:03 EST) Procalcitonin, Infectious Disease Use Only 6.47 ng/ml 11/07/2018 8:16 EST [facility] Comment: Procalcitonin levels <0.5 ng/ml represent a low risk of severe sepsis and/or septic shock. Blood specimen (specimen) BLOOD SPECIMEN / Unknown 11/07/2018 3:03 EST 11/07/2018 3:09 EST Arya Grigsby MD CHEMISTRY & BLOOD GA S ORDERABLES Performing Organization Address City/[facility]/ZIP Co de Phone Number [facility] [address] [place] [address] * MAGNESIUM (11/06/2018 14:00 EST) Magnesium 2.2 1.7 - 2.8 mg/dl 11/06/2018 14:47 [facility] Comment: Icteric Icterus is not a quantitative measurement of bilirubin. Blood specimen (specimen) BLOOD SPECIMEN / Unknown 11/06/2018 14:00 EST 11/06/2018 14:17 EST Arya Grigsby MD CHEMISTRY & BLOOD GA S ORDERABLES Performing Organization Address [facility] Co de Phone Number [facility] [address] [place] [address] * (ABNORMAL) ELECTROLYTES (11/06/2018 14:00 EST) Sodium 146(H) 136 - 145 mEq/L 11/06/2018 14:47 [facility] Comment: Icteric Icterus is not a quantitative measurement of bilirubin. Potassium 3.6 3.5 - 5.0 mEq/L 11/06/2018 14:47 [facility] Comment: Icteric Icterus is not a quantitative measurement of bilirubin. Chloride 108 96 - 110 mEq/L 11/06/2018 14:47 [facility] Comment: Icteric Icterus is not a quantitative measurement of bilirubin. CO2 29 22 - 32 mEq/L 11/06/2018 14:47 [facility] Comment: Icteric Icterus is not a quantitative measurement of bilirubin. Blood specimen (specimen) BLOOD SPECIMEN / Unknown 11/06/2018 14:00 EST 11/06/2018 14:17 EST Mita Parra MD CHEMISTRY & BLOOD GA S ORDERABLES Performing Organization Address City/[facility]/ZIP Co de Phone Number [facility] [address] [place] [address] * (ABNORMAL) BLOOD GAS, G3 ISTAT (11/06/2018 10:08 EST) pH, i-STAT 7.42 7.35 - 7.45 11/06/2018 10:13 [facility] pCO2, i-STAT 42 35 - 45 mmHg 11/06/2018 10:13 [facility] pO2, i-STAT 29(L) 80 - 105 mmHg 11/06/2018 10:13 [facility] TCO2, i-STAT 28(H) 23 - 27 mEq/L 11/06/2018 10:13 [facility] O2 Saturation 57(L) 95 - 98 % 11/06/2018 10:13 [facility] Base Excess, i-STAT 2 11/06/2018 10:13 [facility] Sample Type VENOUS 11/06/2018 10:13 [facility] director of career resources ID [id number] 11/06/2018 10:13 [facility] Comment: Test Performed by Respiratory For non-arterial reference ranges, please see ISTAT procedure. BLOOD SPECIMEN / Unknown 11/06/2018 10:08 EST 11/06/2018 10:13 EST Blayne Armstrong DO CHEMISTRY & BLOOD GA S ORDERABLES Performing Organization Address City/State/[facility] Co de Phone Number [facility] [address] [place] [address] * (ABNORMAL) COMPLETE BLOOD COUNT AND DIFFERENTIAL (11/06/2018 2:25 EST) WBC 28.62(H) 4.0 - 10.4 K/cmm 11/06/2018 2:47 [facility] RBC 3.77(L) 4.36 - 5.78 M/cmm 11/06/2018 2:47 [facility] Hemoglobin 10.6(L) 13.8 - 17.3 gm/dl 11/06/2018 2:47 [facility] HCT 29.5(L) 39.5 - 50.2 % 11/06/2018 2:47 [facility] MCV 78(L) 81 - 95 fl 11/06/2018 2:47 [facility] MCH 28.1 27.6 - 33.0 pg 11/06/2018 2:47 [facility] MCHC 35.9 32.8 - 36.4 gm/dl 11/06/2018 2:47 [facility] RDW-CV 15.4(H) <14.2 % 11/06/2018 2:47 [facility] RDW-SD 43.4 <46.0 fl 11/06/2018 2:47 [facility] PLT 248 141 - 377 K/cmm 11/06/2018 2:47 [facility] MPV 11.8 9.5 - 12.7 fl 11/06/2018 2:47 [facility] Neutrophils 81.0 % 11/06/2018 4:15 [facility] % Bands 5.0 % 11/06/2018 4:15 [facility] Lymphocytes 7.0 % 11/06/2018 4:15 [facility] Monocytes 2.0 % 11/06/2018 4:15 [facility] % Metamyelocytes 3.0 % 11/06/19 19 4:15 [facility] % Myelocytes 1.0 % 11/06/2018 4:15 [facility] % Promyelocytes 1.0 % 9 4:15 [facility] ABS Neutrophils 23.18(H) 2.20 - 8.85 K/cmm 11/06/2018 4:15 [facility] ABS Bands 1.43 K/cmm 11/06/2018 4:15 [facility] ABS Lymphs 2.00 1.09 - 3.30 K/cmm 11/06/2018 4:15 [facility] ABS Monocytes 0.57 0.1 - 0.8 K/cmm 11/06/2018 4:15 [facility] ABS Metamyelocytes 0.86 K/cmm 2018 4:15 [facility] ABS Myelocytes 0.29 K/cmm 11/06/2018 4:15 [facility] ABS Promyelocytes 0.29 K/cmm 019 4:15 [facility] Smudge Cells Present 11/06/2018 4:15 [facility] Clumped Platelets Few platelet clumps present 11/06/2018 4:15 [facility] Large Platelets Present 9 4:15 [facility] Type of Diff: Manual 11/06/2018 4:15 EST [facility] Blood specimen (specimen) BLOOD SPECIMEN / Unknown 11/06/2018 2:25 EST 11/06/2018 2:35 EST Mita Parra MD PACKAGES & DNA PROBE ORDERABLES Performing Organization Address [facility] Co de Phone Number [facility] [address] [place] [address] * BILIRUBIN, TOTAL (11/06/2018 2:25 EST) Bilirubin, Total 0.6 <1.4 mg/dl 11/06/19 19 3:15 EST [facility] Comment: Icteric Icterus is not a quantitative measurement of bilirubin. Blood specimen (specimen) BLOOD SPECIMEN / Unknown 11/06/2018 2:25 EST 11/06/2018 2:35 EST Mita Parra MD CHEMISTRY & BLOOD GA S ORDERABLES Performing Organization Address [facility] Co de Phone Number [facility] [address] [place] [address] * (ABNORMAL) AST (11/06/2018 2:25 EST) AST 57(H) 15 - 46 U/L 11/06/2018 3:15 EST [facility] Comment: Icteric Icterus is not a quantitative measurement of bilirubin. Blood specimen (specimen) BLOOD SPECIMEN / Unknown 11/06/2018 2:25 EST 11/06/2018 2:35 EST Mita Parra MD CHEMISTRY & BLOOD GA S ORDERABLES Performing Organization Address [facility] Co de Phone Number [facility] [address] [place] [address] * ALT (11/06/2018 2:25 EST) ALT 50 21 - 72 U/L 11/06/2018 3:15 EST [facility] Comment: Icteric Icterus is not a quantitative measurement of bilirubin. Blood specimen (specimen) BLOOD SPECIMEN / Unknown 11/06/2018 2:25 EST 11/06/2018 2:35 EST Mita Parra MD CHEMISTRY & BLOOD GA S ORDERABLES Performing Organization Address [facility] Co de Phone Number [facility] [address] [place] [address] * ALKALINE PHOSPHATASE (11/06/2018 2:25 EST) Total Alkaline Phosphatase 101 38 - 126 U/L 11/06/2018 3:15 EST [facility] Comment: Icteric Icterus is not a quantitative measurement of bilirubin. Blood specimen (specimen) BLOOD SPECIMEN / Unknown 11/06/2018 2:25 EST 11/06/2018 2:35 EST Mita Parra MD CHEMISTRY & BLOOD GA S ORDERABLES Performing Organization Address [facility] Phone Number [facility] [address] [place] [address] * CREATININE (11/06/2018 2:25 EST) Creatinine 1.03 0.66 - 1.25 mg/dl 11/06/2018 3:15 EST [facility] Comment: Icteric Icterus is not a quantitative measurement of bilirubin. GFR, Calculated 87 >60 ml/min/1.7 3m2 11/06/2018 3:15 EST [facility] Comment: eGFR calculated using CKD-EPI equation for non Americans. Multiply eGFR by 1.16 for Americans. Blood specimen (specimen) BLOOD SPECIMEN / Unknown 11/06/2018 2:25 EST 11/06/2018 2:35 EST Mita Parra MD CHEMISTRY & BLOOD GA S ORDERABLES Performing Organization Address [facility] Co de Phone Number [facility] [address] [place] [address] * (ABNORMAL) BUN (11/06/2018 2:25 EST) BUN 32(H) 10 - 26 mg/dl 11/06/2018 3:15 EST [facility] Comment: Icteric Icterus is not a quantitative measurement of bilirubin. Blood specimen (specimen) BLOOD SPECIMEN / Unknown 11/06/2018 2:25 EST 11/06/2018 2:35 EST Mita Parra MD CHEMISTRY & BLOOD GA S ORDERABLES Performing Organization Address [facility] Co de Phone Number [facility] [address] [place] [address] * (ABNORMAL) SCREENING GLUCOSE (11/06/2018 2:25 EST) Glucose, Screening 127(H) 70 - 100 mg/dl 11/06/2018 3:15 EST [facility] Comment: Icteric Icterus is not a quantitative measurement of bilirubin. Blood specimen (specimen) BLOOD SPECIMEN / Unknown 11/06/2018 2:25 EST 11/06/2018 2:35 EST Mita Parra MD CHEMISTRY & BLOOD GA S ORDERABLES Performing Organization Address [facility] Co de Phone Number [facility] [address] [place] [address] * PHOSPHORUS (11/06/2018 2:25 EST) Phosphorus 2.6 2.5 - 4.5 mg/dl 11/06/2018 3:15 EST [facility] Comment: Icteric Icterus is not a quantitative measurement of bilirubin. Blood specimen (specimen) BLOOD SPECIMEN / Unknown 11/06/2018 2:25 EST 11/06/2018 2:35 EST Mita Parra MD CHEMISTRY & BLOOD GA S ORDERABLES Performing Organization Address [facility] Co de Phone Number [facility] [address] [place] [address] * MAGNESIUM (11/06/2018 2:25 EST) Magnesium 2.4 1.7 - 2.8 mg/dl 11/06/2018 3:15 EST [facility] Comment: Icteric Icterus is not a quantitative measurement of bilirubin. Blood specimen (specimen) BLOOD SPECIMEN / Unknown 11/06/2018 2:25 EST 11/06/2018 2:35 EST Mita Parra MD CHEMISTRY & BLOOD GA S ORDERABLES Performing Organization Address [facility] de Phone Number [facility] [address] [place] [address] * (ABNORMAL) ELECTROLYTES (11/06/2018 2:25 EST) Sodium 143 136 - 145 mEq/L 11/06/2018 3:15 [facility] Comment: Icteric Icterus is not a quantitative measurement of bilirubin. Potassium 3.2(L) 3.5 - 5.0 mEq/L 11/06/2018 3:15 [facility] Comment: Icteric Icterus is not a quantitative measurement of bilirubin. Chloride 111(H) 96 - 110 mEq/L 11/06/2018 3:15 [facility] Comment: Icteric Icterus is not a quantitative measurement of bilirubin. CO2 26 22 - 32 mEq/L 11/06/2018 3:15 [facility] Comment: Icteric Icterus is not a quantitative measurement of bilirubin. Blood specimen (specimen) BLOOD SPECIMEN / Unknown 11/06/2018 2:25 EST 11/06/2018 2:35 EST Mita Parra MD CHEMISTRY & BLOOD GA S ORDERABLES Performing Organization Address [facility] Co de Phone Number [facility] [address] [place] [address] * (ABNORMAL) CALCIUM (11/06/2018 2:25 EST) Calcium 7.7(L) 8.5 - 10.5 mg/dl 11/06/2018 3:15 [facility] Comment: Icteric Icterus is not a quantitative measurement of bilirubin. Calculated Calcium 8.8 8.5 - 10.5 mg/dl 11/06/2018 3:15 [facility] Blood specimen (specimen) BLOOD SPECIMEN / Unknown 11/06/2018 2:25 EST 11/06/2018 2:35 EST Mita Parra MD CHEMISTRY & BLOOD GA S ORDERABLES Performing Organization Address [facility] Co de Phone Number [facility] [address] [place] [address] * TRIGLYCERIDE (11/06/2018 2:25 EST) Triglycerides 1,437 mg/dl 11/06/2018 3:26 EST [facility] Comment: Icteric Icterus is not a quantitative measurement of bilirubin. Normal:<150 Borderline High:150-199 High:200-499 Very High:>gv=645 Blood specimen (specimen) BLOOD SPECIMEN / Unknown 11/06/2018 2:25 EST 11/06/2018 2:35 EST Blayne Armstrong DO CHEMISTRY & BLOOD GA S ORDERABLES Performing Organization Address [facility] de Phone Number [facility] [address] [place] [address] * PROCALCITONIN, INFECTIOUS DISEASE USE ONLY (11/06/2018 2:25 EST) Procalcitonin, Infectious Disease Use Only 10.69 ng/ml 11/06/2018 8:59 EST [facility] Comment: Procalcitonin levels <0.5 ng/ml represent a low risk of severe sepsis and/or septic shock. Blood specimen (specimen) BLOOD SPECIMEN / Unknown 11/06/2018 2:25 EST 11/06/2018 2:35 EST Mita Parra MD CHEMISTRY & BLOOD GA S ORDERABLES Performing Organization Address [facility] Co de Phone Number [facility] [address] [place] [address] * (ABNORMAL) ELECTROLYTES (11/05/2018 14:33 EST) Sodium 141 136 - 145 mEq/L 11/05/2018 15:03 EST [facility] Comment: Icteric Icterus is not a quantitative measurement of bilirubin. Potassium 3.4(L) 3.5 - 5.0 mEq/L 11/05/2018 15:03 [facility] Comment: Icteric Icterus is not a quantitative measurement of bilirubin. Chloride 108 96 - 110 mEq/L 11/05/2018 15:03 [facility] Comment: Icteric Icterus is not a quantitative measurement of bilirubin. CO2 25 22 - 32 mEq/L 11/05/2018 15:03 [facility] Comment: Icteric Icterus is not a quantitative measurement of bilirubin. Blood specimen (specimen) BLOOD SPECIMEN / Unknown 11/05/2018 14:33 EST 11/05/2018 14:44 EST Mita Parra MD CHEMISTRY & BLOOD GA S ORDERABLES Performing Organization Address [facility]/[place] de Phone Number [facility] [address] [place] [address] * (ABNORMAL) TROPONIN I (11/05/2018 8:21 EST) Troponin I (ng/mL) 0.198(H) <0.034 ng/ml 11/05/2018 9:31 [facility] Comment: Icteric Icterus is not a quantitative measurement of bilirubin. Turbid sample, interpret with caution. Turbidity may affect result. The results of this assay can be falsely lowered due to the consumption of Biotin. Blood specimen (specimen) BLOOD SPECIMEN / Unknown 11/05/2018 8:21 EST 11/05/2018 8:46 EST Aviva Alexander MD CHEMISTRY & BLOOD GA S ORDERABLES Performing Organization Address [facility] Co de Phone Number [facility] [address] [place] [address] * (ABNORMAL) BLOOD GAS, G3 ISTAT (11/05/2018 5:06 EST) pH, i-STAT 7.37 7.35 - 7.45 11/05/2018 5:10 [facility] pCO2, i-STAT 32(L) 35 - 45 mmHg 11/05/2018 5:10 [facility] pO2, i-STAT 78(L) 80 - 105 mmHg 11/05/2018 5:10 [facility] TCO2, i-STAT 19(L) 23 - 27 mEq/L 11/05/2018 5:10 [facility] O2 Saturation 95 95 - 98 % 11/05/2018 5:10 [facility] Base Deficit, i-STAT 6 11/05/2018 5:10 [facility] Sample Type ARTERIAL 11/05/2018 5:10 [facility] director of career resources ID [phone] 11/05/2018 5:10 [facility] Comment: Test Performed by Respiratory For non-arterial reference ranges, please see ISTAT procedure. BLOOD SPECIMEN / Unknown 11/05/2018 5:06 EST 11/05/2018 5:10 EST Blayne Armstrong DO CHEMISTRY & BLOOD GA S ORDERABLES Performing Organization Address City/State/[facility] Co de Phone Number [facility] [address] [place] [address] * (ABNORMAL) COMPLETE BLOOD COUNT AND DIFFERENTIAL (11/05/2018 1:33 EST) WBC 23.95(H) 4.0 - 10.4 K/cmm 11/05/2018 2:04 [facility] RBC 3.91(L) 4.36 - 5.78 M/cmm 11/05/2018 2:04 [facility] Hemoglobin 11.0(L) 13.8 - 17.3 gm/dl 11/05/2018 2:04 [facility] HCT 32.3(L) 39.5 - 50.2 % 11/05/2018 2:04 [facility] MCV 83 81 - 95 fl 11/05/2018 2:04 [facility] MCH 28.1 27.6 - 33.0 pg 11/05/2018 2:04 [facility] MCHC 34.1 32.8 - 36.4 gm/dl 11/05/2018 2:04 [facility] RDW-CV 15.8(H) <14.2 % 11/05/2018 2:04 [facility] RDW-SD 47.7(H) <46.0 fl 11/05/2018 2:04 [facility] PLT 244 141 - 377 K/cmm 11/05/2018 2:04 [facility] MPV 12.0 9.5 - 12.7 fl 11/05/2018 2:04 [facility] Neutrophils 68.6 % 11/05/2018 7:06 [facility] % Bands 13.6 % 11/05/2018 7:06 [facility] Lymphocytes 4.2 % 11/05/2018 7:06 [facility] Monocytes 5.1 % 11/05/2018 7:06 [facility] % Metamyelocytes 5.9 % 11/05/19 19 7:06 [facility] % Myelocytes 0.9 % 11/05/2018 7:06 [facility] % Promyelocytes 1.7 % 9 7:06 [facility] ABS Neutrophils 16.43(H) 2.20 - 8.85 K/cmm 11/05/2018 7:06 [facility] ABS Bands 3.26 K/cmm 11/05/2018 7:06 [facility] ABS Lymphs 1.01(L) 1.09 - 3.30 K/cmm 11/05/2018 7:06 [facility] ABS Monocytes 1.22(H) 0.1 - 0.8 K/cmm 11/05/2018 7:06 [facility] ABS Metamyelocytes 1.41 K/cmm 2018 7:06 [facility] ABS Myelocytes 0.22 K/cmm 11/05/2018 7:06 [facility] ABS Promyelocytes 0.41 K/cmm 019 7:06 [facility] Dohle Bodies Present 11/05/2018 7:06 [facility] Toxic Granulation Present 019 7:06 [facility] Vacuolization Present 11/05/2018 7:06 [facility] Clumped Platelets Few platelet clumps present 11/05/2018 7:06 [facility] Large Platelets Present 9 7:06 [facility] Type of Diff: Manual 11/05/2018 7:06 [facility] Blood specimen (specimen) BLOOD SPECIMEN / Unknown 11/05/2018 1:33 EST 11/05/2018 1:56 EST Mita Parra MD PACKAGES & DNA PROBE ORDERABLES Performing Organization Address [facility] Co de Phone Number [facility] [address] [place] [address] * BILIRUBIN, TOTAL (11/05/2018 1:33 EST) Bilirubin, Total 0.6 <1.4 mg/dl 11/05/2018 2:15 EST [facility] Blood specimen (specimen) BLOOD SPECIMEN / Unknown 11/05/2018 1:33 EST 11/05/2018 1:56 EST Mita Parra MD CHEMISTRY & BLOOD GA S ORDERABLES Performing Organization Address [facility] de Phone Number [facility] [address] [place] [address] * AST (11/05/2018 1:33 EST) AST 38 15 - 46 U/L 11/05/2018 2:15 EST [facility] Blood specimen (specimen) BLOOD SPECIMEN / Unknown 11/05/2018 1:33 EST 11/05/2018 1:56 EST Mita Parra MD CHEMISTRY & BLOOD GA S ORDERABLES Performing Organization Address [facility] Co de Phone Number [facility] [address] [place] [address] * ALT (11/05/2018 1:33 EST) ALT 37 21 - 72 U/L 11/05/2018 2:15 EST [facility] Blood specimen (specimen) BLOOD SPECIMEN / Unknown 11/05/2018 1:33 EST 11/05/2018 1:56 EST Mita Parra MD CHEMISTRY & BLOOD GA S ORDERABLES Performing Organization Address City/[facility] Co de Phone Number [facility] [address] [place] [address] * ALKALINE PHOSPHATASE (11/05/2018 1:33 EST) Total Alkaline Phosphatase 54 38 - 126 U/L 11/05/2018 2:15 EST [facility] Blood specimen (specimen) BLOOD SPECIMEN / Unknown 11/05/2018 1:33 EST 11/05/2018 1:56 EST Mita Parra MD CHEMISTRY & BLOOD GA S ORDERABLES Performing Organization Address [facility] de Phone Number [facility] [address] [place] [address] * (ABNORMAL) BUN (11/05/2018 1:33 EST) BUN 30(H) 10 - 26 mg/dl 11/05/2018 2:15 EST [facility] Blood specimen (specimen) BLOOD SPECIMEN / Unknown 11/05/2018 1:33 EST 11/05/2018 1:56 EST Mita Parra MD CHEMISTRY & BLOOD GA S ORDERABLES Performing Organization Address [facility] Co de Phone Number [facility] [address] [place] [address] * (ABNORMAL) SCREENING GLUCOSE (11/05/2018 1:33 EST) Glucose, Screening 113(H) 70 - 100 mg/dl 11/05/2018 2:15 EST [facility] Blood specimen (specimen) BLOOD SPECIMEN / Unknown 11/05/2018 1:33 EST 11/05/2018 1:56 EST Mita Parra MD CHEMISTRY & BLOOD GA S ORDERABLES Performing Organization Address City/[facility]/ZIP Co de Phone Number [facility] [address] [place] [address] * (ABNORMAL) PHOSPHORUS (11/05/2018 1:33 EST) Phosphorus 2.2(L) 2.5 - 4.5 mg/dl 11/05/2018 2:15 EST [facility] Blood specimen (specimen) BLOOD SPECIMEN / Unknown 11/05/2018 1:33 EST 11/05/2018 1:56 EST Mita Parra MD CHEMISTRY & BLOOD GA S ORDERABLES [facility] [address] [place] [address] * MAGNESIUM (11/05/2018 1:33 EST) Magnesium 2.6 1.7 - 2.8 mg/dl 11/05/2018 2:15 EST [facility] Blood specimen (specimen) BLOOD SPECIMEN / Unknown 11/05/2018 1:33 EST 11/05/2018 1:56 EST Mita Parra MD CHEMISTRY & BLOOD GA S ORDERABLES Performing Organization Address City/[facility]/ZIP Co de Phone Number [facility] [address] [place] [address] * (ABNORMAL) CALCIUM (11/05/2018 1:33 EST) Calcium 7.8(L) 8.5 - 10.5 mg/dl 11/05/2018 2:15 EST [facility] Calculated Calcium 8.9 8.5 - 10.5 mg/dl 11/05/2018 2:15 EST [facility] Blood specimen (specimen) BLOOD SPECIMEN / Unknown 11/05/2018 1:33 EST 11/05/2018 1:56 EST Mita Parra MD CHEMISTRY & BLOOD GA S ORDERABLES Performing Organization Address City/[facility]/ZIP Co de Phone Number [facility] [address] [place] [address] * (ABNORMAL) TROPONIN I (11/05/2018 1:33 EST) Troponin I (ng/mL) 0.233(H) <0.034 ng/ml 11/05/2018 2:24 [facility] Comment: Turbid sample, interpret with caution. Turbidity may affect result. The results of this assay can be falsely lowered due to the consumption of Biotin. Blood specimen (specimen) BLOOD SPECIMEN / Unknown 11/05/2018 1:33 EST 11/05/2018 1:56 EST Mita Parra MD CHEMISTRY & BLOOD GA S ORDERABLES Performing Organization Address [facility] Co de Phone Number [facility] [address] [place] [address] * LACTIC ACID (11/05/2018 1:33 EST) Pathologist [facility] Lactic Acid 1.9 <2.0 mmol/L 11/05/2018 2:10 [facility] Comment: Icteric Icterus is not a quantitative measurement of bilirubin. Blood specimen (specimen) BLOOD SPECIMEN / Unknown 11/05/2018 1:33 EST 11/05/2018 1:56 EST Mita Parra MD CHEMISTRY & BLOOD GA S ORDERABLES Performing Organization Address [facility] Co de Phone Number [facility] [address] [place] [address] * CREATININE (11/05/2018 1:33 EST) Pathologist [facility] Creatinine 0.95 0.66 - 1.25 mg/dl 11/05/2018 2:15 [facility] GFR, Calculated 96 >60 ml/min/1.7 3m2 11/05/2018 2:15 [facility] Comment: eGFR calculated using CKD-EPI equation for non Americans. Multiply eGFR by 1.16 for Americans. Blood specimen (specimen) BLOOD SPECIMEN / Unknown 11/05/2018 1:33 EST 11/05/2018 1:56 EST Aviva Alexander MD CHEMISTRY & BLOOD GA S ORDERABLES Performing Organization Address City/[facility]/ZIP Co de Phone Number [facility] [address] [place] [address] * (ABNORMAL) ELECTROLYTES (11/05/2018 1:33 EST) Sodium 137 136 - 145 mEq/L 11/05/2018 2:15 EST [facility] Potassium 4.6 3.5 - 5.0 mEq/L 11/05/2018 2:15 EST [facility] Chloride 108 96 - 110 mEq/L 11/05/2018 2:15 EST [facility] CO2 21(L) 22 - 32 mEq/L 11/05/2018 2:15 EST [facility] Blood specimen (specimen) BLOOD SPECIMEN / Unknown 11/05/2018 1:33 EST 11/05/2018 1:56 EST Aviva Alexander MD CHEMISTRY & BLOOD GA S ORDERABLES Performing Organization Address [facility] Co de Phone Number [facility] [address] [place] [address] * PROCALCITONIN, INFECTIOUS DISEASE USE ONLY (11/05/2018 1:33 EST) Procalcitonin, Infectious Disease Use Only 17.28 ng/ml 11/05/2018 8:28 EST [facility] Comment: Procalcitonin levels <0.5 ng/ml represent a low risk of severe sepsis and/or septic shock. Blood specimen (specimen) BLOOD SPECIMEN / Unknown 11/05/2018 1:33 EST 11/05/2018 1:56 EST Mita Parra MD CHEMISTRY & BLOOD GA S ORDERABLES Performing Organization Address [facility] Co de Phone Number [facility] [address] [place] [address] * (ABNORMAL) LACTIC ACID (11/04/2018 18:35 EST) Lactic Acid 2.5(HH) <2.0 mmol/L 11/04/2018 19:01 EST [facility] BLOOD SPECIMEN / Unknown 11/04/2018 18:35 EST 11/04/2018 18:44 EST Aviva Alexander MD CHEMISTRY & BLOOD GA S ORDERABLES Performing Organization Address [facility] Co de Phone Number [facility] [address] [place] [address] * (ABNORMAL) TROPONIN I (11/04/2018 18:35 EST) Troponin I (ng/mL) 0.224(H) <0.034 ng/ml 11/04/2018 20:43 EST [facility] Comment: The results of this assay can be falsely lowered due to the consumption of Biotin. Blood specimen (specimen) BLOOD SPECIMEN / Unknown 11/04/2018 18:35 EST 11/04/2018 18:44 EST Mita Parra MD CHEMISTRY & BLOOD GA S ORDERABLES Performing Organization Address [facility] de Phone Number [facility] [address] [place] [address] * VANCOMYCIN, RANDOM (11/04/2018 18:35 EST) Pathologist [facility] Vancomycin Random 5.0 ug/ml 11/04/2018 19:13 EST [facility] Comment: Reference Range: Trough: ??10.0-20.0 Peak: ??25.0-50.0 Blood specimen (specimen) BLOOD SPECIMEN / Unknown 11/04/2018 18:35 EST 11/04/2018 18:44 EST Aviva Alexander MD CHEMISTRY & BLOOD GA S ORDERABLES Performing Organization Address [facility] Co de Phone Number [facility] [address] [place] [address] * BACTERIAL CULTURE, URINE (11/04/2018 18:00 EST) Result No growth 11/06/2018 7:46 EST [facility] URINE / Unknown 11/04/2018 1 8:00 EST 11/04/2018 20:44 EST Blayne Armstrong DO MICROBIOLOGY - GENER AL ORDERABLES Performing Organization Address [facility]/ZIP Co de Phone Number [facility] [address] [place] [address] * URINE CULTURE IF UA POSITIVE - NON POCT URINALYSIS ONLY (11/04/2018 18:00 EST) Culture if Indicated Culture indicated by urinalysis results. 11/04/2018 20:31 [facility] Urine specimen (specimen) TOPOGRAPHY UNKNOWN / Unknown 11/04/2018 18:00 EST 11/04/2018 18:54 EST Mita Parra MD MICROBIOLOGY - GENER AL ORDERABLES Performing Organization Address [facility] Co de Phone Number [facility] [address] [place] [address] * (ABNORMAL) UA, CHEMICAL AND SEDIMENT ANALYSIS (DIPSTICK AND MICROSCOPIC) (11/04/2018 18:00 EST) Color, UA Yellow 11/04/2018 20:31 [facility] Clarity, UA Clear 11/04/2018 20:31 [facility] Glucose, UA Neg Neg 11/04/2018 20:31 [facility] Bilirubin, UA Neg Neg 11/04/2018 20:31 [facility] Ketones, UA Neg Neg 11/04/2018 20:31 [facility] Refractometer SG,Urine 1.042(H) 1.001 - 1.035 11/04/2018 20:31 [facility] Comment: Results greater than 1.035 suggest possible interference from glucose or radiographic dye. Blood, UA 2+(A) Neg 11/04/2018 20:31 [facility] pH, UA 6.0 4.6 - 8.0 11/04/2018 20:31 [facility] Protein, UA 2+(A) Neg 11/04/2018 20:31 [facility] Urobilinogen, UA Normal Normal E.U./dl 11/04/2018 20:31 [facility] Nitrite, UA Neg Neg 11/04/2018 20:31 [facility] Leuk Esterase Neg Neg 11/04/2018 20:31 [facility] UA Method Used 11/04/2018 15:28 [facility] Comment: Testing performed using Facio [id number]. Urine RBC Count Automated 11 to 50(A) 0 to 2 /HPF 11/04/2018 20:31 [facility] Urine WBC Count Automated 4 to 10(A) 0 to 3 /HPF 11/04/2018 20:31 [facility] Urine Squamous Epithelial Cell Count, Automated Moderate(A) None seen /LPF 11/04/2018 20:31 [facility] Urine Hyaline Casts, Automated < or = 10 < or = 10 /LPF 11/04/2018 20:31 [facility] Urine Bacteria Count, Automated None seen None seen 11/04/2018 20:31 [facility] Additional Findings Few 11/04/2018 20:31 [facility] Comment:Granular Casts UA Comment Sediment results 11/04/2018 20:31 [facility] Comment: are unreliable on urines unrefrig >2hrs or refrig >8hrs. Urine specimen (specimen) URINE / Unknown 11/04/2018 18:00 EST 11/04/2018 18:54 EST Mita Parra MD URINALYSIS ORDERABLE S Performing Organization Address City/State/[facility] Co de Phone Number [facility] [address] [place] [address] * CT CHEST WO CONTRAST (11/04/2018 17:53 EST) Anatomical Region Laterality Modality Other 11/04/2018 17:5 3 EST 11/05/2018 8:36 EST Narrative 11/05/2018 8:[address] CHEST WO CONTRAST ??11/04/2018 5:53 PM Clinical History/Comments: Evaluate pneumonia, pulm edema Technique: A single breath-hold helical CT acquisition was performed through the chest on a multidetector-row scanner with a reconstructed slice thickness of 3 mm and retrospectively reconstructed 0.9 mm thick sections with 0.45 mm overlapping intervals. ??The scans were obtained from the lung apices through the bases without IV contrast. ?? Scans were reviewed on a dedicated PACS workstation for analysis. Comparison: Chest radiograph 11/04/2018 Findings: CT of the chest performed without IV contrast administration. Lower neck: No significant abnormality Mediastinum: ??The tip of the right jugular catheter terminates in the lower SVC. Endotracheal tube is in satisfactory position at the top of the aortic arch. No enlarged lymph nodes are identified in the mediastinum or left hilum left hilum. The right hilum is completely obscured by consolidation. The cardiac chambers and great vessels are normal size, and there is no evidence of pericardial disease. Pleura: A small pleural effusion is present on the right. No fluid is seen on the left. There is no pneumothorax. Lungs: ??Almost the entire right lung is consolidated with only the anterior segment of the right upper lobe remaining aerated. The bronchi within the consolidation are patent, but not particularly dilated. Images of the left lung are degraded by respiratory motion. Airspace opacities in the left lower lobe could reflect either atelectasis or consolidation. Upper abdomen (limited to upper abdomen, not optimized for abdominal imaging): No significant abnormality. The tip of the transesophageal tube extends to the gastric antrum area Bones and soft tissues: ??The soft tissues are unremarkable aside from bilateral gynecomastia. Osteophyte formation without disc space narrowing in the lower lumbar spine may reflect idiopathic skeletal hyperostosis. Impression: 1. Dense right lung consolidation likely reflects pneumonia. 2. Small right pleural effusion and three. Patchy left lower lobe airspace disease could be due to consolidation or atelectasis Please note, this study would have been better with IV contrast material. Procedure Note Brandon Thakkar MD - 11/05/2018 CT CHEST WO CONTRAST 11/04/2018 5:53 PM Clinical History/Comments: Evaluate pneumonia, pulm edema Technique: A single breath-hold helical CT acquisition was performed through the chest on a multidetector-row scanner with a reconstructed slice thickness of 3 mm and retrospectively reconstructed 0.9 mm thick sections with 0.45 mm overlapping intervals. The scans were obtained from the lung apices through the bases without IV contrast. Scans were reviewed on a dedicated PACS workstation for analysis. Comparison: Chest radiograph 11/04/2018 Findings: CT of the chest performed without IV contrast administration. Lower neck: No significant abnormality Mediastinum: The tip of the right jugular catheter terminates in the lower SVC. Endotracheal tube is in satisfactory position at the top of the aortic arch. No enlarged lymph nodes are identified in the mediastinum or left hilum left hilum. The right hilum is completely obscured by consolidation. The cardiac chambers and great vessels are normal size, and there is no evidence of pericardial disease. Pleura: A small pleural effusion is present on the right. No fluid is seen on the left. There is no pneumothorax. Lungs: Almost the entire right lung is consolidated with only the anterior segment of the right upper lobe remaining aerated. The bronchi within the consolidation are patent, but not particularly dilated. Images of the left lung are degraded by respiratory motion. Airspace opacities in the left lower lobe could reflect either atelectasis or consolidation. Upper abdomen (limited to upper abdomen, not optimized for abdominal imaging): No significant abnormality. The tip of the transesophageal tube extends to the gastric antrum area Bones and soft tissues: The soft tissues are unremarkable aside from bilateral gynecomastia. Osteophyte formation without disc space narrowing in the lower lumbar spine may reflect idiopathic skeletal hyperostosis. Impression: 1. Dense right lung consolidation likely reflects pneumonia. 2. Small right pleural effusion and three. Patchy left lower lobe airspace disease could be due to consolidation or atelectasis Please note, this study would have been better with IV contrast material. Aviva Alexander MD [facility] [place] ORDERABLES * EKG 12-LEAD (11/04/2018 17:22 EST) 11/04/2018 17:2 2 EST Narrative [facility] - 11/12/2018 13:57 EST ? [facility] ? Test Date: ?2018-11-04 Pat Name: ? ELIZABETH TD ? Department: ?? [place] [facility] ? Room: ? M419 Gender: ? Male ? Roll Bucker: ?? [id number] : ?[id number] ? Requested By: ALLAN UP Order Number: [id number] ? Reading MD: ?? CRISTOBAL LYDIA MD ? Measurements Intervals ?[place] ? Rate: ? 112 ?P: ?27 NM: ? 152 ?QRS: ?15 QRSD: ? 74 ? T: ?16 QT: ? 309 ? QTc: ?423 ? Interpretive Statements SINUS TACHYCARDIA LOW QRS VOLTAGE IN PRECORDIAL LEADS ABNORMAL RHYTHM ECG No previous ECG available for comparison I reviewed the tracing and have either agreed or edited the findings in this report. Electronically Signed On 11-12-2018 13:57:59 EST by CRISTOBAL FREEMAN MD. Procedure Note Cristobal Freeman Jr., MD - 11/12/2018 [facility] Test Date: 2018-11-04 Pat Name: ELIZABETH APPIAH Department: [place] [address] Room: M419 Gender: Male Roll Bucker: [id number] : [id number] Requested By: ALLAN UP Order Number: [id number] Reading MD: CRISTOBAL FREEMAN MD Measurements Intervals [place] Rate: 112 P: 27 NM: 152 QRS: 15 QRSD: 74 T: 16 QT: 309 QTc: 423 Interpretive Statements SINUS TACHYCARDIA LOW QRS VOLTAGE IN PRECORDIAL LEADS ABNORMAL RHYTHM ECG No previous ECG available for comparison I reviewed the tracing and have either agreed or edited the findings inthis report. Electronically Signed On 11-12-2018 13:57:59 EST by CRISTOBAL DINERO. Mita Parra MD CARDIAC ECG ORDERABL ES Performing Organization Address City/[facility]/ZIP Co de Phone Number [facility] * LEGIONELLA ANTIGEN DETECTION, URINE (11/04/2018 16:12 EST) Result No Legionella pneumophila serogroup 1 antigen detected. 11/04/2018 20:13 EST [facility] Specimen of unknown material (specimen) URINE / Unknown 11/04/2018 16:12 EST 11/04/2018 19:43 EST Comment:Indwelling catheter Mita Parra MD MICROBIOLOGY - GENER AL ORDERABLES Performing Organization Address [facility]/ZIP Co de Phone Number [facility] [address] [place] [address] * STREPTOCOCCUS PNEUMONIAE ANTIGEN, URINE (11/04/2018 16:12 EST) Result No Strep pneumoniae antigen detected. 11/04/2018 20:13 EST [facility] Specimen of unknown material (specimen) URINE / Unknown 11/04/2018 16:12 EST 11/04/2018 19:44 EST Comment:Indwelling catheter Mita Parra MD MICROBIOLOGY - GENER AL ORDERABLES [facility] [address] [place] [address] * XRAY FEEDING TUBE PLACEMENT (11/04/2018 16:11 EST) Anatomical Region Laterality Modality Other 11/04/2018 16:1 1 EST 11/04/2018 16:40 EST Narrative 11/04/2018 16:40 EST XRAY FEEDING TUBE PLACEMENT ??11/04/2018 4:11 PM SIGNS AND SYMPTOMS/COMMENTS: ??Confirm feeding tube placement COMPARISON: ??None TECHNIQUE: A single AP view of the upper abdomen was obtained. FINDINGS: A transesophageal tube terminates in the region of the gastric fundus/body. For a more dedicated review of the findings within the chest, please refer to the dedicated report on the chest x-ray obtained prior to the current study. The bowel gas pattern is nonspecific. IMPRESSION: Satisfactory placement of an NG tube. I have personally reviewed the images and the above interpretation and agree with the findings. Procedure Note Kana Cowan MD - 11/04/2018 XRAY FEEDING TUBE PLACEMENT 11/04/2018 4:11 PM SIGNS AND SYMPTOMS/COMMENTS: Confirm feeding tube placement COMPARISON: None TECHNIQUE: A single AP view of the upper abdomen was obtained. FINDINGS: A transesophageal tube terminates in the region of the gastric fundus/body. For a more dedicated review of the findings within the chest, please refer to the dedicated report on the chest x-ray obtained prior to the current study. The bowel gas pattern is nonspecific. IMPRESSION: Satisfactory placement of an NG tube. I have personally reviewed the images and the above interpretation and agree with the findings. Aviva Alexander MD IMG DIAGNOSTIC IMAGI NG ORDERABLES * PORTABLE CHEST 1 VIEW (11/04/2018 16:11 EST) Anatomical Region Laterality Modality Other 11/04/2018 16:1 1 EST 11/04/2018 17:17 EST Narrative 11/04/2018 17:17 EST PORTABLE CHEST 1 VIEW ??11/04/2018 4:11 PM Clinical History/Comments: Hypoxia and sepsis, evaluate ett placement Comparison: Outside chest x-rays performed 5 and 7 hours prior. And the prior outside chest CT from November 03, 2017 Findings: Single semiupright portable AP view of the chest. Lines/tubes: ??An endotracheal tube terminates in the mid trachea. A transesophageal sump tube terminates outside the [id number] with the side port in the gastric fundus and the tip beyond the GE junction. Soft tissues and bones: No significant abnormalities. Cardiac and mediastinal contours: Normal. Lungs: There is near complete opacification of the right hemithorax, with a few lung markings near the right hilum and along the right heart border. The left lung volume is low and there are patchy airspace opacities. The pulmonary vasculature is indistinct.. Pleura: The right diaphragm is completely obscured. The left costophrenic angle is obscured. There is no evidence of pneumothorax, but one cannot be excluded on this non-upright radiograph. Impression: 1. ??Satisfactory placement of support lines and tubes. 2. ??Near complete opacification of the right hemithorax and obscuration of the right diaphragm, this could reflect near complete right lung consolidation and airless lung related to the consolidation, resulting from an associated pleural effusion not evident on the prior CT.. 3. ??The left lung volume with patchy airspace opacity could reflect edema, infection, or ARDS. 4. ??Possible small left pleural effusion. I have personally reviewed the images and the above interpretation and agree with the findings. Procedure Note Magdi Goins MD - 11/04/2018 PORTABLE CHEST 1 VIEW 11/04/2018 4:11 PM Clinical History/Comments: Hypoxia and sepsis, evaluate ett placement Comparison: Outside chest x-rays performed 5 and 7 hours prior. And the prior outside chest CT from November 03, 2017 Findings: Single semiupright portable AP view of the chest. Lines/tubes: An endotracheal tube terminates in the mid trachea. A transesophageal sump tube terminates outside the [id number] with the side port in the gastric fundus and the tip beyond the GE junction. Soft tissues and bones: No significant abnormalities. Cardiac and mediastinal contours: Normal. Lungs: There is near complete opacification of the right hemithorax, with a few lung markings near the right hilum and along the right heart border. The left lung volume is low and there are patchy airspace opacities. The pulmonary vasculature is indistinct.. Pleura: The right diaphragm is completely obscured. The left costophrenic angle is obscured. There is no evidence of pneumothorax, but one cannot be excluded on this non-upright radiograph. Impression: 1. Satisfactory placement of support lines and tubes. 2. Near complete opacification of the right hemithorax and obscuration of the right diaphragm, this could reflect near complete right lung consolidation and airless lung related to the consolidation, resulting from an associated pleural effusion not evident on the prior CT.. 3. The left lung volume with patchy airspace opacity could reflect edema, infection, or ARDS. 4. Possible small left pleural effusion. I have personally reviewed the images and the above interpretation and agree with the findings. Mita Parra MD IMG DIAGNOSTIC IMAGI NG ORDERABLES * HOLD BLUE TOP (11/04/2018 16:06 EST) [facility] Hold Blue Top Sample for coagulation will be discarded after 4 hours 11/04/2018 17:16 EST [facility] BLOOD SPECIMEN / Unknown 11/04/2018 16:06 EST 11/04/2018 16:17 EST Mita Parra MD LAB INFO SERVICE AND SUPPORT & PHONE RESULT [facility] [address] [place] [address] * (ABNORMAL) COMPLETE BLOOD COUNT AND DIFFERENTIAL (11/04/2018 16:06 EST) [facility] WBC 23.31(H) 4.0 - 10.4 K/cmm 11/04/2018 16:53 EST [facility] RBC 4.34(L) 4.36 - 5.78 M/cmm 11/04/2018 16:53 [facility] Hemoglobin 12.2(L) 13.8 - 17.3 gm/dl 11/04/2018 16:53 [facility] HCT 36.6(L) 39.5 - 50.2 % 11/04/2018 16:53 [facility] MCV 84 81 - 95 fl 11/04/2018 16:53 [facility] MCH 28.1 27.6 - 33.0 pg 11/04/2018 16:53 [facility] MCHC 33.3 32.8 - 36.4 gm/dl 11/04/2018 16:53 [facility] RDW-CV 15.8(H) <14.2 % 11/04/2018 16:53 [facility] RDW-SD 49.1(H) <46.0 fl 11/04/2018 16:53 [facility] PLT 271 141 - 377 K/cmm 11/04/2018 16:53 [facility] MPV 12.7 9.5 - 12.7 fl 11/04/2018 16:53 [facility] Neutrophils 58.0 % 11/05/2018 12:25 [facility] % Bands 33.0 % 11/05/2018 12:25 [facility] Lymphocytes 5.0 % 11/05/2018 12:25 [facility] Monocytes 3.0 % 11/05/2018 12:25 [facility] % Metamyelocytes 1.0 % 11/05/19 19 12:25 [facility] ABS Neutrophils 13.52(H) 2.20 - 8.85 K/cmm 11/05/2018 12:25 [facility] ABS Bands 7.69 K/cmm 11/05/2018 12:25 [facility] ABS Lymphs 1.17 1.09 - 3.30 K/cmm 11/05/2018 12:25 [facility] ABS Monocytes 0.70 0.1 - 0.8 K/cmm 11/05/2018 12:25 [facility] ABS Metamyelocytes 0.23 K/cmm 11/05/2018 12:25 [facility] Differential Comment Rev'd by Pathologist 11/05/2018 12:25 [facility] Schistocytes Increased schistocytes are seen but less than 1% (1+) of the RBCs. 11/05/2018 12:25 [facility] [place] Cells 2+ 11/05/2018 12:25 [facility] Target Cells 2+ 11/05/2018 12:25 [facility] [place]le Bodies Present 11/05/2018 12:25 [facility] Toxic Granulation Present 019 12:25 [facility] Smudge Cells Present 11/05/2018 12:25 [facility] Type of Diff: Manual 11/05/2018 12:25 [facility] Blood specimen (specimen) BLOOD SPECIMEN / Unknown 11/04/2018 16:06 EST 11/04/2018 16:17 EST Mita Parra MD PACKAGES & DNA PROBE ORDERABLES Performing Organization Address [facility] Co de Phone Number [facility] [address] [place] [address] * BILIRUBIN, TOTAL (11/04/2018 16:06 EST) Bilirubin, Total 0.8 <1.4 mg/dl 11/04/2018 16:39 [facility] Comment: Slight hemolysis Results may be affected due to hemolysis. Blood specimen (specimen) BLOOD SPECIMEN / Unknown 11/04/2018 16:06 EST 11/04/2018 16:17 EST Mita Parra MD CHEMISTRY & BLOOD GA S ORDERABLES Performing Organization Address [facility]/ZIP Co de Phone Number [facility] [address] [place] [address] * (ABNORMAL) AST (11/04/2018 16:06 EST) AST 49(H) 15 - 46 U/L 11/04/2018 16:39 [facility] Comment: Slight hemolysis Results may be affected due to hemolysis. Blood specimen (specimen) BLOOD SPECIMEN / Unknown 11/04/2018 16:06 EST 11/04/2018 16:17 EST Mita Parra MD CHEMISTRY & BLOOD GA S ORDERABLES Performing Organization Address [facility] Co de Phone Number [facility] [address] [place] [address] * ALT (11/04/2018 16:06 EST) ALT 34 21 - 72 U/L 11/04/2018 16:39 EST [facility] Comment: Slight hemolysis Results may be affected due to hemolysis. Blood specimen (specimen) BLOOD SPECIMEN / Unknown 11/04/2018 16:06 EST 11/04/2018 16:17 EST Mita Parra MD CHEMISTRY & BLOOD GA S ORDERABLES Performing Organization Address [facility] Co de Phone Number [facility] [address] [place] [address] * ALKALINE PHOSPHATASE (11/04/2018 16:06 EST) Total Alkaline Phosphatase 56 38 - 126 U/L 11/04/2018 16:39 EST [facility] Comment: Slight hemolysis Hemolysis will decrease ALKP result Suggest re-evaluation if clinically indicated Blood specimen (specimen) BLOOD SPECIMEN / Unknown 11/04/2018 16:06 EST 11/04/2018 16:17 EST Mita Parra MD CHEMISTRY & BLOOD GA S ORDERABLES Performing Organization Address City/[facility] Co de Phone Number [facility] [address] [place] [address] * CREATININE (11/04/2018 16:06 EST) Creatinine 1.09 0.66 - 1.25 mg/dl 11/04/2018 16:39 EST [facility] Comment:Slight hemolysis GFR, Calculated 81 >60 ml/min/1.7 3m2 11/04/2018 16:39 EST [facility] Comment: eGFR calculated using CKD-EPI equation for non Americans. Multiply eGFR by 1.16 for Americans. Blood specimen (specimen) BLOOD SPECIMEN / Unknown 11/04/2018 16:06 EST 11/04/2018 16:17 EST Mita Parra MD CHEMISTRY & BLOOD GA S ORDERABLES Performing Organization Address [facility] Co de Phone Number [facility] [address] [place] [address] * BUN (11/04/2018 16:06 EST) BUN 26 10 - 26 mg/dl 11/04/2018 16:39 EST [facility] Comment: Slight hemolysis Results may be affected due to hemolysis. Blood specimen (specimen) BLOOD SPECIMEN / Unknown 11/04/2018 16:06 EST 11/04/2018 16:17 EST Mita Parra MD CHEMISTRY & BLOOD GA S ORDERABLES Performing Organization Address [facility] Co de Phone Number [facility] [address] [place] [address] * (ABNORMAL) SCREENING GLUCOSE (11/04/2018 16:06 EST) Glucose, Screening 103(H) 70 - 100 mg/dl 11/04/2018 16:39 EST [facility] Comment: Slight hemolysis Results may be affected due to hemolysis. Blood specimen (specimen) BLOOD SPECIMEN / Unknown 11/04/2018 16:06 EST 11/04/2018 16:17 EST Mita Parra MD CHEMISTRY & BLOOD GA S ORDERABLES Performing Organization Address [facility] Co de Phone Number [facility] [address] [place] [address] * PHOSPHORUS (11/04/2018 16:06 EST) Phosphorus 4.0 2.5 - 4.5 mg/dl 11/04/2018 16:39 EST [facility] Comment: Slight hemolysis Results may be affected due to hemolysis. Blood specimen (specimen) BLOOD SPECIMEN / Unknown 11/04/2018 16:06 EST 11/04/2018 16:17 EST Mita Parra MD CHEMISTRY & BLOOD GA S ORDERABLES Performing Organization Address [facility]/ZIP Co de Phone Number [facility] [address] [place] [address] * MAGNESIUM (11/04/2018 16:06 EST) Magnesium 2.3 1.7 - 2.8 mg/dl 11/04/2018 16:39 [facility] Comment: Slight hemolysis Results may be affected due to hemolysis. Blood specimen (specimen) BLOOD SPECIMEN / Unknown 11/04/2018 16:06 EST 11/04/2018 16:17 EST Mita Parra MD CHEMISTRY & BLOOD GA S ORDERABLES Performing Organization Address [facility]/[place] de Phone Number [facility] [address] [place] [address] * (ABNORMAL) ELECTROLYTES (11/04/2018 16:06 EST) Sodium 139 136 - 145 mEq/L 11/04/2018 16:39 [facility] Comment:Slight hemolysis Potassium 5.4(H) 3.5 - 5.0 mEq/L 11/04/2018 16:39 [facility] Comment: Slight hemolysis Hemolysis may elevate potassium result. Chloride 111(H) 96 - 110 mEq/L 11/04/2018 16:39 [facility] Comment:Slight hemolysis CO2 20(L) 22 - 32 mEq/L 11/04/2018 16:39 [facility] Comment:Slight hemolysis Blood specimen (specimen) BLOOD SPECIMEN / Unknown 11/04/2018 16:06 EST 11/04/2018 16:17 EST Mita Parra MD CHEMISTRY & BLOOD GA S ORDERABLES Performing Organization Address [facility] Co de Phone Number [facility] [address] [place] [address] * (ABNORMAL) CALCIUM (11/04/2018 16:06 EST) Calcium 7.7(L) 8.5 - 10.5 mg/dl 11/04/2018 16:39 EST [facility] Comment:Slight hemolysis Calculated Calcium 8.6 8.5 - 10.5 mg/dl 11/04/2018 16:39 EST [facility] Blood specimen (specimen) BLOOD SPECIMEN / Unknown 11/04/2018 16:06 EST 11/04/2018 16:17 EST Mita Parra MD CHEMISTRY & BLOOD GA S ORDERABLES Performing Organization Address [facility] Co de Phone Number [facility] [address] [place] [address] * THYROID CASCADE (11/04/2018 16:06 EST) TSH 1.13 0.47 - 4.68 uIU/ml 11/04/2018 17:11 [facility] Comment: Slight hemolysis TSH cascade is not recommended for patients in which pituitary or hypothalamic disorders are suspected. The results of this assay can be falsely lowered due to the consumption of Biotin. Blood specimen (specimen) BLOOD SPECIMEN / Unknown 11/04/2018 16:06 EST 11/04/2018 16:17 EST Mita Parra MD CHEMISTRY & BLOOD GA S ORDERABLES Performing Organization Address City/[facility] Co de Phone Number [facility] [address] [place] [address] * LIPASE (11/04/2018 16:06 EST) Lipase <15 <251 U/L 11/04/2018 16:39 EST [facility] Comment:Slight hemolysis Blood specimen (specimen) BLOOD SPECIMEN / Unknown 11/04/2018 16:06 EST 11/04/2018 16:17 EST Mita Parra MD CHEMISTRY & BLOOD GA S ORDERABLES Performing Organization Address City/[facility]/ZIP Co de Phone Number [facility] [address] [place] [address] * (ABNORMAL) ALBUMIN (11/04/2018 16:06 EST) Albumin 2.9(L) 3.4 - 4.9 g/dl 11/04/2018 16:39 [facility] Comment: Slight hemolysis Results may be affected due to hemolysis. Blood specimen (specimen) BLOOD SPECIMEN / Unknown 11/04/2018 16:06 EST 11/04/2018 16:17 EST Mita Parra MD CHEMISTRY & BLOOD GA S ORDERABLES Performing Organization Address [facility] Co de Phone Number [facility] [address] [place] [address] * PROCALCITONIN, INFECTIOUS DISEASE USE ONLY (11/04/2018 16:06 EST) Pathologist [facility] Procalcitonin, Infectious Disease Use Only 21.02 ng/ml 11/05/2018 8:27 [facility] Comment: Procalcitonin levels <0.5 ng/ml represent a low risk of severe sepsis and/or septic shock. Blood specimen (specimen) BLOOD SPECIMEN / Unknown 11/04/2018 16:06 EST 11/04/2018 16:17 EST Mita Parra MD CHEMISTRY & BLOOD GA S ORDERABLES Performing Organization Address [facility] Co de Phone Number [facility] [address] [place] [address] * (ABNORMAL) BLOOD GAS, G3 ISTAT (11/04/2018 16:00 EST) pH, i-STAT 7.26(L) 7.35 - 7.45 11/04/2018 16:09 [facility] pCO2, i-STAT 43 35 - 45 mmHg 11/04/2018 16:09 [facility] pO2, i-STAT 88 80 - 105 mmHg 11/04/2018 16:09 [facility] TCO2, i-STAT 21(L) 23 - 27 mEq/L 11/04/2018 16:09 [facility] O2 Saturation 95 95 - 98 % 11/04/2018 16:09 [facility] Base Deficit, i-STAT 7 11/04/2018 16:09 [facility] Sample Type ARTERIAL 11/04/2018 16:09 [facility] director of career resources ID [phone] 11/04/2018 16:09 [facility] Comment: Test Performed by Respiratory For non-arterial reference ranges, please see ISTAT procedure. BLOOD SPECIMEN / Unknown 11/04/2018 16:00 EST 11/04/2018 16:09 EST Blayne Armstrong DO CHEMISTRY & BLOOD GA S ORDERABLES Performing Organization Address [facility] Co de Phone Number [facility] [address] [place] [address] * BACTERIAL CULTURE, BLOOD (11/04/2018 15:56 EST) Result No growth 11/09/2018 6:50 EST [facility] Blood specimen (specimen) BLOOD SPECIMEN / Unknown 11/04/2018 15:56 EST 11/04/2018 16:56 EST Comment:Right~Hand Mita Parra MD MICROBIOLOGY - GENER AL ORDERABLES Performing Organization Address City/[facility]/ZIP Co de Phone Number [facility] [address] [place] [address] * BACTERIAL CULTURE, BLOOD (11/04/2018 15:56 EST) Result No growth 11/09/2018 6:50 EST [facility] Blood specimen (specimen) BLOOD SPECIMEN / Unknown 11/04/2018 15:56 EST 11/04/2018 16:55 EST Comment:Left~Hand Mita Parra MD MICROBIOLOGY - GENER AL ORDERABLES Performing Organization Address [facility]/ZIP Co de Phone Number [facility] [address] [place] [address] * MRSA PCR (11/04/2018 15:30 EST) Result Methicillin susceptible Staphylococcus aureus (MSSA) DNA detected by PCR. 11/04/2018 20:13 EST [facility] Specimen of unknown material (specimen) NASAL ROUTE / Unknown 11/04/2018 15:30 EST 11/04/2018 16:42 EST Mita Parra MD MICROBIOLOGY - GENER AL ORDERABLES [facility] [address] [place] [address] * BACTERIAL CULTURE/SMEAR, RESPIRATORY (11/04/2018 15:30 EST) Gram Smear Result Few Polys 11/04/2018 18:11 [facility] Gram Smear Result No bacteria seen 11/04/2018 18:11 [facility] Result No growth 11/06/2018 7:57 [facility] Specimen of unknown material (specimen) (ETT Aspirate) 11/04/2018 15:30 EST 11/04/2018 16:42 EST Mita Parra MD MICROBIOLOGY - GENER AL ORDERABLES Performing Organization Address City/[facility]/ZIP Co de Phone Number [facility] [address] [place] [address] * INPATIENT/OUTPATIENT INFLUENZA, RSV PCR (11/04/2018 15:30 EST) Flu A RNA Result Negative 11/04/2018 17:14 [facility] Flu B RNA Result Negative 11/04/2018 17:14 [facility] RSV RNA Result Negative 11/04/2018 17:14 [facility] Specimen of unknown material (specimen) TOPOGRAPHY UNKNOWN / Unknown 11/04/2018 15:30 EST 11/04/2018 16:31 EST Mita Parra MD MICROBIOLOGY - GENER AL ORDERABLES [facility] [address] [place] [address] * (ABNORMAL) GLUCOSE, GLUCOMETER (11/04/2018 15:10 EST) Glucose, Fingerstick 125(H) 70 - 100 mg/dl 11/04/2018 15:15 EST [facility] Manager Of Internal ID [id number] 11/04/2018 15:15 EST [facility] Comment:Test Performed by [facility] BLOOD SPECIMEN / Unknown 11/04/2018 15:10 EST 11/04/2018 15:15 EST Blayne Armstrong DO CHEMISTRY & BLOOD GA S ORDERABLES [facility] [address] [place] [address] documented in this encounter Visit Diagnoses Diagnosis Septic shock due to streptococcal infection (HCC-CMS)- Primary Streptococcal infection Sepsis, due to unspecified organism Septic shock due to streptococcal infection ([facility]) Streptococcal infection Community acquired pneumonia of right lung, unspecified part of lung Acute respiratory failure with hypoxia ([facility]) Acute respiratory failure Pneumonia of right lung due to Streptococcus pneumoniae ([facility]) CRISPIN (acute kidney injury) ([facility]) Acute kidney failure, unspecified Hypernatremia Hyperosmolality and/or hypernatremia Hypokalemia Hypopotassemia documented in this encounter Administered Medications Inactive Administered Medications - up to 3 most recent administrations Medication Order MAR Action Action Date Dose Rate Site acetaminophen (TYLENOL) solution unit dose cup 650 mg 650 mg, oral, EVERY 6 HOURS PRN, Starting on [place] 11/04/18 at 2134, Until 11/10/18 at 1354, Pain, Routine Given 11/08/2018 13:30 EST 650 mg Given 11/05/2018 23:58 EST 650 mg Given 11/05/2018 16:11 EST 650 mg acetaminophen (TYLENOL) tablet 650 mg 650 mg, oral, EVERY 6 HOURS PRN, Starting on [place] 11/04/18 at 2134, Until 11/10/18 at 1354, Pain, Routine Given 11/09/2018 20:01 EST 650 mg Given 11/09/2018 8:11 EST 650 mg Given 11/08/2018 20:09 EST 650 mg ascorbic acid (vitamin C) (VITAMIN C) 1,500 mg in sodium chloride (NS) 0.9 % 150 mL infusion high dose 1,500 mg (1.5 g), intravenous, Administer over 30 Minutes, EVERY 6 HOURS, First dose on Thu11/04/18 at 1700, Until Discontinued, Routine Given 11/08/2018 5:09 EST 1,500 mg Given 11/07/2018 22:33 EST 1,500 mg Given 11/07/2018 18:21 EST 1,500 mg azithromycin (ZITHROMAX) 500 mg in dextrose 5% (D5W) 250 mL IVPB 500 mg, intravenous, Administer over 60 Minutes, DAILY, 7 doses, First dose on Thu11/05/18 at 0900, Last dose on Thu11/11/18 at 0900, Routine Given 11/10/2018 9 :20 EST 500 mg Given 11/09/2018 8:12 EST 500 mg Given 11/08/2018 8:20 EST 500 mg calcium carbonate (TUMS) 200 mg calcium (500 mg) per chewable tablet tablet,chewable 1 Tab 1 Tablet, oral, 4 TIMES DAILY PRN, Starting on Thu11/09/18 at 0155, Until Thu11/10/18 at 1354, Heartburn, Indigestion, Routine cefTRIAXone (ROCEPHIN) 2,000 mg in sodium chloride (NS MBP) 50 mL IVPB 2,000 mg, intravenous, Administer over 30 Minutes, DAILY, 7 doses, First dose on Thu11/05/18 at 1230, Last dose on Thu11/11/18 at 0900, Routine Given 11/10/2018 8:22 EST 2,000 mg Given 11/09/2018 8:12 EST 2,000 mg Given 11/08/2018 10:07 EST 2,000 mg chlorothiazide (DIURIL) 500 mg in dextrose 5% (D5W) 50 mL IVPB 500 mg, intravenous, Administer over 30 Minutes, EVERY 12 HOURS, First dose on Thu11/06/18 at 1000, Until Discontinued, Routine Given 11/07/2018 8:35 EST 500 mg Given 11/06/2018 20:29 EST 500 mg Given 11/06/2018 10:25 EST 500 mg dexmedetomidine in 0.9 % NaCl (PRECEDEX) 400 mcg/100 mL infusion 0.2-1.4 mcg/kg/hr ? 121.3 kg (6.065-42.455 mL/hr, rounded to 6.1-42.5 mL/hr), intravenous, CONTINUOUS, Starting on 11/06/18 at 0430, Until 11/08/18 at 0924, Routine Rate Change-ICU/L&D Only 11/08/2018 5:08 EST 0.3 mcg/kg/hr 9.1 mL/hr Rate Documented 11/08/2018 5:00 EST 0.501 mcg/kg/hr 15.2 m L/hr Rate Change-ICU/L&D Only 11/08/2018 4:48 EST 0.5 mcg/kg/hr 15.2 mL/hr dextrose 5 % (D5W) infusion at 125 mL/hr, intravenous, CONTINUOUS, Starting on 11/07/18 at 0845, Until 11/07/18 at 1752, Routine Rate Documented 11/07/2018 15:00 EST 125 mL/hr Rate Documented 11/07/2018 14:00 EST 125 mL/hr Rate Documented 11/07/2018 13:00 EST 125 mL/hr docusate (COLACE) liquid 100 mg 100 mg, per ng tube, 2 TIMES DAILY, First dose on [place] 11/04/18 at 2100, Until Discontinued, Routine Given 11/04/2018 20:41 EST 100 mg docusate sodium (COLACE) capsule 100 mg 100 mg, oral, 2 TIMES DAILY, First dose on [place] 11/04/18 at 2100, Until Discontinued, Routine Given 11/07/2018 20:15 EST 1 00 mg enoxaparin (LOVENOX) injection 40 mg 40 mg, subcutaneous, DAILY, First dose on [place] 11/04/18 at 1900, Until Discontinued, Routine Given 11/10/2018 8:29 EST 40 mg Given 11/09/2018 8:11 EST 40 mg Given 11/08/2018 8:26 EST 40 mg famotidine (PEPCID) injection 20 mg 20 mg, intravenous, 2 TIMES DAILY, First dose on [place] 11/04/18 at 2100, Until Discontinued, Routine Given 11/06/2018 8:12 EST 20 mg Given 11/05/2018 20:33 EST 20 mg Given 11/05/2018 8:19 EST 20 mg fentaNYL citrate (PF) injection 50 mcg 50 mcg, intravenous, EVERY 1 HOUR PRN, Starting on [place] 11/04/18 at 1715, Until 11/06/18 at 0859, Other, Routine Given 11/04/2018 18:59 EST 50 mcg furosemide (LASIX) injection 40 mg 40 mg, intravenous, EVERY 6 HOURS, 16 doses, First dose on Thu11/05/18 at 0745, Last dose on Thu11/09/18 at 0145, Routine Given 11/05/2018 19:19 EST 40 mg Given 11/05/2018 13:00 EST 40 mg Given 11/05/2018 8:19 EST 40 mg furosemide (LASIX) injection 40 mg 40 mg, intravenous, 3 TIMES DAILY, First dose (after last modification) on 11/06/18 at 0900, Until Discontinued, Routine Given 11/06/2018 8:12 EST 40 mg furosemide (LASIX) injection 40 mg 40 mg, intravenous, NOW X1, 1 dose, On Thu11/08/18 at 0600, Routine Given 11/08/2018 5:50 EST 40 mg furosemide (LASIX) injection 60 mg 60 mg, intravenous, 3 TIMES DAILY, First dose (after last modification) on 11/06/18 at 1400, Until Discontinued, Routine Given 11/07/2018 8:11 EST 60 mg Given 11/06/2018 20:30 EST 60 mg Given 11/06/2018 13:57 EST 60 mg haloperidol lactate (HALDOL) 5 mg/mL injection 1 dose, Starting on 11/06/18 at 0838, Until 11/06/18 at 0849 haloperidol lactate (HALDOL) injection 4 mg 4 mg, intravenous, NOW X1, 1 dose, On 11/06/18 at 0915, STAT Given 11/06/2018 8:49 EST 4 mg haloperidol lactate (HALDOL) injection 4 mg 4 mg, intravenous, NOW X1, 1 dose, On 11/06/18 at 0915, STAT Given 11/06/2018 9:11 EST 4 mg haloperidol lactate (HALDOL) injection 4 mg 4 mg, intravenous, EVERY 6 HOURS PRN, Starting on Thu11/07/18 at 0307, Until Thu11/09/18 at 1209, Agitation, Routine Given 11/07/2018 3:09 EST 4 mg haloperidol lactate (HALDOL) injection 8 mg 8 mg, intravenous, NOW X1, 1 dose, On Thu11/07/18 at 0500, Routine Given 11/07/2018 5:00 EST 8 mg hydroCORTisone sodium succinate (PF) (SOLU-CORTEF) injection 50 mg 50 mg, intravenous, EVERY 6 HOURS, First dose on [place] 11/04/18 at 1800, Until Discontinued, Routine Given 11/06/2018 5:56 EST 50 mg Given 11/05/2018 23:51 EST 50 mg Given 11/05/2018 18:40 EST 50 mg HYDROmorphone injection (DILAUDID) 0.5 mg/1 mL syringe 0.2 mg 0.2 mg, intravenous, EVERY 4 HOURS, First dose on 11/06/18 at 0915, Until Discontinued, Routine Given 11/06/2018 12:46 EST 0.2 mg Given 11/06/2018 9:15 EST 0.2 mg indapamide (LOZOL) tablet 5 mg 5 mg, oral, DAILY, First dose on Thu11/05/18 at 0900, Until Discontinued, Routine Given 11/05/2018 8:47 EST 5 mg indapamide (LOZOL) tablet 5 mg 5 mg, oral, DAILY, First dose on 11/07/18 at 1400, Until Discontinued, Routine Given 11/07/2018 15:03 EST 5 mg ipratropium-albuterol (DUONEB) 0.5 mg-3 mg(2.5 mg base)/3 mL nebulizer solution 3 mL 3 mL, nebulization, EVERY 4 HOURS PRN, Starting on Thu11/08/18 at 0530, Until Thu11/10/18 at 1354, Wheezing, Routine Given 11/08/2018 5:53 EST 3 mL melatonin tablet 5 mg 5 mg, oral, AT BEDTIME, First dose on Thu11/05/18 at 2100, Until Discontinued, Routine Given 11/08/2018 21:11 EST 5 mg Given 11/07/2018 20:15 EST 5 mg Given 11/05/2018 20:33 EST 5 mg methylPREDNISolone sod suc(PF) (SOLU-MEDROL) injection 20 mg 20 mg, intravenous, NOW X1, 1 dose, On 11/06/18 at 1000, Routine Given 11/06/2018 10:25 EST 20 mg methylPREDNISolone sod suc(PF) (SOLU-MEDROL) injection 40 mg 40 mg, intravenous, DAILY, First dose on 11/07/18 at 0900, Until Discontinued, Routine Given 11/07/2018 8:09 EST 40 mg NORepinephrine (LEVOPHED) 8 mg in D5W 250 mL infusion 2-30 mcg/min (3.75-56.25 mL/hr, rounded to 3.8-56.3 mL/hr), intravenous, CONTINUOUS, Starting on [place] 11/04/18 at 1615, Until 11/08/18 at 0924, Routine Rate Documented 11/05/2018 3:00 EST 2 mcg/min 3.8 mL/hr Rate Documented 11/05/2018 2:00 EST 2 mcg/min 3.8 mL/hr Rate Documented 11/05/2018 1:00 EST 2 mcg/min 3.8 mL/hr OLANZapine (ZYPREXA) tablet 10 mg 10 mg, oral, Once (Without Time Specified), 1 dose, Starting on 11/07/18 at 0833, Until 11/07/18 at 0910, Routine Given 11/07/2018 9:10 EST 10 mg ondansetron (ZOFRAN-ODT) disintegrating tablet 4 mg 4 mg, oral, NOW X1, 1 dose, On Thu11/10/18 at 0615, Routine Given 11/10/2018 6:32 EST 4 mg piperacillin-tazobactam 4.5 g in sodium chloride (NS MBP) 100 mL IVPB 4.5 g, intravenous, Administer over 4 Hours, EVERY 8 HOURS, 21 doses, First dose on [place] 11/04/18 at 1645, Last dose on [place] 11/11/18 at 0800, Controlled antibiotic: has ID approved? No: ICU Patient, Routine Given 11/05/2018 8:19 EST 4.5 g Given 11/04/2018 23:35 EST 4.5 g Given 11/04/2018 18:27 EST 4.5 g potassium chloride (KLOR-CON) packet 40 mEq 40 mEq, oral, NOW X1, 1 dose, On 11/06/18 at 0430, Routine Given 11/06/2018 4:47 EST 40 mEq potassium chloride in water 20 mEq/100 mL infusion 1 dose, Starting on 11/07/18 at 0442, Until 11/07/18 at 0447 potassium chloride in water infusion 20 mEq 20 mEq, intravenous, EVERY 2 HOURS PRN, Starting on Thu11/05/18 at 1553, Until Thu11/09/18 at 0514, hypokalemia, Routine Given 11/07/2018 17:16 EST 20 mEq Given 11/07/2018 15:46 EST 20 mEq Given 11/07/2018 4:10 EST 20 mEq potassium chloride in water infusion 20 mEq 20 mEq, intravenous, NOW X1, 1 dose, On 11/07/18 at 0515, Routine Given 11/07/2018 5:01 EST 20 mEq potassium chloride SA (K-DUR, KLOR-CON) tablet 20 mEq 20 mEq, oral, NOW X1, 1 dose, On Thu11/09/18 at 1530, Routine Given 11/09/2018 16:42 EST 20 mEq predniSONE (DELTASONE) tablet 40 mg 40 mg, oral, DAILY, First dose on 11/08/18 at 0945, Until Discontinued, Routine Given 11/10/2018 8:31 EST 40 mg Given 11/09/2018 8:11 EST 40 mg Given 11/08/2018 10:10 EST 40 mg propOFol (DIPRIVAN) 1000 mg in 100 mL infusion 5-83 mcg/kg/min ? 121.3 kg (3.639-60.4074 mL/hr, rounded to 3.6-60.4 mL/hr), intravenous, CONTINUOUS, Starting on [place] 11/04/18 at 1615, Until 11/06/18 at 0859, Routine Rate Documented 11/06/2018 7:00 EST 20.06 mcg/kg/min 14.6 mL/hr Rate Change-ICU/L&D Only 11/06/2018 6:34 EST 20 mcg/kg/min 14.6 mL/hr Rate Change-ICU/L&D Only 11/06/2018 6:00 EST 30 mcg/kg/min 21.8 mL/hr QUEtiapine (SEROQUEL) tablet 50 mg 50 mg, oral, AT BEDTIME, First dose on Thu11/05/18 at 2100, Until Discontinued, Routine Given 11/05/2018 20:33 EST 5 0 mg sodium bicarbonate 8.4 % (1 mEq/mL) injection 100 mEq 100 mEq, intravenous, NOW X1, 1 dose, On 11/06/18 at 0815, Routine Given 11/06/2018 8:01 EST 100 mEq thiamine (VITAMIN B1) tablet 200 mg 200 mg, oral, 2 TIMES DAILY, First dose on [place] 11/04/18 at 1700, Until Discontinued, Routine Given 11/07/2018 20:15 EST 2 00 mg Given 11/07/2018 9:03 EST 100 mg Given 11/05/2018 20:33 EST 200 mg vancomycin (VANCOCIN) 1,750 mg in dextrose 5% (D5W) 500 mL IVPB 1,750 mg (rounded from 1,819.5 mg = 15 mg/kg ? 121.3 kg), intravenous, Administer over 105 Minutes, EVERY 12 HOURS, 14 doses, First dose (after last modification) on [place] 11/04/18 at 1930, Last dose on [place] 11/11/18 at 0730, Routine Given 11/05/2018 6:49 EST 1,750 mg Given 11/04/2018 19:48 EST 1,750 mg documented in this encounter Active and Recently Administered Medications Times are shown in EST. Scheduled Medication Order 11/08/2018 11/09/2018 11/10/2018 ascorbic acid (vitamin C) (VITAMIN C) 1,500 mg in sodium chloride (NS) 0.9 % 150 mL infusion high dose (CANCELED) 1,500 mg (1.5 g), intravenous, Administer over 30 Minutes, EVERY 6 HOURS, First dose on [place] 11/04/18 at 1700, Until Discontinued, Routine 0509 (Given - Provider: Porfirio Parr RN) azithromycin (ZITHROMAX) 500 mg in dextrose 5% (D5W) 250 mL IVPB 500 mg, intravenous, Administer over 60 Minutes, DAILY, 7 doses, First dose on Thu11/05/18 at 0900, Last dose on [place] 11/11/18 at 0900, Routine 0820 (Given - Provider: Jonel Ren RN) 0812 (Given - Provider: Irineo Hinton, RN) 0920 (Given - Provider: Tessy Coburn, RN) cefTRIAXone (ROCEPHIN) 2,000 mg in sodium chloride (NS MBP) 50 mL IVPB 2,000 mg, intravenous, Administer over 30 Minutes, DAILY, 7 doses, First dose on Thu11/05/18 at 1230, Last dose on [place] 11/11/18 at 0900, Routine 1007 (Given - Provider: Jonel Ren RN) 0812 (Given - Provider: Irineo Hinton, RN) 0822 (Given - Provider: Tessy Coburn, REINALDO) enoxaparin (LOVENOX) injection 40 mg 40 mg, subcutaneous, DAILY, First dose on [place] 11/04/18 at 1900, Until Discontinued, Routine 0826 (Given - Provider: Jonel Ren, RN) 08 (Given - Provider: Irineo Hinton, RN) 0829 (Given - Provider: Tessy Coburn, RN) furosemide (LASIX) injection 40 mg (COMPLETED) 40 mg, intravenous, NOW X1, 1 dose, On Thu11/08/18 at 0600, Routine 0550 (Given - Provider: Porfirio Parr, REINALDO) melatonin tablet 5 mg 5 mg, oral, AT BEDTIME, First dose on Thu11/05/18 at 2100, Until Discontinued, Routine 2111 (Given - Provider: Porfirio Parr RN) 220 (Hold - Provider: Thomas Becker, RN - Reason: Other) ondansetron (ZOFRAN-ODT) disintegrating tablet 4 mg (COMPLETED) 4 mg, oral, NOW X1, 1 dose, On Thu11/10/18 at 0615, Routine 0632 (Given - Provider: Thomas Becker, REINALDO) potassium chloride SA (K-DUR, KLOR-CON) tablet 20 mEq (COMPLETED) 20 mEq, oral, NOW X1, 1 dose, On Thu11/09/18 at 1530, Routine 1642 (Given - Provider: Irineo Hinton, REINALDO) predniSONE (DELTASONE) tablet 40 mg 40 mg, oral, DAILY, First dose on Thu11/08/18 at 0945, Until Discontinued, Routine 1010 (Given - Provider: Jonel Ren, REINALDO) 08 (Given - Provider: Irineo Hinton, RN) 0831 (Given - Provider: Tessy Coburn, REINALDO) Continuous Medication Order 11/08/2018 11/09/2018 11/10/2018 dexmedetomidine in 0.9 % NaCl (PRECEDEX) 400 mcg/100 mL infusion (CANCELED) 0.2-1.4 mcg/kg/hr ? 121.3 kg (6.065-42.455 mL/hr, rounded to 6.1-42.5 mL/hr), intravenous, CONTINUOUS, Starting on 11/06/18 at 0430, Until Thu11/08/18 at 0924, Routine 0000 (Rate Documented - Provider: Porfirio Parr RN)0022 (Rate Change-ICU/L&D Only - Provider: Porfirio Parr RN)0100 (Rate Documented - Provider: Porfirio Parr RN)0200 (Rate Documented - Provider: Porfirio Parr RN)0315 (New Bag - Provider: Porfirio Parr RN)0400 (Rate Documented - Provider: Porfirio Parr RN)0448 (Rate Change-ICU/L&D Only - Provider: Porfirio Parr RN)0500 (Rate Documented - Provider: Porfirio Parr RN)0508 (Rate Change-ICU/L&D Only - Provider: Porfirio Parr RN)0509 (Paused - Provider: Porfirio Parr RN)0552 (Completed - Provider: Porfirio Parr RN) PRN Medication Order 11/08/2018 11/09/2018 11/10/2018 acetaminophen (TYLENOL) solution unit dose cup 650 mg(Linked Group 1) 650 mg, oral, EVERY 6 HOURS PRN, Starting on [place] 11/04/18 at 2134, Until Thu11/10/18 at 1354, Pain, Routine 1330 (Given - Provider: Jonel Ren, RN)2008 (See Alternative - Provider: Porfirio Parr RN) 810 (See Alternative - Provider: Irineo Hinton, RN)2000 (See Alternative - Provider: Thomas Becker, RN) acetaminophen (TYLENOL) tablet 650 mg(Linked Group 1) 650 mg, oral, EVERY 6 HOURS PRN, Starting on [place] 11/04/18 at 2134, Until Thu11/10/18 at 1354, Pain, Routine 1330 (See Alternative - Provider: Jonel Ren, RN)2008 (Given - Provider: Porfirio Parr RN) 810 (Given - Provider: Irineo Hinton, RN)2000 (Given - Provider: Thomas Becker, RN) calcium carbonate (TUMS) 200 mg calcium (500 mg) per chewable tablet tablet,chewable 1 Tab 1 Tablet, oral, 4 TIMES DAILY PRN, Starting on Thu11/09/18 at 0155, Until Thu11/10/18 at 1354, Heartburn, Indigestion, Routine ipratropium-albuterol (DUONEB) 0.5 mg-3 mg(2.5 mg base)/3 mL nebulizer solution 3 mL 3 mL, nebulization, EVERY 4 HOURS PRN, Starting on 11/08/18 at 0530, Until Thu11/10/18 at 1354, Wheezing, Routine 0553 (Given - Provider: Kassi Childress RT) Linked Groups Order Group 1: acetaminophen (TYLENOL) solution unit dose cup 650 mgJump to med 650 mg, oral, EVERY 6 HOURS PRN, Starting on [place] 11/04/18 at 2134, Until 11/10/18 at 1354, Pain, Routine Or acetaminophen (TYLENOL) tablet 650 mgJump to med 650 mg, oral, EVERY 6 HOURS PRN, Starting on [place] 11/04/18 at 2134, Until Thu11/10/18 at 1354, Pain, Routine documented in this encounter Orders Medications Ordered That Eduardo ht Not Have Been Administered Count Last Ordered Date First Ordered Date calcium carbonate (TUMS) 200 mg calcium (500 mg) per chewable tablet tablet,chewable 1 Tab 1 11/09/2018 potassium chloride (KLOR-CON ) packet 40 mEq 1 11/09/2018 polyethylene glycol 3350 (WI RALAX) packet 17 g 1 11/08/2018 furosemide (LASIX) injection 40 mg 1 2018 OLANZapine (ZYPREXA) tablet 10 mg 1 019 potassium chloride (KLOR-CON ) packet 20 mEq 1 11/07/2018 HYDROmorphone injection (DIL AUDID) 0.5 mg/1 mL syringe 0.2 mg 1 11/06/2018 azithromycin (ZITHROMAX) 500 mg in dextrose 5% (D5W) 150 mL IVPB 1 11/05/2018 acetaminophen (TYLENOL) suppository 325 mg 1 11/04/2018 acetaminophen (TYLENOL) tablet 650 mg 1 oseltamivir (TAMIFLU) capsule 30 mg 1 11/04 oseltamivir (TAMIFLU) capsule 75 mg 2 11/04 senna (SENOKOT) tablet 2 Tab 1 11/04/2018 sennosides (SENOKOT) syrup 17.6 mg 1 2018 vancomycin (VANCOCIN) 1,750 mg in dextrose 5% (D5W) 500 mL IVPB 2 11/04/2018 Lab Orders Without Results Count Last Ordered D ate First Ordered Date POCT BLOOD GAS, G3 I-STAT (BASIC ABG VBG) 1 11/06/2018 Nursing Count Last Ordered Date First Orde red Date CONTRAINDICATION TO ANTICOAG ULATION THERAPY 1 11/04/2018 DOCUMENT CAM-ICU 1 11/04/2018 PT Count Last Ordered Date First Orde red Date PT EVALUATION AND TREAT 1 11/04/2018 Respiratory Care Count Last Ordered Date First Ordered Date RESPIRATORY CARE EVALUATION ONLY 7 11/08/19 19 11/07/2018 EXTUBATION 1 11/06/2018 AIRWAY CLEARANCE THERAPY 6 11/04/2018 IV Count Last Ordered Date First Orde red Date IV REQUEST 2 11/09/2018 11/07/2018 Admission Count Last Ordered Date First Orde red Date STATUS: INPATIENT ACUTE ADMISSION 1 019 Transfer Count Last Ordered Date First Orde red Date NOTIFY PPS OF DISCHARGE COMPLETE 1 11/10/19 PPS NOTIFICATION OF PATIENT ARRIVAL ON UNIT 1 11/09/2018 TRANSFER PATIENT 1 11/09/2018 UR PATIENT STATUS CHANGE 1 11/04/2018 Discharge Count Last Ordered Date First Orde red Date DISCHARGE PATIENT 1 11/10/2018 documented in this encounter Additional Health Concerns Infection Onset Date Last Indicated Resolved Time Diarrhea * 11/09/2018 11/09/2018 11/09/2018 12:0 4 EST documented as of this encounter Care Teams Carpenter Repairer Relationship Specialty Start Date End Date Blayne Armstrong DO [address] [place] [address] [address] [place] [id number] PCP - General 11/04/18 documented as of this encounter
[2024-07-29 11:12] LABS: Tissue Transglutaminase IgA <4.0 CU (<20.0)
[2024-07-29 11:15] LABS: Cacao/Cocoa, IgE <0.10 kU/L (<0.70); Milk, IgE <0.10 kU/L (<0.70); Oat, IgE <0.10 kU/L (<0.70); Soybean IgE <0.10 kU/L (<0.70)
== END 2024-07-27 12:26 | disposition home or self-care (01) ==
LOC: LBN 12:25
PROVIDERS: PCP Nurse Practitioner Family; Visit Provider Physician Assistant Surgical
DX: J45.40 Moderate persistent asthma, uncomplicated (principal); J33.9 Nasal polyp, unspecified; D72.10 Eosinophilia, unspecified; J34.0 Abscess, furuncle and carbuncle of nose
CPT/HCPCS: 86003

== ENCOUNTER 2025-05-10 16:57 | Emergency (ER) | payer OTHER, SELFPAY ==
[2025-05-10 16:59] VITALS: BP 142/95; PULSE 113; RESP 18; TEMP 36; O2SAT 95
--- NOTE | 2025-05-10 17:39 | W.ED.GENAD ---
Discharge Plan Disposition Patient Disposition: Home Condition: Stable Discharge Details Clinical Impression: Candidal balanoposthitis Primary Care Provider: Aviva Antoine ED Provider: Arely Flannery Home Meds and New Rx's Prescriptions: New clotrimazole 1 % cream 1 applic topical BID 28 Days Qty: 30 0RF No Action atorvastatin 20 mg tablet 20 mg PO QHS Qty: 90 3RF empagliflozin 25 mg tablet 25 mg PO DAILY Qty: 90 3RF tadalafil 5 mg tablet 5 mg PO DAILY Qty: 90 4RF Dupixent Pen 300 mg/2 mL pen injector 300 mg subcut Q2W Qty: 4 12RF albuterol sulfate 90 mcg/actuation HFA aerosol inhaler 2 puff INHALATION Q6H PRN (Reason: shortness of breath or wheezing) Qty: 8.5 3RF metformin 500 mg tablet 1,000 mg PO BID Qty: 360 3RF montelukast 10 mg tablet 10 mg PO QHS Qty: 90 3RF mupirocin 2 % ointment 1 applic topical BID Qty: 22 0RF sertraline 100 mg tablet 100 mg PO DAILY Qty: 90 3RF triamcinolone acetonide 0.1 % cream 1 applic topical BID PRN (Reason: rash) Qty: 80 1RF budesonide-formoterol [Symbicort] 160-4.5 mcg/actuation HFA aerosol inhaler 2 inh INHALATION DAILY Patient Comments: INHALE 2 PUFFS BY MOUTH TWICE DAILY Discharge Instructions Instructions: Balanitis in adults Additional Instructions: You were seen in the emergency department today for cracking, swelling, and pain in your foreskin, a condition known as balanitis. It is likely due to a candidal yeast infection, one of the common species that live on our skin. When the skin is abraded or damaged it can gain entry and cause this infection. The treatment is a topical ointment called clotrimazole, you will place this on the foreskin and head of the penis twice daily until you are completely better. If you are not improving in the next 1 to 2 weeks your primary care provider should reevaluate you to ensure that there are no changes needed to your medication regimen. Please follow-up with your primary care provider in the next few days to discuss this visit and any symptoms that change, worsen, or persist. Thank you for allowing us to be part of your care. Discharge Data Discharge Date/Time-TO BE ENTERED AT DEPARTURE: 05/10/25 18:00 HPI General Mode of arrival: ambulatory. Date/Time Provider Initiated Documentation: 05/10/25 17:10. Limitations to Documentation: no limitations. Information obtained by: patient and old records reviewed. HPI Narrative: This is a 54-year-old male patient with a history of type 2 diabetes, moderate persistent asthma, hyperlipidemia, who is presenting for concern of a lesion to his penis. The patient reports that a few weeks ago he was vacationing in the [facility], and received oral sex. He states that he has since noticed some cracking and irritation of the skin of his foreskin, which is very tender. He had testing performed at his primary care, states that he had STI testing that was negative, has not noted any vesicular lesions, painless ulcerations, or penile discharge. He is passing urine appropriately, has not had dysuria or urinary frequency. No testicular tenderness. The patient is otherwise in his normal state of health. Related Data Home Medications ?Medication ?Instructions ?Recorded ?Confirmed budesonide-formoterol HFA 160 2 inh inhalation DAILY 04/14/22 05/10/25 mcg-4.5 mcg/actuation aerosol inhaler (Symbicort) atorvastatin 20 mg tablet 20 mg PO QHS #90 tabs 05/03/24 05/10/25 empagliflozin 25 mg tablet 25 mg PO DAILY #90 tabs 12/05/24 05/10/25 dupilumab 300 mg/2 mL subcutaneous 300 mg (2 mL) subcut Q2W #4 mL 12/06/24 05/10/25 pen injector (Cell-A-SpotixJewel Toned) tadalafil 5 mg tablet 5 mg PO DAILY #90 tabs 12/06/24 05/10/25 albuterol sulfate 90 mcg/actuation 2 puff inhalation Q6H PRN 04/18/25 05/10/25 aerosol inhaler shortness of breath or wheezing #8.5 grams metformin 500 mg tablet 1,000 mg (2 x 500 mg) PO BID #360 04/18/25 05/10/25 tabs montelukast 10 mg tablet 10 mg PO QHS #90 tabs 04/18/25 05/10/25 mupirocin 2 % topical ointment 1 applic topical BID #22 grams 04/18/25 05/10/25 sertraline 100 mg tablet 100 mg PO DAILY #90 tabs 04/18/25 05/10/25 triamcinolone acetonide 0.1 % 1 applic topical BID PRN rash #80 04/18/25 05/10/25 topical cream grams clotrimazole 1 % topical cream 1 applic topical BID 4 weeks #30 05/10/25 grams Previous Rx's ?Medication ?Instructions ?Recorded atorvastatin 20 mg tablet 20 mg PO QHS #90 tabs 05/03/24 empagliflozin 25 mg tablet 25 mg PO DAILY #90 tabs 12/05/24 dupilumab 300 mg/2 mL subcutaneous 300 mg (2 mL) subcut Q2W #4 mL 12/06/24 pen injector (Cell-A-SpotixJewel Toned) tadalafil 5 mg tablet 5 mg PO DAILY #90 tabs 12/06/24 albuterol sulfate 90 mcg/actuation 2 puff inhalation Q6H PRN 04/18/25 aerosol inhaler shortness of breath or wheezing #8.5 grams metformin 500 mg tablet 1,000 mg (2 x 500 mg) PO BID #360 04/18/25 tabs montelukast 10 mg tablet 10 mg PO QHS #90 tabs 04/18/25 mupirocin 2 % topical ointment 1 applic topical BID #22 grams 04/18/25 sertraline 100 mg tablet 100 mg PO DAILY #90 tabs 04/18/25 triamcinolone acetonide 0.1 % 1 applic topical BID PRN rash #80 04/18/25 topical cream grams clotrimazole 1 % topical cream 1 applic topical BID 4 weeks #30 05/10/25 grams Allergies Allergy/AdvReac Type Severity Reaction Status Date / Time No Known Allergies Allergy Verified 05/10/25 17:02 General Stated Complaint: GenMedical RAQUEL: 3 Exam Narrative Exam Narrative: Gen: Awake and alert, in no apparent distress HEENT: Non-icteric sclera Neck: Supple Lungs: No apparent respiratory distress, normal respiratory effort. CV: Appears well perfused Abdomen: Non-distended : Normal external male genitalia, uncircumcised, with extensive erythema, induration, and cracking of the foreskin. No penile discharge, no vesicular lesions, no testicular tenderness, no inguinal lymphadenopathy. MSK: Moves 4 extremities without apparent limitation in ROM Skin: Visualized skin without rashes, cyanosis. Neuro: Normal Gait, no obvious focal deficits or facial asymmetry. Speaks in full, clear sentences. Psych: Appropriate for situation. Course Vital Signs Vital signs: Vital Signs Temperature 36.0 C L 05/10/25 16:59 Pulse 113 H 05/10/25 16:59 Respiratory Rate 18 05/10/25 16:59 Blood Pressure 142/95 H 05/10/25 16:59 Pulse Oximetry 95 05/10/25 16:59 Temperature 36.0 C L 05/10/25 16:59 Pulse 113 H 05/10/25 16:59 Respiratory Rate 18 05/10/25 16:59 Blood Pressure 142/95 H 05/10/25 16:59 Pulse Oximetry 95 05/10/25 16:59 Pain Level 0 05/10/25 16:59 Medical Decision Making This is a 54-year-old male patient presenting for evaluation of swelling, inflammation, and cracking of the foreskin. My examination and his history of diabetes is most concerning for candidal balanoposthitis. Other differentials considered include but are not limited to STI, UTI, epididymitis, orchitis, no chancre associated with syphilis, no rash consistent with HSV. No testicular pain to suggest torsion. The patient is systemically well, and this is an isolated complaint. Given the compelling examination for candidal balanoposthitis and his recent negative STI workup, I do not feel that any further laboratory studies are necessary. I provided the patient with a prescription for clotrimazole ointment and counseled him on its twice daily use until his foreskin returns to normal, which may be several weeks. At this time, the patient has had a full medical evaluation and is safe for discharge to home. They are hemodynamically stable, ambulatory, and tolerating PO. They are understanding of the follow-up plan and return precautions. They left our facility without incident. Arely Flannery MD Quality:SDOH Health Related Social Needs: Health related social needs details NA PFSH All Active Problems (Updated 05/10/25 @ 17:41 by Arely Flanneyr MD) Candidal balanoposthitis (Acute) Moderate persistent asthma (Acute) Nasal polyp (Acute) Fibroepithelial polyp (Acute) Eosinophilia (Acute) Dyspnea (Acute) Type 2 diabetes mellitus (Acute) Hyperlipidemia (Acute) Acanthosis nigricans (Acute) Nasal ulcer (Acute) CRISPIN (acute kidney injury) (Acute) Erectile dysfunction associated with vasculopathy (Acute) Medical History (Updated 05/10/25 @ 17:41 by Arely Flannery MD) Lower urinary tract symptoms (LUTS) Former tobacco use Skin tags, multiple acquired removed by Dr Mame Jensen 12/03/18.mg Anxiety Pneumonia Sepsis Surgical History History of root canal procedure Social History (Updated 12/12/23 @ 10:55 by Malena Granados) Smoking/Tobacco Use Status: Former Tobacco Use Quit Date: 09/21/17 Smoking risk assessment performed?: Yes Alcohol Intake: current Alcohol Intake frequency: holidays/special occasions only Drug use: Never Substance use type: does not use Adopted: No Caregiver/Support person: No Foster care: No Household members: none Housing: apartment Number of Children: 2 number of grandchildren: 0 Communication Needs: None Education Level: college Details: some college Do you need help understanding health information?: Never 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 Pets and animals: No Sexually active: No Do you think of yourself as: straight/heterosexual Current gender identity: male What is your relationship status?: How often do you talk on the phone with friends or family?: three or more times per week How often do you get together with friends or relatives?: never How often do you attend baptism or bahai services?: 1-3 times per year Do you belong to any clubs or organized social groups?: yes Panel score (0-1 are the most socially isolated patients): 2 What type of physical activity do you participate in: other Details: work Duration: > 90 minutes/day Frequency: 5-6 times per week Brea/Shinto: Buddhism Special brea needs: No Agree to transfusion: Yes Seatbelt use: always Helmet use: Yes Helmet use: always Drive intox or ride w/intox clark driver: No Do you feel safe at home: Yes Do you feel safe in your relationship?: Yes Victim of physical abuse: No Victim of emotional abuse: No Victim of sexual abuse: No
[2025-05-10 17:50] VITALS: BP 111/71; BP 120/80; PULSE 63; PULSE 72; RESP 16; RESP 18; TEMP 36.6; O2SAT 98
[2025-05-10] MEDS: Clotrimazole 1% 15 GM TUBE TP (18:10)
== END 2025-05-10 18:00 | disposition home or self-care (01) ==
PROVIDERS: Emergency Provider Emergency Medicine; PCP Nurse Practitioner Family
DX: B37.49 Other urogenital candidiasis (principal); E11.9 Type 2 diabetes mellitus without complications
CPT/HCPCS: 99283 ×2